=== PATIENT | male | born 1975 | race Caucasian/White ===

== ENCOUNTER 2022-01-03 16:06 | Inpatient (IN) | payer BC, SELFPAY ==
--- NOTE | ~2022-01-03 | CT_ITS ---
EXAMINATION: CT ABDOMEN AND PELVIS WITHOUT CONTRAST CLINICAL INFORMATION: Left lower quadrant pain. Question diverticulitis. COMPARISON: 08/27/2019 TECHNIQUE: Multidetector volumetric imaging was performed from the superior aspect of the liver through the pubic symphysis. Sagittal and coronal reformatted images were obtained on the technologist's workstation. This CT examination was performed using dose optimization techniques as appropriate, variously including the following: *Automated exposure control *Adjustment of mA and/or kV according to patient size (this includes techniques or standardized protocols for targeted exams where dose is matched to indication/reason for exam; i.e. extremities or head) *Use of iterative reconstruction technique DLP: 872 mGy-cm FINDINGS: LUNG BASES: The visualized lung bases are unremarkable. LIVER, GALLBLADDER, AND BILIARY TREE: The liver is normal in size, shape, and attenuation. No focal hepatic lesion or biliary ductal dilatation is present. The gallbladder is unremarkable with no evidence of radiopaque gallstones, gallbladder wall thickening, or obvious pericholecystic inflammatory changes. PANCREAS: Unremarkable. SPLEEN: Unremarkable. ADRENAL GLANDS: Unremarkable. KIDNEYS AND URETERS: The kidneys are normal in size, shape, and attenuation. No hydronephrosis, hydroureter, or calculi seen. No perinephric stranding. BLADDER: Unremarkable. GASTROINTESTINAL TRACT: Decompressed stomach. Normal caliber small bowel. No obstruction. Normal appendix. Mild wall thickening throughout the left hemicolon with adjacent inflammation. There are scattered colonic diverticula, though this is not the appearance of diverticulitis. ABDOMINAL WALL: No significant hernia is appreciated. LYMPH NODES: Normal. VASCULAR: Normal caliber aorta with mild atherosclerotic calcification noted. Duplicated inferior vena cava. PELVIC VISCERA: The prostate and seminal vesicles are unremarkable. OSSEOUS STRUCTURES: No acute or suspicious osseous abnormality. Mild degenerative change of the spine. CT/CT abdomen pelvis wo con IMPRESSION: Wall thickening and mild adjacent inflammation involving the left hemicolon, suggestive of colitis. Fleischner guidelines were followed.
[2022-01-03 16:20] VITALS: BP 160/92; PULSE 135; RESP 16; TEMP 37.5; O2SAT 97; BMI 33.4
--- NOTE | 2022-01-03 16:24 | ECG_ITS ---
Test Reason : TACHY Blood Pressure : / mmHG Vent. Rate : 130 BPM Atrial Rate : 130 BPM P-R Int : 136 ms QRS Dur : 094 ms QT Int : 308 ms P-R-T Axes : 053 014 037 degrees QTc Int : 453 ms Sinus tachycardia Otherwise normal ECG No previous ECGs available Referred By: Generic ED Physician Electronically Signed By:VIVEK BAEZ MD
[2022-01-03 16:44] LABS: Hematocrit 25.3 % (42.0-52.0); Hemoglobin 7.1 g/dl (14.0-18.0); Mean Corpuscular HGB Conc 28.1 g/dl (31.0-36.0); Mean Corpuscular Volume 67.6 fL (80.0-98.0); Mean Platelet Volume 8.7 fL (9.4-12.4); Platelet Count 623 X10*3/uL (160-400); Red Blood Count 3.74 X10*6/uL (4.60-5.80); Red Cell Distribution Width 18.7 % (11.0-16.0); White Blood Count 11.2 X10*3/uL (4.8-10.8)
[2022-01-03 16:46] LABS: NRBC Pct Auto 3.7 /100WBC (0.0-0.2)
[2022-01-03 17:06] LABS: Alanine Aminotransferase 17 U/L (0-40); Albumin Level 3.3 g/dL (3.5-5.0); Alkaline Phosphatase 71 U/L (39-117); Anion Gap 14 (12-20); Aspartate Amino Transferase 12 U/L (5-37); Bilirubin Total < 0.2 mg/dL (0.0-1.0); Blood Urea Nitrogen 9 mg/dL (9-16); Calcium 8.5 mg/dL (8.4-10.2); Carbon Dioxide 25 mmol/L (22-29); Chloride 98 mmol/L (96-108); Creatinine Clr Calc Pharmacy 86.1; Estimated Glomerular Filt Rate > 60; Glucose Random 195 mg/dL (60-115); Potassium 4.6 mmol/L (3.3-5.1); Sodium 132 mmol/L (135-145); Total Protein 6.5 g/dL (6.5-8.0)
[2022-01-03 17:31] LABS: Band Neutrophils Percent 10 % (3-5); Lymphocytes Absolute Manual 2.6 X10*3/uL (1.2-4.9); Lymphocytes Percent Manual 23 % (20-40); Metamyelocytes Absolute 0.1 X10*3/uL; Metamyelocytes Percent 1 %; Monocytes Absolute Manual 0.9 X10*3/uL (0.1-1.2); Monocytes Percent Manual 8 % (2-11); Myelocytes Absolute 0.3 X10*/uL; Myelocytes Percent 3 %; Neutrophils Absolute Manual 7.3 X10*3/uL (2.0-8.3); Neutrophils Percent Manual 55 % (45-73); Nucleated Red Blood Cells 4 /100WBC (0-0)
[2022-01-03 17:34] LABS: Microcytosis 2+ (15-30) /OIF
[2022-01-03 17:35] LABS: Platelet Estimate INCREASED (NORMAL)
[2022-01-03 17:36] LABS: RBC Morphology NOTED
[2022-01-03 17:38] LABS: Large Platelet PRESENT; Platelet Morphology Comment NORMAL
[2022-01-03 17:39] LABS: Polychromasia 1+ (0-2) /OIF
[2022-01-03 17:42] LABS: Ovalocytes 1+ (5-14) /OIF
[2022-01-03 17:45] LABS: Dohle Bodies PRESENT
[2022-01-03 17:46] LABS: Hypochromasia 3+ (>30) /OIF
--- NOTE | 2022-01-03 18:23 | ED.ABDPAIN ---
HPI - Abdominal Pain General Chief Complaint: Abdominal Pain Stated Complaint: Blood in Stool Time Seen by Provider: 01/03/22 17:31 Source: patient Mode of arrival: ambulatory Limitations: no limitations History of Present Illness HPI narrative: Patient's history of diverticulitis with bleeding requiring blood transfusion comes here for diffuse abdominal pain for last 2 weeks worse in epigastric area and left lower quadrant associated with blood mixed with stool with some clots feels weak and dizzy pain getting worse in last 2 days does not feel hungry. No fever no chills Related Data Home Medications Medication Instructions Recorded Confirmed No Known Home Meds 01/03/22 01/03/22 Allergies Allergy/AdvReac Type Severity Reaction Status Date / Time shellfish derived Allergy Swelling Verified 01/03/22 16:19 Review of Systems Review of Systems Yes all other systems are reviewed and are negative [facility] Social History Social History Advance Directives: No Advance Directives Information Provided: No Physical Exam ED Vital Signs: Vital Signs - 24 hr 01/03/22 16:20 01/03/22 19:40 01/03/22 20:50 Temperature 99.5 F 99 F Pulse Rate 135 H 106 H Respiratory Rate 16 22 H 16 Blood Pressure 160/92 H 143/77 H Pulse Oximetry 97 Oxygen Delivery Method Room Air 01/03/22 21:06 Temperature 98.9 F Pulse Rate 102 H Respiratory Rate 18 Blood Pressure 129/76 Pulse Oximetry Oxygen Delivery Method BMI result Body Mass Index 33.4 Appearance: Alert. Oriented X3. No acute distress. Eyes: Pallor++ ENT: Pharynx normal. Oral Mucosa moist Neck: Normal inspection. Neck supple. CVS: Normal heart rate and rhythm. Pulses normal. Respiratory: No respiratory distress. Equal air entry bilateral, no wheezing/rales/rhonchi Abdomen: Soft , tenderness in left lower quadrant and epigastric area with guarding no rebound tenderness. Bowel sounds are present, no mass palpable, no CVA tenderness rectal: No stool no blood on the finger small hemorrhoids nonbleeding Skin: Skin warm and dry. Normal skin color. Normal skin turgor. Extremities: No lower extremity edema. No calf tenderness Neuro: Oriented X 3. No motor deficit. No sensory deficit.No cerebellar signs , cranial nerves II-XII intact MDM - Abdominal Pain MDM Narrative Medical decision making narrative: Two thousand two hundred Patient with GI bleed with diffuse abdominal pain history of diverticulitis CT scan showed colitis but patient does not have significant diarrhea will admit patient for diverticulitis with GI bleed. Will give patient blood transfusion GI to follow Lab Data Attestation: I reviewed the patient's lab results. Result diagrams: 01/03/22 16:38 01/03/22 16:38 Labs: Lab Results 01/03/22 01/03/22 01/03/22 Range/Units 16:38 16:38 19:08 WBC 11.2 H (4.8-10.8) X10*3/uL RBC 3.74 L (4.60-5.80) X10*6/uL Hgb 7.1 L (14.0-18.0) g/dl Hct 25.3 L (42.0-52.0) % MCV 67.6 L (80.0-98.0) fL MCH 19.0 L (27.0-33.0) pg MCHC 28.1 L (31.0-36.0) g/dl RDW 18.7 H (11.0-16.0) % Plt Count 623 H (160-400) X10*3/uL MPV 8.7 L (9.4-12.4) fL Immature Gran % (Auto) Cancelled Neut % (Auto) Cancelled Lymph % (Auto) Cancelled Sandoval % (Auto) Cancelled Eos % (Auto) Cancelled Baso % (Auto) Cancelled Lymph # (Auto) Cancelled Sandoval # (Auto) Cancelled Eos # (Auto) Cancelled Baso # (Auto) Cancelled Abs Immat Gran (auto) Cancelled Absolute Neuts (auto) Cancelled Absolute Nucleated RBC 0.420 H (0.0-0.012) X10*3/uL Nucleated RBC % (auto) 3.7 H (0.0-0.2) /100WBC Neutrophils % (Manual) 55 (45-73) % Band Neutrophils % 10 H (3-5) % Lymphocytes % (Manual) 23 (20-40) % Monocytes % (Manual) 8 (2-11) % Metamyelocytes % 1 % Myelocytes % 3 % Abs Neuts (Manual) 7.3 (2.0-8.3) X10*3/uL Lymphocytes # (Manual) 2.6 (1.2-4.9) X10*3/uL Monocytes # (Manual) 0.9 (0.1-1.2) X10*3/uL Metamyelocytes # 0.1 X10*3/uL Myelocytes # 0.3 X10*/uL Nucleated RBCs 4 H (0-0) /100WBC Dohle Bodies PRESENT Platelet Estimate INCREASED (NORMAL) Large Platelets PRESENT Plt Morphology Comment NORMAL RBC Morphology NOTED Polychromasia 1+ (0-2) /OIF Hypochromasia 3+ (>30) /OIF Microcytosis 2+ (15-30) /OIF Ovalocytes 1+ (5-14) /OIF Sodium 132 L (135-145) mmol/L Potassium 4.6 (3.3-5.1) mmol/L Chloride 98 (96-108) mmol/L Carbon Dioxide 25 (22-29) mmol/L Anion Gap 14 (12-20) BUN 9 (9-16) mg/dL Creatinine 1.24 (0.5-1.4) mg/dL Estim Creat Clear Calc 86.1 Estimated GFR > 60 Random Glucose 195 H (60-115) mg/dL Lactic Acid (0.5-2.0) mmol/L Calcium 8.5 (8.4-10.2) mg/dL Iron 8 L (45-160) mcg/dL TIBC 340 (228-428) mcg/dL % Saturation 2 L (15-50) % Unsat Iron Binding 332 ug/dL Ferritin 31 (20-250) ng/mL Total Bilirubin < 0.2 (0.0-1.0) mg/dL AST 12 (5-37) U/L ALT 17 (0-40) U/L Alkaline Phosphatase 71 (39-117) U/L Total Protein 6.5 (6.5-8.0) g/dL Albumin 3.3 L (3.5-5.0) g/dL COVID-19 (JOSEPH) Negative (Negative) COVID-19 Clin Com See Note Blood Type Antibody Screen Crossmatch 01/03/22 01/03/22 Range/Units 19:13 19:23 WBC (4.8-10.8) X10*3/uL RBC (4.60-5.80) X10*6/uL Hgb (14.0-18.0) g/dl Hct (42.0-52.0) % MCV (80.0-98.0) fL MCH (27.0-33.0) pg MCHC (31.0-36.0) g/dl RDW (11.0-16.0) % Plt Count (160-400) X10*3/uL MPV (9.4-12.4) fL Immature Gran % (Auto) Neut % (Auto) Lymph % (Auto) Sandoval % (Auto) Eos % (Auto) Baso % (Auto) Lymph # (Auto) Sandoval # (Auto) Eos # (Auto) Baso # (Auto) Abs Immat Gran (auto) Absolute Neuts (auto) Absolute Nucleated RBC (0.0-0.012) X10*3/uL Nucleated RBC % (auto) (0.0-0.2) /100WBC Neutrophils % (Manual) (45-73) % Band Neutrophils % (3-5) % Lymphocytes % (Manual) (20-40) % Monocytes % (Manual) (2-11) % Metamyelocytes % % Myelocytes % % Abs Neuts (Manual) (2.0-8.3) X10*3/uL Lymphocytes # (Manual) (1.2-4.9) X10*3/uL Monocytes # (Manual) (0.1-1.2) X10*3/uL Metamyelocytes # X10*3/uL Myelocytes # X10*/uL Nucleated RBCs (0-0) /100WBC Dohle Bodies Platelet Estimate (NORMAL) Large Platelets Plt Morphology Comment RBC Morphology Polychromasia /OIF Hypochromasia /OIF Microcytosis /OIF Ovalocytes /OIF Sodium (135-145) mmol/L Potassium (3.3-5.1) mmol/L Chloride (96-108) mmol/L Carbon Dioxide (22-29) mmol/L Anion Gap (12-20) BUN (9-16) mg/dL Creatinine (0.5-1.4) mg/dL Estim Creat Clear Calc Estimated GFR Random Glucose (60-115) mg/dL Lactic Acid 1.4 (0.5-2.0) mmol/L Calcium (8.4-10.2) mg/dL Iron (45-160) mcg/dL TIBC (228-428) mcg/dL % Saturation (15-50) % Unsat Iron Binding ug/dL Ferritin (20-250) ng/mL Total Bilirubin (0.0-1.0) mg/dL AST (5-37) U/L ALT (0-40) U/L Alkaline Phosphatase (39-117) U/L Total Protein (6.5-8.0) g/dL Albumin (3.5-5.0) g/dL COVID-19 (JOSEPH) (Negative) COVID-19 Clin Com Blood Type O Positive Antibody Screen NEGATIVE Crossmatch See Detail Discharge Plan Discharge Clinical Impression: Diverticulitis, GI (gastrointestinal bleed), Severe anemia Patient Disposition: Admitted As Inpatient
[2022-01-03 19:32] LABS: Lactic Acid 1.4 mmol/L (0.5-2.0)
[2022-01-03] MEDS: 0.9 % Sodium Chloride 1,000 ML 999 ML IV (19:38)
[2022-01-03] MEDS: Pantoprazole Sodium 40 MG/10 ML VIAL IVPUSH (19:39)
[2022-01-03 19:40] VITALS: RESP 22
[2022-01-03 19:40] LABS: COVID-19 Test Negative (Negative); IDNOW Serial# 16C4AD1C
[2022-01-03] MEDS: ondansetron HCL 4 MG/2 ML VIAL IVPUSH (19:40)
[2022-01-03] MEDS: Morphine Sulfate 2 MG/ML CARTRIDGE 4 MG IVPUSH (19:40)
[2022-01-03] MEDS: Piperacillin Sodium/Tazobactam 3.375 GM in 0.9 % Sodium Chloride 50 ML IV (19:42)
[2022-01-03 20:50] VITALS: BP 143/77; PULSE 106; RESP 16; TEMP 37.2
[2022-01-03 21:06] VITALS: BP 129/76; PULSE 102; RESP 18; TEMP 37.2
--- NOTE | 2022-01-03 21:14 | PHA.MEDREC ---
Pharmacy Consult ? Medication Reconciliation Pharmacy has reviewed the medication reconciliation completed by Kate. Lily Boyd, DarioD
--- NOTE | 2022-01-03 21:46 | P.HPHOSP_ITS ---
History of Present Illness Date of Service: 01/03/22 Chief Complaint: blood in stool 46-year-old male with a past medical history of alcohol abuse, GERD presented to the hospital today with a chief complaint of blood in the stool. Patient reports that over the past 2 weeks he has been having intermittent episodes of bright red blood per rectum. For the past 3 days he has been having increased episodes hence decided to come to the ER for further evaluation. Patient also reports that for the past 3 days he has been having left-sided abdominal tenderness; associated nausea and vomiting. Denies any fevers and chills. Reports diarrhea over the past couple days. Denies being on antibiotics in the recent times. Patient reports that he had prior history of lower GI bleed. Had colonoscopy. Denies any urinary symptoms. Review of all other systems is negative except mentioned above ER course: Per ER team patient noted to have drop in hemoglobin to 7.1. Being transfused [address] scan consistent with possible colitis/question diverticulitis. Patient was given Zosyn. Admitted for further management. [facility] Social History Advance Directives: No Advance Directives Information Provided: No Meds Allergies Allergy/AdvReac Type Severity Reaction Status Date / Time shellfish derived Allergy Swelling Verified 01/03/22 16:19 Active Medications: Current Medications Acetaminophen (Acetaminophen 325 Mg Tablet) 650 mg PO Q6H PRN PRN Reason: Pain, Mild (Pain Scale 1-3) Hydromorphone HCl (Hydromorphone Hcl 1 Mg/Ml Syringe) 0.5 mg IVPUSH Q4H PRN; Protocol PRN Reason: Pain, Severe (Pain Scale 7-10) Dextrose/Sodium Chloride (D51/2ns) 1,000 mls @ 100 mls/hr IVCONT .Q10H [facility] Melatonin (Melatonin 3 Mg Tablet) 6 mg PO BEDTIME PRN PRN Reason: Insomnia Senna (Sennosides 8.6 Mg Tablet) 17.2 mg PO BEDTIME PRN PRN Reason: Constipation Sodium Chloride (0.9 % Sodium Chloride Flush 3 Ml Syringe) 3 ml IVFLUSH QSHIFT [facility] Home Medications Medication Instructions Recorded Confirmed Last Taken Type No Known Home Meds 01/03/22 01/03/22 Unknown History Physical Exam Vital Signs and Narrative: Vital Signs: Last Vital Signs Temp 98.9 F 01/03/22 21:06 Pulse 102 H 01/03/22 21:06 Resp 18 01/03/22 21:06 BP 129/76 01/03/22 21:06 Pulse Ox 97 01/03/22 16:20 O2 Del Method 01/03/22 16:20 BMI result Body Mass Index 33.4 Gen: Appears be in no acute distress HEENT: NCAT, Moist mucosa. Pulmonary: Vesicular breath sounds, fair air entry CVS: Normal S1-S2 Abdomen: BS+, Soft, mildly tender in the left lower quadrant; no guarding no rigidity Extremities: Warm well perfused Neuro: Alert and awake. Results Labs CBC and Chem 7: 01/03/22 16:38 01/03/22 16:38 Labs: Laboratory Results - last 24 hr 01/03/22 01/03/22 01/03/22 16:38 16:38 19:08 MCV 67.6 L MCH 19.0 L MCHC 28.1 L RDW 18.7 H Plt Count 623 H MPV 8.7 L Immature Gran % (Auto) Cancelled Neut % (Auto) Cancelled Lymph % (Auto) Cancelled Mccracken % (Auto) Cancelled Eos % (Auto) Cancelled Baso % (Auto) Cancelled Lymph # (Auto) Cancelled [place]racken # (Auto) Cancelled Eos # (Auto) Cancelled Baso # (Auto) Cancelled Abs Immat Gran (auto) Cancelled Absolute Neuts (auto) Cancelled Absolute Nucleated RBC 0.420 H Nucleated RBC % (auto) 3.7 H Neutrophils % (Manual) 55 Band Neutrophils % 10 H Lymphocytes % (Manual) 23 Monocytes % (Manual) 8 Metamyelocytes % 1 Myelocytes % 3 Abs Neuts (Manual) 7.3 Lymphocytes # (Manual) 2.6 Monocytes # (Manual) 0.9 Metamyelocytes # 0.1 Myelocytes # 0.3 Nucleated RBCs 4 H Dohle Bodies PRESENT Platelet Estimate INCREASED Large Platelets PRESENT Plt Morphology Comment NORMAL RBC Morphology NOTED Polychromasia 1+ (0-2) Hypochromasia 3+ (>30) Microcytosis 2+ (15-30) Ovalocytes 1+ (5-14) Anion Gap 14 Estim Creat Clear Calc 86.1 Estimated GFR > 60 Random Glucose 195 H Lactic Acid Calcium 8.5 Total Bilirubin < 0.2 AST 12 ALT 17 Alkaline Phosphatase 71 Total Protein 6.5 Albumin 3.3 L COVID-19 (JOSEPH) Negative COVID-19 Clin Com See Note Blood Type Antibody Screen Crossmatch 01/03/22 01/03/22 19:13 19:23 MCV MCH MCHC RDW Plt Count MPV Immature Gran % (Auto) Neut % (Auto) Lymph % (Auto) Mccracken % (Auto) Eos % (Auto) Baso % (Auto) Lymph # (Auto) Mccracken # (Auto) Eos # (Auto) Baso # (Auto) Abs Immat Gran (auto) Absolute Neuts (auto) Absolute Nucleated RBC Nucleated RBC % (auto) Neutrophils % (Manual) Band Neutrophils % Lymphocytes % (Manual) Monocytes % (Manual) Metamyelocytes % Myelocytes % Abs Neuts (Manual) Lymphocytes # (Manual) Monocytes # (Manual) Metamyelocytes # Myelocytes # Nucleated RBCs Dohle Bodies Platelet Estimate Large Platelets Plt Morphology Comment RBC Morphology Polychromasia Hypochromasia Microcytosis Ovalocytes Anion Gap Estim Creat Clear Calc Estimated GFR Random Glucose Lactic Acid 1.4 Calcium Total Bilirubin AST ALT Alkaline Phosphatase Total Protein Albumin COVID-19 (JOSEPH) COVID-19 Clin Com Blood Type O Positive Antibody Screen NEGATIVE Crossmatch See Detail Imaging Radiologist's Impressions: Impressions Abdomen/Pelvis CT 01/03/22 19:02 IMPRESSION: Wall thickening and mild adjacent inflammation involving the left hemicolon, suggestive of colitis. Fleischner guidelines were followed. Assessment and Plan (1) Colitis: Status: Acute (2) GI (gastrointestinal bleed): Status: Acute Plan 46-year-old male with a past medical history of alcohol abuse, GERD presented to the hospital today with a chief complaint of blood in the stool. Noted to have following Colitis: Continue ceftriaxone and Flagyl. Anemia/GI bleed: NPO IV fluids GI consult Patient being transfused 1 unit of blood IV PPI Alcohol abuse: Monitor on [place] protocol; thiamine, multivitamins, folate DVT prophylaxis: SCD boots Code status: Full code Quality Stroke Does the patient have a stroke diagnosis?: No VTE Prior VTE?: No VTE Risk Level:: Medical - moderate - high VTE Device Contraindication: N/A - Device Ordered VTE Drug Contraindication: Treatment Not Indicated
[2022-01-03] MEDS: metroNIDAZOLE/NS 500 MG/100 ML PIGGYBACK 100 MG IV (22:10)
[2022-01-03 22:28] LABS: Iron 8 mcg/dL (45-160); Percent Iron Saturation 2 % (15-50); Total Iron Binding Capacity 340 mcg/dL (228-428); Unsaturated Iron Binding 332 ug/dL
[2022-01-03 22:48] LABS: Ferritin 31 ng/mL (20-250)
[2022-01-03 22:55] VITALS: BP 131/87; PULSE 99; RESP 16; TEMP 37.2
[2022-01-04] VITALS (9 sets, daily range): BP systolic 106–150; BP diastolic 75–91; PULSE 89–100; RESP 14–18; TEMP 36.7–37.1; O2SAT 95–98
[2022-01-04] MEDS: Dextrose 5 % and 0.45 % NaCl 1,000 ML 100 ML IVCONT ×2 (01:21→16:24)
[2022-01-04] MEDS: 0.9 % Sodium Chloride Flush 3 ML SYRINGE IVFLUSH ×4 (01:22→22:24)
--- NOTE | 2022-01-04 03:00 | PC.NURSE ---
pt ambulated with steady gait to bathroom. linens changed, pillow/blanket given. pt now resting comfortably in bed awaiting for bed assignment.
--- NOTE | 2022-01-04 03:12 | PC.NURSE ---
pt a&o, no sob or chest pain at this time. pt denies any pain at this time. pt oob with a stead gait. Will continue to monitor.
[2022-01-04] MEDS: Pantoprazole Sodium 40 MG/10 ML VIAL IVPUSH (05:29)
[2022-01-04] MEDS: metroNIDAZOLE/NS 500 MG/100 ML PIGGYBACK 100 MG IV ×3 (05:32→22:23)
--- NOTE | 2022-01-04 05:36 | PC.NURSE ---
medicated pt per Mar.
[2022-01-04 06:56] LABS: Hemoglobin 7.4 g/dl (14.0-18.0); Mean Corpuscular HGB Conc 29.6 g/dl (31.0-36.0); Mean Corpuscular Hemoglobin 20.6 pg (27.0-33.0); Mean Corpuscular Volume 69.6 fL (80.0-98.0); Mean Platelet Volume 9.2 fL (9.4-12.4); Platelet Count 582 X10*3/uL (160-400); Red Blood Count 3.59 X10*6/uL (4.60-5.80); Red Cell Distribution Width 19.4 % (11.0-16.0); White Blood Count 9.4 X10*3/uL (4.8-10.8)
[2022-01-04 07:03] LABS: NRBC Pct Auto 4.1 /100WBC (0.0-0.2)
[2022-01-04 07:18] LABS: Anion Gap 11 (12-20); Blood Urea Nitrogen 7 mg/dL (9-16); Calcium 7.8 mg/dL (8.4-10.2); Carbon Dioxide 26 mmol/L (22-29); Chloride 101 mmol/L (96-108); Creatinine Clr Calc Pharmacy 104.7; Estimated Glomerular Filt Rate > 60; Glucose Random 117 mg/dL (60-115); Potassium 3.9 mmol/L (3.3-5.1); Sodium 134 mmol/L (135-145)
--- NOTE | 2022-01-04 07:18 | P.CNGI_ITS ---
History of Present Illness Data of Consult Service Date: 01/04/22 Requesting physician: Cruz Joyce Primary Care Provider: Ihsan Astudillo MD HPI 46-year-old male with a past medical history of alcohol abuse, GERD presented to the hospital today with a chief complaint of blood in the stool.? Patient reports that over the past 2 weeks he has been having intermittent episodes of bright red blood per rectum.? For the past 3 days he has been having increased episodes hence decided to come to the ER for further evaluation.? Patient also reports that for the past 3 days he has been having left-sided abdominal tenderness; associated HAs, nausea and vomiting.? He reports a poor appetite and has not eaten for the past 3 days. Denies any fevers and chills.? Pt reports has several small BMs (almost 20) in a day and these contain pure bright red blood without any fecal matter.? Denies being on antibiotics in the recent times.? Patient denies symptoms of heartburn or dysphagia. Denies any urinary symptoms.? Patient denies major cardiac problems and admits to loud snoring or sleep apnea Pt admites to taking Ibuprofen every 6-8 hrs for the abdominal pain and denies being on chronic anticoagulation. He denies smoking and drinks hard liquor 5-6 shots three times a week for the past 3 years. Pt lives by himself, works at a [employer] and has 2 children Patient denies known family history of IBD, colon polyps, colon cancer or other GI malignancies. ER course: Per ER team patient noted to have drop in hemoglobin to 7.1 and was transfused 1 unit of blood.? He was given Zosyn.? Admitted for further management. IMAGING STUDIES: 01/03/[address] SCAN SHOWED: GASTROINTESTINAL TRACT: Decompressed stomach. Normal caliber small bowel. No obstruction. Normal appendix. Mild wall thickening throughout the left hemicolon with adjacent inflammation. There are scattered colonic diverticula, though this is not the appearance of diverticulitis.? [place] [facility] [place] and was diagnosed with new onset IBD: ENDOSCOPIC STUDIES: 08/2019 EGD AND COLONOSCOPY WERE PERFORMED BY DR. ESTEVEZ: EGD showed nodular gastritis and bulbar duodenitis Colonoscopy showed: From Rectum to Ascending colon contiguous severe inflammation with edema, friability and microabscesses and erythema. Biopsies taken from ascening colon, transverse, descending/sigmoid and rectum in seperate jars. Retroflexion not done, but small hemorrhoids seen on forward view. severe colitis based on endoscopic appearance and lab work, clinical features, VOGEL score 11 Plan: Await pathology results commence solumedrol 20 mg IV q8h for at least 72 hrs, will consider tapering to PO steroid depending on response to IV commence PO mesalamine e.g pentasa 1 g QID and rowasa enema once at night recommend low dose SQ heparin, v high risk for DVT in active IBD complete stool work up for c diff and stool culture meantime commence flagyl and cipro, high risk for bacterial translocation [facility] Hep serologies, HIV, TPMT, TB spot in case he needs biologic therapy pneumovax and shingles vaccines before d/c if worsens will need surgical consult BIOPSIES SHOWED: D. Colon, cecum, biopsies: Colonic mucosa within normal limits; no active inflammation; negative for dysplasia/malignancy. E. Colon, ascending, biopsies: Chronic, mild active colitis; negative for granulomas; negative for dysplasia/malignancy. F. Colon, transverse, biopsies: Chronic, mild active colitis; negative for granulomas; negative for dysplasia/malignancy. G. Colon, left biopsies: Chronic, moderate active colitis; negative granulomas; negative for dysplasia/malignancy. H. Rectum, biopsies: Chronic, mild active colitis; negative granulomas; negative for dysplasia/malignancy. Review of Systems Constitutional: Constitutional: Reports fatigue, Denies fever(s), Reports poor appetite and Reports weight loss Cardiovascular: Cardiovascular: Denies dyspnea Respiratory: Respiratory: Denies cough and Denies dyspnea Gastrointestinal: Gastrointestinal: Reports abdominal pain and Reports hematochezia Musculoskeletal: Musculoskeletal: Denies arthralgias Integumentary/Breasts: Skin/Breast: Denies rash Neurologic: Denies seizure-like activity and Denies tremor(s) Psychiatric: Psychiatric: Denies anxiety and Denies depression Endocrine: Endocrine: Reports fatigue PMFSH Surgical History Surgical History (Updated 01/04/22 @ 08:25 by Luisito Candelario MD) Hx of colonoscopy Social History Social History Household Members: None Housing: House Do you presently have visiting nurse or other home services: No Patient Tobacco Use Status: Never used Tobacco Meds Allergies Allergy/AdvReac Type Severity Reaction Status Date / Time shellfish derived Allergy Swelling Verified 01/03/22 16:19 Active Medications: Current Medications Acetaminophen (Acetaminophen 325 Mg Tablet) 650 mg PO Q6H PRN PRN Reason: Pain, Mild (Pain Scale 1-3) Folic Acid (Folic Acid 1 Mg Tablet) 1 mg PO DAILY [facility] Stop: 01/07/22 08:59 Hydromorphone HCl (Hydromorphone Hcl 1 Mg/Ml Syringe) 0.5 mg IVPUSH Q4H PRN; Protocol PRN Reason: Pain, Severe (Pain Scale 7-10) Dextrose/Sodium Chloride (D51/2ns) 1,000 mls @ 100 mls/hr IVCONT .Q10H [facility] Last Admin: 01/04/22 01:21 Dose: 100 mls/hr Ceftriaxone Sodium 1 gm/ (Sodium Chloride) 50 mls @ 100 mls/hr IV Q24H [facility] Metronidazole (Flagyl) 500 mg in 100 mls @ 100 mls/hr IV Q8H [facility] Last Admin: 01/04/22 05:32 Dose: 100 mls/hr Lorazepam (Lorazepam 1 Mg Tablet) 1 mg PO Q4H PRN PRN Reason: Breakthrough alcohol withdrawa Stop: 01/07/22 23:49 Melatonin (Melatonin 3 Mg Tablet) 6 mg PO BEDTIME PRN PRN Reason: Insomnia Multivitamins/Vitamin C (Multivitamin Tablet) 1 tab PO DAILY [facility] Stop: 01/07/22 08:59 Pantoprazole Sodium (Pantoprazole Sodium 40 Mg/10 Ml Vial) 40 mg IVPUSH DAILY@0630 [facility] Last Admin: 01/04/22 05:29 Dose: 40 mg Senna (Sennosides 8.6 Mg Tablet) 17.2 mg PO BEDTIME PRN PRN Reason: Constipation Sodium Chloride (0.9 % Sodium Chloride Flush 3 Ml Syringe) 3 ml IVFLUSH QSHIFT [facility] Last Admin: 01/04/22 01:22 Dose: 3 ml Thiamine HCl (Thiamine Hcl 100 Mg Tablet) 100 mg PO DAILY [facility] Stop: 01/07/22 08:59 Home Medications Medication Instructions Recorded Confirmed Last Taken Type No Known Home Meds 01/03/22 01/03/22 Unknown History Physical Exam Vital Signs: Vital Signs: Last Vital Signs Temp 98.9 F 01/03/22 22:55 Pulse 99 01/04/22 03:00 Resp 18 01/04/22 03:00 BP 128/79 01/04/22 03:00 Pulse Ox 97 01/04/22 03:00 O2 Del Method 01/04/22 03:00 BMI result Body Mass Index 33.4 Const: General: no acute distress Nutritional Appearance: obese Orientation/consciousness: patient oriented x3 Limitations: no limitations HEENT: Head: Yes normal to inspection Ears: hearing grossly normal bilate rally Eyes: Sclerae: sclerae normal Pupils: Equal, round and reactive pupils present Neck: Neck: Yes normal visual inspection Chest: Chest palpation & inspection: normal inspection of the chest Resp: Effort & Inspection: normal respiratory effort Auscultation: clear to auscultation bilaterally Cardio: Palpation: normal PMI Rate: regular rate Rhythm: regular rhythm Heart sounds: S1 normal heart sound present, S2 normal heart sound present and no murmurs GI: Palpation (GI): Soft to palpation, Tenderness to palpation present (GI) (Moderate epigastric/LUQ and LLQ tenderness) and No hepatosplenomegaly present Auscultation: normal bowel sounds Rectal Exam - Male: Yes deferred Skin: General skin exam: no rashes or lesions noted Neuro: General: patient oriented x3, gait normal and moves all extremities Cranial nerves: Yes Equal, round and reactive pupils present Psych: Appearance: grossly normal Mental Status: mental status grossly normal Results Labs CBC & Chem 7: 01/04/22 06:38 01/04/22 06:38 Labs: Short CBC 01/03/22 01/04/22 Range/Units 16:38 06:38 WBC 11.2 H 9.4 (4.8-10.8) X10*3/uL Hgb 7.1 L 7.4 L (14.0-18.0) g/dl Hct 25.3 L 25.0 L (42.0-52.0) % Plt Count 623 H 582 H (160-400) X10*3/uL BMP 01/03/22 01/04/22 16:38 06:38 Sodium 132 L 134 L Potassium 4.6 3.9 Chloride 98 101 Carbon Dioxide 25 26 BUN 9 7 L Creatinine 1.24 1.02 Calcium 8.5 7.8 L D Liver Function 01/03/22 Range/Units 16:38 Total Bilirubin < 0.2 (0.0-1.0) mg/dL AST 12 (5-37) U/L ALT 17 (0-40) U/L Alkaline Phosphatase 71 (39-117) U/L Albumin 3.3 L (3.5-5.0) g/dL Assessment and Plan (1) GI (gastrointestinal bleed): Status: Acute (2) Colitis: Status: Acute (3) Severe anemia: Status: Acute Plan 46 YM admitted with 2 week hx of worsening abdominal pain and hematochezia. Labs show severe microcytic hypochromic anemia due to iron deficiency suggestive of acute on chronic anemia Pt was diagnosed with left sided UC in 08/[address] Estevez and treated with IV steroids and Pentasa. Did not return for FU and stopped taking Pentasa after he ran out. States he was doing well until 2 weeks ago. Abdominal pain and hematochezia are likely due to UC flare. RECOMMENDATIONS: 1. Follow H&H Q 8 hrly x 24 hrs then once a day if stable. 2. Start on IV steroids. 3. Pt is scheduled for a Flexible Sigmoidoscopy today 4. Pt can FU with Dr Estevez in the GI clinic after discharge. Procedures Date of Service Date of Service: 01/04/22
[2022-01-04 07:34] LABS: Band Neutrophils Percent 6 % (3-5); Eosinophils Absolute Manual 0.7 X10*3/uL (0.0-0.4); Eosinophils Percent Manual 7 % (0-4); Lymphocytes Percent Manual 21 % (20-40); Metamyelocytes Absolute 0.2 X10*3/uL; Metamyelocytes Percent 2 %; Monocytes Absolute Manual 1.4 X10*3/uL (0.1-1.2); Monocytes Percent Manual 15 % (2-11); Neutrophils Absolute Manual 5.2 X10*3/uL (2.0-8.3); Neutrophils Percent Manual 49 % (45-73); Nucleated Red Blood Cells 4 /100WBC (0-0)
[2022-01-04 07:35] LABS: Hypochromasia 2+ (15-30) /OIF; Platelet Estimate INCREASED (NORMAL)
[2022-01-04 07:36] LABS: Microcytosis 1+ (5-14) /OIF; Platelet Morphology Comment NORM; Polychromasia 1+ (0-2) /OIF
[2022-01-04 07:37] LABS: RBC Morphology NOTED
--- NOTE | 2022-01-04 08:50 | HO.PM.IMPN ---
Subjective Subjective Date of Service: 01/04/22 Interval History: f/u rectal bleed, colitis, acute blood loss anemia interval history: Still has some abdominal pain, no active rectal bleeding. Review of Systems Abdominal for shortness of breath, no dizziness., No fever Physical Exam Vital Signs: Vital Signs: Last Vital Signs Temp 98.9 F 01/03/22 22:55 Pulse 99 01/04/22 03:00 Resp 18 01/04/22 03:00 BP 128/79 01/04/22 03:00 Pulse Ox 97 01/04/22 03:00 O2 Del Method 01/04/22 03:00 BMI result Body Mass Index 33.4 Const: Other: General: AO X 3, no acute distress Resp: CTA bilateral CVS: S1,S2,RRR GI: +BS, mild mid abdomen tenderness distention Skin: No rash Neuro: motor grossly intact Psych: appropriate affect Objective Data Active Medications Acetaminophen (Acetaminophen 325 Mg Tablet) 650 mg PO Q6H PRN PRN Reason: Pain, Mild (Pain Scale 1-3) Folic Acid (Folic Acid 1 Mg Tablet) 1 mg PO DAILY [facility] Stop: 01/07/22 08:59 Hydromorphone HCl (Hydromorphone Hcl 1 Mg/Ml Syringe) 0.5 mg IVPUSH Q4H PRN; Protocol PRN Reason: Pain, Severe (Pain Scale 7-10) Dextrose/Sodium Chloride (D51/2ns) 1,000 mls @ 100 mls/hr IVCONT .Q10H [facility] Last Admin: 01/04/22 01:21 Dose: 100 mls/hr Documented By: MIKE Ceftriaxone Sodium 1 gm/ (Sodium Chloride) 50 mls @ 100 mls/hr IV Q24H [facility] Metronidazole (Flagyl) 500 mg in 100 mls @ 100 mls/hr IV Q8H [facility] Last Admin: 01/04/22 05:32 Dose: 100 mls/hr Documented By: BASSAM Lorazepam (Lorazepam 1 Mg Tablet) 1 mg PO Q4H PRN PRN Reason: Breakthrough alcohol withdrawa Stop: 01/07/22 23:49 Melatonin (Melatonin 3 Mg Tablet) 6 mg PO BEDTIME PRN PRN Reason: Insomnia Multivitamins/Vitamin C (Multivitamin Tablet) 1 tab PO DAILY [facility] Stop: 01/07/22 08:59 Pantoprazole Sodium (Pantoprazole Sodium 40 Mg/10 Ml Vial) 40 mg IVPUSH DAILY@0630 [facility] Last Admin: 01/04/22 05:29 Dose: 40 mg Documented By: BASSAM Senna (Sennosides 8.6 Mg Tablet) 17.2 mg PO BEDTIME PRN PRN Reason: Constipation Sodium Chloride (0.9 % Sodium Chloride Flush 3 Ml Syringe) 3 ml IVFLUSH QSHIFT [facility] Last Admin: 01/04/22 01:22 Dose: 3 ml Documented By: MIKE Thiamine HCl (Thiamine Hcl 100 Mg Tablet) 100 mg PO DAILY [facility] Stop: 01/07/22 08:59 Labs CBC & Chem 7: 01/04/22 06:38 01/04/22 06:38 Labs: Laboratory Results - last 24 hr 01/03/22 01/03/22 01/03/22 16:38 16:38 19:08 MCV 67.6 L MCH 19.0 L MCHC 28.1 L RDW 18.7 H Plt Count 623 H MPV 8.7 L Immature Gran % (Auto) Cancelled Neut % (Auto) Cancelled Lymph % (Auto) Cancelled [place] % (Auto) Cancelled Eos % (Auto) Cancelled Baso % (Auto) Cancelled Lymph # (Auto) Cancelled [place] # (Auto) Cancelled Eos # (Auto) Cancelled Baso # (Auto) Cancelled Abs Immat Gran (auto) Cancelled Absolute Neuts (auto) Cancelled Absolute Nucleated RBC 0.420 H Nucleated RBC % (auto) 3.7 H Neutrophils % (Manual) 55 Band Neutrophils % 10 H Lymphocytes % (Manual) 23 Monocytes % (Manual) 8 Eosinophils % (Manual) Metamyelocytes % 1 Myelocytes % 3 Abs Neuts (Manual) 7.3 Lymphocytes # (Manual) 2.6 Monocytes # (Manual) 0.9 Eosinophils # (Manual) Metamyelocytes # 0.1 Myelocytes # 0.3 Nucleated RBCs 4 H Dohle Bodies PRESENT Platelet Estimate INCREASED Large Platelets PRESENT Plt Morphology Comment NORMAL RBC Morphology NOTED Polychromasia 1+ (0-2) Hypochromasia 3+ (>30) Microcytosis 2+ (15-30) Ovalocytes 1+ (5-14) Anion Gap 14 Estim Creat Clear Calc 86.1 Estimated GFR > 60 Random Glucose 195 H Lactic Acid Calcium 8.5 Iron 8 L TIBC 340 % Saturation 2 L Unsat Iron Binding 332 Ferritin 31 Total Bilirubin < 0.2 AST 12 ALT 17 Alkaline Phosphatase 71 Total Protein 6.5 Albumin 3.3 L COVID-19 (JOSEPH) Negative COVID-19 Clin Com See Note Blood Type Antibody Screen Crossmatch 01/03/22 01/03/22 01/04/22 19:13 19:23 06:38 MCV 69.6 L MCH 20.6 L MCHC 29.6 L RDW 19.4 H Plt Count 582 H MPV 9.2 L Immature Gran % (Auto) Cancelled Neut % (Auto) Cancelled Lymph % (Auto) Cancelled [place] % (Auto) Cancelled Eos % (Auto) Cancelled Baso % (Auto) Cancelled Lymph # (Auto) Cancelled [place] # (Auto) Cancelled Eos # (Auto) Cancelled Baso # (Auto) Cancelled Abs Immat Gran (auto) Cancelled Absolute Neuts (auto) Cancelled Absolute Nucleated RBC 0.380 H Nucleated RBC % (auto) 4.1 H Neutrophils % (Manual) 49 Band Neutrophils % 6 H Lymphocytes % (Manual) 21 Monocytes % (Manual) 15 H Eosinophils % (Manual) 7 H Metamyelocytes % 2 Myelocytes % Abs Neuts (Manual) 5.2 Lymphocytes # (Manual) 2.0 Monocytes # (Manual) 1.4 H Eosinophils # (Manual) 0.7 H Metamyelocytes # 0.2 Myelocytes # Nucleated RBCs 4 H Dohle Bodies Platelet Estimate INCREASED Large Platelets Plt Morphology Comment NORM RBC Morphology NOTED Polychromasia 1+ (0-2) Hypochromasia 2+ (15-30) Microcytosis 1+ (5-14) Ovalocytes Anion Gap Estim Creat Clear Calc Estimated GFR Random Glucose Lactic Acid 1.4 Calcium Iron TIBC % Saturation Unsat Iron Binding Ferritin Total Bilirubin AST ALT Alkaline Phosphatase Total Protein Albumin COVID-19 (JOSEPH) COVID-19 Clin Com Blood Type O Positive Antibody Screen NEGATIVE Crossmatch See Detail 01/04/22 06:38 MCV MCH MCHC RDW Plt Count MPV Immature Gran % (Auto) Neut % (Auto) Lymph % (Auto) [place] % (Auto) Eos % (Auto) Baso % (Auto) Lymph # (Auto) [place] # (Auto) Eos # (Auto) Baso # (Auto) Abs Immat Gran (auto) Absolute Neuts (auto) Absolute Nucleated RBC Nucleated RBC % (auto) Neutrophils % (Manual) Band Neutrophils % Lymphocytes % (Manual) Monocytes % (Manual) Eosinophils % (Manual) Metamyelocytes % Myelocytes % Abs Neuts (Manual) Lymphocytes # (Manual) Monocytes # (Manual) Eosinophils # (Manual) Metamyelocytes # Myelocytes # Nucleated RBCs Dohle Bodies Platelet Estimate Large Platelets Plt Morphology Comment RBC Morphology Polychromasia Hypochromasia Microcytosis Ovalocytes Anion Gap 11 L Estim Creat Clear Calc 104.7 Estimated GFR > 60 Random Glucose 117 H D Lactic Acid Calcium 7.8 L D Iron TIBC % Saturation Unsat Iron Binding Ferritin Total Bilirubin AST ALT Alkaline Phosphatase Total Protein Albumin COVID-19 (JOSEPH) COVID-19 Clin Com Blood Type Antibody Screen Crossmatch Assessment and Plan (1) Colitis: Status: Acute (2) Diverticulitis: Status: Acute Plan 46-year-old male with a past medical history of alcohol abuse, GERD, history of ulcerative colitis (UC) on left side in 2019, presented with abdominal pain and hematochezia and found to have colitis, acute blood loss anemia Colitis likely flare of UC -start IV steroid -Continue ceftriaxone and Flagyl.? - to have a sigmoidoscopy today by Dr. Candelario Acute blood loss anemia due to lower GI bleeding likely related to above NPO IV fluids Flex Sig as above Transfused 1 unit and will transfuse 1 more unit Alcohol Dependence at risk for withdrawal CIWA protocol; thiamine, multivitamins, folate DVT prophylaxis: SCD boots Need for inpatient: Acute blood loss anemia needing transfusion and monitoring, and needs work with Flex, IV stero Quality Stroke Does the patient have a stroke diagnosis?: No VTE Prior VTE?: No VTE Risk Level:: Medical - moderate - high VTE Device Contraindication: N/A - Device Ordered VTE Drug Contraindication: Treatment Not Indicated
[2022-01-04] MEDS: methylPREDNISolone Sod Succ 125 MG/2 ML VIAL 60 MG IVPUSH ×3 (09:36→22:23)
--- NOTE | 2022-01-04 12:41 | P.CONAN_ITS ---
[facility] Active Problems Active Problems: All Active Problems (Updated 01/03/22 @ 21:46 by Cruz Joyce MD) Colitis (Acute) Diverticulitis (Acute) GI (gastrointestinal bleed) (Acute) Severe anemia (Acute) Family History Family history of problems with anesthesia: No Surgical History Surgical History (Updated 01/04/22 @ 08:25 by Luisito Candelario MD) Hx of colonoscopy History of Problems with Anesthesia: No Social History Social History Advance Directives: No Advance Directives Information Provided: No Meds Allergies Allergy/AdvReac Type Severity Reaction Status Date / Time shellfish derived Allergy Swelling Verified 01/03/22 16:19 Active Medications: Current Medications Acetaminophen (Acetaminophen 325 Mg Tablet) 650 mg PO Q6H PRN PRN Reason: Pain, Mild (Pain Scale 1-3) Folic Acid (Folic Acid 1 Mg Tablet) 1 mg PO DAILY [facility] Stop: 01/07/22 08:59 Hydromorphone HCl (Hydromorphone Hcl 1 Mg/Ml Syringe) 0.5 mg IVPUSH Q4H PRN; Protocol PRN Reason: Pain, Severe (Pain Scale 7-10) Dextrose/Sodium Chloride (D51/2ns) 1,000 mls @ 100 mls/hr IVCONT .Q10H [facility] Last Infusion: 01/04/22 12:35 Dose: Infused Ceftriaxone Sodium 1 gm/ (Sodium Chloride) 50 mls @ 100 mls/hr IV Q24H [facility]U Metronidazole (Flagyl) 500 mg in 100 mls @ 100 mls/hr IV Q8H [facility]U Last Infusion: 01/04/22 09:22 Dose: Infused Lorazepam (Lorazepam 1 Mg Tablet) 1 mg PO Q4H PRN PRN Reason: Breakthrough alcohol withdrawa Stop: 01/07/22 23:49 Melatonin (Melatonin 3 Mg Tablet) 6 mg PO BEDTIME PRN PRN Reason: Insomnia Methylprednisolone Sodium Succinate (Methylprednisolone Sod Succ 125 Mg/2 Ml Vial) 60 mg IVPUSH Q6H [facility] Last Admin: 01/04/22 09:36 Dose: 60 mg Multivitamins/Vitamin C (Multivitamin Tablet) 1 tab PO DAILY [facility] Stop: 01/07/22 08:59 Pantoprazole Sodium (Pantoprazole Sodium 40 Mg/10 Ml Vial) 40 mg IVPUSH DAILY@0630 [facility] Last Admin: 01/04/22 05:29 Dose: 40 mg Senna (Sennosides 8.6 Mg Tablet) 17.2 mg PO BEDTIME PRN PRN Reason: Constipation Sodium Chloride (0.9 % Sodium Chloride Flush 3 Ml Syringe) 3 ml IVFLUSH QSHIFT [facility] Last Admin: 01/04/22 09:36 Dose: 3 ml Thiamine HCl (Thiamine Hcl 100 Mg Tablet) 100 mg PO DAILY [facility] Stop: 01/07/22 08:59 Home Medications Medication Instructions Recorded Confirmed Last Taken Type No Known Home Meds 01/03/22 01/03/22 Unknown History Exam Exam Date and Time: January 04, 2022 1241 Height,Weight and Vital Signs: Height 5 ft 8 in Weight 99.79 kg Last Vital Signs Temp 98.5 F 01/04/22 11:58 Pulse 97 01/04/22 11:58 Resp 14 01/04/22 11:58 BP 121/91 H 01/04/22 11:58 Pulse Ox 98 01/04/22 11:58 O2 Del Method 01/04/22 11:58 Pertinent Lab Results Pertinent Lab Results: Laboratory Tests 01/03/22 01/03/22 01/03/22 16:38 16:38 19:08 WBC 11.2 H RBC 3.74 L Hgb 7.1 L Hct 25.3 L MCV 67.6 L MCH 19.0 L MCHC 28.1 L RDW 18.7 H Plt Count 623 H MPV 8.7 L Immature Gran % (Auto) Cancelled Neut % (Auto) Cancelled Lymph % (Auto) Cancelled [place] % (Auto) Cancelled Eos % (Auto) Cancelled Baso % (Auto) Cancelled Lymph # (Auto) Cancelled [place] # (Auto) Cancelled Eos # (Auto) Cancelled Baso # (Auto) Cancelled Abs Immat Gran (auto) Cancelled Absolute Neuts (auto) Cancelled Absolute Nucleated RBC 0.420 H Nucleated RBC % (auto) 3.7 H Neutrophils % (Manual) 55 Band Neutrophils % 10 H Lymphocytes % (Manual) 23 Monocytes % (Manual) 8 Eosinophils % (Manual) Metamyelocytes % 1 Myelocytes % 3 Abs Neuts (Manual) 7.3 Lymphocytes # (Manual) 2.6 Monocytes # (Manual) 0.9 Eosinophils # (Manual) Metamyelocytes # 0.1 Myelocytes # 0.3 Nucleated RBCs 4 H Dohle Bodies PRESENT Platelet Estimate INCREASED Large Platelets PRESENT Plt Morphology Comment NORMAL RBC Morphology NOTED Polychromasia 1+ (0-2) Hypochromasia 3+ (>30) Microcytosis 2+ (15-30) Ovalocytes 1+ (5-14) Sodium 132 L Potassium 4.6 Chloride 98 Carbon Dioxide 25 Anion Gap 14 BUN 9 Creatinine 1.24 Estim Creat Clear Calc 86.1 Estimated GFR > 60 Random Glucose 195 H Lactic Acid Calcium 8.5 Iron 8 L TIBC 340 % Saturation 2 L Unsat Iron Binding 332 Ferritin 31 Total Bilirubin < 0.2 AST 12 ALT 17 Alkaline Phosphatase 71 Total Protein 6.5 Albumin 3.3 L COVID-19 (JOSEPH) Negative COVID-19 Clin Com See Note Blood Type Antibody Screen Crossmatch 01/03/22 01/03/22 01/04/22 19:13 19:23 06:38 WBC 9.4 RBC 3.59 L Hgb 7.4 L Hct 25.0 L MCV 69.6 L MCH 20.6 L MCHC 29.6 L RDW 19.4 H Plt Count 582 H MPV 9.2 L Immature Gran % (Auto) Cancelled Neut % (Auto) Cancelled Lymph % (Auto) Cancelled [place] % (Auto) Cancelled Eos % (Auto) Cancelled Baso % (Auto) Cancelled Lymph # (Auto) Cancelled [place] # (Auto) Cancelled Eos # (Auto) Cancelled Baso # (Auto) Cancelled Abs Immat Gran (auto) Cancelled Absolute Neuts (auto) Cancelled Absolute Nucleated RBC 0.380 H Nucleated RBC % (auto) 4.1 H Neutrophils % (Manual) 49 Band Neutrophils % 6 H Lymphocytes % (Manual) 21 Monocytes % (Manual) 15 H Eosinophils % (Manual) 7 H Metamyelocytes % 2 Myelocytes % Abs Neuts (Manual) 5.2 Lymphocytes # (Manual) 2.0 Monocytes # (Manual) 1.4 H Eosinophils # (Manual) 0.7 H Metamyelocytes # 0.2 Myelocytes # Nucleated RBCs 4 H Dohle Bodies Platelet Estimate INCREASED Large Platelets Plt Morphology Comment NORM RBC Morphology NOTED Polychromasia 1+ (0-2) Hypochromasia 2+ (15-30) Microcytosis 1+ (5-14) Ovalocytes Sodium Potassium Chloride Carbon Dioxide Anion Gap BUN Creatinine Estim Creat Clear Calc Estimated GFR Random Glucose Lactic Acid 1.4 Calcium Iron TIBC % Saturation Unsat Iron Binding Ferritin Total Bilirubin AST ALT Alkaline Phosphatase Total Protein Albumin COVID-19 (JOSEPH) COVID-19 [employer] Com Blood Type O Positive Antibody Screen NEGATIVE Crossmatch See Detail 01/04/22 06:38 WBC RBC Hgb Hct MCV MCH MCHC RDW Plt Count MPV Immature Gran % (Auto) Neut % (Auto) Lymph % (Auto) [place] % (Auto) Eos % (Auto) Baso % (Auto) Lymph # (Auto) [place] # (Auto) Eos # (Auto) Baso # (Auto) Abs Immat Gran (auto) Absolute Neuts (auto) Absolute Nucleated RBC Nucleated RBC % (auto) Neutrophils % (Manual) Band Neutrophils % Lymphocytes % (Manual) Monocytes % (Manual) Eosinophils % (Manual) Metamyelocytes % Myelocytes % Abs Neuts (Manual) Lymphocytes # (Manual) Monocytes # (Manual) Eosinophils # (Manual) Metamyelocytes # Myelocytes # Nucleated RBCs Dohle Bodies Platelet Estimate Large Platelets Plt Morphology Comment RBC Morphology Polychromasia Hypochromasia Microcytosis Ovalocytes Sodium 134 L Potassium 3.9 Chloride 101 Carbon Dioxide 26 Anion Gap 11 L BUN 7 L Creatinine 1.02 Estim Creat Clear Calc 104.7 Estimated GFR > 60 Random Glucose 117 H D Lactic Acid Calcium 7.8 L D Iron TIBC % Saturation Unsat Iron Binding Ferritin Total Bilirubin AST ALT Alkaline Phosphatase Total Protein Albumin COVID-19 (JOSEPH) COVID-19 [employer] Blood Type Antibody Screen Crossmatch Airway Mallampati Class: II (Chipped top front tooth) TM Dist: >3cm Neck ROM: Full Heart: rrr Lungs: cta Assessment and Plan Assessment Anesthesia Assessment: Anesthesia Plan Discussed and Chart Reviewed Final Anesthetic Review Family History of Problems with Anesthesia: No History of Problems with Anesthesia: No NPO: Yes ASA Class: II Final Preanesthetic Review: No Changes in Pt Med Stat, Meds/Allgs Chart Reviewed and Consent Obtained/Reviewed Patient Risk: Intermediate Procedure Risk: Intermediate Anesthetic Plan Anesthetic Plan: MAC: Disposition: Standard PACU
--- NOTE | 2022-01-04 14:13 | PM.OP ---
Brief Operative Note Date of Service: 01/04/22 Pre-op diagnosis: abdominal pain, rectal bleeding, hx of UC Post-op diagnosis: other (left sided colitis) Procedure: FLEXIBLE SIGMOIDOSCOPY TILL 25 CMS WITH BIOPSIES Consent: Indications for the procedure and potential complications of bleeding, perforation, reaction to medications and missed diagnosis were discussed with the patient and informed consent was obtained. Instrument: Olympus PCF H 190 L variable stiffness pediatric colonoscope Monitoring: Vital signs and clinical assessment, intermittent blood pressure monitoring, continuous EKG monitoring, Pulse oximetry and Carbon Dioxide monitoring were done throughout the procedure. Procedure: The patient was placed in the left lateral decubitis position and pre-procedure medications were administered. After a digital rectal examination of the ano-rectum, the video colonoscope was inserted into the rectum and advanced through the colon to 25 cms into the distal sigmoid colon. The colonoscope was slowly withdrawn in a retrograde panoramic fashion and the colon mucosa was carefully examined. Findings and interventions are described below. Findings: Sigmoid Colon: Edema erythema with multiple 5 to 10 mm chronic appearing ulcers - multiple biopsies were obtained Rectum: Edema erythema with multiple 5 to 10 mm chronic appearing ulcers - multiple biopsies were obtained Ano-rectum: No significant hemorrhoids noted on antegrade withdrawl of the colonoscope. Retroflexed exam was not performed due to rectal inflammation. Colon preparation: Good Impression and Post Procedure Diagnosis: Colonoscopy Findings: Edema erythema with multiple 5 to 10 mm chronic appearing ulcers from 0 to 25 cms and extending proximally - multiple biopsies were obtained No active bleeding noted during sigmoidoscopy. Suspect patient has acute on chronic anemia. Plan: Await pathology results Management of UC flare with IV steroids. Start Pentasa in the am - order placed. Above findings were reviewed with the patient. Surgeon: Luisito Candelario MD Anesthesia: MAC (Dr Rodas) Was an Tung Nut Grower used for this Procedure?: Yes Tung Nut Grower: Mirna Pagan Estimated blood loss (mL): 0 Pathology: other (A. rectal-sigmoid bxs, R/O ulcerative colitis) Condition: stable Disposition: PACU
[2022-01-04] MEDS: HYDROmorphone HCl 1 MG/ML SYRINGE 0.5 MG IVPUSH ×2 (16:32→23:24)
--- NOTE | 2022-01-04 16:41 | P.OP_ITS ---
Operative Note Operative Note Date of Service: 01/04/22 Narrative: Pre-op diagnosis: abdominal pain, rectal bleeding, hx of UC Post-op diagnosis:?other (left sided colitis) Procedure: FLEXIBLE SIGMOIDOSCOPY TILL 25 CMS WITH BIOPSIES Consent: Indications for the procedure and potential complications of bleeding, perforation, reaction to medications and missed diagnosis were discussed with the patient and informed consent was obtained. Instrument: Olympus PCF H 190 L variable stiffness pediatric colonoscope Monitoring: Vital signs and clinical assessment, intermittent blood pressure monitoring, continuous EKG monitoring, Pulse oximetry and Carbon Dioxide monitoring were done throughout the procedure. Procedure: The patient was placed in the left lateral decubitis position and pre-procedure medications were administered. After a digital rectal examination of the ano-rectum, the video colonoscope was inserted into the rectum and advanced through the colon to 25 cms into the distal sigmoid colon. The colonoscope was slowly withdrawn in a retrograde panoramic fashion and the colon mucosa was carefully examined. Findings and interventions are described below. Findings: Sigmoid Colon:? Edema erythema with multiple 5 to 10 mm chronic appearing ulcers - multiple biopsies were obtained Rectum: ? Edema erythema with multiple 5 to 10 mm chronic appearing ulcers - multiple biopsies were obtained Ano-rectum:? No significant hemorrhoids noted on antegrade withdrawl of the colonoscope. Retroflexed exam was not performed due to rectal inflammation. Colon preparation:? Good Impression and Post Procedure Diagnosis: Colonoscopy Findings: Edema erythema with multiple 5 to 10 mm chronic appearing ulcers from 0 to 25 cms and extending proximally - multiple biopsies were obtained No active bleeding noted during sigmoidoscopy. Suspect patient has acute on chronic anemia. Plan: Await pathology results Management of UC flare with IV steroids. Start Pentasa in the am - order placed. Pt can FU with Dr Alves in the GI clinic after discharge. Biopsies showed: Colon, rectosigmoid, biopsy:? Chronic colitis with moderate activity; negative for dysplasia. Comment:? Appearances are compatible with ulcerative colitis and endoscopic correlation is necessary. Surgeon: Luisito Candelario MD Anesthesia:?MAC (Dr Rodas) Was an Front End Java Developer used for this Procedure?:?Yes Front End Java Developer:?Mirna Pagan Estimated blood loss (mL):?0 Pathology:?other (A. rectal-sigmoid bxs, R/O ulcerative colitis) Condition:?stable Disposition:?PACU
[2022-01-04] MEDS: cefTRIAXone sodium 1 GM in 0.9 % Sodium Chloride 50 ML IV (22:23)
[2022-01-04] MEDS: Melatonin 3 MG TABLET 6 MG PO (23:24)
[2022-01-05] MEDS: methylPREDNISolone Sod Succ 125 MG/2 ML VIAL 60 MG IVPUSH ×4 (02:26→20:43)
[2022-01-05 03:21] VITALS: BP 140/72; PULSE 98; RESP 18; TEMP 36.7; O2SAT 96
[2022-01-05] MEDS: metroNIDAZOLE/NS 500 MG/100 ML PIGGYBACK 100 MG IV ×3 (06:27→21:26)
[2022-01-05] MEDS: Dextrose 5 % and 0.45 % NaCl 1,000 ML 100 ML IVCONT ×3 (06:27→18:45)
[2022-01-05] MEDS: Pantoprazole Sodium 40 MG/10 ML VIAL IVPUSH (06:28)
[2022-01-05 07:02] LABS: C Reactive Protein 13.59 mg/dL (< or = 0.50)
[2022-01-05 07:02] LABS: Hematocrit 24.9 % (42.0-52.0); Hemoglobin 7.5 g/dl (14.0-18.0); Mean Corpuscular HGB Conc 30.1 g/dl (31.0-36.0); Mean Corpuscular Hemoglobin 21.1 pg (27.0-33.0); Mean Corpuscular Volume 70.1 fL (80.0-98.0); Mean Platelet Volume 9.8 fL (9.4-12.4); Platelet Count 678 X10*3/uL (160-400); Red Blood Count 3.55 X10*6/uL (4.60-5.80); Red Cell Distribution Width 19.5 % (11.0-16.0); White Blood Count 8.5 X10*3/uL (4.8-10.8)
[2022-01-05 07:05] LABS: NRBC Pct Auto 5.6 /100WBC (0.0-0.2)
[2022-01-05 07:24] VITALS: BP 153/79; PULSE 80; RESP 16; TEMP 36.3; O2SAT 97
[2022-01-05 07:54] LABS: Band Neutrophils Percent 32 % (3-5); Lymphocytes Absolute Manual 0.8 X10*3/uL (1.2-4.9); Lymphocytes Percent Manual 9 % (20-40); Metamyelocytes Absolute 0.3 X10*3/uL; Metamyelocytes Percent 3 %; Monocytes Absolute Manual 0.6 X10*3/uL (0.1-1.2); Monocytes Percent Manual 7 % (2-11); Neutrophils Absolute Manual 6.9 X10*3/uL (2.0-8.3); Neutrophils Percent Manual 49 % (45-73); Nucleated Red Blood Cells 8 /100WBC (0-0)
[2022-01-05 07:56] LABS: RBC Morphology NOTED
[2022-01-05 07:57] LABS: Macrocytosis 1+ (5-14) /OIF; Microcytosis 2+ (15-30) /OIF; Platelet Estimate INCREASED (NORMAL); Platelet Morphology Comment NORMAL; Polychromasia 2+ (3-5) /OIF
[2022-01-05] MEDS: Folic Acid 1 MG TABLET PO (07:57)
[2022-01-05] MEDS: Multivitamin TABLET 1 TAB PO (07:57)
[2022-01-05] MEDS: Thiamine HCL 100 MG TABLET PO (07:57)
[2022-01-05] MEDS: HYDROmorphone HCl 1 MG/ML SYRINGE 0.5 MG IVPUSH (07:58)
[2022-01-05 11:19] VITALS: BP 155/81; PULSE 103; RESP 14; TEMP 36.6; O2SAT 98
--- NOTE | 2022-01-05 11:21 | HO.POSTANES ---
Post Anesthesia Evaluation Post Anesthesia Evaluation Vital Signs: Vital Signs Temp Pulse Resp BP Pulse Ox O2 Del Method 01/05/22 11:19 98 F 103 H 14 155/81 H 98 Room Air 01/05/22 07:24 97.4 F 80 16 153/79 H 97 Room Air 01/05/22 03:21 98.1 F 98 18 140/72 H 96 Room Air 01/04/22 23:28 98.4 F 100 18 141/82 H 95 Room Air Anesthesia: Monitored Mental Status: Awake Pain Control: Satisfactory Nausea/Vomiting: None Hydration: Adequate Anesthesia-Related Issues: No Anes. Related Issues
--- NOTE | 2022-01-05 12:21 | P.PNIM_ITS ---
Subjective Subjective Date of Service: 01/05/22 Interval History: f/u rectal bleed, colitis, acute blood loss anemia interval history: Feels better today, no rectal bleed, Flex sig 01/04 left sided colitis. Review of Systems Abdominal for shortness of breath, no dizziness., No fever Physical Exam Vital Signs: Vital Signs: Last Vital Signs Temp 98 F 01/05/22 11:19 Pulse 103 H 01/05/22 11:19 Resp 14 01/05/22 11:19 BP 155/81 H 01/05/22 11:19 Pulse Ox 98 01/05/22 11:19 O2 Del Method 01/05/22 11:19 BMI result Body Mass Index 33.4 Const: Other: General: AO X 3, no acute distress Resp: CTA bilateral CVS: S1,S2,RRR GI: +BS, no tenderness Skin: No rash Neuro: motor grossly intact Psych: appropriate affect Objective Data Active Medications Acetaminophen (Acetaminophen 325 Mg Tablet) 650 mg PO Q6H PRN PRN Reason: Pain, Mild (Pain Scale 1-3) Folic Acid (Folic Acid 1 Mg Tablet) 1 mg PO DAILY [facility] Stop: 01/07/22 08:59 Last Admin: 01/05/22 07:57 Dose: 1 mg Documented By: MARILYN Hydromorphone HCl (Hydromorphone Hcl 1 Mg/Ml Syringe) 0.5 mg IVPUSH Q4H PRN; Protocol PRN Reason: Pain, Severe (Pain Scale 7-10) Last Admin: 01/05/22 07:58 Dose: 0.5 mg Documented By: MARILYN Dextrose/Sodium Chloride (D51/2ns) 1,000 mls @ 100 mls/hr IVCONT .Q10H [facility] Last Admin: 01/05/22 07:59 Dose: 100 mls/hr Documented By: MARILYN Ceftriaxone Sodium 1 gm/ (Sodium Chloride) 50 mls @ 100 mls/hr IV Q24H [facility] Last Infusion: 01/04/22 23:12 Dose: 0 mls/hr Documented By: DON Metronidazole (Flagyl) 500 mg in 100 mls @ 100 mls/hr IV Q8H [facility] Last Infusion: 01/05/22 07:37 Dose: 100 mls/hr Documented By: MARILYN Lorazepam (Lorazepam 1 Mg Tablet) 1 mg PO Q4H PRN PRN Reason: Breakthrough alcohol withdrawa Stop: 01/07/22 23:49 Melatonin (Melatonin 3 Mg Tablet) 6 mg PO BEDTIME PRN PRN Reason: Insomnia Last Admin: 01/04/22 23:24 Dose: 6 mg Documented By: DON Mesalamine (Mesalamine 250 Mg Capsule.Er) 1,000 mg PO QID [facility] Last Admin: 01/05/22 08:06 Dose: Not Given Documented By: MARILYN Non-Admin Reason: NPO Methylprednisolone Sodium Succinate (Methylprednisolone Sod Succ 125 Mg/2 Ml Vial) 60 mg IVPUSH Q6H [facility] Last Admin: 01/05/22 07:57 Dose: 60 mg Documented By: MARILYN Multivitamins/Vitamin C (Multivitamin Tablet) 1 tab PO DAILY [facility] Stop: 01/07/22 08:59 Last Admin: 01/05/22 07:57 Dose: 1 tab Documented By: MARILYN Pantoprazole Sodium (Pantoprazole Sodium 40 Mg/10 Ml Vial) 40 mg IVPUSH DAILY@0630 [facility] Last Admin: 01/05/22 06:28 Dose: 40 mg Documented By: DON Senna (Sennosides 8.6 Mg Tablet) 17.2 mg PO BEDTIME PRN PRN Reason: Constipation Sodium Chloride (0.9 % Sodium Chloride Flush 3 Ml Syringe) 3 ml IVFLUSH QSHIFT [facility] Last Admin: 01/05/22 09:22 Dose: Not Given Documented By: MARILYN Non-Admin Reason: IV Running Thiamine HCl (Thiamine Hcl 100 Mg Tablet) 100 mg PO DAILY [facility] Stop: 01/07/22 08:59 Last Admin: 01/05/22 07:57 Dose: 100 mg Documented By: MARILYN Labs CBC & Chem 7: 01/05/22 05:07 01/04/22 06:38 Labs: Laboratory Results - last 24 hr 01/05/22 01/05/22 05:06 05:07 MCV 70.1 L MCH 21.1 L MCHC 30.1 L RDW 19.5 H Plt Count 678 H MPV 9.8 Immature Gran % (Auto) Cancelled Neut % (Auto) Cancelled Lymph % (Auto) Cancelled [place] % (Auto) Cancelled Eos % (Auto) Cancelled Baso % (Auto) Cancelled Lymph # (Auto) Cancelled [place] # (Auto) Cancelled Eos # (Auto) Cancelled Baso # (Auto) Cancelled Abs Immat Gran (auto) Cancelled Absolute Neuts (auto) Cancelled Absolute Nucleated RBC 0.480 H Nucleated RBC % (auto) 5.6 H Neutrophils % (Manual) 49 Band Neutrophils % 32 H Lymphocytes % (Manual) 9 L Monocytes % (Manual) 7 Metamyelocytes % 3 Abs Neuts (Manual) 6.9 Lymphocytes # (Manual) 0.8 L Monocytes # (Manual) 0.6 Metamyelocytes # 0.3 Nucleated RBCs 8 H Platelet Estimate INCREASED Plt Morphology Comment NORMAL RBC Morphology NOTED Polychromasia 2+ (3-5) Microcytosis 2+ (15-30) Macrocytosis 1+ (5-14) C-Reactive Protein 13.59 H Microbiology Microbiology Results: Microbiology 01/03/22 19:18 Blood Culture - Preliminary Blood - Venous No growth after 24 hours. 01/03/22 19:14 Blood Culture - Preliminary Blood - Venous No growth after 24 hours. Assessment and Plan (1) Colitis: Status: Acute (2) Diverticulitis: Status: Acute Plan 46-year-old male with a past medical history of alcohol abuse, GERD, history of ulcerative colitis (UC) on left side in 2019, presented with abdominal pain and hematochezia and found to have colitis, acute blood loss anemia Colitis likely flare of UC Flex Sig 01/04 left sided colitis -on IV steroid -Continue ceftriaxone and Flagyl for possible infectious component -advance diet Acute blood loss anemia due to lower GI bleeding likely related to above H/H stable with no active bleed Alcohol Dependence at risk for withdrawal CIWA protocol; thiamine, multivitamins, folate DVT prophylaxis: SCD boots Need for inpatient: Acute blood loss anemia needing transfusion and monitoring, and needs work with Flex, IV stero Quality Stroke Does the patient have a stroke diagnosis?: No VTE Prior VTE?: No VTE Risk Level:: Medical - moderate - high VTE Device Contraindication: N/A - Device Ordered VTE Drug Contraindication: Treatment Not Indicated
[2022-01-05] MEDS: Mesalamine 250 MG CAPSULE.ER 1000 MG PO ×3 (13:27→20:43)
--- NOTE | 2022-01-05 13:39 | MHC.CM.PN ---
met with pt who is indepedent cm interventionis not indiced pt is jayjay pate his car is in parking lot
[2022-01-05] MEDS: 0.9 % Sodium Chloride Flush 3 ML SYRINGE IVFLUSH (15:53)
[2022-01-05 16:00] VITALS: BP 134/76; PULSE 85; RESP 18; TEMP 37.1; O2SAT 94
--- NOTE | 2022-01-05 18:03 | PM.GIPN ---
Subjective Subjective Date of Service: 01/05/22 Interval History: states abdominal pain has improved to 3-5/10 Tolerating a clear liquid diet Critical Care Time (minutes): 10 Physical Exam Vital Signs: Vital Signs: Last Vital Signs Temp 98.7 F 01/05/22 16:00 Pulse 85 01/05/22 16:00 Resp 18 01/05/22 16:00 BP 134/76 01/05/22 16:00 Pulse Ox 94 01/05/22 16:00 O2 Del Method 01/05/22 16:00 BMI result Body Mass Index 33.4 Const: General: comfortable and no acute distress Orientation/consciousness: patient oriented x3 Limitations: no limitations GI: Palpation (GI): Soft to palpation and Tenderness to palpation present (GI) (Mild LLQ tenderness without rebound) Neuro: General: patient oriented x3 Objective Data Labs CBC & Chem 7: 01/05/22 05:07 01/04/22 06:38 Labs: Laboratory Results - last 24 hr 01/05/22 01/05/22 05:06 05:07 WBC 8.5 RBC 3.55 L Hgb 7.5 L Hct 24.9 L MCV 70.1 L MCH 21.1 L MCHC 30.1 L RDW 19.5 H Plt Count 678 H MPV 9.8 Immature Gran % (Auto) Cancelled Neut % (Auto) Cancelled Lymph % (Auto) Cancelled [place] % (Auto) Cancelled Eos % (Auto) Cancelled Baso % (Auto) Cancelled Lymph # (Auto) Cancelled [place] # (Auto) Cancelled Eos # (Auto) Cancelled Baso # (Auto) Cancelled Abs Immat Gran (auto) Cancelled Absolute Neuts (auto) Cancelled Absolute Nucleated RBC 0.480 H Nucleated RBC % (auto) 5.6 H Neutrophils % (Manual) 49 Band Neutrophils % 32 H Lymphocytes % (Manual) 9 L Monocytes % (Manual) 7 Metamyelocytes % 3 Abs Neuts (Manual) 6.9 Lymphocytes # (Manual) 0.8 L Monocytes # (Manual) 0.6 Metamyelocytes # 0.3 Nucleated RBCs 8 H Platelet Estimate INCREASED Plt Morphology Comment NORMAL RBC Morphology NOTED Polychromasia 2+ (3-5) Microcytosis 2+ (15-30) Macrocytosis 1+ (5-14) C-Reactive Protein 13.59 H Microbiology Microbiology Results: Microbiology 01/03/22 19:18 Blood - Venous Blood Culture - Preliminary No growth after 24 hours. 01/03/22 19:14 Blood - Venous Blood Culture - Preliminary No growth after 24 hours. Procedures Date of Service Date of Service: 01/05/22 Progress Note: A&P Assessment and plan (1) Colitis: Status: Acute (2) Severe anemia: Status: Acute Plan 46 YM admitted with 2 week hx of worsening abdominal pain and hematochezia. Labs show severe microcytic hypochromic anemia due to iron deficiency suggestive of acute on chronic anemia Pt was diagnosed with left sided UC in 08/[address] Alves and treated with IV steroids and Pentasa. Did not return for FU and stopped taking Pentasa after he ran out. States he was doing well until 2 weeks ago. Abdominal pain and hematochezia are likely due to UC flare. Symptoms are improving on IV steroids RECOMMENDATIONS: 1.?Advance to a full liquid diet in the am 2.?Switch to PO Prednisone in the am 40 MG daily and taper by 10 mg every week over 4 weeks 3.? Continue Pentasa 1 gram four times daily. 4. Start on oral iron ferrous sulfate once daily for JARON 5.? Pt can FU with Dr Alves in the GI clinic after discharge. Time Spent With Patient Time: Total time spent is greater than 50% in coordination of care (as documented) at patient's floor/unit and/or counseling patient: Quality Stroke Does the patient have a stroke diagnosis?: No VTE Prior VTE?: No VTE Risk Level:: Medical - moderate - high VTE Device Contraindication: N/A - Device Ordered VTE Drug Contraindication: Treatment Not Indicated
[2022-01-05 20:00] VITALS: BP 135/82; PULSE 86; RESP 18; TEMP 36.8; O2SAT 94
--- NOTE | 2022-01-05 21:20 | PM.EVENT ---
Event Note Date of Service: 01/05/22 Event Note: pt noted to have a bloody bowel movement this evening. HDS. will obtain H&H
[2022-01-05 21:39] LABS: Hematocrit 24.3 % (42.0-52.0); Hemoglobin 7.2 g/dl (14.0-18.0)
[2022-01-05] MEDS: cefTRIAXone sodium 1 GM in 0.9 % Sodium Chloride 50 ML IV (22:31)
[2022-01-05 22:36] VITALS: BP 158/90; PULSE 80; RESP 20; TEMP 37.2; O2SAT 94
[2022-01-06] MEDS: 0.9 % Sodium Chloride Flush 3 ML SYRINGE IVFLUSH ×3 (00:01→15:33)
[2022-01-06] MEDS: methylPREDNISolone Sod Succ 125 MG/2 ML VIAL 60 MG IVPUSH ×2 (03:07→07:42)
[2022-01-06 03:46] VITALS: BP 144/78; PULSE 81; RESP 18; TEMP 36.7; O2SAT 96
[2022-01-06] MEDS: Pantoprazole Sodium 40 MG/10 ML VIAL IVPUSH (05:47)
[2022-01-06] MEDS: metroNIDAZOLE/NS 500 MG/100 ML PIGGYBACK 100 MG IV ×2 (05:51→12:53)
[2022-01-06] MEDS: Mesalamine 250 MG CAPSULE.ER 1000 MG PO ×3 (07:41→17:54)
[2022-01-06] MEDS: Ferrous Sulfate 324 MG TABLET.DR PO (07:41)
[2022-01-06] MEDS: Thiamine HCL 100 MG TABLET PO (07:41)
[2022-01-06] MEDS: Multivitamin TABLET 1 TAB PO (07:41)
[2022-01-06] MEDS: Folic Acid 1 MG TABLET PO (07:41)
[2022-01-06 08:00] VITALS: BP 136/89; PULSE 84; RESP 17; TEMP 36.3; O2SAT 97
[2022-01-06 09:53] LABS: Hematocrit 26.6 % (42.0-52.0); Hemoglobin 7.9 g/dl (14.0-18.0)
[2022-01-06 12:00] VITALS: BP 139/83; PULSE 75; RESP 17; TEMP 36.7; O2SAT 93
--- NOTE | 2022-01-06 13:16 | P.PNIM_ITS ---
Subjective Subjective Date of Service: 01/06/22 Interval History: bloody BM yesterday evening, this AM BM without sofia blood; H+H stable no abd pain; tolerating liquid diet Review of Systems Review of Systems: Yes all other systems are reviewed and are negative Physical Exam Vital Signs: Vital Signs: Last Vital Signs Temp 98.0 F 01/06/22 11:23 Pulse 75 01/06/22 11:23 Resp 17 01/06/22 11:23 BP 139/83 01/06/22 11:23 Pulse Ox 93 01/06/22 11:23 O2 Del Method 01/06/22 11:23 BMI result Body Mass Index 33.4 Gen: in no acute distress HEENT: sclera anicteric, moist mucus membranes Neck: supple Lungs: clear to auscultation bilaterally Heart: regular rate and rhythm, no murmurs Abd: soft, non-tender, non-distended Ext: no edema Skin: warm/well-perfused Neuro: alert and oriented x3, no focal findings Psych: appropriate affect Objective Data Active Medications Acetaminophen (Acetaminophen 325 Mg Tablet) 650 mg PO Q6H PRN PRN Reason: Pain, Mild (Pain Scale 1-3) Ferrous Sulfate (Ferrous Sulfate 324 Mg Tablet.) 324 mg PO DAILY [facility] Last Admin: 01/06/22 07:41 Dose: 324 mg Documented By: TAMY Folic Acid (Folic Acid 1 Mg Tablet) 1 mg PO DAILY [facility] Stop: 01/07/22 08:59 Last Admin: 01/06/22 07:41 Dose: 1 mg Documented By: TAMY Hydromorphone HCl (Hydromorphone Hcl 1 Mg/Ml Syringe) 0.5 mg IVPUSH Q4H PRN; Protocol PRN Reason: Pain, Severe (Pain Scale 7-10) Last Admin: 01/05/22 07:58 Dose: 0.5 mg Documented By: MARILYN Ceftriaxone Sodium 1 gm/ (Sodium Chloride) 50 mls @ 100 mls/hr IV Q24H [facility] Last Infusion: 01/05/22 23:39 Dose: 0 mls/hr Documented By: RYAN Metronidazole (Flagyl) 500 mg in 100 mls @ 100 mls/hr IV Q8H [facility] Last Admin: 01/06/22 12:53 Dose: 100 mls/hr Documented By: TAMY Lorazepam (Lorazepam 1 Mg Tablet) 1 mg PO Q4H PRN PRN Reason: Breakthrough alcohol withdrawa Stop: 01/07/22 23:49 Melatonin (Melatonin 3 Mg Tablet) 6 mg PO BEDTIME PRN PRN Reason: Insomnia Last Admin: 01/04/22 23:24 Dose: 6 mg Documented By: DON Mesalamine (Mesalamine 250 Mg Capsule.Er) 1,000 mg PO QID [facility] Last Admin: 01/06/22 12:52 Dose: 1,000 mg Documented By: TAMY Multivitamins/Vitamin C (Multivitamin Tablet) 1 tab PO DAILY [facility] Stop: 01/07/22 08:59 Last Admin: 01/06/22 07:41 Dose: 1 tab Documented By: TAMY Pantoprazole Sodium (Pantoprazole Sodium 40 Mg/10 Ml Vial) 40 mg IVPUSH DAILY@0630 [facility] Last Admin: 01/06/22 05:47 Dose: 40 mg Documented By: RYAN Prednisone (Prednisone 20 Mg Tablet) 40 mg PO DAILY [facility] Senna (Sennosides 8.6 Mg Tablet) 17.2 mg PO BEDTIME PRN PRN Reason: Constipation Sodium Chloride (0.9 % Sodium Chloride Flush 3 Ml Syringe) 3 ml IVFLUSH QSHIFT [facility] Last Admin: 01/06/22 07:42 Dose: 3 ml Documented By: TAMY Thiamine HCl (Thiamine Hcl 100 Mg Tablet) 100 mg PO DAILY [facility] Stop: 01/07/22 08:59 Last Admin: 01/06/22 07:41 Dose: 100 mg Documented By: TAMY Labs CBC & Chem 7: 01/06/22 09:24 01/04/22 06:38 Labs: Laboratory Results - last 24 hr 01/05/22 05:07 Smear Path Review SEE NOTE Microbiology Microbiology Results: Microbiology 01/03/22 19:18 Blood Culture - Preliminary Blood - Venous No growth after 48 hours. 01/03/22 19:14 Blood Culture - Preliminary Blood - Venous No growth after 48 hours. Assessment and Plan (1) Colitis: Status: Acute (2) Diverticulitis: Status: Acute Plan hospital d#4 46yo M with UC presenting with abd pain + hematochezia, admitted for UC flare # UC flare - IV->PO steroids, advance diet as tolerated, continue ceftriaxone + metronidazole d#4, GI following, flex sig 01/04 showed: Edema erythema with multiple 5 to 10 mm chronic appearing ulcers from 0 to 25 cms and extending proximally - multiple biopsies were obtained No active bleeding noted during sigmoidoscopy. with pathology report: Colon, rectosigmoid, biopsy:? Chronic colitis with moderate activity; negative for dysplasia. Comment:? Appearances are compatible with ulcerative colitis and endoscopic correlation is necessary. # acute blood loss anemia due to GI bleeding - Hb stable # EtOH dependence at risk for withdrawal - CIWA protocol, vitamins, CARE Team consult # VTE ppx - SCDs In my clinical judgment, the patient requires continued hospitalization for the following reasons: acute blood loss anemia Quality Stroke Does the patient have a stroke diagnosis?: No VTE Prior VTE?: No VTE Risk Level:: Medical - moderate - high VTE Device Contraindication: N/A - Device Ordered VTE Drug Contraindication: Treatment Not Indicated
[2022-01-06 15:29] VITALS: BP 174/90; PULSE 98; RESP 18; TEMP 37.1; O2SAT 98
--- NOTE | 2022-01-06 19:25 | PC.NURSE ---
Patient said he wanted to leave for home at around 17:30. Doctor is aware. Patient is still in the room.
--- NOTE | 2022-01-06 20:06 | PM.EVENT ---
Event Note Date of Service: 01/06/22 Event Note: pt left AMA. I was not informed until pt actually left the building. he apparently did sign papers with nurse.
--- NOTE | 2022-01-06 23:16 | PC.NURSE ---
Patient left AMA, IV's were removed. MD aware and nursing subassembly supervisor aware
[2022-01-06 23:57] VITALS: BP 118/69; PULSE 68; RESP 17; TEMP 36.6; O2SAT 94
--- NOTE | 2022-01-07 07:26 | PM.DS ---
DS: Providers Provider Date of Service: 01/06/22 Date of admission: 01/03/22 21:43 Primary care physician: Ihsan Astudillo MD Consults: 01/03/22 21:43 Consult to Gastroenterology Routine Consulting Provider: Bruno Mustafa Reason for consultation: GI bleed 01/06/22 13:22 Consult to Care Team Routine Comment: Reason for consultation: etoh DS: Diagnosis Discharge Diagnosis (1) Ulcerative colitis, acute: Status: Acute (2) Acute blood loss anemia: Status: Acute (3) GI bleeding: Status: Acute (4) Left against medical advice: Status: Acute DS: Summary Hospital Course Hospital Course: from H+P by admitter Erica Joyce, 01/03/22: 46-year-old male with a past medical history of alcohol abuse, GERD presented to the hospital today with a chief complaint of blood in the stool.? Patient reports that over the past 2 weeks he has been having intermittent episodes of bright red blood per rectum.? For the past 3 days he has been having increased episodes hence decided to come to the ER for further evaluation.? Patient also reports that for the past 3 days he has been having left-sided abdominal tenderness; associated nausea and vomiting.? Denies any fevers and chills.? Reports diarrhea over the past couple days.? Denies being on antibiotics in the recent times.? Patient reports that he had prior history of lower GI bleed.? Had colonoscopy.? Denies any urinary symptoms.? Review of all other systems is negative except mentioned above ER course: Per ER team patient noted to have drop in hemoglobin to 7.1.? Being transfused 1 unit of blood.? CT scan consistent with possible colitis/question diverticulitis.? Patient was given Zosyn.? Admitted for further management. 46yo M with UC presenting with abd pain + hematochezia, admitted for UC flare, treated with IV steroids and antibiotics. GI was consulted. Flexible sigmoidoscopy on 01/04/22 showed Edema erythema with multiple 5 to 10 mm chronic appearing ulcers from 0 to 25 cms and extending proximally - multiple biopsies were obtained No active bleeding noted during sigmoidoscopy. Biopsy pathology showed: Colon, rectosigmoid, biopsy:? Chronic colitis with moderate activity; negative for dysplasia. Comment:? Appearances are compatible with ulcerative colitis and endoscopic correlation is necessary. Symptoms improved and diet gradually advanced. Hemoglobin was stable. He unfortunately left against medical advice on 01/06/22. He was prescribed on oral steroid taper and should seek follow-up care with his GI doctor as soon as possible. Time Spent with Patient Time attestation: Total time spent providing and/or coordinating discharge services: AMA Discharge coordination time: Less than 30 minutes Quality: Safe Use of Opioids Does Pt have an Active Cancer Diagnosis on the Problem List?: No Quality: Stroke Does the patient have a stroke diagnosis?: No Physical Exam Vital Signs: Vital Signs: Last Vital Signs Temp 97.9 F 01/06/22 23:57 Pulse 68 01/06/22 23:57 Resp 17 01/06/22 23:57 BP 118/69 01/06/22 23:57 Pulse Ox 94 01/06/22 23:57 O2 Del Method 01/06/22 23:57 BMI result Body Mass Index 33.4 see day of discharge progress not DS: Data Data Completed and Pending Completed studies during hospitalization [Text1]: Laboratory Results WBC 8.5 X10*3/uL (4.8-10.8) 01/05/22 05:07 RBC 3.55 X10*6/uL (4.60-5.80) L 01/05/22 05:07 Hgb 7.9 g/dl (14.0-18.0) L 01/06/22 09:24 Hct 26.6 % (42.0-52.0) L 01/06/22 09:24 MCV 70.1 fL (80.0-98.0) L 01/05/22 05:07 MCH 21.1 pg (27.0-33.0) L 01/05/22 05:07 MCHC 30.1 g/dl (31.0-36.0) L 01/05/22 05:07 RDW 19.5 % (11.0-16.0) H 01/05/22 05:07 Plt Count 678 X10*3/uL (160-400) H 01/05/22 05:07 MPV 9.8 fL (9.4-12.4) 01/05/22 05:07 Immature Gran % (Auto) Cancelled 01/05/22 05:07 Neut % (Auto) Cancelled 01/05/22 05:07 Lymph % (Auto) Cancelled 01/05/22 05:07 Amelia % (Auto) Cancelled 01/05/22 05:07 Eos % (Auto) Cancelled 01/05/22 05:07 Baso % (Auto) Cancelled 01/05/22 05:07 Lymph # (Auto) Cancelled 01/05/22 05:07 Amelia # (Auto) Cancelled 01/05/22 05:07 Eos # (Auto) Cancelled 01/05/22 05:07 Baso # (Auto) Cancelled 01/05/22 05:07 Abs Immat Gran (auto) Cancelled 01/05/22 05:07 Absolute Neuts (auto) Cancelled 01/05/22 05:07 Absolute Nucleated RBC 0.480 X10*3/uL (0.0-0.012) H 01/05/22 05:07 Nucleated RBC % (auto) 5.6 /100WBC (0.0-0.2) H 01/05/22 05:07 Neutrophils % (Manual) 49 % (45-73) 01/05/22 05:07 Band Neutrophils % 32 % (3-5) H 01/05/22 05:07 Lymphocytes % (Manual) 9 % (20-40) L 01/05/22 05:07 Monocytes % (Manual) 7 % (2-11) 01/05/22 05:07 Eosinophils % (Manual) 7 % (0-4) H 01/04/22 06:38 Metamyelocytes % 3 % 01/05/22 05:07 Myelocytes % 3 % 01/03/22 16:38 Abs Neuts (Manual) 6.9 X10*3/uL (2.0-8.3) 01/05/22 05:07 Lymphocytes # (Manual) 0.8 X10*3/uL (1.2-4.9) L 01/05/22 05:07 Monocytes # (Manual) 0.6 X10*3/uL (0.1-1.2) 01/05/22 05:07 Eosinophils # (Manual) 0.7 X10*3/uL (0.0-0.4) H 01/04/22 06:38 Metamyelocytes # 0.3 X10*3/uL 01/05/22 05:07 Myelocytes # 0.3 X10*/uL 01/03/22 16:38 Nucleated RBCs 8 /100WBC (0-0) H 01/05/22 05:07 Dohle Bodies PRESENT 01/03/22 16:38 Platelet Estimate INCREASED (NORMAL) 01/05/22 05:07 Large Platelets PRESENT 01/03/22 16:38 Plt Morphology Comment NORMAL 01/05/22 05:07 RBC Morphology NOTED 01/05/22 05:07 Polychromasia 2+ (3-5) /OIF 01/05/22 05:07 Hypochromasia 2+ (15-30) /OIF 01/04/22 06:38 Microcytosis 2+ (15-30) /OIF 01/05/22 05:07 Macrocytosis 1+ (5-14) /OIF 01/05/22 05:07 Ovalocytes 1+ (5-14) /OIF 01/03/22 16:38 Smear Path Review SEE NOTE 01/05/22 05:07 Sodium 134 mmol/L (135-145) L 01/04/22 06:38 Potassium 3.9 mmol/L (3.3-5.1) 01/04/22 06:38 Chloride 101 mmol/L (96-108) 01/04/22 06:38 Carbon Dioxide 26 mmol/L (22-29) 01/04/22 06:38 Anion Gap 11 (12-20) L 01/04/22 06:38 BUN 7 mg/dL (9-16) L 01/04/22 06:38 Creatinine 1.02 mg/dL (0.5-1.4) 01/04/22 06:38 Estim Creat Clear Calc 104.7 01/04/22 06:38 Estimated GFR > 60 01/04/22 06:38 Random Glucose 117 mg/dL (60-115) H D 01/04/22 06:38 Lactic Acid 1.4 mmol/L (0.5-2.0) 01/03/22 19:13 Calcium 7.8 mg/dL (8.4-10.2) L D 01/04/22 06:38 Iron 8 mcg/dL (45-160) L 01/03/22 16:38 TIBC 340 mcg/dL (228-428) 01/03/22 16:38 % Saturation 2 % (15-50) L 01/03/22 16:38 Unsat Iron Binding 332 ug/dL 07/10/22 16:38 Ferritin 31 ng/mL (20-250) 01/03/22 16:38 Total Bilirubin < 0.2 mg/dL (0.0-1.0) 01/03/22 16:38 AST 12 U/L (5-37) 01/03/22 16:38 ALT 17 U/L (0-40) 01/03/22 16:38 Alkaline Phosphatase 71 U/L (39-117) 01/03/22 16:38 C-Reactive Protein 13.59 mg/dL (< or = 0.50) H 01/05/22 05:06 Total Protein 6.5 g/dL (6.5-8.0) 01/03/22 16:38 Albumin 3.3 g/dL (3.5-5.0) L 01/03/22 16:38 COVID-19 (JOSEPH) Negative (Negative) 01/03/22 19:08 COVID-19 Clin Com See Note 01/03/22 19:08 Blood Type O Positive 01/03/22 19:23 Antibody Screen NEGATIVE 01/03/22 19:23 Crossmatch See Detail 01/03/22 19:23 Impressions Abdomen/Pelvis CT 01/03/22 19:02 IMPRESSION: Wall thickening and mild adjacent inflammation involving the left hemicolon, suggestive of colitis. Fleischner guidelines were followed. Labs on day of discharge: Laboratory Results - last 24 hr 01/05/22 01/06/22 05:07 09:24 Hgb 7.9 L Hct 26.6 L Smear Path Review SEE NOTE Preliminary micro results at discharge 01/03/22 19:18 Blood Culture - Preliminary Blood - Venous No growth after 48 hours. 01/03/22 19:14 Blood Culture - Preliminary Blood - Venous No growth after 48 hours. Discharge Plan Discharge Patient Disposition: Left Against Medical Advice Discharge Diagnosis: AMA, UC flare Referrals: Ihsan Astudillo MD [Primary Care Provider] - 1 Week Discharge Medications: New prednisone 10 mg tablet See Rx Instructions .ROUTE .COMPLEX Qty: 70 0RF Rx Instructions: 40 mg daily x 1 week, then 30 mg daily x 1 week, then 20 mg daily x 1 week, then 10 mg daily x 1 week No Action No Known Home Meds Discharge Orders: Discharge Order (Routine); Ordered 01/07/22 Ordered By: Ilir Campos Diet: Advance to usual diet Care Plan Goals: return to hospital [facility] Concerns: UC flare Plan of Treatment: return to hospital [facility] Assessment: return to hospital [facility] Discharge Date/Time: 01/06/22 20:00
== END 2022-01-06 20:00 | disposition left against medical advice (07) | DRG 245 ==
LOC: HO.ED 21:21 → HO.EDOVER 21:53 → HO.S3 01-04 07:56
PROVIDERS: Internal Medicine; Internal Medicine Gastroenterology; Admitting Provider Hospitalist; Emergency Provider Internal Medicine; PCP Family Medicine; Visit Provider Family Medicine
PROC: 0DJD8ZZ Inspection of Lower Intestinal Tract, Via Natural or Artificial Opening Endoscopic (ICD-10-PCS; CPT 45330; principal; 2022-01-04 15:00)
DX: K51.911 Ulcerative colitis, unspecified with rectal bleeding (principal); F10.20 Alcohol dependence, uncomplicated; K21.9 Gastro-esophageal reflux disease without esophagitis; Z91.013 Allergy to seafood; Z91.14 Patient's other noncompliance with medication regimen; Z91.19 Patient's noncompliance with other medical treatment and regimen
CPT/HCPCS: 36415; 36430; 74176; 80048; 80053; 81479; 82397; 82728; 83520; 83540; 83605; 85007; 85014; 85018; 85025; 85027; 86140; 86850; 86900; 86901; 86923; 87040; 87635; 88305; 88346; 88350; 93005; 96361; 96374; 96375; 99285; J0696; J1170; J2270; J2405; J2543; J2930; P9016

== ENCOUNTER 2022-01-27 10:31 | Outpatient (REF) | payer BC, SELFPAY ==
[2022-01-27 14:25] LABS: Immature Retic Fraction 47.5 % (2.3-13.4); Mean Corpuscular HGB Conc 28.2 g/dl (31.0-36.0); Mean Corpuscular Hemoglobin 20.5 pg (27.0-33.0); Mean Corpuscular Volume 72.9 fL (80.0-98.0); Mean Platelet Volume 9.7 fL (9.4-12.4); Platelet Count 625 X10*3/uL (160-400); Red Blood Count 2.58 X10*6/uL (4.60-5.80); Red Cell Distribution Width 21.4 % (11.0-16.0); Retic HGB Equivalent 15.2 pg (30.0-35.0); Reticulocyte Percent 2.7 % (0.5-1.8); Reticulocytes Absolute 0.071 X10*6/uL (0.026-0.095); White Blood Count 6.9 X10*3/uL (4.8-10.8)
[2022-01-27 14:34] LABS: Hemoglobin 5.3 g/dl (14.0-18.0); NRBC Pct Auto 6.4 /100WBC (0.0-0.2)
[2022-01-27 14:35] LABS: Hematocrit 18.8 % (42.0-52.0)
[2022-01-27 15:01] LABS: Iron 8 mcg/dL (45-160); Percent Iron Saturation 2 % (15-50); Total Iron Binding Capacity 358 mcg/dL (228-428); Unsaturated Iron Binding 350 ug/dL
[2022-01-27 15:26] LABS: Atypical Lymph Absolute Manual 0.1 x10*3/uL; Atypical Lymphs Percent Manual 1 % (0-6); Band Neutrophils Percent 15 % (3-5); Eosinophils Absolute Manual 0.3 X10*3/uL (0.0-0.4); Eosinophils Percent Manual 4 % (0-4); Lymphocytes Absolute Manual 1.7 X10*3/uL (1.2-4.9); Lymphocytes Percent Manual 24 % (20-40); Monocytes Absolute Manual 0.1 X10*3/uL (0.1-1.2); Monocytes Percent Manual 2 % (2-11); Neutrophils Absolute Manual 4.8 X10*3/uL (2.0-8.3); Neutrophils Percent Manual 54 % (45-73); Nucleated Red Blood Cells 11 /100WBC (0-0)
[2022-01-27 15:27] LABS: Microcytosis 2+ (15-30) /OIF; Ovalocytes 1+ (5-14) /OIF; RBC Morphology NOTED; Schistocytes 2+ (3-5) /OIF
[2022-01-27 15:28] LABS: Hypochromasia 2+ (15-30) /OIF; Polychromasia 2+ (3-5) /OIF; Spherocytes 2+ (3-5) /OIF; Tear Drop Cells 1+ (0-2) /OIF
[2022-01-27 15:29] LABS: Platelet Estimate INCREASED (NORMAL); Platelet Morphology Comment NORMAL; Smudge Cells PRESENT
[2022-01-27 15:56] LABS: Folate 9.5 ng/mL (> or = 4.0); Vitamin B12 257 pg/mL (200-900)
== END 2022-01-27 10:32 | disposition home or self-care (01) ==
LOC: HO.WFDLDS 10:31
PROVIDERS: Visit Provider Family Medicine
DX: D62 Acute posthemorrhagic anemia (principal); D64.9 Anemia, unspecified; E53.8 Deficiency of other specified B group vitamins
CPT/HCPCS: 36415; 82607; 82746; 83540; 85007; 85027; 85045

== ENCOUNTER 2022-01-28 14:30 | Emergency (ER) | payer BC, SELFPAY ==
[2022-01-28] VITALS (12 sets, daily range): BP systolic 119–144; BP diastolic 75–92; PULSE 88–119; RESP 16–22; TEMP 36.7–37.3; O2SAT 94–99; BMI 34.2
--- NOTE | ~2022-01-28 | CT_ITS ---
EXAMINATION: CT ABDOMEN AND PELVIS WITHOUT CONTRAST CLINICAL INFORMATION: Ulcerative colitis. COMPARISON: 01/03/2022 TECHNIQUE: Multidetector volumetric imaging was performed from the superior aspect of the liver through the pubic symphysis. Sagittal and coronal reformatted images were obtained on the technologist's workstation. This CT examination was performed using dose optimization techniques as appropriate, variously including the following: *Automated exposure control *Adjustment of mA and/or kV according to patient size (this includes techniques or standardized protocols for targeted exams where dose is matched to indication/reason for exam; i.e. extremities or head) *Use of iterative reconstruction technique DLP: 816 mGy-cm FINDINGS: LUNG BASES: The visualized lung bases are unremarkable. LIVER, GALLBLADDER, AND BILIARY TREE: The liver is normal in size, shape, and attenuation. No focal hepatic lesion or biliary ductal dilatation is present. The gallbladder is unremarkable with no evidence of radiopaque gallstones, gallbladder wall thickening, or obvious pericholecystic inflammatory changes. PANCREAS: Unremarkable. SPLEEN: Unremarkable. ADRENAL GLANDS: Unremarkable. KIDNEYS AND URETERS: The kidneys are normal in size, shape, and attenuation. No hydronephrosis, hydroureter, or calculi seen. No perinephric stranding. BLADDER: Unremarkable. GASTROINTESTINAL TRACT: Lack of haustrations involving mainly the left colon consistent with patient's known history of ulcerative colitis. Much of the colon is decompressed which limits assessment of wall thickness. Mild stranding of the pericolonic fat involving the left colon and sigmoid, unchanged. No obvious worsening colitis as clinically questioned. No evidence of bowel obstruction. The appendix is unremarkable. ABDOMINAL WALL: No significant hernia is appreciated. LYMPH NODES: Multiple small, nonpathologically enlarged lymph nodes within the mesentery, similar to the prior studies and likely related to chronic ulcerative colitis. No adenopathy within the abdomen or pelvis by CT criteria. VASCULAR: Duplicated IVC again noted. Minimal atherosclerotic calcifications of the abdominal aorta. PELVIC VISCERA: Unremarkable. OSSEOUS STRUCTURES: No acute or suspicious osseous abnormality. CT/CT abdomen pelvis wo con IMPRESSION: No interval change to the appearance of the colon with mild pericolonic inflammation involving the left colon.
--- NOTE | 2022-01-28 14:37 | ED_ITS ---
HPI - General Adult General Chief complaint: Dizziness Stated complaint: Low blood count Time Seen by Provider: 01/28/22 14:37 Source: patient Mode of arrival: ambulatory Limitations: no limitations History of Present Illness HPI narrative: Patient comes to the emergency room complaining of rectal bleeding. Patient states that he has been diagnosed with Related Data Previous Rx's Medication Instructions Recorded ferrous sulfate 325 mg (65 mg 325 mg PO DAILY 30 days #30 tabs 01/27/22 iron) tablet omeprazole 40 mg capsule,delayed 40 mg PO DAILY 30 days #30 caps 01/27/22 release Allergies Allergy/AdvReac Type Severity Reaction Status Date / Time shellfish derived Allergy Swelling Verified 01/27/22 10:03 [facility] Past Medical History Medical History (Updated 01/28/22 @ 14:59 by Marianne Mayer MD) Diverticulitis GERD (gastroesophageal reflux disease) GI bleeding Ulcerative colitis Surgical History (Updated 01/04/22 @ 08:25 by Luisito Candelario MD) Hx of colonoscopy Social History Social History Household Members: None Housing: House Do you presently have visiting nurse or other home services: No Patient Tobacco Use Status: Never used Tobacco Advance Directives: No Advance Directives Information Provided: Yes service: No Physical Exam ED Vital Signs: Vital Signs - 24 hr 01/28/22 14:35 01/28/22 16:36 01/28/22 16:57 Temperature 98.3 F 99.1 F 99.1 F Pulse Rate 119 H 91 97 Respiratory Rate 18 16 18 Blood Pressure 138/78 124/81 132/80 Pulse Oximetry 99 98 Oxygen Delivery Method Room Air Room Air 01/28/22 17:12 01/28/22 18:00 Temperature 98.4 F 98.4 F Pulse Rate 95 94 Respiratory Rate 20 16 Blood Pressure 119/83 119/75 Pulse Oximetry 98 Oxygen Delivery Method Room Air BMI result Body Mass Index 34.2 Medical Decision Making Lab Data Result diagrams: 01/28/22 15:15 01/28/22 15:15 Labs: Lab Results 01/28/22 01/28/22 01/28/22 Range/Units 15:15 15:15 15:15 WBC 7.4 (4.8-10.8) X10*3/uL RBC 2.64 L (4.60-5.80) X10*6/uL Hgb 5.2 L* (14.0-18.0) g/dl Hct 18.7 L* (42.0-52.0) % MCV 70.8 L (80.0-98.0) fL MCH 19.7 L (27.0-33.0) pg MCHC 27.8 L (31.0-36.0) g/dl RDW 20.6 H (11.0-16.0) % Plt Count 549 H (160-400) X10*3/uL MPV 9.3 L (9.4-12.4) fL Immature Gran % (Auto) 3.8 H (0.0-0.4) % Neut % (Auto) 64.1 (45-73) % Lymph % (Auto) 18.4 L (20-40) % Mclennan % (Auto) 10.6 (2-11) % Eos % (Auto) 2.4 (0-4) % Baso % (Auto) 0.7 (0-2) % Lymph # (Auto) 1.4 (1.2-4.9) X10*3/uL Mclennan # (Auto) 0.8 (0.1-1.2) X10*3/uL Eos # (Auto) 0.2 (0.0-0.4) X10*3/uL Baso # (Auto) 0.1 (0.0-0.2) X10*3/uL Abs Immat Gran (auto) 0.28 H (0.00-0.03) X10*3/uL Absolute Neuts (auto) 4.8 (2.0-8.3) x10*3/uL Absolute Nucleated RBC 0.500 H (0.0-0.012) X10*3/uL Nucleated RBC % (auto) 6.7 H (0.0-0.2) /100WBC Sodium 140 (135-145) mmol/L Potassium 4.0 (3.3-5.1) mmol/L Chloride 104 (96-108) mmol/L Carbon Dioxide 24 (22-29) mmol/L Anion Gap 16 (12-20) BUN 9 (9-16) mg/dL Creatinine 1.21 (0.5-1.4) mg/dL Estim Creat Clear Calc 89.2 Estimated GFR > 60 Random Glucose 108 (60-115) mg/dL Calcium 8.4 D (8.4-10.2) mg/dL Total Bilirubin 0.4 (0.0-1.0) mg/dL Direct Bilirubin 0.2 (0.0-0.5) mg/dL AST 15 (5-37) U/L ALT 21 (0-40) U/L Alkaline Phosphatase 69 (39-117) U/L Troponin I High Sens < 3.5 (<3.5-35.0) ng/L Total Protein 6.0 L (6.5-8.0) g/dL Albumin 3.3 L (3.5-5.0) g/dL Urine Color Urine Appearance Urine pH (5.0-8.0) Ur Specific Purchase (1.005-1.025) Urine Protein (NEG-TRACE) MG/DL Urine Glucose (UA) (NEG) MG/DL Urine Ketones (NEG) MG/DL Urine Blood (NEG) Urine Nitrite (NEG) Ur Leukocyte Esterase (NEG) COVID-19 (JOSEPH) (Negative) COVID-19 Clin Com Blood Type Antibody Screen Crossmatch 01/28/22 01/28/22 01/28/22 Range/Units 15:15 15:15 16:41 WBC (4.8-10.8) X10*3/uL RBC (4.60-5.80) X10*6/uL Hgb (14.0-18.0) g/dl Hct (42.0-52.0) % MCV (80.0-98.0) fL MCH (27.0-33.0) pg MCHC (31.0-36.0) g/dl RDW (11.0-16.0) % Plt Count (160-400) X10*3/uL MPV (9.4-12.4) fL Immature Gran % (Auto) (0.0-0.4) % Neut % (Auto) (45-73) % Lymph % (Auto) (20-40) % Mclennan % (Auto) (2-11) % Eos % (Auto) (0-4) % Baso % (Auto) (0-2) % Lymph # (Auto) (1.2-4.9) X10*3/uL Mclennan # (Auto) (0.1-1.2) X10*3/uL Eos # (Auto) (0.0-0.4) X10*3/uL Baso # (Auto) (0.0-0.2) X10*3/uL Abs Immat Gran (auto) (0.00-0.03) X10*3/uL Absolute Neuts (auto) (2.0-8.3) x10*3/uL Absolute Nucleated RBC (0.0-0.012) X10*3/uL Nucleated RBC % (auto) (0.0-0.2) /100WBC Sodium (135-145) mmol/L Potassium (3.3-5.1) mmol/L Chloride (96-108) mmol/L Carbon Dioxide (22-29) mmol/L Anion Gap (12-20) BUN (9-16) mg/dL Creatinine (0.5-1.4) mg/dL Estim Creat Clear Calc Estimated GFR Random Glucose (60-115) mg/dL Calcium (8.4-10.2) mg/dL Total Bilirubin (0.0-1.0) mg/dL Direct Bilirubin (0.0-0.5) mg/dL AST (5-37) U/L ALT (0-40) U/L Alkaline Phosphatase (39-117) U/L Troponin I High Sens (<3.5-35.0) ng/L Total Protein (6.5-8.0) g/dL Albumin (3.5-5.0) g/dL Urine Color STRAW Urine Appearance CLEAR Urine pH 7.0 (5.0-8.0) Ur Specific Purchase <= 1.005 (1.005-1.025) Urine Protein NEG (NEG-TRACE) MG/DL Urine Glucose (UA) NEG (NEG) MG/DL Urine Ketones NEG (NEG) MG/DL Urine Blood NEG (NEG) Urine Nitrite NEG (NEG) Ur Leukocyte Esterase NEG (NEG) COVID-19 (JOSEPH) Negative (Negative) COVID-19 Clin Com See Note Blood Type O Positive Antibody Screen NEGATIVE Crossmatch See Detail Discharge Plan Discharge Clinical Impression: GI (gastrointestinal bleed), Ulcerative colitis, Severe anemia Prescriptions: No Action ferrous sulfate 325 mg (65 mg iron) tablet 325 mg PO DAILY 30 Days Qty: 30 2RF omeprazole 40 mg capsule,delayed release(DR/EC) 40 mg PO DAILY 30 Days Qty: 30 2RF
--- NOTE | 2022-01-28 14:49 | ECG_ITS ---
Test Reason : dizziness Blood Pressure : / mmHG Vent. Rate : 090 BPM Atrial Rate : 090 BPM P-R Int : 126 ms QRS Dur : 096 ms QT Int : 356 ms P-R-T Axes : 053 009 024 degrees QTc Int : 435 ms Normal sinus rhythm Normal ECG When compared with ECG of 03-JAN-2022 16:26, No significant change was found Referred By: Marianne Mayer Electronically Signed By:VIVEK BAEZ MD
--- NOTE | 2022-01-28 14:53 | ED.GIBLEED ---
HPI - GI Bleed General Chief complaint: Dizziness Stated complaint: Low blood count Time Seen by Provider: 01/28/22 14:37 Source: patient Mode of arrival: ambulatory Limitations: no limitations History of Present Illness HPI Narrative: Patient comes to the emergency room complaining of low hemoglobin. Patient states that yesterday he had a follow-up appointment with his new primary care physician, blood work was done. Patient received a phone call today, asking the patient to return to come to the emergency room due to low hemoglobin. Patient states that for the last 2 weeks he has been feeling lightheaded, fatigued, short of breath with any exertion. Of note, patient was discharged on January 07. Patient was admitted for ulcerative colitis flare, patient required blood transfusions. Since his discharge, patient has been taking p.o. prednisone and mesalamine. Patient states that he has had rectal bleeding for the last couple weeks, but not as bad as when he initially came last month. Patient denies any abdominal pain. Related Data Previous Rx's Medication Instructions Recorded ferrous sulfate 325 mg (65 mg 325 mg PO DAILY 30 days #30 tabs 01/27/22 iron) tablet omeprazole 40 mg capsule,delayed 40 mg PO DAILY 30 days #30 caps 01/27/22 release ferrous sulfate 325 mg (65 mg 325 mg PO TID 1 month #90 tabs 01/29/22 iron) tablet,delayed release mesalamine 400 mg capsule (with 800 mg PO TID 4 weeks #168 ea 01/29/22 delayed release tablets inside) prednisone 10 mg tablet See Rx Instructions .Route 01/29/22 .COMPLEX #70 tabs sennosides 8.6 mg tablet (Senna 8.6 mg PO BID PRN constipation #30 01/29/22 Laxative) tabs Allergies Allergy/AdvReac Type Severity Reaction Status Date / Time shellfish derived Allergy Swelling Verified 01/27/22 10:03 Review of Systems Review of Systems: Constitutional : No Weight loss, No Fever, No Chills, No Night Sweats, complaining of fatigue ENT/Mouth : No Hearing loss, No Ear Pain, No Nasal Congestion, No Sinus Pain, No Hoarseness, No sore throat, No Rhinorrhea, No Swallowing Difficulty Eyes: No Eye Pain, No Swelling, No Redness, No Foreign Body, No Discharge, No Vision Changes Cardiovascular : No Chest Pain, No SOB, complaining of dyspnea on exertion, orthopnea, no edema Respiratory : No Cough, No Sputum, No Wheezing, No Smoke Exposure, complaining of Dyspnea Gastrointestinal : No Nausea, No Vomiting, No Diarrhea, No Constipation, No abdominal Pain, complaining of rectal bleeding Genitourinary : no irregular bleeding, No Dysuria, No Urinary Frequency, No Hematuria, No Urinary Incontinence, No Urgency, No Flank Pain, No Urinary Flow Changes, No Hesitancy Musculoskeletal : No joint pain, No Myalgias, No Joint Swelling Skin : No Skin Lesions, No rash Neuro : No Weakness, No Numbness, No Paresthesias, No Loss of Consciousness, No Dizziness, No Headache Psych : No Anxiety/Panic, No Depression, No SI/HI/AH/VH, No Social Issues, Heme/Lymph: No Bruising, No Bleeding,No Lymphadenopathy Endocrine : No Polyuria, No Polydipsia, No Temperature Intolerance [facility] Past Medical History Medical History (Updated 01/28/22 @ 14:59 by Marianne Mayer MD) Diverticulitis GERD (gastroesophageal reflux disease) GI bleeding Ulcerative colitis Surgical History (Updated 01/04/22 @ 08:25 by Luisito Candelario MD) Hx of colonoscopy Social History Social History Household Members: None Housing: House Do you presently have visiting nurse or other home services: No Patient Tobacco Use Status: Never used Tobacco Advance Directives: No Advance Directives Information Provided: Yes service: No Physical Exam Vital Signs: Vital Signs: Last Vital Signs Temp 98.1 F 01/28/22 23:42 Pulse 88 01/28/22 23:42 Resp 18 01/28/22 23:42 BP 130/81 01/28/22 23:42 Pulse Ox 94 01/28/22 23:42 O2 Del Method 01/28/22 23:42 BMI result Body Mass Index 34.2 Const: Other: Appearance: Alert. Oriented X3. No acute distress. Eyes: Pupils equal, round and reactive to light. ENT: Pharynx normal. Neck: Normal inspection. Neck supple. No lymph nodes noted. No crepitus CVS: Tachycardic, heart rate in the 120s Pulses normal. Normal S1 and S2 Respiratory: No respiratory distress. Breath sounds normal. No Wheezing. No rales Abdomen: Soft and nontender. No rigidity. No distention. Skin: Skin warm and dry. Patient is pale Normal skin turgor. Extremities: No lower extremity edema. No Lacerations. No Rash Neuro: Oriented X 3. No motor deficit. No sensory deficit. Moving all extremities. No slurred speech. CN 2 through 12 grossly intact Psych: calm, cooperative, normal affect Course Course Course Narrative: I discussed with the patient that he will need a blood transfusion. We will repeat labs today. Patient has had blood transfusion in the past, says that he is agreeable to the transfusion, patient states that he is aware of the benefits versus risks of the transfusion, still wants to go ahead and receive blood. patient's hemoglobin improved to 7.9. Patient usually runs a hemoglobin of approximately 8 for last couple of years. Patient has been walking up to the bathroom, patient states that he no longer feels short of breath, dizzy or weak. Patient states he feels very well. Patient will be discharged. Dr. Candelario came to see the patient to the ED. Patient has an appointment pending with Dr. Alves. recommendations in the meantime about restart prednisone for 4 weeks with a paper, iron t.i.d. and mesalamine, which has been sent to the patient's pharmacy MDM - GI Bleed Lab Data Result diagrams: 01/28/22 23:40 01/28/22 15:15 Labs: Lab Results 01/28/22 01/28/22 01/28/22 Range/Units 15:15 15:15 15:15 WBC 7.4 (4.8-10.8) X10*3/uL RBC 2.64 L (4.60-5.80) X10*6/uL Hgb 5.2 L* (14.0-18.0) g/dl Hct 18.7 L* (42.0-52.0) % MCV 70.8 L (80.0-98.0) fL MCH 19.7 L (27.0-33.0) pg MCHC 27.8 L (31.0-36.0) g/dl RDW 20.6 H (11.0-16.0) % Plt Count 549 H (160-400) X10*3/uL MPV 9.3 L (9.4-12.4) fL Immature Gran % (Auto) 3.8 H (0.0-0.4) % Neut % (Auto) 64.1 (45-73) % Lymph % (Auto) 18.4 L (20-40) % [place] % (Auto) 10.6 (2-11) % Eos % (Auto) 2.4 (0-4) % Baso % (Auto) 0.7 (0-2) % Lymph # (Auto) 1.4 (1.2-4.9) X10*3/uL [place] # (Auto) 0.8 (0.1-1.2) X10*3/uL Eos # (Auto) 0.2 (0.0-0.4) X10*3/uL Baso # (Auto) 0.1 (0.0-0.2) X10*3/uL Abs Immat Gran (auto) 0.28 H (0.00-0.03) X10*3/uL Absolute Neuts (auto) 4.8 (2.0-8.3) x10*3/uL Absolute Nucleated RBC 0.500 H (0.0-0.012) X10*3/uL Nucleated RBC % (auto) 6.7 H (0.0-0.2) /100WBC Sodium 140 (135-145) mmol/L Potassium 4.0 (3.3-5.1) mmol/L Chloride 104 (96-108) mmol/L Carbon Dioxide 24 (22-29) mmol/L Anion Gap 16 (12-20) BUN 9 (9-16) mg/dL Creatinine 1.21 (0.5-1.4) mg/dL Estim Creat Clear Calc 89.2 Estimated GFR > 60 Random Glucose 108 (60-115) mg/dL Calcium 8.4 D (8.4-10.2) mg/dL Total Bilirubin 0.4 (0.0-1.0) mg/dL Direct Bilirubin 0.2 (0.0-0.5) mg/dL AST 15 (5-37) U/L ALT 21 (0-40) U/L Alkaline Phosphatase 69 (39-117) U/L Troponin I High Sens < 3.5 (<3.5-35.0) ng/L Total Protein 6.0 L (6.5-8.0) g/dL Albumin 3.3 L (3.5-5.0) g/dL Urine Color Urine Appearance Urine pH (5.0-8.0) Ur Specific [place] (1.005-1.025) Urine Protein (NEG-TRACE) MG/DL Urine Glucose (UA) (NEG) MG/DL Urine Ketones (NEG) MG/DL Urine Blood (NEG) Urine Nitrite (NEG) Ur Leukocyte Esterase (NEG) COVID-19 (JOSEPH) (Negative) COVID-19 Clin Com Blood Type Antibody Screen Crossmatch 01/28/22 01/28/22 01/28/22 Range/Units 15:15 15:15 16:41 WBC (4.8-10.8) X10*3/uL RBC (4.60-5.80) X10*6/uL Hgb (14.0-18.0) g/dl Hct (42.0-52.0) % MCV (80.0-98.0) fL MCH (27.0-33.0) pg MCHC (31.0-36.0) g/dl RDW (11.0-16.0) % Plt Count (160-400) X10*3/uL MPV (9.4-12.4) fL Immature Gran % (Auto) (0.0-0.4) % Neut % (Auto) (45-73) % Lymph % (Auto) (20-40) % [place] % (Auto) (2-11) % Eos % (Auto) (0-4) % Baso % (Auto) (0-2) % Lymph # (Auto) (1.2-4.9) X10*3/uL [place] # (Auto) (0.1-1.2) X10*3/uL Eos # (Auto) (0.0-0.4) X10*3/uL Baso # (Auto) (0.0-0.2) X10*3/uL Abs Immat Gran (auto) (0.00-0.03) X10*3/uL Absolute Neuts (auto) (2.0-8.3) x10*3/uL Absolute Nucleated RBC (0.0-0.012) X10*3/uL Nucleated RBC % (auto) (0.0-0.2) /100WBC Sodium (135-145) mmol/L Potassium (3.3-5.1) mmol/L Chloride (96-108) mmol/L Carbon Dioxide (22-29) mmol/L Anion Gap (12-20) BUN (9-16) mg/dL Creatinine (0.5-1.4) mg/dL Estim Creat Clear Calc Estimated GFR Random Glucose (60-115) mg/dL Calcium (8.4-10.2) mg/dL Total Bilirubin (0.0-1.0) mg/dL Direct Bilirubin (0.0-0.5) mg/dL AST (5-37) U/L ALT (0-40) U/L Alkaline Phosphatase (39-117) U/L Troponin I High Sens (<3.5-35.0) ng/L Total Protein (6.5-8.0) g/dL Albumin (3.5-5.0) g/dL Urine Color STRAW Urine Appearance CLEAR Urine pH 7.0 (5.0-8.0) Ur Specific [place] <= 1.005 (1.005-1.025) Urine Protein NEG (NEG-TRACE) MG/DL Urine Glucose (UA) NEG (NEG) MG/DL Urine Ketones NEG (NEG) MG/DL Urine Blood NEG (NEG) Urine Nitrite NEG (NEG) Ur Leukocyte Esterase NEG (NEG) COVID-19 (JOSEPH) Negative (Negative) COVID-19 Clin Com See Note Blood Type O Positive Antibody Screen NEGATIVE Crossmatch See Detail 01/28/22 Range/Units 23:40 WBC (4.8-10.8) X10*3/uL RBC (4.60-5.80) X10*6/uL Hgb 7.9 L D (14.0-18.0) g/dl Hct 25.8 L D (42.0-52.0) % MCV (80.0-98.0) fL MCH (27.0-33.0) pg MCHC (31.0-36.0) g/dl RDW (11.0-16.0) % Plt Count (160-400) X10*3/uL MPV (9.4-12.4) fL Immature Gran % (Auto) (0.0-0.4) % Neut % (Auto) (45-73) % Lymph % (Auto) (20-40) % [place] % (Auto) (2-11) % Eos % (Auto) (0-4) % Baso % (Auto) (0-2) % Lymph # (Auto) (1.2-4.9) X10*3/uL [place] # (Auto) (0.1-1.2) X10*3/uL Eos # (Auto) (0.0-0.4) X10*3/uL Baso # (Auto) (0.0-0.2) X10*3/uL Abs Immat Gran (auto) (0.00-0.03) X10*3/uL Absolute Neuts (auto) (2.0-8.3) x10*3/uL Absolute Nucleated RBC (0.0-0.012) X10*3/uL Nucleated RBC % (auto) (0.0-0.2) /100WBC Sodium (135-145) mmol/L Potassium (3.3-5.1) mmol/L Chloride (96-108) mmol/L Carbon Dioxide (22-29) mmol/L Anion Gap (12-20) BUN (9-16) mg/dL Creatinine (0.5-1.4) mg/dL Estim Creat Clear Calc Estimated GFR Random Glucose (60-115) mg/dL Calcium (8.4-10.2) mg/dL Total Bilirubin (0.0-1.0) mg/dL Direct Bilirubin (0.0-0.5) mg/dL AST (5-37) U/L ALT (0-40) U/L Alkaline Phosphatase (39-117) U/L Troponin I High Sens (<3.5-35.0) ng/L Total Protein (6.5-8.0) g/dL Albumin (3.5-5.0) g/dL Urine Color Urine Appearance Urine pH (5.0-8.0) Ur Specific [place] (1.005-1.025) Urine Protein (NEG-TRACE) MG/DL Urine Glucose (UA) (NEG) MG/DL Urine Ketones (NEG) MG/DL Urine Blood (NEG) Urine Nitrite (NEG) Ur Leukocyte Esterase (NEG) COVID-19 (JOSEPH) (Negative) COVID-19 Clin Com Blood Type Antibody Screen Crossmatch Imaging Data CT scan - abdomen: Radiologist's impression: FINDINGS: LUNG BASES: The visualized lung bases are unremarkable.? LIVER, GALLBLADDER, AND BILIARY TREE: The liver is normal in size, shape, and attenuation. No focal hepatic lesion or biliary ductal dilatation is present. The gallbladder is unremarkable with no evidence of radiopaque gallstones, gallbladder wall thickening, or obvious pericholecystic inflammatory changes.? PANCREAS: Unremarkable.? SPLEEN: Unremarkable.? ADRENAL GLANDS: Unremarkable.? KIDNEYS AND URETERS: The kidneys are normal in size, shape, and attenuation. No hydronephrosis, hydroureter, or calculi seen. No perinephric stranding. ? BLADDER: Unremarkable.? GASTROINTESTINAL TRACT: Lack of haustrations involving mainly the left colon consistent with patient's known history of ulcerative colitis. Much of the colon is decompressed which limits assessment of wall thickness. Mild stranding of the pericolonic fat involving the left colon and sigmoid, unchanged. No obvious worsening colitis as clinically questioned. No evidence of bowel obstruction. The appendix is unremarkable.? ABDOMINAL WALL: No significant hernia is appreciated.? LYMPH NODES: Multiple small, nonpathologically enlarged lymph nodes within the mesentery, similar to the prior studies and likely related to chronic ulcerative colitis. No adenopathy within the abdomen or pelvis by CT criteria. VASCULAR: Duplicated IVC again noted. Minimal atherosclerotic calcifications of the abdominal aorta. PELVIC VISCERA: Unremarkable.? OSSEOUS STRUCTURES: No acute or suspicious osseous abnormality.? CT/CT abdomen pelvis wo con IMPRESSION: No interval change to the appearance of the colon with mild pericolonic inflammation involving the left colon. Critical Care Time Critical Care Time Critical Care Time: Yes Total Critical Care Time: 60 Attestation: I have personally provided critical care time. Time includes review of lab data, radiology results, discussion with consultants, and monitoring for potential decompensation. Intervention performed as documented. Discharge Plan Discharge Clinical Impression: GI (gastrointestinal bleed), Ulcerative colitis, Severe anemia Patient Disposition: Still a Patient Instructions: Ulcerative Colitis (ED) Additional Instructions: Please follow-up with your primary care physician tomorrow. If you have any worsening or new symptoms, please return to the emergency room or call 911 Prescriptions: New prednisone 10 mg tablet See Rx Instructions .ROUTE .COMPLEX Qty: 70 0RF Rx Instructions: for 1 week take 40 mg oral daily, 2nd week take 30 mg orally, 2nd week 20 mg oral daily, 4th week take 10 mg orally daily mesalamine 400 mg capsule (with del rel tablets) 800 mg PO TID 28 Days Qty: 168 0RF ferrous sulfate 325 mg (65 mg iron) tablet,delayed release (DR/EC) 325 mg PO TID 30 Days Qty: 90 0RF sennosides [Senna Laxative] 8.6 mg tablet 8.6 mg PO BID PRN (Reason: constipation) Qty: 30 0RF No Action ferrous sulfate 325 mg (65 mg iron) tablet 325 mg PO DAILY 30 Days Qty: 30 2RF omeprazole 40 mg capsule,delayed release(DR/EC) 40 mg PO DAILY 30 Days Qty: 30 2RF
--- NOTE | 2022-01-28 15:18 | PC.NURSE ---
pt a&ox3, vss - tachycardia, 20G IV placed left and right AC, labs draw, type and screen drawn, pt resting comfortably, RR even and unlabored.
[2022-01-28 15:21] LABS: MANUAL DIFF FLAG NO
[2022-01-28 15:24] LABS: Basophils Absolute Auto 0.1 X10*3/uL (0.0-0.2); Basophils Percent Auto 0.7 % (0-2); Eosinophils Absolute Auto 0.2 X10*3/uL (0.0-0.4); Eosinophils Percent Auto 2.4 % (0-4); Imm Gran Abs Auto 0.28 X10*3/uL (0.00-0.03); Imm Gran Pct Auto 3.8 % (0.0-0.4); Lymphocytes Absolute Auto 1.4 X10*3/uL (1.2-4.9); Lymphocytes Percent Auto 18.4 % (20-40); Mean Corpuscular HGB Conc 27.8 g/dl (31.0-36.0); Mean Corpuscular Hemoglobin 19.7 pg (27.0-33.0); Mean Corpuscular Volume 70.8 fL (80.0-98.0); Mean Platelet Volume 9.3 fL (9.4-12.4); Monocytes Absolute Auto 0.8 X10*3/uL (0.1-1.2); Monocytes Percent Auto 10.6 % (2-11); Neutrophils Absolute Auto 4.8 x10*3/uL (2.0-8.3); Neutrophils Percent Auto 64.1 % (45-73); Platelet Count 549 X10*3/uL (160-400); Red Blood Count 2.64 X10*6/uL (4.60-5.80); Red Cell Distribution Width 20.6 % (11.0-16.0); White Blood Count 7.4 X10*3/uL (4.8-10.8)
[2022-01-28] MEDS: methylPREDNISolone Sod Succ 125 MG/2 ML VIAL IVPUSH (15:25)
[2022-01-28 15:26] LABS: NRBC Pct Auto 6.7 /100WBC (0.0-0.2)
[2022-01-28 15:31] LABS: Hematocrit 18.7 % (42.0-52.0); Hemoglobin 5.2 g/dl (14.0-18.0)
[2022-01-28 15:40] LABS: Alanine Aminotransferase 21 U/L (0-40); Albumin Level 3.3 g/dL (3.5-5.0); Alkaline Phosphatase 69 U/L (39-117); Anion Gap 16 (12-20); Aspartate Amino Transferase 15 U/L (5-37); Bilirubin Direct 0.2 mg/dL (0.0-0.5); Bilirubin Total 0.4 mg/dL (0.0-1.0); Blood Urea Nitrogen 9 mg/dL (9-16); Calcium 8.4 mg/dL (8.4-10.2); Carbon Dioxide 24 mmol/L (22-29); Chloride 104 mmol/L (96-108); Creatinine Clr Calc Pharmacy 89.2; Estimated Glomerular Filt Rate > 60; Glucose Random 108 mg/dL (60-115); Sodium 140 mmol/L (135-145)
[2022-01-28 15:42] LABS: COVID-19 Test Negative (Negative); Troponin-I High Sensitivity < 3.5 ng/L (<3.5-35.0)
[2022-01-28 16:53] LABS: Appearance Urine CLEAR; Color Urine STRAW; Glucose Urine UA NEG (NEG); Leukocyte Esterase Urine NEG (NEG); Nitrite Urine NEG (NEG); Specific Gravity - Urine <= 1.005 (1.005-1.025); Urine Blood NEG (NEG); Urine Ketones NEG (NEG); Urine Protein NEG (NEG-TRACE)
--- NOTE | 2022-01-28 17:14 | PC.NURSE ---
first u prbc started, pt tolerating well, vss.
[2022-01-28 23:51] LABS: Hematocrit 25.8 % (42.0-52.0); Hemoglobin 7.9 g/dl (14.0-18.0)
== END 2022-01-29 00:45 | disposition home or self-care (01) ==
PROVIDERS: Emergency Provider Emergency Medicine; PCP Family Medicine
DX: K92.2 Gastrointestinal hemorrhage, unspecified (principal); K51.90 Ulcerative colitis, unspecified, without complications; D64.9 Anemia, unspecified; Z20.822 Contact with and (suspected) exposure to COVID-19
CPT/HCPCS: 36415; 36430; 74176; 80048; 80076; 81003; 84484; 85014; 85018; 85025; 86850; 86900; 86901; 86923; 87635; 93005; 96374; 99284; 99285; J2930; P9016

== ENCOUNTER 2022-02-15 09:39 | Outpatient (REF) | payer BC, SELFPAY ==
[2022-02-15 10:07] LABS: MANUAL DIFF FLAG NO
[2022-02-15 10:45] LABS: Basophils Percent Auto 0.4 % (0-2); Eosinophils Percent Auto 0.4 % (0-4); Hematocrit 33.2 % (42.0-52.0); Hemoglobin 9.9 g/dl (14.0-18.0); Imm Gran Abs Auto 0.14 X10*3/uL (0.00-0.03); Lymphocytes Absolute Auto 1.1 X10*3/uL (1.2-4.9); Lymphocytes Percent Auto 15.1 % (20-40); Mean Corpuscular HGB Conc 29.8 g/dl (31.0-36.0); Mean Corpuscular Hemoglobin 26.3 pg (27.0-33.0); Mean Corpuscular Volume 88.3 fL (80.0-98.0); Monocytes Absolute Auto 0.6 X10*3/uL (0.1-1.2); Monocytes Percent Auto 8.3 % (2-11); Neutrophils Absolute Auto 5.2 x10*3/uL (2.0-8.3); Neutrophils Percent Auto 73.8 % (45-73); Platelet Count 529 X10*3/uL (160-400); Red Blood Count 3.76 X10*6/uL (4.60-5.80); Red Cell Distribution Width 30.3 % (11.0-16.0); White Blood Count 7.1 X10*3/uL (4.8-10.8)
[2022-02-15 11:20] LABS: Alanine Aminotransferase 20 U/L (0-40); Albumin Level 3.8 g/dL (3.5-5.0); Alkaline Phosphatase 67 U/L (39-117); Anion Gap 18 (12-20); Aspartate Amino Transferase 11 U/L (5-37); Bilirubin Total 0.4 mg/dL (0.0-1.0); Blood Urea Nitrogen 13 mg/dL (9-16); C Reactive Protein 0.75 mg/dL (< or = 0.50); Calcium 9.4 mg/dL (8.4-10.2); Carbon Dioxide 23 mmol/L (22-29); Chloride 102 mmol/L (96-108); Estimated Glomerular Filt Rate > 60; Glucose Random 112 mg/dL (60-115); Iron 179 mcg/dL (45-160); Percent Iron Saturation 50 % (15-50); Potassium 4.2 mmol/L (3.3-5.1); Sodium 139 mmol/L (135-145); Total Iron Binding Capacity 361 mcg/dL (228-428); Total Protein 6.4 g/dL (6.5-8.0); Unsaturated Iron Binding 182 ug/dL
[2022-02-15 11:43] LABS: Ferritin 36 ng/mL (20-250)
[2022-02-15 11:55] LABS: HBS Num1 1.08 mIU/mL (0-7.99); HBc Num1 0.06 S/CO (0.00-0.79); HBsAGNum1 0.21 S/CO (0.00-0.99); Hepatitis B Core Antibody Nonreactive (Nonreactive); Hepatitis B Surface Antigen Negative (Negative); ~HepC Num1 0.08 S/CO (0.00-0.79); ~Hepatitis B Surface Antibody NONREACTIVE (Nonreactive); ~Hepatitis C Antibody Nonreactive (Nonreactive)
[2022-02-17 07:22] LABS: Hepatitis A Antibody IgM 0.27 Index (0-0.79); ~Hepatitis A Antibody IgM Nonreactive (Nonreactive)
[2022-02-17 22:56] LABS: TS Negative Control Passed; TS Panel A 2; TS Panel B 0; TS Positive Control Passed; TSpotTB Negative (Negative)
[2022-02-20 17:52] LABS: Lactoferrin, Fecal, Quant. 673.8 mcg/mL
== END 2022-02-15 09:40 | disposition home or self-care (01) ==
LOC: HO.LAB 09:39
PROVIDERS: Absent Provider Family Medicine; PCP Family Medicine; Visit Provider Internal Medicine Gastroenterology
DX: K51.90 Ulcerative colitis, unspecified, without complications (principal); K75.81 Nonalcoholic steatohepatitis (NASH); D64.9 Anemia, unspecified
CPT/HCPCS: 36415; 80053; 82728; 83540; 83631; 85025; 86140; 86481; 86704; 86706; 86709; 86803; 87340

== ENCOUNTER 2022-03-03 10:31 | Outpatient (REF) | payer BC, SELFPAY ==
[2022-03-03 11:56] LABS: Iron 28 mcg/dL (45-160); Percent Iron Saturation 7 % (15-50); Total Iron Binding Capacity 396 mcg/dL (228-428); Unsaturated Iron Binding 368 ug/dL
== END 2022-03-03 10:32 | disposition home or self-care (01) ==
LOC: HO.WFDLDS 10:31
PROVIDERS: Visit Provider Family Medicine
DX: D64.9 Anemia, unspecified (principal)
CPT/HCPCS: 36415; 83540

== ENCOUNTER 2022-04-15 09:31 | Outpatient (REF) | payer BC, SELFPAY ==
[2022-04-15 11:22] LABS: MANUAL DIFF FLAG NO
[2022-04-15 11:50] LABS: Basophils Absolute Auto 0.1 X10*3/uL (0.0-0.2); Basophils Percent Auto 1.3 % (0-2); Eosinophils Absolute Auto 0.6 X10*3/uL (0.0-0.4); Eosinophils Percent Auto 8.2 % (0-4); Hematocrit 35.9 % (42.0-52.0); Hemoglobin 10.8 g/dl (14.0-18.0); Imm Gran Abs Auto 0.08 X10*3/uL (0.00-0.03); Imm Gran Pct Auto 1.1 % (0.0-0.4); Lymphocytes Absolute Auto 1.7 X10*3/uL (1.2-4.9); Lymphocytes Percent Auto 24.5 % (20-40); Mean Corpuscular HGB Conc 30.1 g/dl (31.0-36.0); Mean Corpuscular Hemoglobin 25.7 pg (27.0-33.0); Mean Corpuscular Volume 85.5 fL (80.0-98.0); Mean Platelet Volume 9.7 fL (9.4-12.4); Monocytes Absolute Auto 0.9 X10*3/uL (0.1-1.2); NRBC Pct Auto 0.4 /100WBC (0.0-0.2); Neutrophils Absolute Auto 3.7 x10*3/uL (2.0-8.3); Neutrophils Percent Auto 52.9 % (45-73); Platelet Count 567 X10*3/uL (160-400); Red Cell Distribution Width 17.9 % (11.0-16.0); White Blood Count 7.1 X10*3/uL (4.8-10.8)
== END 2022-04-15 09:32 | disposition home or self-care (01) ==
LOC: HO.WFDLDS 09:31
PROVIDERS: Visit Provider Family Medicine
DX: Z00.00 Encounter for general adult medical examination without abnormal findings (principal); D64.9 Anemia, unspecified
CPT/HCPCS: 36415; 85025

== ENCOUNTER 2022-08-18 09:48 | Outpatient (REF) | payer BC, SELFPAY ==
[2022-08-18 11:06] LABS: MANUAL DIFF FLAG NO
[2022-08-18 11:18] LABS: Basophils Absolute Auto 0.1 X10*3/uL (0.0-0.2); Basophils Percent Auto 1.5 % (0-2); Eosinophils Absolute Auto 0.1 X10*3/uL (0.0-0.4); Hematocrit 41.6 % (42.0-52.0); Hemoglobin 12.4 g/dl (14.0-18.0); Imm Gran Abs Auto 0.03 X10*3/uL (0.00-0.03); Imm Gran Pct Auto 0.5 % (0.0-0.4); Lymphocytes Absolute Auto 1.5 X10*3/uL (1.2-4.9); Lymphocytes Percent Auto 23.3 % (20-40); Mean Corpuscular HGB Conc 29.8 g/dl (31.0-36.0); Mean Corpuscular Hemoglobin 23.4 pg (27.0-33.0); Mean Corpuscular Volume 78.5 fL (80.0-98.0); Mean Platelet Volume 10.3 fL (9.4-12.4); Monocytes Absolute Auto 0.5 X10*3/uL (0.1-1.2); Monocytes Percent Auto 8.2 % (2-11); Neutrophils Absolute Auto 4.2 x10*3/uL (2.0-8.3); Neutrophils Percent Auto 64.5 % (45-73); Platelet Count 441 X10*3/uL (160-400); Red Cell Distribution Width 16.9 % (11.0-16.0); White Blood Count 6.5 X10*3/uL (4.8-10.8)
[2022-08-18 11:40] LABS: Alanine Aminotransferase 22 U/L (0-40); Albumin Level 4.2 g/dL (3.5-5.0); Alkaline Phosphatase 87 U/L (39-117); Anion Gap 11 (12-20); Aspartate Amino Transferase 15 U/L (5-37); Bilirubin Total 0.3 mg/dL (0.0-1.0); Blood Urea Nitrogen 12 mg/dL (9-16); Calcium 9.4 mg/dL (8.4-10.2); Carbon Dioxide 26 mmol/L (22-29); Chloride 105 mmol/L (96-108); Estimated Glomerular Filt Rate > 60; Glucose Random 96 mg/dL (60-115); Potassium 4.5 mmol/L (3.3-5.1); Sodium 137 mmol/L (135-145); Total Protein 7.7 g/dL (6.5-8.0)
== END 2022-08-18 09:49 | disposition home or self-care (01) ==
LOC: HO.WFDLDS 09:48
PROVIDERS: Visit Provider Family Medicine
DX: Z00.00 Encounter for general adult medical examination without abnormal findings (principal); D64.9 Anemia, unspecified
CPT/HCPCS: 36415; 80053; 85025

== ENCOUNTER → 2022-09-16 09:45 | Outpatient (BNVA) | payer BC, SELFPAY | PROVIDERS: PCP Family Medicine; Visit Provider Nurse Practitioner Family | DX: Z13.89 Encounter for screening for other disorder (principal) ==

== ENCOUNTER → 2022-10-05 15:52 | Outpatient (REF) | payer BC, SELFPAY | LOC: HO.SL 15:52 | PROVIDERS: PCP Family Medicine; Visit Provider Nurse Practitioner Family | DX: G47.19 Other hypersomnia (principal); G47.33 Obstructive sleep apnea (adult) (pediatric) | CPT/HCPCS: 95806 ==

== ENCOUNTER 2022-11-08 16:45 | Inpatient (IN) | payer BC, SELFPAY ==
--- NOTE | 2022-11-08 16:54 | ED_ITS ---
HPI - Abdominal Pain General Chief Complaint: Abdominal Pain <Aileen Hirsch NP - Last Filed: 11/08/22 16:57> Stated Complaint: abd pressure <Aileen Hirsch NP - Last Filed: 11/08/22 16:57> Time Seen by Provider: 11/08/22 17:16 <Aileen Hirsch NP - Last Filed: 11/08/22 16:57> Source: patient <Marianne Mayer MD - Last Filed: 11/08/22 19:11> Mode of arrival: ambulatory <Marianne Mayer MD - Last Filed: 11/08/22 19:11> Limitations: no limitations <Marianne Mayer MD - Last Filed: 11/08/22 19:11> History of Present Illness HPI narrative: Patient comes to the emergency room complaining of 9 days of abdominal pain and bloody diarrhea. Patient is known to have ulcerative colitis. Patient has had 3 flares. Patient states he has had approximately 15-20 bowel movements per day for the last week. Patient states that he is compliant taking mesalamine 800 mg t.i.d.. Patient came because he could not tolerate the abdominal pain. At this time, patient states that the pain is not intense, it is present but minimal. The pain starts building up and after he has bowel movements it improves. However, patient states that he cannot tolerate having his pain so many days. Denies dysuria. <Marianne Mayer MD - Last Filed: 10/25 11/16 19:11> Related Data Home Medications: Previous Rx's Medication Instructions Recorded lisinopril 10 mg tablet 10 mg PO DAILY 30 days #30 tabs 05/18/22 ferrous sulfate 325 mg (65 mg 325 mg PO DAILY 30 days #30 tabs 07/06/22 iron) tablet <Aileen Hirsch NP - Last Filed: 11/08/22 16:57> Allergies/Adverse Reactions: Allergies Allergy/AdvReac Type Severity Reaction Status Date / Time shellfish derived Allergy Swelling Verified 11/08/22 16:54 <Aileen Hirsch NP - Last Filed: 11/08/22 16:57> Review of Systems Review of Systems Constitutional : No Weight loss, No Fever, No Chills, No Night Sweats, No Fatigue, No Malaise ENT/Mouth : No Hearing loss, No Ear Pain, No Nasal Congestion, No Sinus Pain, No Hoarseness, No sore throat, No Rhinorrhea, No Swallowing Difficulty Eyes: No Eye Pain, No Swelling, No Redness, No Foreign Body, No Discharge, No Vision Changes Cardiovascular : No Chest Pain, No SOB, No Dyspnea on Exertion, No Orthopnea, No Edema, No Palpitations Respiratory : No Cough, No Sputum, No Wheezing, No Smoke Exposure, No Dyspnea Gastrointestinal : Complaining of nausea, no vomiting, complaining of bloody diarrhea, up to 15-20 bowel movements per day Genitourinary : no irregular bleeding, No Dysuria, No Urinary Frequency, No Hematuria, No Urinary Incontinence, No Urgency, No Flank Pain, No Urinary Flow Changes, No Hesitancy Musculoskeletal : No joint pain, No Myalgias, No Joint Swelling Skin : No Skin Lesions, No rash Neuro : No Weakness, No Numbness, No Paresthesias, No Loss of Consciousness, No Dizziness, No Headache Psych : No Anxiety/Panic, No Depression, No SI/HI/AH/VH, No Social Issues, Heme/Lymph: No Bruising, No Bleeding,No Lymphadenopathy Endocrine : No Polyuria, No Polydipsia, No Temperature Intolerance <Marianne Mayer MD - Last Filed: 11/08/22 19:11> FORMERLY [facility] Past Medical History Medical History: Medical History Diverticulitis GERD (gastroesophageal reflux disease) GI bleeding Ulcerative colitis <Aileen Hirsch NP - Last Filed: 11/08/22 16:57> Surgical History: Surgical History Hx of colonoscopy <Aileen Hirsch NP - Last Filed: 11/08/22 16:57> Family History Family History: Family History (Updated 09/16/22 @ 09:59 by Magi Conner CMA) Mother Heart disease COPD (chronic obstructive pulmonary disease) <Aileen Hirsch NP - Last Filed: 11/08/22 16:57> Social History Social History: Social History (Updated 09/16/22 @ 10:00 by Magi Conner CMA) Household Members: None Housing: House Do you presently have visiting nurse or other home services: No Alcohol intake: current Alcohol intake frequency: a few times a week Patient Tobacco Use Status: Never used Tobacco Smoked in Last 30 Days: No Use of substances other than those prescribed or required for medical reasons: No Advance Directives: No Advance Directives Information Provided: Yes service: No <Aileen Hirsch NP - Last Filed: 11/08/22 16:57> Physical Exam ED Vital Signs: Vital Signs - 24 hr 11/08/22 16:55 11/08/22 18:38 Temperature 98.3 F 99.5 F Pulse Rate 115 H 105 H Respiratory Rate 18 17 Blood Pressure 133/90 H 122/71 Pulse Oximetry 99 93 Oxygen Delivery Method Room Air Room Air BMI result Body Mass Index 34.6 <Aileen Hirsch NP - Last Filed: 11/08/22 16:57> Vital Signs - 24 hr 11/08/22 16:55 11/08/22 18:38 Temperature 98.3 F 99.5 F Pulse Rate 115 H 105 H Respiratory Rate 18 17 Blood Pressure 133/90 H 122/71 Pulse Oximetry 99 93 Oxygen Delivery Method Room Air Room Air BMI result Body Mass Index 34.6 <Marianne Mayer MD - Last Filed: 11/08/22 19:11> Const Other: Appearance: Alert. Oriented X3. No acute distress. Eyes: Pupils equal, round and reactive to light. ENT: Pharynx normal. Neck: Normal inspection. Neck supple. No lymph nodes noted. No crepitus CVS: Normal heart rate and rhythm. Pulses normal. Normal S1 and S2 Respiratory: No respiratory distress. Breath sounds normal. No Wheezing. No rales Abdomen: Soft , nondistended, mild tenderness to palpation in all quadrants, no rebound or guarding Skin: Skin warm and dry. Normal skin color. Normal skin turgor. Extremities: No lower extremity edema. No Lacerations. No Rash Neuro: Oriented X 3. No motor deficit. No sensory deficit. Moving all extremities. No slurred speech. CN 2 through 12 grossly intact Psych: calm, cooperative, normal affect <Marianne Mayer MD - Last Filed: 11/08/22 19:11> Course Course Course Narrative: This is a rapid medical exam. Deferred additional HPI, ROS, Pe to primary provider. 46 yo male with history of HTN, anemia, UC on mesalamine here with abdominal pain, bloody stools, nausea x 2 weeks. Has not notified GI (Dr Alves). No vomiting, fevers. Mild tachycardia 115 in triage. Other VS stable Will check labs, UA. <Aileen Hirsch NP - Last Filed: 11/08/22 16:57> Medical Decision Making Medical Decision Making MDM Narrative: -I discussed the patient with Dr. Park, recommendations to increase mesalamine to 1600 mg t.i.d. and get C diff labs -patient states that the abdominal pain is getting worse at this time, requesting pain medications. Discussed with the patient that we could either discharge him home with prednisone and pain medications and increase mesalamine and follow-up with GI. Patient states that he is in too much pain, would prefer to stay in the hospital. -I discussed the patient with Dr. Nelson, patient being admitted <Marianne Mayer MD - Last Filed: 11/08/22 19:11> Differential Diagnosis Differential Diagnoses: The differential diagnosis associated with the presentation includes (Ulcerative colitis, colitis, Crohn's, gastroenteritis) <Marianne Mayer MD - Last Filed: 11/08/22 19:11> Admission/Observation Consideration of admission/observation: Escalation of care including admission/observation considered <Marianne Mayer MD - Last Filed: 11/08/22 19:11> Consult Healthcare Provider Management of the patient was discussed with: Hospitalist and Segment Assembler <Marianne Mayer MD - Last Filed: 11/08/22 19:11> Lab Data [facility] Lab Attestation statement: I reviewed the patient's lab results. <Marianne Mayer MD - Last Filed: 11/08/22 19:11> Result Diagrams: 11/08/22 17:11 11/08/22 17:11 <Aileen Hirsch NP - Last Filed: 11/08/22 16:57> Labs: Lab Results 11/08/22 11/08/22 11/08/22 Range/Units 17:11 17:11 17:11 WBC 10.3 (4.8-10.8) X10*3/uL RBC 3.73 L D (4.60-5.80) X10*6/uL Hgb 8.7 L D (14.0-18.0) g/dl Hct 28.3 L D (42.0-52.0) % MCV 75.9 L (80.0-98.0) fL MCH 23.3 L (27.0-33.0) pg MCHC 30.7 L (31.0-36.0) g/dl RDW 17.9 H (11.0-16.0) % Plt Count 469 H (160-400) X10*3/uL MPV 9.0 L (9.4-12.4) fL Immature Gran % (Auto) Cancelled Neut % (Auto) Cancelled Lymph % (Auto) Cancelled [place] % (Auto) Cancelled Eos % (Auto) Cancelled Baso % (Auto) Cancelled Lymph # (Auto) Cancelled [place] # (Auto) Cancelled Eos # (Auto) Cancelled Baso # (Auto) Cancelled Abs Immat Gran (auto) Cancelled Absolute Neuts (auto) Cancelled Absolute Nucleated RBC 0.440 H (0.0-0.012) X10*3/uL Nucleated RBC % (auto) 4.3 H (0.0-0.2) /100WBC Neutrophils % (Manual) 58 (45-73) % Band Neutrophils % 7 H (3-5) % Lymphocytes % (Manual) 21 (20-40) % Atypical Lymphs % (Man) 2 (0-6) % Monocytes % (Manual) 8 (2-11) % Eosinophils % (Manual) 4 (0-4) % Abs Neuts (Manual) 6.7 (2.0-8.3) X10*3/uL Lymphocytes # (Manual) 2.2 (1.2-4.9) X10*3/uL Atyp Lymphs # (Manual) 0.2 x10*3/uL Monocytes # (Manual) 0.8 (0.1-1.2) X10*3/uL Eosinophils # (Manual) 0.4 (0.0-0.4) X10*3/uL Nucleated RBCs 9 H (0-0) /100WBC Toxic Granulation PRESENT Dohle Bodies PRESENT Platelet Estimate SLIGHTLY INCREASED (NORMAL) Giant Platelets PRESENT RBC Morphology NOTED Polychromasia 1+ (0-2) /OIF Microcytosis 1+ (5-14) /OIF Target Cells 1+ (5-14) /OIF Tear Drop Cells 1+ (0-2) /OIF [place] Cells 2+ (3-5) /OIF Acanthocytes (Spur) 1+ (0-2) /OIF ESR 42 H (0-15) MM/HR PT 12.8 (10.0-13.1) SEC INR 1.1 (0.9-1.1) Sodium (135-145) mmol/L Potassium (3.3-5.1) mmol/L Chloride (96-108) mmol/L Carbon Dioxide (22-29) mmol/L Anion Gap (12-20) BUN (9-16) mg/dL Creatinine (0.5-1.4) mg/dL Estim Creat Clear Calc Estimated GFR Random Glucose (60-115) mg/dL Calcium (8.4-10.2) mg/dL Total Bilirubin (0.0-1.0) mg/dL Direct Bilirubin (0.0-0.5) mg/dL AST (5-37) U/L ALT (0-40) U/L Alkaline Phosphatase (39-117) U/L C-Reactive Protein (< or = 0.50) mg/dL Total Protein (6.5-8.0) g/dL Albumin (3.5-5.0) g/dL 11/08/22 Range/Units 17:11 WBC (4.8-10.8) X10*3/uL RBC (4.60-5.80) X10*6/uL Hgb (14.0-18.0) g/dl Hct (42.0-52.0) % MCV (80.0-98.0) fL MCH (27.0-33.0) pg MCHC (31.0-36.0) g/dl RDW (11.0-16.0) % Plt Count (160-400) X10*3/uL MPV (9.4-12.4) fL Immature Gran % (Auto) Neut % (Auto) Lymph % (Auto) [place] % (Auto) Eos % (Auto) Baso % (Auto) Lymph # (Auto) [place] # (Auto) Eos # (Auto) Baso # (Auto) Abs Immat Gran (auto) Absolute Neuts (auto) Absolute Nucleated RBC (0.0-0.012) X10*3/uL Nucleated RBC % (auto) (0.0-0.2) /100WBC Neutrophils % (Manual) (45-73) % Band Neutrophils % (3-5) % Lymphocytes % (Manual) (20-40) % Atypical Lymphs % (Man) (0-6) % Monocytes % (Manual) (2-11) % Eosinophils % (Manual) (0-4) % Abs Neuts (Manual) (2.0-8.3) X10*3/uL Lymphocytes # (Manual) (1.2-4.9) X10*3/uL Atyp Lymphs # (Manual) x10*3/uL Monocytes # (Manual) (0.1-1.2) X10*3/uL Eosinophils # (Manual) (0.0-0.4) X10*3/uL Nucleated RBCs (0-0) /100WBC Toxic Granulation Dohle Bodies Platelet Estimate (NORMAL) Giant Platelets RBC Morphology Polychromasia /OIF Microcytosis /OIF Target Cells /OIF Tear Drop Cells /OIF [place] Cells /OIF Acanthocytes (Spur) /OIF ESR (0-15) MM/HR PT (10.0-13.1) SEC INR (0.9-1.1) Sodium 137 (135-145) mmol/L Potassium 3.9 (3.3-5.1) mmol/L Chloride 100 (96-108) mmol/L Carbon Dioxide 29 (22-29) mmol/L Anion Gap 12 (12-20) BUN 9 (9-16) mg/dL Creatinine 1.05 (0.5-1.4) mg/dL Estim Creat Clear Calc 103.4 Estimated GFR > 60 Random Glucose 120 H (60-115) mg/dL Calcium 8.6 D (8.4-10.2) mg/dL Total Bilirubin 0.3 (0.0-1.0) mg/dL Direct Bilirubin 0.1 (0.0-0.5) mg/dL AST 10 (5-37) U/L ALT 11 (0-40) U/L Alkaline Phosphatase 64 (39-117) U/L C-Reactive Protein 10.10 H (< or = 0.50) mg/dL Total Protein 6.4 L (6.5-8.0) g/dL Albumin 3.4 L (3.5-5.0) g/dL <Aileen Hirsch, MANAGER [employer] - Last Filed: 11/08/22 16:57> Lab Results 11/08/22 11/08/22 11/08/22 Range/Units 17:11 17:11 17:11 WBC 10.3 (4.8-10.8) X10*3/uL RBC 3.73 L D (4.60-5.80) X10*6/uL Hgb 8.7 L D (14.0-18.0) g/dl Hct 28.3 L D (42.0-52.0) % MCV 75.9 L (80.0-98.0) fL MCH 23.3 L (27.0-33.0) pg MCHC 30.7 L (31.0-36.0) g/dl RDW 17.9 H (11.0-16.0) % Plt Count 469 H (160-400) X10*3/uL MPV 9.0 L (9.4-12.4) fL Immature Gran % (Auto) Cancelled Neut % (Auto) Cancelled Lymph % (Auto) Cancelled [place] % (Auto) Cancelled Eos % (Auto) Cancelled Baso % (Auto) Cancelled Lymph # (Auto) Cancelled [place] # (Auto) Cancelled Eos # (Auto) Cancelled Baso # (Auto) Cancelled Abs Immat Gran (auto) Cancelled Absolute Neuts (auto) Cancelled Absolute Nucleated RBC 0.440 H (0.0-0.012) X10*3/uL Nucleated RBC % (auto) 4.3 H (0.0-0.2) /100WBC Neutrophils % (Manual) 58 (45-73) % Band Neutrophils % 7 H (3-5) % Lymphocytes % (Manual) 21 (20-40) % Atypical Lymphs % (Man) 2 (0-6) % Monocytes % (Manual) 8 (2-11) % Eosinophils % (Manual) 4 (0-4) % Abs Neuts (Manual) 6.7 (2.0-8.3) X10*3/uL Lymphocytes # (Manual) 2.2 (1.2-4.9) X10*3/uL Atyp Lymphs # (Manual) 0.2 x10*3/uL Monocytes # (Manual) 0.8 (0.1-1.2) X10*3/uL Eosinophils # (Manual) 0.4 (0.0-0.4) X10*3/uL Nucleated RBCs 9 H (0-0) /100WBC Toxic Granulation PRESENT Dohle Bodies PRESENT Platelet Estimate SLIGHTLY INCREASED (NORMAL) Giant Platelets PRESENT RBC Morphology NOTED Polychromasia 1+ (0-2) /OIF Microcytosis 1+ (5-14) /OIF Target Cells 1+ (5-14) /OIF Tear Drop Cells 1+ (0-2) /OIF [place] Cells 2+ (3-5) /OIF Acanthocytes (Spur) 1+ (0-2) /OIF ESR 42 H (0-15) MM/HR PT 12.8 (10.0-13.1) SEC INR 1.1 (0.9-1.1) Sodium (135-145) mmol/L Potassium (3.3-5.1) mmol/L Chloride (96-108) mmol/L Carbon Dioxide (22-29) mmol/L Anion Gap (12-20) BUN (9-16) mg/dL Creatinine (0.5-1.4) mg/dL Estim Creat Clear Calc Estimated GFR Random Glucose (60-115) mg/dL Calcium (8.4-10.2) mg/dL Total Bilirubin (0.0-1.0) mg/dL Direct Bilirubin (0.0-0.5) mg/dL AST (5-37) U/L ALT (0-40) U/L Alkaline Phosphatase (39-117) U/L C-Reactive Protein (< or = 0.50) mg/dL Total Protein (6.5-8.0) g/dL Albumin (3.5-5.0) g/dL 11/08/22 Range/Units 17:11 WBC (4.8-10.8) X10*3/uL RBC (4.60-5.80) X10*6/uL Hgb (14.0-18.0) g/dl Hct (42.0-52.0) % MCV (80.0-98.0) fL MCH (27.0-33.0) pg MCHC (31.0-36.0) g/dl RDW (11.0-16.0) % Plt Count (160-400) X10*3/uL MPV (9.4-12.4) fL Immature Gran % (Auto) Neut % (Auto) Lymph % (Auto) [place] % (Auto) Eos % (Auto) Baso % (Auto) Lymph # (Auto) [place] # (Auto) Eos # (Auto) Baso # (Auto) Abs Immat Gran (auto) Absolute Neuts (auto) Absolute Nucleated RBC (0.0-0.012) X10*3/uL Nucleated RBC % (auto) (0.0-0.2) /100WBC Neutrophils % (Manual) (45-73) % Band Neutrophils % (3-5) % Lymphocytes % (Manual) (20-40) % Atypical Lymphs % (Man) (0-6) % Monocytes % (Manual) (2-11) % Eosinophils % (Manual) (0-4) % Abs Neuts (Manual) (2.0-8.3) X10*3/uL Lymphocytes # (Manual) (1.2-4.9) X10*3/uL Atyp Lymphs # (Manual) x10*3/uL Monocytes # (Manual) (0.1-1.2) X10*3/uL Eosinophils # (Manual) (0.0-0.4) X10*3/uL Nucleated RBCs (0-0) /100WBC Toxic Granulation Dohle Bodies Platelet Estimate (NORMAL) Giant Platelets RBC Morphology Polychromasia /OIF Microcytosis /OIF Target Cells /OIF Tear Drop Cells /OIF [place] Cells /OIF Acanthocytes (Spur) /OIF ESR (0-15) MM/HR PT (10.0-13.1) SEC INR (0.9-1.1) Sodium 137 (135-145) mmol/L Potassium 3.9 (3.3-5.1) mmol/L Chloride 100 (96-108) mmol/L Carbon Dioxide 29 (22-29) mmol/L Anion Gap 12 (12-20) BUN 9 (9-16) mg/dL Creatinine 1.05 (0.5-1.4) mg/dL Estim Creat Clear Calc 103.4 Estimated GFR > 60 Random Glucose 120 H (60-115) mg/dL Calcium 8.6 D (8.4-10.2) mg/dL Total Bilirubin 0.3 (0.0-1.0) mg/dL Direct Bilirubin 0.1 (0.0-0.5) mg/dL AST 10 (5-37) U/L ALT 11 (0-40) U/L Alkaline Phosphatase 64 (39-117) U/L C-Reactive Protein 10.10 H (< or = 0.50) mg/dL Total Protein 6.4 L (6.5-8.0) g/dL Albumin 3.4 L (3.5-5.0) g/dL <Marianne Mayer MD - Last Filed: 11/08/22 19:11> Medications Administered Discontinued Medications Generic Name Dose Route Start Last Admin Trade Name Freq PRN Reason Stop Dose Admin Sodium Chloride 1,000 mls @ 999 mls/hr 11/08/22 17:39 11/08/22 18:56 Ns IVCONT 11/08/22 18:39 Infused .Q1H1M ONE Infusion Methylprednisolone Sodium Succinate 125 mg 11/08/22 17:39 11/08/22 17:57 Methylprednisolone Sod Succ 125 Mg/2 Ml Vial IVPUSH 11/08/22 17:40 125 mg ONCE ONE Administration Morphine Sulfate 4 mg 11/08/22 18:20 11/08/22 18:43 Morphine Sulfate 4 Mg/Ml Cartridge IVPUSH 11/08/22 18:21 4 mg ONCE ONE Administration Protocol Ondansetron HCl 4 mg 11/08/22 17:39 11/08/22 17:56 Ondansetron Hcl 4 Mg/2 Ml Vial IVPUSH 11/08/22 17:40 4 mg ONCE ONE Administration <Aileen Hirsch NP - Last Filed: 11/08/22 16:57> Medications Administered Discontinued Medications Generic Name Dose Route Start Last Admin Trade Name Freq PRN Reason Stop Dose Admin Sodium Chloride 1,000 mls @ 999 mls/hr 11/08/22 17:39 11/08/22 18:56 Ns IVCONT 11/08/22 18:39 Infused .Q1H1M ONE Infusion Methylprednisolone Sodium Succinate 125 mg 11/08/22 17:39 11/08/22 17:57 Methylprednisolone Sod Succ 125 Mg/2 Ml Vial IVPUSH 11/08/22 17:40 125 mg ONCE ONE Administration Morphine Sulfate 4 mg 11/08/22 18:20 11/08/22 18:43 Morphine Sulfate 4 Mg/Ml Cartridge IVPUSH 11/08/22 18:21 4 mg ONCE ONE Administration Protocol Ondansetron HCl 4 mg 11/08/22 17:39 11/08/22 17:56 Ondansetron Hcl 4 Mg/2 Ml Vial IVPUSH 11/08/22 17:40 4 mg ONCE ONE Administration <Marianne Mayer MD - Last Filed: 11/08/22 19:11> Critical Care Time Critical Care Time Critical Care Time: Yes <Marianne Mayer MD - Last Filed: 11/08/22 19:11> Total Critical Care Time: 45 <Marianne Mayer MD - Last Filed: 11/08/22 19:11> Attestation: I have personally provided critical care time. Time includes review of lab data, radiology results, discussion with consultants, and monitoring for potential decompensation. Intervention performed as documented. <Marianne Mayer MD - Last Filed: 11/08/22 19:11> Discharge Plan Discharge Clinical Impression: Ulcerative colitis <Aileen Hirsch NP - Last Filed: 11/08/22 16:57> Prescriptions: No Action ferrous sulfate 325 mg (65 mg iron) tablet 325 mg PO DAILY 30 Days Qty: 30 2RF lisinopril 10 mg tablet 10 mg PO DAILY 30 Days Qty: 30 2RF <Aileen Hirsch NP - Last Filed: 11/08/22 16:57>
[2022-11-08 16:55] VITALS: BP 133/90; PULSE 115; RESP 18; TEMP 36.8; O2SAT 99; BMI 34.6
[2022-11-08 17:20] LABS: Hematocrit 28.3 % (42.0-52.0); Hemoglobin 8.7 g/dl (14.0-18.0); Mean Corpuscular HGB Conc 30.7 g/dl (31.0-36.0); Mean Corpuscular Hemoglobin 23.3 pg (27.0-33.0); Mean Corpuscular Volume 75.9 fL (80.0-98.0); Platelet Count 469 X10*3/uL (160-400); Red Blood Count 3.73 X10*6/uL (4.60-5.80); Red Cell Distribution Width 17.9 % (11.0-16.0); White Blood Count 10.3 X10*3/uL (4.8-10.8)
[2022-11-08 17:26] LABS: NRBC Pct Auto 4.3 /100WBC (0.0-0.2)
[2022-11-08 17:28] LABS: INTERNATIONAL NORM RATIO 1.1 (0.9-1.1); Prothrombin Time 12.8 SEC (10.0-13.1)
[2022-11-08 17:37] LABS: Alanine Aminotransferase 11 U/L (0-40); Albumin Level 3.4 g/dL (3.5-5.0); Alkaline Phosphatase 64 U/L (39-117); Anion Gap 12 (12-20); Aspartate Amino Transferase 10 U/L (5-37); Bilirubin Direct 0.1 mg/dL (0.0-0.5); Bilirubin Total 0.3 mg/dL (0.0-1.0); Blood Urea Nitrogen 9 mg/dL (9-16); Calcium 8.6 mg/dL (8.4-10.2); Carbon Dioxide 29 mmol/L (22-29); Chloride 100 mmol/L (96-108); Creatinine Clr Calc Pharmacy 103.4; Estimated Glomerular Filt Rate > 60; Glucose Random 120 mg/dL (60-115); Potassium 3.9 mmol/L (3.3-5.1); Sodium 137 mmol/L (135-145); Total Protein 6.4 g/dL (6.5-8.0)
[2022-11-08] MEDS: 0.9 % Sodium Chloride 1,000 ML 999 ML IVCONT (17:52)
[2022-11-08] MEDS: ondansetron HCL 4 MG/2 ML VIAL IVPUSH (17:56)
[2022-11-08] MEDS: methylPREDNISolone Sod Succ 125 MG/2 ML VIAL IVPUSH (17:57)
[2022-11-08 18:12] LABS: Erythrocyte Sedimentation Rate 42 MM/HR (0-15)
[2022-11-08 18:19] LABS: Atypical Lymph Absolute Manual 0.2 x10*3/uL; Atypical Lymphs Percent Manual 2 % (0-6); Band Neutrophils Percent 7 % (3-5); Eosinophils Absolute Manual 0.4 X10*3/uL (0.0-0.4); Eosinophils Percent Manual 4 % (0-4); Lymphocytes Absolute Manual 2.2 X10*3/uL (1.2-4.9); Lymphocytes Percent Manual 21 % (20-40); Monocytes Absolute Manual 0.8 X10*3/uL (0.1-1.2); Monocytes Percent Manual 8 % (2-11); Neutrophils Absolute Manual 6.7 X10*3/uL (2.0-8.3); Neutrophils Percent Manual 58 % (45-73); Nucleated Red Blood Cells 9 /100WBC (0-0)
[2022-11-08 18:20] LABS: Giant Platelet PRESENT; Microcytosis 1+ (5-14) /OIF; Platelet Estimate SLIGHTLY INCREASED (NORMAL); RBC Morphology NOTED
[2022-11-08 18:21] LABS: Acanthocytes 1+ (0-2) /OIF; Burr Cells 2+ (3-5) /OIF; Dohle Bodies PRESENT; Polychromasia 1+ (0-2) /OIF; Target Cells 1+ (5-14) /OIF; Tear Drop Cells 1+ (0-2) /OIF; Toxic Granulation PRESENT
[2022-11-08 18:38] VITALS: BP 122/71; PULSE 105; RESP 17; TEMP 37.5; O2SAT 93
[2022-11-08] MEDS: Morphine Sulfate 4 MG/ML CARTRIDGE IVPUSH (18:43)
--- NOTE | 2022-11-08 19:28 | PHA.MEDREC ---
Pharmacy Consult ? Medication Reconciliation Pharmacy has completed the medication reconciliation.
[2022-11-08 20:00] VITALS: BP 127/88; PULSE 104; RESP 22; TEMP 36.9; O2SAT 93
--- NOTE | 2022-11-08 20:28 | PM.IMHP ---
History of Present Illness Date of Service: 11/08/22 Attending physician on admission: Hao Carmen Chief Complaint: abd pain 46-year-old male with history of hypertension, ulcerative colitis, obstructive sleep apnea, GERD presented to the ED earlier today for evaluation of abdominal pain and bloody diarrhea ongoing for 9 days. He states that symptoms started after he had been self medicating with shots of alcohol to treat sciatica pain to help him sleep and the following day developed symptoms. He has been experiencing severe upper and lower abdominal pain with between 15-20 episodes of small amounts of watery diarrhea with bright red blood. States pain resolved following bowel movement. Denies eating bad foods, recent travel, or recent antibiotic use. No one at home has similar symptoms. He does follow outpatient with Dr. Alves for his ulcerative colitis and takes mesalamine 800 mg 3 times daily. His last flare was about 1 year ago. On arrival, patient tachycardic to 115 with tachypnea up to 22 likely related to pain. Vitals otherwise stable. No leukocytosis. H/H 8.7/28.3%. CRP 10.10, ESR 42. ED discussed case with Gastroenterology recommending treatment with steroids. However given severity of abdominal pain, patient will be admitted for pain management and treatment of ulcer colitis with steroids. In the ED has been given 125 mg IV methylprednisolone, ondansetron, IV morphine, and 1 L IVF. Review of Systems Review of Systems: General: No fevers, malaise, unintentional weight loss HEENT: No blurred vision, diplopia. No sore throat, nasal congestion, rhinorrhea, sinus pain, ear pain Cardiovascular: No chest pain, palpitations, or leg edema Respiratory: No shortness of breath, wheezing, cough GI: +abd pain, +diarrhea, BRBPR. No nausea, vomiting, constipation, melena : No dysuria, hematuria, increased urinary frequency, decreased urinary output MSK: No myalgia, back pain Neuro: No headaches, weakness, paresthesias Skin: No rashes or lesions [facility] Medical History Diverticulitis GERD (gastroesophageal reflux disease) GI bleeding Hypertension Sleep apnea Ulcerative colitis Family History Mother Heart disease COPD (chronic obstructive pulmonary disease) Surgical History Hx of colonoscopy Social History Household Members: None Housing: House Do you presently have visiting nurse or other home services: No Alcohol intake: current Alcohol intake frequency: a few times a week Patient Tobacco Use Status: Never used Tobacco Smoked in Last 30 Days: No Use of substances other than those prescribed or required for medical reasons: No Advance Directives: No Advance Directives Information Provided: Yes service: No Meds Allergies Allergy/AdvReac Type Severity Reaction Status Date / Time shellfish derived Allergy Swelling Verified 11/08/22 16:54 Active Medications: Current Medications Acetaminophen (Acetaminophen 325 Mg Tablet) 650 mg PO Q6H PRN PRN Reason: Pain, Mild (Pain Scale 1-3) Docusate Sodium (Docusate Sodium 100 Mg Capsule) 100 mg PO DAILY PRN PRN Reason: Constipation Mesalamine (Mesalamine 400 Mg Cap.Drtab.) 1,600 mg PO TID [facility] Morphine Sulfate (Morphine Sulfate 4 Mg/Ml Cartridge) 2 mg IVPUSH Q4H PRN; Protocol PRN Reason: Pain, Severe (Pain Scale 7-10) Non-Formulary Medication (Ferrous Sulfate) 325 mg PO DAILY [facility] Oxycodone HCl (Oxycodone Hcl Immed Release 5 Mg Tablet) 5 mg PO Q6H PRN PRN Reason: Pain, Moderate(Pain Scale 4-6) Pharmacy Consult (Consult Rx Perform Med Rec) 1 each MISCELLANE ONCE PRN PRN Reason: Consult order Sodium Chloride (0.9 % Sodium Chloride Flush 3 Ml Syringe) 3 ml IVFLUSH QSHIFT [facility] Home Medications Medication Instructions Recorded Confirmed Last Taken Type mesalamine 400 mg capsule (with 800 mg PO TID 11/08/22 11/08/22 11/08/22 History delayed release tablets inside) Physical Exam Vital Signs and Narrative: Vital Signs: Last Vital Signs Temp 98.5 F 11/08/22 20:00 Pulse 104 H 11/08/22 20:00 Resp 22 H 11/08/22 20:00 BP 127/88 11/08/22 20:00 Pulse Ox 93 11/08/22 20:00 O2 Del Method Room Air 11/08/22 20:00 BMI result Body Mass Index 34.6 Constitutional - Awake and Alert, No apparent distress Eyes - PERRLA, EOMI Cardiovascular - S1S2, RRR, No edema Respiratory - Normal lung expansion, Normal respiratory effort, No respiratory distress, CTA bilaterally Gastrointestinal - mild diffuse abd ttp, greatest LLQ, ND; +BS; No rebound or guarding Extremities - no calf tenderness bilaterally, no swelling Skin - Warm/Dry Neurological - Alert & oriented x3, CN II-XII in tact, 5/5 strength BUE and BLE Psychological - Appropriate affect Results Labs 11/08/22 17:11 11/08/22 17:11 Labs: Laboratory Results - last 24 hr 11/08/22 11/08/22 11/08/22 17:11 17:11 17:11 MCV 75.9 L MCH 23.3 L MCHC 30.7 L RDW 17.9 H Plt Count 469 H MPV 9.0 L Immature Gran % (Auto) Cancelled Neut % (Auto) Cancelled Lymph % (Auto) Cancelled [place] % (Auto) Cancelled Eos % (Auto) Cancelled Baso % (Auto) Cancelled Lymph # (Auto) Cancelled [place] # (Auto) Cancelled Eos # (Auto) Cancelled Baso # (Auto) Cancelled Abs Immat Gran (auto) Cancelled Absolute Neuts (auto) Cancelled Absolute Nucleated RBC 0.440 H Nucleated RBC % (auto) 4.3 H Neutrophils % (Manual) 58 Band Neutrophils % 7 H Lymphocytes % (Manual) 21 Atypical Lymphs % (Man) 2 Monocytes % (Manual) 8 Eosinophils % (Manual) 4 Abs Neuts (Manual) 6.7 Lymphocytes # (Manual) 2.2 Atyp Lymphs # (Manual) 0.2 Monocytes # (Manual) 0.8 Eosinophils # (Manual) 0.4 Nucleated RBCs 9 H Toxic Granulation PRESENT Dohle Bodies PRESENT Platelet Estimate SLIGHTLY INCREASED Giant Platelets PRESENT RBC Morphology NOTED Polychromasia 1+ (0-2) Microcytosis 1+ (5-14) Target Cells 1+ (5-14) Tear Drop Cells 1+ (0-2) Raymond Cells 2+ (3-5) Acanthocytes (Spur) 1+ (0-2) ESR 42 H PT 12.8 INR 1.1 Anion Gap Estim Creat Clear Calc Estimated GFR Random Glucose Calcium Total Bilirubin Direct Bilirubin AST ALT Alkaline Phosphatase C-Reactive Protein Total Protein Albumin 11/08/22 17:11 MCV MCH MCHC RDW Plt Count MPV Immature Gran % (Auto) Neut % (Auto) Lymph % (Auto) [place] % (Auto) Eos % (Auto) Baso % (Auto) Lymph # (Auto) [place] # (Auto) Eos # (Auto) Baso # (Auto) Abs Immat Gran (auto) Absolute Neuts (auto) Absolute Nucleated RBC Nucleated RBC % (auto) Neutrophils % (Manual) Band Neutrophils % Lymphocytes % (Manual) Atypical Lymphs % (Man) Monocytes % (Manual) Eosinophils % (Manual) Abs Neuts (Manual) Lymphocytes # (Manual) Atyp Lymphs # (Manual) Monocytes # (Manual) Eosinophils # (Manual) Nucleated RBCs Toxic Granulation Dohle Bodies Platelet Estimate Giant Platelets RBC Morphology Polychromasia Microcytosis Target Cells Tear Drop Cells [place] Cells Acanthocytes (Spur) ESR PT INR Anion Gap 12 Estim Creat Clear Calc 103.4 Estimated GFR > 60 Random Glucose 120 H Calcium 8.6 D Total Bilirubin 0.3 Direct Bilirubin 0.1 AST 10 ALT 11 Alkaline Phosphatase 64 C-Reactive Protein 10.10 H Total Protein 6.4 L Albumin 3.4 L Assessment and Plan (1) Ulcerative colitis: Status: Acute Plan 46-year-old male with history of hypertension, ulcerative colitis, obstructive sleep apnea, GERD to be observed for abdominal pain related to UC flare. #Acute ulcerative colitis flare -Iv methylprednisolone 20mg TID -Increase mesalamine to 1600 mg t.i.d. per GI -Pain management using pain scale -NPO, advance to clears as tolerated -CDiff pending -Continue IVF -Apprecaite GI input -Tachycardia and tachypnea related to pain, not sepsis #Acute blood loss anemia- due to above -H/H 8.7/28.3% (08/18/2022 H/H 12.4/41.6%) -has baseline chronic normocytic anemia, continue ferrous sulfate -above transfusion threshold -follow CBC #HTN -reasonably controlled, not on any home antihypertensives -monitor BP # ARTIS -CPAP at bedtime DVT prophylaxis-SC Ps Full code Time Spent With Patient Time: Total time managing care of this patient today ____ minutes. Quality Stroke Does the patient have a stroke diagnosis?: No VTE Prior VTE?: No VTE Risk Level:: Medical - moderate - high VTE Device Contraindication: N/A - Device Ordered VTE Drug Contraindication: Treatment Not Indicated
[2022-11-08 20:38] LABS: Platelet Morphology Comment NOTED
[2022-11-08 20:49] VITALS: BP 132/87; PULSE 101; RESP 18; TEMP 36.7; O2SAT 95
[2022-11-08] MEDS: 0.9 % Sodium Chloride 1,000 ML 100 ML IVCONT (21:28)
--- NOTE | 2022-11-08 21:54 | PC.NURSE ---
called to give report, pt to go to rm [id number] nurse not available, to c/b
--- NOTE | 2022-11-08 22:27 | PC.NURSE ---
report given to ALEJANDRA Gould pt aox4 no apparent distress
[2022-11-08 22:47] VITALS: BP 132/82; PULSE 93; RESP 16; TEMP 35.9; O2SAT 92
[2022-11-08] MEDS: Mesalamine 400 MG CAP.DRTAB. 1600 MG PO (22:51)
[2022-11-09 02:05] VITALS: BP 128/83; PULSE 88; RESP 16; TEMP 36; O2SAT 98
[2022-11-09] MEDS: Morphine Sulfate 4 MG/ML CARTRIDGE 2 MG IVPUSH (05:43)
[2022-11-09] MEDS: methylPREDNISolone Sod Succ 40 MG/ML VIAL 20 MG IVPUSH (05:53)
[2022-11-09 06:48] LABS: MANUAL DIFF FLAG NO
[2022-11-09 06:52] LABS: Basophils Percent Auto 0.5 % (0-2); Eosinophils Percent Auto 0.1 % (0-4); Hematocrit 25.7 % (42.0-52.0); Hemoglobin 7.9 g/dl (14.0-18.0); Imm Gran Abs Auto 0.29 X10*3/uL (0.00-0.03); Imm Gran Pct Auto 3.3 % (0.0-0.4); Lymphocytes Absolute Auto 0.6 X10*3/uL (1.2-4.9); Lymphocytes Percent Auto 7.3 % (20-40); Mean Corpuscular HGB Conc 30.7 g/dl (31.0-36.0); Mean Corpuscular Hemoglobin 23.7 pg (27.0-33.0); Mean Corpuscular Volume 76.9 fL (80.0-98.0); Mean Platelet Volume 9.4 fL (9.4-12.4); Monocytes Absolute Auto 0.3 X10*3/uL (0.1-1.2); Monocytes Percent Auto 3.9 % (2-11); Neutrophils Absolute Auto 7.5 x10*3/uL (2.0-8.3); Neutrophils Percent Auto 84.9 % (45-73); Platelet Count 482 X10*3/uL (160-400); Red Blood Count 3.34 X10*6/uL (4.60-5.80); Red Cell Distribution Width 18.2 % (11.0-16.0); White Blood Count 8.8 X10*3/uL (4.8-10.8)
[2022-11-09 06:56] LABS: NRBC Pct Auto 1.8 /100WBC (0.0-0.2)
[2022-11-09 07:49] VITALS: BP 125/75; PULSE 83; RESP 16; TEMP 36.7; O2SAT 97
[2022-11-09] MEDS: Mesalamine 400 MG CAP.DRTAB. 1600 MG PO ×3 (08:08→19:41)
[2022-11-09] MEDS: 0.9 % Sodium Chloride 1,000 ML 100 ML IVCONT ×2 (08:08→19:40)
[2022-11-09] MEDS: Ferrous Sulfate 324 MG TABLET.DR PO (08:08)
[2022-11-09 08:09] LABS: CDiff Gene PCR NEGATIVE (Negative)
--- NOTE | 2022-11-09 10:32 | PM.GICN ---
History of Present Illness Data of Consult Service Date: 11/09/22 Requesting physician: Ilir Campos Primary Care Provider: Ihsan Astudillo MD HPI Reason for consult: colitis 46-year-old male with history of hypertension, ulcerative colitis, obstructive sleep apnea, GERD who i am seeing for assessment for bloody diarrheal stools Patient noted 9 d hx of severe upper and lower abdominal pain with small amounts of watery diarrhea with bright red blood upto 20 times a day. He thiks this developed after he had been taking alcoholic shots for leg pain. Since admission he feels much better and is hungry. Having less diarrhea now. Denies eating bad foods, recent travel, or recent antibiotic use. No sick contacts. He is supposed to be taking mesalamine 800 mg 3 times daily for colitis but has not done so for 5 months citing insurance issues, denies nsaid use. Patient received rx with Iv steroids, anlagesia. Lab: No leukocytosis.? H/H 8.7/28.3%.? CRP 10.10, ESR 42.? neg c diff and neg gi pcr stool panel Review of Systems Review of Systems: Constitutional : No Weight loss, No Fever, No Chills ENT/Mouth : No sore throat, No Rhinorrhea Eyes: No Swelling, No Redness Cardiovascular : No Chest Pain, No SOB, No Edema Respiratory : No Cough, No Sputum, No Wheezing Gastrointestinal : see HPI Genitourinary : NO Dysuria, No Urinary Frequency, No Hematuria, No Urgency Musculoskeletal : No joint pain, No Myalgias, No Joint Swelling Skin : No Skin Lesions, No rash Neuro : + Weakness, No Numbness, No Dizziness, No Headache Psych : No Anxiety/Panic, No Depression Heme/Lymph: No Bruising, No Lymphadenopathy Endocrine : No Polyuria, No Polydipsia All other systems reviewed and are negative. ON LICENSE OF [facility] Past Medical History Medical History Diverticulitis GERD (gastroesophageal reflux disease) GI bleeding Hypertension Sleep apnea Ulcerative colitis Family History Family History Mother Heart disease COPD (chronic obstructive pulmonary disease) Surgical History Surgical History Hx of colonoscopy Social History Social History Household Members: None Housing: House Do you presently have visiting nurse or other home services: No Alcohol intake: current Alcohol intake frequency: a few times a week Patient Tobacco Use Status: Never used Tobacco Smoked in Last 30 Days: No Use of substances other than those prescribed or required for medical reasons: No Currently Displaying Signs/Symptoms of Drug Intoxication Withdrawal: No Have you been hit, kicked, punched, or otherwise hurt by someone within the past year? If so, by whom?: No Do you feel safe in your current relationship?: No Current Relationship Is there a partner from a previous relationship who is making you feel unsafe now?: No Advance Directives: No Advance Directives Information Provided: Yes Do you have thoughts of harming others: None Do you have a plan to hurt others: No Plan Recently lost weight without trying: Unsure How much weight loss: Unsure Eating poorly because of decreased appetite: No Nutrition screen score: 4 Nutrition Risks: Acute nausea or vomiting x1 week and Poor intake 0-25% >4 days Poor oral hygiene: No service: No Current occupational status: employed Meds Allergies Allergy/AdvReac Type Severity Reaction Status Date / Time shellfish derived Allergy Swelling Verified 11/08/22 16:54 Active Medications: Current Medications Acetaminophen (Acetaminophen 325 Mg Tablet) 650 mg PO Q6H PRN PRN Reason: Pain, Mild (Pain Scale 1-3) Docusate Sodium (Docusate Sodium 100 Mg Capsule) 100 mg PO DAILY PRN PRN Reason: Constipation Ferrous Sulfate (Ferrous Sulfate 324 Mg Tablet.Dr) 324 mg PO DAILY [facility] Last Admin: 11/09/22 08:08 Dose: 324 mg Sodium Chloride (Ns) 1,000 mls @ 100 mls/hr IVCONT .Q10H [facility] Last Admin: 11/09/22 08:08 Dose: 100 mls/hr Mesalamine (Mesalamine 400 Mg Cap.Drtab.) 1,600 mg PO TID [facility] Last Admin: 11/09/22 08:08 Dose: 1,600 mg Methylprednisolone Sodium Succinate (Methylprednisolone Sod Succ 40 Mg/Ml Vial) 20 mg IVPUSH Q8H [facility] Last Admin: 11/09/22 05:53 Dose: 20 mg Morphine Sulfate (Morphine Sulfate 4 Mg/Ml Cartridge) 2 mg IVPUSH Q4H PRN; Protocol PRN Reason: Pain, Severe (Pain Scale 7-10) Last Admin: 11/09/22 05:43 Dose: 2 mg Oxycodone HCl (Oxycodone Hcl Immed Release 5 Mg Tablet) 5 mg PO Q6H PRN PRN Reason: Pain, Moderate(Pain Scale 4-6) Pharmacy Consult (Consult Rx Perform Med Rec) 1 each MISCELLANE ONCE PRN PRN Reason: Consult order Sodium Chloride (0.9 % Sodium Chloride Flush 3 Ml Syringe) 3 ml IVFLUSH QSHIFT [facility] Last Admin: 11/09/22 08:09 Dose: Not Given Home Medications Medication Instructions Recorded Confirmed Last Taken Type mesalamine 400 mg capsule (with 800 mg PO TID 11/08/22 11/08/22 11/08/22 History delayed release tablets inside) Physical Exam Vital Signs: Vital Signs: Last Vital Signs Temp 98.0 F 11/09/22 07:49 Pulse 83 11/09/22 07:49 Resp 16 11/09/22 07:49 BP 125/75 11/09/22 07:49 Pulse Ox 97 11/09/22 07:49 O2 Del Method CPAP 11/09/22 07:49 BMI result Body Mass Index 34.6 EXAM: GENERAL: The patient is well developed and nontoxic. VITAL SIGNS:see workflow HEENT: Nonicteric sclerae, PERRLA, EOMI. Oropharynx clear. Moist mucous membranes. Conjunctivae appear well perfused. No thyroid mass. CHEST: Chest wall is nontender. HEART: Regular rate and rhythm without murmurs. LUNGS: Clear to auscultation bilaterally. ABDOMEN: Soft, positive bowel sounds, diffusely tender, no organomegaly.no flank tenderness SKIN: No rash, no excessive bruising, petechiae, or purpura. NEUROLOGIC: Cranial nerves II-XII intact without motor/sensory deficit. psych-nml affect Results Labs 11/09/22 06:19 11/08/22 17:11 Labs: Short CBC 11/08/22 11/09/22 Range/Units 17:11 06:19 WBC 10.3 8.8 (4.8-10.8) X10*3/uL Hgb 8.7 L D 7.9 L (14.0-18.0) g/dl Hct 28.3 L D 25.7 L (42.0-52.0) % Plt Count 469 H 482 H (160-400) X10*3/uL BMP 11/08/22 17:11 Sodium 137 Potassium 3.9 Chloride 100 Carbon Dioxide 29 BUN 9 Creatinine 1.05 Calcium 8.6 D Liver Function 11/08/22 Range/Units 17:11 Total Bilirubin 0.3 (0.0-1.0) mg/dL Direct Bilirubin 0.1 (0.0-0.5) mg/dL AST 10 (5-37) U/L ALT 11 (0-40) U/L Alkaline Phosphatase 64 (39-117) U/L Albumin 3.4 L (3.5-5.0) g/dL Assessment and Plan (1) Ulcerative colitis: Status: Acute (2) Anemia: Status: Acute Plan 1/ Acute UC flare up due to alcohol use and non compliance with medication, feels improved-neg stool tests 2/ Anemia related to above, no evidence of toxic megacolon PLAN: 1/ Transfuse to keep HGB>7 g/dl or can use iron infusion 2/ cont with IV methypred 20 mg q8h for 48 hr then transition to PO sterodi taper over 4 weeks 3/ resume PO mesalamine 4/ if worsening distention, fever or diarrhea then CT or AXR to r/o megacolon Time Spent With Patient Time: Total time managing care of this patient today ____ minutes. Procedures Date of Service Date of Service: 11/09/22
[2022-11-09 11:07] LABS: Adenovirus F 40/41 Not Detected (Not Detect.); Astrovirus Not Detected (Not Detect.); Campylobacter Not Detected (Not Detect.); Cryptosporidium Not Detected (Not Detect.); Cyclospora cayetanensis Not Detected (Not Detect.); E. coli EAEC Not Detected (Not Detect.); E. coli EPEC Not Detected (Not Detect.); E. coli ETEC Not Detected (Not Detect.); E. coli STEC Not Detected (Not Detect.); Entamoeba histolytica Not Detected (Not Detect.); Giardia lamblia Not Detected (Not Detect.); Norovirus GI/GII Not Detected (Not Detect.); Plesiomonas shigelloides Not Detected (Not Detect.); Rotavirus A Not Detected (Not Detect.); Salmonella Not Detected (Not Detect.); Sapovirus Not Detected (Not Detect.); Shigella sp./EIEC Not Detected (Not Detect.); Vibrio Not Detected (Not Detect.); Vibrio Cholerae Not Detected (Not Detect.); Yersinia enterocolitica Not Detected (Not Detect.)
--- NOTE | 2022-11-09 11:52 | P.PNIM_ITS ---
Subjective Subjective Date of Service: 11/09/22 Review of Systems Follow up UC flare still with some diarrhea no pain Physical Exam Vital Signs: Vital Signs: Last Vital Signs Temp 98.0 F 11/09/22 07:49 Pulse 83 11/09/22 07:49 Resp 16 11/09/22 07:49 BP 125/75 11/09/22 07:49 Pulse Ox 97 11/09/22 07:49 O2 Del Method CPAP 11/09/22 07:49 BMI result Body Mass Index 34.6 Appearing in no acute distressd lung sounds are clear to auscultation heart regular rate rhythm, clear S1, S2 positive bowel sounds, abdomen is soft, nontender neuro patient is alert x3, no focal deficits Objective Data Active Medications Acetaminophen (Acetaminophen 325 Mg Tablet) 650 mg PO Q6H PRN PRN Reason: Pain, Mild (Pain Scale 1-3) Docusate Sodium (Docusate Sodium 100 Mg Capsule) 100 mg PO DAILY PRN PRN Reason: Constipation Ferrous Sulfate (Ferrous Sulfate 324 Mg Tablet.Dr) 324 mg PO DAILY [facility] Last Admin: 11/09/22 08:08 Dose: 324 mg Documented By: TONY Sodium Chloride (Ns) 1,000 mls @ 100 mls/hr IVCONT .Q10H [facility] Last Admin: 11/09/22 08:08 Dose: 100 mls/hr Documented By: TONY Mesalamine (Mesalamine 400 Mg Cap.Drtab.) 1,600 mg PO TID [facility] Last Admin: 11/09/22 08:08 Dose: 1,600 mg Documented By: TONY Methylprednisolone Sodium Succinate (Methylprednisolone Sod Succ 40 Mg/Ml Vial) 20 mg IVPUSH Q8H [facility] Last Admin: 11/09/22 05:53 Dose: 20 mg Documented By: JURGEN Morphine Sulfate (Morphine Sulfate 4 Mg/Ml Cartridge) 2 mg IVPUSH Q4H PRN; Protocol PRN Reason: Pain, Severe (Pain Scale 7-10) Last Admin: 11/09/22 05:43 Dose: 2 mg Documented By: JURGEN Oxycodone HCl (Oxycodone Hcl Immed Release 5 Mg Tablet) 5 mg PO Q6H PRN PRN Reason: Pain, Moderate(Pain Scale 4-6) Pharmacy Consult (Consult Rx Perform Med Rec) 1 each MISCELLANE ONCE PRN PRN Reason: Consult order Sodium Chloride (0.9 % Sodium Chloride Flush 3 Ml Syringe) 3 ml IVFLUSH QSHIFT [facility] Last Admin: 11/09/22 08:09 Dose: Not Given Documented By: TONY Non-Admin Reason: IV Running Labs 11/09/22 06:19 11/08/22 17:11 Labs: Laboratory Results - last 24 hr 11/08/22 11/08/22 11/08/22 17:11 17:11 17:11 MCV 75.9 L MCH 23.3 L MCHC 30.7 L RDW 17.9 H Plt Count 469 H MPV 9.0 L Immature Gran % (Auto) Cancelled Neut % (Auto) Cancelled Lymph % (Auto) Cancelled [place] % (Auto) Cancelled Eos % (Auto) Cancelled Baso % (Auto) Cancelled Lymph # (Auto) Cancelled [place] # (Auto) Cancelled Eos # (Auto) Cancelled Baso # (Auto) Cancelled Abs Immat Gran (auto) Cancelled Absolute Neuts (auto) Cancelled Absolute Nucleated RBC 0.440 H Nucleated RBC % (auto) 4.3 H Neutrophils % (Manual) 58 Band Neutrophils % 7 H Lymphocytes % (Manual) 21 Atypical Lymphs % (Man) 2 Monocytes % (Manual) 8 Eosinophils % (Manual) 4 Abs Neuts (Manual) 6.7 Lymphocytes # (Manual) 2.2 Atyp Lymphs # (Manual) 0.2 Monocytes # (Manual) 0.8 Eosinophils # (Manual) 0.4 Nucleated RBCs 9 H Toxic Granulation PRESENT Dohle Bodies PRESENT Platelet Estimate SLIGHTLY INCREASED Giant Platelets PRESENT Plt Morphology Comment NOTED RBC Morphology NOTED Polychromasia 1+ (0-2) Microcytosis 1+ (5-14) Target Cells 1+ (5-14) Tear Drop Cells 1+ (0-2) Raymond Cells 2+ (3-5) Acanthocytes (Spur) 1+ (0-2) ESR 42 H PT 12.8 INR 1.1 Anion Gap Estim Creat Clear Calc Estimated GFR Random Glucose Calcium Total Bilirubin Direct Bilirubin AST ALT Alkaline Phosphatase C-Reactive Protein Total Protein Albumin Stl C. cayetanensis PCR Stool Rotavirus A PCR Stl Adenov F 40/41 PCR Stool Astrovirus (PCR) Stool Campylobacter PCR Stool Cryptosporidium PCR Stl Sh Tox Pr E STEC PCR Stool E coli O157 PCR Stl Enterotoxigenic E PCR Stool EPEC (PCR) Stool EAEC (PCR) Stl E. histolytica PCR Stool Giardia Lamblia PCR Stl P. shigelloides PCR Stool Salmonella PCR Stool Sapovirus (PCR) Stl Shigella/EIEC PCR St Y.enterocolitica PCR Stool Vibrio (PCR) Stl Vibrio cholerae PCR Stl Norovirus GI/GII PCR C. difficile Tox B Gene 11/08/22 11/09/22 11/09/22 17:11 05:10 05:10 MCV MCH MCHC RDW Plt Count MPV Immature Gran % (Auto) Neut % (Auto) Lymph % (Auto) [place] % (Auto) Eos % (Auto) Baso % (Auto) Lymph # (Auto) [place] # (Auto) Eos # (Auto) Baso # (Auto) Abs Immat Gran (auto) Absolute Neuts (auto) Absolute Nucleated RBC Nucleated RBC % (auto) Neutrophils % (Manual) Band Neutrophils % Lymphocytes % (Manual) Atypical Lymphs % (Man) Monocytes % (Manual) Eosinophils % (Manual) Abs Neuts (Manual) Lymphocytes # (Manual) Atyp Lymphs # (Manual) Monocytes # (Manual) Eosinophils # (Manual) Nucleated RBCs Toxic Granulation Dohle Bodies Platelet Estimate Giant Platelets Plt Morphology Comment RBC Morphology Polychromasia Microcytosis Target Cells Tear Drop Cells [place] Cells Acanthocytes (Spur) ESR PT INR Anion Gap 12 Estim Creat Clear Calc 103.4 Estimated GFR > 60 Random Glucose 120 H Calcium 8.6 D Total Bilirubin 0.3 Direct Bilirubin 0.1 AST 10 ALT 11 Alkaline Phosphatase 64 C-Reactive Protein 10.10 H Total Protein 6.4 L Albumin 3.4 L Stl C. cayetanensis PCR Not Detected Stool Rotavirus A PCR Not Detected Stl Adenov F 40/41 PCR Not Detected Stool Astrovirus (PCR) Not Detected Stool Campylobacter PCR Not Detected Stool Cryptosporidium PCR Not Detected Stl Sh Tox Pr E STEC PCR Not Detected Stool E coli O157 PCR Not applicable Stl Enterotoxigenic E PCR Not Detected Stool EPEC (PCR) Not Detected Stool EAEC (PCR) Not Detected Stl E. histolytica PCR Not Detected Stool Giardia Lamblia PCR Not Detected Stl P. shigelloides PCR Not Detected Stool Salmonella PCR Not Detected Stool Sapovirus (PCR) Not Detected Stl Shigella/EIEC PCR Not Detected St Y.enterocolitica PCR Not Detected Stool Vibrio (PCR) Not Detected Stl Vibrio cholerae PCR Not Detected Stl Norovirus GI/GII PCR Not Detected C. difficile Tox B Gene NEGATIVE 11/09/22 06:19 MCV 76.9 L MCH 23.7 L MCHC 30.7 L RDW 18.2 H Plt Count 482 H MPV 9.4 Immature Gran % (Auto) 3.3 H Neut % (Auto) 84.9 H Lymph % (Auto) 7.3 L [place] % (Auto) 3.9 Eos % (Auto) 0.1 Baso % (Auto) 0.5 Lymph # (Auto) 0.6 L [place] # (Auto) 0.3 Eos # (Auto) 0.0 Baso # (Auto) 0.0 Abs Immat Gran (auto) 0.29 H Absolute Neuts (auto) 7.5 Absolute Nucleated RBC 0.160 H Nucleated RBC % (auto) 1.8 H Neutrophils % (Manual) Band Neutrophils % Lymphocytes % (Manual) Atypical Lymphs % (Man) Monocytes % (Manual) Eosinophils % (Manual) Abs Neuts (Manual) Lymphocytes # (Manual) Atyp Lymphs # (Manual) Monocytes # (Manual) Eosinophils # (Manual) Nucleated RBCs Toxic Granulation Dohle Bodies Platelet Estimate Giant Platelets Plt Morphology Comment RBC Morphology Polychromasia Microcytosis Target Cells Tear Drop Cells Raymond Cells Acanthocytes (Spur) ESR PT INR Anion Gap Estim Creat Clear Calc Estimated GFR Random Glucose Calcium Total Bilirubin Direct Bilirubin AST ALT Alkaline Phosphatase C-Reactive Protein Total Protein Albumin Stl C. cayetanensis PCR Stool Rotavirus A PCR Stl Adenov F 40/41 PCR Stool Astrovirus (PCR) Stool Campylobacter PCR Stool Cryptosporidium PCR Stl Sh Tox Pr E STEC PCR Stool E coli O157 PCR Stl Enterotoxigenic E PCR Stool EPEC (PCR) Stool EAEC (PCR) Stl E. histolytica PCR Stool Giardia Lamblia PCR Stl P. shigelloides PCR Stool Salmonella PCR Stool Sapovirus (PCR) Stl Shigella/EIEC PCR St Y.enterocolitica PCR Stool Vibrio (PCR) Stl Vibrio cholerae PCR Stl Norovirus GI/GII PCR C. difficile Tox B Gene Assessment and Plan (1) Ulcerative colitis: Status: Acute Plan 46-year-old male with history of hypertension, ulcerative colitis, obstructive sleep apnea, GERD to be observed for abdominal pain related to UC flare. Acute ulcerative colitis flare has not taken mesalamine in 6 months Prednisone 40 mg daily, taper over 4 weeks mesalamine to 1600 mg t.i.d. per GI Pain management clear liquids CDiff neg Continue IVF Appreciate GI input Acute blood loss anemia with hx of chronic normocytic anemia secondary to UC flare H/H 8.7/28.3 continue iron supplementation HTN not on home medications stable ARTIS CPAP at bedtime DVT prophylaxis-SCD boots Attending Dr. Call Full code OBS Time Spent With Patient Time: Total time managing care of this patient today ____ minutes. Quality Stroke Does the patient have a stroke diagnosis?: No VTE Prior VTE?: No VTE Risk Level:: Medical - moderate - high VTE Device Contraindication: N/A - Device Ordered VTE Drug Contraindication: Treatment Not Indicated
--- NOTE | 2022-11-09 13:55 | MHC.CM.PN ---
PATIENT IS FULLY INDEPENDENT CAR IS IN [facility] LOT NO DME OR [facility] SERVICES. HCP REQUESTED PCP VERIFIED LIKELY HOME TUESDAY - SELF CARE.
[2022-11-09] MEDS: oxyCODONE HCl Immed Release 5 MG TABLET PO ×2 (14:44→21:22)
[2022-11-09 15:53] VITALS: BP 130/81; PULSE 88; RESP 18; TEMP 37.1; O2SAT 98
[2022-11-09 19:33] VITALS: BP 136/65; PULSE 68; RESP 16; TEMP 36.5; O2SAT 97
[2022-11-09] MEDS: 0.9 % Sodium Chloride Flush 3 ML SYRINGE IVFLUSH (19:43)
[2022-11-10 02:59] VITALS: BP 129/71; PULSE 87; RESP 16; TEMP 36.4; O2SAT 93
[2022-11-10] MEDS: oxyCODONE HCl Immed Release 5 MG TABLET PO ×2 (03:44→16:59)
[2022-11-10] MEDS: 0.9 % Sodium Chloride 1,000 ML 100 ML IVCONT (03:44)
[2022-11-10 06:23] LABS: Hematocrit 25.6 % (42.0-52.0); Hemoglobin 8.1 g/dl (14.0-18.0); Mean Corpuscular HGB Conc 31.6 g/dl (31.0-36.0); Mean Corpuscular Hemoglobin 24.1 pg (27.0-33.0); Mean Corpuscular Volume 76.2 fL (80.0-98.0); Mean Platelet Volume 9.4 fL (9.4-12.4); Platelet Count 506 X10*3/uL (160-400); Red Blood Count 3.36 X10*6/uL (4.60-5.80); Red Cell Distribution Width 18.2 % (11.0-16.0); White Blood Count 9.8 X10*3/uL (4.8-10.8)
[2022-11-10 06:29] LABS: NRBC Pct Auto 3.9 /100WBC (0.0-0.2)
[2022-11-10 06:34] LABS: Anion Gap 12 (12-20); Blood Urea Nitrogen 11 mg/dL (9-16); Calcium 8.1 mg/dL (8.4-10.2); Carbon Dioxide 26 mmol/L (22-29); Chloride 106 mmol/L (96-108); Estimated Glomerular Filt Rate > 60; Glucose Random 108 mg/dL (60-115); Sodium 140 mmol/L (135-145)
[2022-11-10 07:48] VITALS: BP 127/79; PULSE 92; RESP 16; TEMP 37; O2SAT 96
[2022-11-10] MEDS: predniSONE 20 MG TABLET 40 MG PO (08:08)
[2022-11-10] MEDS: Ferrous Sulfate 324 MG TABLET.DR PO (08:08)
[2022-11-10] MEDS: Mesalamine 400 MG CAP.DRTAB. 1600 MG PO ×3 (08:08→20:10)
--- NOTE | 2022-11-10 15:29 | PM.DS ---
DS: Providers Provider Date of Service: 11/11/22 Date of admission: 11/09/22 12:52 Primary care physician: Ihsan Astudillo MD Consults: 11/08/22 20:26 Consult to Gastroenterology Routine Consulting Provider: Yobany Alves Reason for consultation: uc flare DS: Diagnosis Discharge Diagnosis (1) Ulcerative colitis: Status: Acute (2) Anemia: Status: Acute DS: Summary Hospital Course Hospital Course: history of presenting illness: Date of Service: 11/08/22 Attending physician on admission: Hao Carmen Chief Complaint: abd pain 46-year-old male with history of hypertension, ulcerative colitis, obstructive sleep apnea, GERD presented to the ED earlier today for evaluation of abdominal pain and bloody diarrhea ongoing for 9 days.? He states that symptoms started after he had been self medicating with shots of alcohol to treat sciatica pain to help him sleep and the following day developed symptoms.? He has been experiencing severe upper and lower abdominal pain with between 15-20 episodes of small amounts of watery diarrhea with bright red blood.? States pain resolved following bowel movement.? Denies eating bad foods, recent travel, or recent antibiotic use.? No one at home has similar symptoms.? He does follow outpatient with Dr. Alves for his ulcerative colitis and takes mesalamine 800 mg 3 times daily.? His last flare was about 1 year ago.? On arrival, patient tachycardic to 115 with tachypnea up to 22 likely related to pain.? Vitals otherwise stable.? No leukocytosis.? H/H 8.7/28.3%.? CRP 10.10, ESR 42.? ED discussed case with Gastroenterology recommending treatment with steroids.? However given severity of abdominal pain, patient will be admitted for pain management and treatment of ulcer colitis with steroids.? In the ED has been given 125 mg IV methylprednisolone, ondansetron, IV morphine, and 1 L IVF. hospital course: 46-year-old male with history of hypertension, ulcerative colitis, obstructive sleep apnea, GERD to be observed for abdominal pain related to UC flare. Acute ulcerative colitis flare, admitted to medical floor treated with IV Solu Medrol and mesalamine patient responded well to above treatment, C diff is negative,diet was gradually advanced that he is tolerating well with no further bout of diarrhea or abdominal pain patient evaluated by Gastroenterology and now being discharged home on tapering dose of prednisone starting at 40 mg and mesalamine 1600 mg t.i.d., Acute blood loss anemia with hx of chronic normocytic anemia, secondary to UC flare, H/H 8.7/28.3 recommend to continue iron supplementation. continue iron supplementation HTN not on home medications, stable BP. ARTIS Continue CPAP at bedtime. Time Spent with Patient Time attestation: Total time managing care of this patient today ____ minutes. Discharge coordination time: Greater than 30 minutes Quality: Safe Use of Opioids Does Pt have an Active Cancer Diagnosis on the Problem List?: No Quality: Stroke Does the patient have a stroke diagnosis?: No Physical Exam Vital Signs: Vital Signs: Last Vital Signs Temp 98.6 F 11/10/22 07:48 Pulse 92 11/10/22 07:48 Resp 16 11/10/22 07:48 BP 127/79 11/10/22 07:48 Pulse Ox 96 11/10/22 07:48 O2 Del Method Room Air 11/10/22 07:48 BMI result Body Mass Index 34.6 Const: Other: General patient resting comfortably in no acute distress. Neck is supple no JVD. CVS regular rate rhythm, Respiratory lungs clear to auscultation, no respiratory distress, no wheeze, no rhonchi. Gastrointestinal abdomen soft, nontender, bowel sounds audible, no guarding , no rigidity. Extremities no edema. Neuro nonfocal Skin no rash psych appropriate affect DS: Data Data Completed and Pending Completed studies during hospitalization [Text1]: Procedures Excision of Rectum, Via Natural or Artificial Opening Endoscopic, Diagnostic (01/03/22) Excision of Sigmoid Colon, Via Natural or Artificial Opening Endoscopic, Diagnostic (01/03/22) Transfusion of Nonautologous Red Blood Cells into Peripheral Vein, Percutaneous Approach (01/03/22) Labs on day of discharge: Laboratory Results - last 24 hr 11/10/22 11/10/22 05:55 05:55 WBC 9.8 RBC 3.36 L Hgb 8.1 L Hct 25.6 L MCV 76.2 L MCH 24.1 L MCHC 31.6 RDW 18.2 H Plt Count 506 H MPV 9.4 Absolute Nucleated RBC 0.380 H Nucleated RBC % (auto) 3.9 H Sodium 140 Potassium 4.0 Chloride 106 Carbon Dioxide 26 Anion Gap 12 BUN 11 Creatinine 0.89 Estim Creat Clear Calc 122.0 Estimated GFR > 60 Random Glucose 108 Calcium 8.1 L Discharge Plan Discharge Anticipated Discharge Date/Time: 11/10/22 13:55 Patient Disposition: Home, Self-Care Discharge Diagnosis: acute flare of ulcerative colitis Referrals: Ihsan Astudillo MD [Primary Care Provider] - 1 Week Discharge Medications: New prednisone 10 mg tablet 10 mg PO DAILY Qty: 70 0RF Rx Instructions: prednisone 40 mg (4 tabs x 10mg )by mouth daily x1 week prednisone 30 mg (3 tabs x 10mg )by mouth daily x1 week prednisone 20 mg (2 tabs x 10mg )xby mouth daily x1 week prednisone 10 mg by mouth daily x1 week oxycodone 5 mg Tablet 5 mg PO Q6H PRN (Reason: Pain, Moderate(Pain Scale 4-6)) Qty: 12 0RF Rx Instructions: Partial Fill upon patient request. Continued ferrous sulfate 325 mg (65 mg iron) tablet 325 mg PO DAILY 30 Days Qty: 30 2RF Changed mesalamine 400 mg capsule (with del rel tablets) 1,600 mg PO TID Qty: 10 0RF Discharge Orders: Discharge Order (Routine); Ordered 11/11/22 Ordered By: Bridgette Maldonado Diet: low fiber diet Activity on Discharge: As tolerated Stand Alone Forms: Patient Portal Discharge page Care Plan Goals: take prednisone tapering dose as ordered, continue mesalamine return to check with worsening abdominal pain or diarrhea follow low-fiber lactose-free diet Health Concerns: ulcerative colitis Plan of Treatment: follow-up with primary care physician and sales project manager call for appointment Assessment: as above
[2022-11-10 16:00] VITALS: BP 140/72; PULSE 97; RESP 16; TEMP 36.7; O2SAT 97
[2022-11-10] MEDS: 0.9 % Sodium Chloride Flush 3 ML SYRINGE IVFLUSH ×2 (16:06→20:11)
[2022-11-10] MEDS: Acetaminophen 325 MG TABLET 650 MG PO (16:59)
--- NOTE | 2022-11-10 17:22 | HO.PM.IMPN ---
Subjective Subjective Date of Service: 11/11/22 Interval History: Being followed for acute ulcerative colitis flare, patient tolerating clear liquid diet had 8 bowel movements at nighttime, complaining of abdominal pain, no bowel movement this morning no nausea, denies fever, chills , denies urinary symptoms, no shortness of breath, no cough. Review of Systems Review of Systems: Yes all other systems are reviewed and are negative Physical Exam Vital Signs: Vital Signs: Last Vital Signs Temp 98.1 F 11/10/22 16:00 Pulse 97 11/10/22 16:00 Resp 16 11/10/22 16:00 BP 140/72 H 11/10/22 16:00 Pulse Ox 97 11/10/22 16:00 O2 Del Method Room Air 11/10/22 16:00 BMI result Body Mass Index 34.6 Const: Other: General patient re sting comfortably in no acute distre ss.? Neck is suppl e no JVD. CVS? reg ular rate rhythm, Respiratory lungs clear to auscultat ion, no respirator y distress, no whe castillo, no rhonchi. G astrointestinal ab domen soft, mild m id abd. tenderness , bowel sounds aud ible, no guarding , no rigidity. Ext remities no edema. Neuro nonfocal Sk in no rash psych a ppropriate affect Objective Data Active Medications Acetaminophen (Acetaminophen 325 Mg Tablet) 650 mg PO Q6H PRN PRN Reason: Pain, Mild (Pain Scale 1-3) Last Admin: 11/10/22 16:59 Dose: 650 mg Documented By: IOANA Docusate Sodium (Docusate Sodium 100 Mg Capsule) 100 mg PO DAILY PRN PRN Reason: Constipation Ferrous Sulfate (Ferrous Sulfate 324 Mg Tablet.Dr) 324 mg PO DAILY [facility] Last Admin: 11/10/22 08:08 Dose: 324 mg Documented By: IOANA Mesalamine (Mesalamine 400 Mg Cap.Drtab.) 1,600 mg PO TID [facility] Last Admin: 11/10/22 16:06 Dose: 1,600 mg Documented By: IOANA Morphine Sulfate (Morphine Sulfate 4 Mg/Ml Cartridge) 2 mg IVPUSH Q4H PRN; Protocol PRN Reason: Pain, Severe (Pain Scale 7-10) Last Admin: 11/09/22 05:43 Dose: 2 mg Documented By: JURGEN Oxycodone HCl (Oxycodone Hcl Immed Release 5 Mg Tablet) 5 mg PO Q6H PRN PRN Reason: Pain, Moderate(Pain Scale 4-6) Last Admin: 11/10/22 16:59 Dose: 5 mg Documented By: IOANA Pharmacy Consult (Consult Rx Perform Med Rec) 1 each MISCELLANE ONCE PRN PRN Reason: Consult order Prednisone (Prednisone 20 Mg Tablet) 40 mg PO DAILY [facility] Last Admin: 11/10/22 08:08 Dose: 40 mg Documented By: IOANA Sodium Chloride (0.9 % Sodium Chloride Flush 3 Ml Syringe) 3 ml IVFLUSH QSHIFT [facility] Last Admin: 11/10/22 16:06 Dose: 3 ml Documented By: IOANA Labs 11/10/22 05:55 11/10/22 05:55 Labs: Laboratory Results - last 24 hr 11/10/22 11/10/22 05:55 05:55 MCV 76.2 L MCH 24.1 L MCHC 31.6 RDW 18.2 H Plt Count 506 H MPV 9.4 Absolute Nucleated RBC 0.380 H Nucleated RBC % (auto) 3.9 H Anion Gap 12 Estim Creat Clear Calc 122.0 Estimated GFR > 60 Random Glucose 108 Calcium 8.1 L Assessment and Plan (1) Ulcerative colitis: Status: Acute (2) Hypertension: Status: Acute Plan 46-year-old male with history of hypertension, ulcerative colitis, obstructive sleep apnea, GERD to be observed for abdominal pain related to UC flare. Acute ulcerative colitis flare, Persistent abdominal pain, 8 bowel movement at nighttime continue clear liquid diet follow clinical course today if symptoms improved will advance diet to to low-fiber lactose-free s/p IV Solu Medrol , continue prednisone and mesalamine , C diff is negative. Acute blood loss anemia with hx of chronic normocytic anemia, secondary to UC flare, H/H 8.7/28.3 continue iron supplementation HTN not on home medications, stable BP. ARTIS? Continue CPAP at bedtime. DVT prophylaxis-SCD boots admitted under observation. Time Spent With Patient Time: Total time managing care of this patient today ____ minutes. Quality Stroke Does the patient have a stroke diagnosis?: No VTE Prior VTE?: No VTE Risk Level:: Medical - moderate - high VTE Device Contraindication: N/A - Device Ordered VTE Drug Contraindication: Treatment Not Indicated
[2022-11-10 19:55] VITALS: BP 133/85; PULSE 89; RESP 18; TEMP 36.6; O2SAT 96
[2022-11-11 03:47] VITALS: BP 136/80; PULSE 97; RESP 16; TEMP 37.1
[2022-11-11] MEDS: oxyCODONE HCl Immed Release 5 MG TABLET PO (04:10)
[2022-11-11] MEDS: Acetaminophen 325 MG TABLET 650 MG PO (04:11)
[2022-11-11 07:39] VITALS: BP 126/83; PULSE 93; RESP 16; TEMP 36.7; O2SAT 95
[2022-11-11] MEDS: 0.9 % Sodium Chloride Flush 3 ML SYRINGE IVFLUSH (09:18)
[2022-11-11] MEDS: Mesalamine 400 MG CAP.DRTAB. 1600 MG PO (09:18)
[2022-11-11] MEDS: predniSONE 20 MG TABLET 40 MG PO (09:18)
[2022-11-11] MEDS: Ferrous Sulfate 324 MG TABLET.DR PO (09:18)
--- NOTE | 2022-11-11 11:24 | MHC.CM.PN ---
PATIENT IS DC HOME - SELF CARE RN AWARE OF PLAN. PATIENT'S [place] [facility].
== END 2022-11-11 11:00 | disposition home or self-care (01) | DRG 245 ==
LOC: HO.ED 18:07 → HO.EDOVER 20:28 → HO.S3 21:34
PROVIDERS: Nurse Practitioner Acute Care; Nurse Practitioner Family; Admitting Provider Physician Assistant; Emergency Provider Emergency Medicine; PCP Family Medicine; Visit Provider Hospitalist
DX: K51.911 Ulcerative colitis, unspecified with rectal bleeding (principal); D62 Acute posthemorrhagic anemia; I10 Essential (primary) hypertension; G47.33 Obstructive sleep apnea (adult) (pediatric); K21.9 Gastro-esophageal reflux disease without esophagitis; Z91.148 Patient's other noncompliance with medication regimen for other reason; Z79.899 Other long term (current) drug therapy
CPT/HCPCS: 36415; 80048; 80076; 85007; 85025; 85027; 85610; 85652; 86140; 87493; 87507; 94660; 99284; J2270; J2405; J2920; J2930

== ENCOUNTER 2022-11-15 10:04 | Outpatient (REF) | payer BC, SELFPAY ==
[2022-11-15 11:50] LABS: Hematocrit 24.9 % (42.0-52.0); Hemoglobin 7.6 g/dl (14.0-18.0); Mean Corpuscular HGB Conc 30.5 g/dl (31.0-36.0); Mean Corpuscular Volume 75.5 fL (80.0-98.0); Mean Platelet Volume 9.2 fL (9.4-12.4); Platelet Count 705 X10*3/uL (160-400); Red Cell Distribution Width 18.2 % (11.0-16.0); White Blood Count 9.7 X10*3/uL (4.8-10.8)
[2022-11-15 11:52] LABS: NRBC Pct Auto 10.1 /100WBC (0.0-0.2)
[2022-11-15 12:15] LABS: Iron 17 mcg/dL (45-160); Percent Iron Saturation 7 % (15-50); Total Iron Binding Capacity 256 mcg/dL (228-428); Unsaturated Iron Binding 239 ug/dL
[2022-11-15 12:33] LABS: Band Neutrophils Percent 23 % (3-5); Lymphocytes Percent Manual 10 % (20-40); Metamyelocytes Absolute 0.2 X10*3/uL; Metamyelocytes Percent 2 %; Monocytes Absolute Manual 1.1 X10*3/uL (0.1-1.2); Monocytes Percent Manual 11 % (2-11); Neutrophils Absolute Manual 7.5 X10*3/uL (2.0-8.3); Neutrophils Percent Manual 54 % (45-73); Nucleated Red Blood Cells 5 /100WBC (0-0)
[2022-11-15 12:36] LABS: Acanthocytes 2+ (3-5) /OIF; Large Platelet PRESENT; Microcytosis 1+ (5-14) /OIF; Platelet Estimate INCREASED (NORMAL); Platelet Morphology Comment NOTED; RBC Morphology NOTED; Schistocytes 1+ (0-2) /OIF
[2022-11-15 12:37] LABS: Basophilic Stippling 1+ (0-2) /OIF; Hypochromasia 1+ (5-14) /OIF; Polychromasia 2+ (3-5) /OIF
== END 2022-11-15 10:05 | disposition home or self-care (01) ==
LOC: HO.WFDLDS 10:04
PROVIDERS: Visit Provider Family Medicine
DX: Z00.00 Encounter for general adult medical examination without abnormal findings (principal); D64.9 Anemia, unspecified
CPT/HCPCS: 36415; 83540; 85007; 85027

== ENCOUNTER 2022-11-25 01:44 | Inpatient (IN) | payer BC, SELFPAY ==
[2022-11-25] VITALS (20 sets, daily range): BP systolic 115–169; BP diastolic 67–108; PULSE 66–126; RESP 12–21; TEMP 36.4–37.2; O2SAT 96–100; BMI 31.9; BMI 32.8
--- NOTE | ~2022-11-25 | CT_ITS ---
EXAMINATION: CT ANGIOGRAPHY LEGS WITH RUNOFF CLINICAL INFORMATION: Diminished right lower extremity pulses COMPARISON: Right lower extremity arterial duplex ultrasound earlier this morning. CT abdomen pelvis 01/28/2022 and 01/03/2022. TECHNIQUE: Axial imaging was performed through the abdomen, pelvis and bilateral lower extremities following the administration of 100 mL Omnipaque 350 IV contrast. Reformatted coronal, sagittal and MIP images were provided for interpretation. This CT examination was performed using dose optimization techniques as appropriate, variously including the following: *Automated exposure control *Adjustment of mA and/or kV according to patient size (this includes techniques or standardized protocols for targeted exams where dose is matched to indication/reason for exam; i.e. extremities or head) *Use of iterative reconstruction technique DLP: 502 mGy-cm FINDINGS: VASCULAR FINDINGS: The abdominal aorta is normal in caliber and widely patent, demonstrating only minimal atherosclerotic disease. The celiac access and superior mesenteric artery are widely patent. The inferior mesenteric artery demonstrates mild osteal stenosis but is patent. Single left renal artery and 3 right-sided renal arteries are all patent. Right common, internal and external iliac arteries are widely patent demonstrating only minimal atherosclerotic disease. Right common femoral and superficial femoral arteries are widely patent demonstrating only minimal atherosclerotic disease. Right profundus femoris artery is patent. There is abrupt cutoff and complete occlusion of the popliteal artery with a 4 mm calcification either within or adjacent to the popliteal artery (image 67/89, series 7). There is reconstitution with a three-vessel runoff of the right calf. The left common, internal and external iliac arteries are widely patent demonstrating only minimal atherosclerotic disease. The left common and superficial femoral arteries are widely patent demonstrating only minimal atherosclerotic disease. Left profundus femoris artery is patent. Left popliteal artery is widely patent. Normal three-vessel runoff of the left calf. NONVASCULAR FINDINGS: Visualized lung bases are well aerated. Visualized portions of the liver are unremarkable. The gallbladder is normally distended. The pancreas is normal in appearance. Visualized portions of the spleen are unremarkable. The adrenal glands are normal in appearance. Symmetrically enhancing kidneys without hydronephrosis. Normal caliber loops of small bowel. The colon is decompressed and therefore suboptimally evaluated. Cannot exclude circumferential mucosal thickening involving the descending and sigmoid colon. There is suspected mild pericolonic stranding particularly adjacent to the distal descending colon and the proximal ascending colon, nonspecific. The appendix is normal. There is a small fat-containing umbilical hernia. The bladder is normal in appearance. The prostate gland is normal in size. No gross free pelvic fluid. No inguinal lymphadenopathy. No acute osseous abnormality. CT/CT angio abd aorta runoff IMPRESSION: 1. Complete occlusion of the right popliteal artery with a 4 mm calcification either within or adjacent to the popliteal artery. There is reconstitution with a three-vessel runoff of the right calf. 2. The colon is decompressed and therefore suboptimally evaluated. Cannot exclude circumferential mucosal thickening involving the descending and sigmoid colon. There is suspected mild pericolonic stranding particularly adjacent to the distal descending colon and the proximal ascending colon. This is a nonspecific finding, however, similar findings were noted on prior CT imaging from December and January 2022. Colitis is suspected. Infectious, inflammatory or ischemic. Clinical correlation recommended. This Critical Result was discussed with Jorge Wu at 11:52 AM on 11/25/2022 and it was ascertained that the content and urgency of the report was understood at the time of direct communication.
--- NOTE | ~2022-11-25 | US_ITS ---
EXAMINATION: ULTRASOUND ARTERIAL DUPLEX RIGHT LOWER EXTREMITY CLINICAL INDICATION: Deep pain, question occlusion COMPARISON: None TECHNIQUE: Duplex ultrasound evaluation performed of the arteries in the right lower extremity. FINDINGS: Common femoral artery is patent with triphasic waveform and peak systolic velocity of the 127 cm/s. Proximal deep femoral artery is patent with triphasic waveform and peak systolic velocity of 70 cm/s. Femoral artery is patent and demonstrates triphasic waveform. Peak systolic velocities are 109 cm/s proximally, 117 cm/s in the mid vessel, and 91 cm/s distally. Popliteal artery is patent with triphasic waveform and peak systolic velocity of 108 cm/s. The posterior tibial artery appears patent proximally, though demonstrates monophasic waveform with low velocity towards the ankle. No flow detected within the peroneal artery throughout the calf. US/US arterial duplex LE RT IMPRESSION: No flow detected within the peroneal artery throughout the calf, suspicious for occlusion. Diminished flow noted in the posterior tibial artery towards the ankle. This was discussed with Dr. Garcia on 11/25/2022 4:45 AM.
--- NOTE | 2022-11-25 03:31 | PC.NURSE ---
pt to ultrasound
[2022-11-25 03:32] LABS: Basophils Percent Auto 0.4 % (0-2); Eosinophils Absolute Auto 0.2 X10*3/uL (0.0-0.4); Eosinophils Percent Auto 2.7 % (0-4); Imm Gran Abs Auto 0.16 X10*3/uL (0.00-0.03); Imm Gran Pct Auto 2.4 % (0.0-0.4); Lymphocytes Absolute Auto 1.6 X10*3/uL (1.2-4.9); Lymphocytes Percent Auto 23.9 % (20-40); MANUAL DIFF FLAG NO; Mean Corpuscular HGB Conc 29.7 g/dl (31.0-36.0); Mean Corpuscular Hemoglobin 22.7 pg (27.0-33.0); Mean Corpuscular Volume 76.4 fL (80.0-98.0); Mean Platelet Volume 8.8 fL (9.4-12.4); Monocytes Absolute Auto 0.7 X10*3/uL (0.1-1.2); Monocytes Percent Auto 9.8 % (2-11); Neutrophils Absolute Auto 4.1 x10*3/uL (2.0-8.3); Neutrophils Percent Auto 60.8 % (45-73); Platelet Count 589 X10*3/uL (160-400); Red Blood Count 2.25 X10*6/uL (4.60-5.80); Red Cell Distribution Width 18.6 % (11.0-16.0); White Blood Count 6.7 X10*3/uL (4.8-10.8)
[2022-11-25 03:35] LABS: NRBC Pct Auto 9.8 /100WBC (0.0-0.2)
[2022-11-25 03:37] LABS: Hemoglobin 5.1 g/dl (14.0-18.0)
[2022-11-25 03:38] LABS: Hematocrit 17.2 % (42.0-52.0)
[2022-11-25 03:46] LABS: Alanine Aminotransferase 37 U/L (0-40); Albumin Level 2.7 g/dL (3.5-5.0); Alkaline Phosphatase 53 U/L (39-117); Anion Gap 11 (12-20); Aspartate Amino Transferase 20 U/L (5-37); Bilirubin Total 0.2 mg/dL (0.0-1.0); Blood Urea Nitrogen 10 mg/dL (9-16); Calcium 8.2 mg/dL (8.4-10.2); Carbon Dioxide 27 mmol/L (22-29); Chloride 100 mmol/L (96-108); Estimated Glomerular Filt Rate > 60; Glucose Random 111 mg/dL (60-115); Magnesium 2.1 mg/dL (1.6-2.6); Potassium 3.4 mmol/L (3.3-5.1); Sodium 135 mmol/L (135-145); Total Protein 5.3 g/dL (6.5-8.0)
--- NOTE | 2022-11-25 03:52 | ED.EXTPRO ---
HPI - Extremity Problem General Chief complaint: Extremity Problem Stated complaint: leg numbness Time Seen by Provider: 11/25/22 02:51 Source: patient Mode of arrival: ambulatory Limitations: no limitations History of Present Illness HPI Narrative: Patient with ulcerative colitis with history of severe anemia and requiring blood transfusion comes here for pain in the right lower leg for last 3 days patient apparently went to [facility] and came back and noticed pain in the right foot while he was in [place] feels toes goes numb when he walks , skin normal color no history of DVT patient does have blood per rectum but is getting less now patient is on prednisone and mesalamine for ulcerative colitis Related Data Home Medications Medication Instructions Recorded Confirmed mesalamine 400 mg capsule (with 800 mg PO TID 11/25/22 11/25/22 delayed release tablets inside) Previous Rx's Medication Instructions Recorded ferrous sulfate 325 mg (65 mg 325 mg PO DAILY 30 days #30 tabs 07/06/22 iron) tablet prednisone 10 mg tablet 10 mg PO DAILY #70 tabs 11/10/22 multivitamin 1 tab PO QAM 30 days #30 tabs 11/15/22 vitamin B complex 1 tab PO DAILY 30 days #30 tabs 11/15/22 Allergies Allergy/AdvReac Type Severity Reaction Status Date / Time shellfish derived Allergy Swelling Verified 11/25/22 05:40 Review of Systems Review of Systems: Yes all other systems are reviewed and are negative [facility] Past Medical History Medical History Diverticulitis GERD (gastroesophageal reflux disease) GI bleeding Hypertension Sleep apnea Ulcerative colitis Surgical History Hx of colonoscopy Family History Family History Mother Heart disease COPD (chronic obstructive pulmonary disease) Social History Social History Household Members: None Housing: House Do you presently have visiting nurse or other home services: No Alcohol intake: current Alcohol intake frequency: a few times a week Alcohol type: hard liquor Patient Tobacco Use Status: Never used Tobacco Use of substances other than those prescribed or required for medical reasons: No Advance Directives: No Advance Directives Information Provided: Yes service: No Current occupational status: employed Physical Exam Vital Signs: Vital Signs: Last Vital Signs Temp 98.1 F 11/25/22 06:28 Pulse 100 11/25/22 06:28 Resp 16 11/25/22 06:28 BP 139/79 11/25/22 06:28 Pulse Ox 98 11/25/22 06:28 O2 Del Method Room Air 11/25/22 06:28 BMI result Body Mass Index 31.9 Appearance: Alert. Oriented X3. No acute distress. Eyes: Pallor++ ENT: Pharynx normal. Oral Mucosa moist Neck: Normal inspection. Neck supple. CVS: Normal heart rate and rhythm. Pulses normal. Respiratory: No respiratory distress. Equal air entry bilateral, no wheezing/rales/rhonchi Abdomen: Soft and nontender. Bowel sounds are present, no mass palpable, no CVA tenderness rectal: Brown stool guaiac negative Skin: Skin warm and dry. Normal skin color. Normal skin turgor. Extremities: No lower extremity edema. No calf swelling deep tenderness in right calf absent dorsalis pedis and posterior tibial pulsations normal color toes slight cold temperature as compared to left foot Neuro: Oriented X 3. No motor deficit. No sensory deficit.No cerebellar signs , cranial nerves II-XII intact Medications Administered Discontinued Medications Generic Name Dose Route Start Last Admin Trade Name Freq PRN Reason Stop Dose Admin Heparin Sodium (Porcine) 5,000 unit 11/25/22 04:19 11/25/22 04:59 Heparin Sodium,Porcine 5,000 Unit/Ml Vial IVPUSH 11/25/22 04:20 5,000 unit ONCE ONE Administration Medical Decision Making Medical Decision Making [facility] Narrative: Patient has ulcerative colitis with frequent GI bleed requiring blood transfusion currently on prednisone and mesalamine bleeding has decreased last few days rectal exam showed negative for guaiac. Severe anemia with hemoglobin of 5.1 will give 2 units of blood transfusion, Noted to have right lower leg pain with claudication arterial Doppler showed occlusion of right peroneal and decreased flow in posterior tibial. Case discussed with Dr. Garcia vascular surgeon not sure what needs to be done at this time no need of anticoagulation at this time as patient is high risk of bleeding and anemic will evaluate the patient for possible surgical treatment if needed Consult Healthcare Provider Management of the patient was discussed with: Hospitalist Lab Data [facility] Lab Attestation statement: I reviewed the patient's lab results. 11/25/22 03:26 11/25/22 03:26 Labs: Lab Results 11/25/22 11/25/22 11/25/22 Range/Units 03:26 03:26 04:25 WBC 6.7 (4.8-10.8) X10*3/uL RBC 2.25 L D (4.60-5.80) X10*6/uL Hgb 5.1 L* D (14.0-18.0) g/dl Hct 17.2 L* D (42.0-52.0) % MCV 76.4 L (80.0-98.0) fL MCH 22.7 L (27.0-33.0) pg MCHC 29.7 L (31.0-36.0) g/dl RDW 18.6 H (11.0-16.0) % Plt Count 589 H (160-400) X10*3/uL MPV 8.8 L (9.4-12.4) fL Immature Gran % (Auto) 2.4 H (0.0-0.4) % Neut % (Auto) 60.8 (45-73) % Lymph % (Auto) 23.9 (20-40) % Riley % (Auto) 9.8 (2-11) % Eos % (Auto) 2.7 (0-4) % Baso % (Auto) 0.4 (0-2) % Lymph # (Auto) 1.6 (1.2-4.9) X10*3/uL Riley # (Auto) 0.7 (0.1-1.2) X10*3/uL Eos # (Auto) 0.2 (0.0-0.4) X10*3/uL Baso # (Auto) 0.0 (0.0-0.2) X10*3/uL Abs Immat Gran (auto) 0.16 H (0.00-0.03) X10*3/uL Absolute Neuts (auto) 4.1 (2.0-8.3) x10*3/uL Absolute Nucleated RBC 0.660 H (0.0-0.012) X10*3/uL Nucleated RBC % (auto) 9.8 H (0.0-0.2) /100WBC PT (10.0-13.1) SEC INR (0.9-1.1) APTT (26.0-36.4) SEC Sodium 135 (135-145) mmol/L Potassium 3.4 (3.3-5.1) mmol/L Chloride 100 (96-108) mmol/L Carbon Dioxide 27 (22-29) mmol/L Anion Gap 11 L (12-20) BUN 10 (9-16) mg/dL Creatinine 0.84 (0.5-1.4) mg/dL Estim Creat Clear Calc 123.0 Estimated GFR > 60 Random Glucose 111 (60-115) mg/dL Calcium 8.2 L (8.4-10.2) mg/dL Magnesium 2.1 (1.6-2.6) mg/dL Total Bilirubin 0.2 (0.0-1.0) mg/dL AST 20 (5-37) U/L ALT 37 (0-40) U/L Alkaline Phosphatase 53 (39-117) U/L Total Protein 5.3 L (6.5-8.0) g/dL Albumin 2.7 L (3.5-5.0) g/dL Stool Occult Blood (NEGATIVE) Blood Type O Positive Antibody Screen NEGATIVE Crossmatch See Detail 11/25/22 11/25/22 Range/Units 04:25 05:22 WBC (4.8-10.8) X10*3/uL RBC (4.60-5.80) X10*6/uL Hgb (14.0-18.0) g/dl Hct (42.0-52.0) % MCV (80.0-98.0) fL MCH (27.0-33.0) pg MCHC (31.0-36.0) g/dl RDW (11.0-16.0) % Plt Count (160-400) X10*3/uL MPV (9.4-12.4) fL Immature Gran % (Auto) (0.0-0.4) % Neut % (Auto) (45-73) % Lymph % (Auto) (20-40) % Riley % (Auto) (2-11) % Eos % (Auto) (0-4) % Baso % (Auto) (0-2) % Lymph # (Auto) (1.2-4.9) X10*3/uL Riley # (Auto) (0.1-1.2) X10*3/uL Eos # (Auto) (0.0-0.4) X10*3/uL Baso # (Auto) (0.0-0.2) X10*3/uL Abs Immat Gran (auto) (0.00-0.03) X10*3/uL Absolute Neuts (auto) (2.0-8.3) x10*3/uL Absolute Nucleated RBC (0.0-0.012) X10*3/uL Nucleated RBC % (auto) (0.0-0.2) /100WBC PT 12.3 (10.0-13.1) SEC INR 1.1 (0.9-1.1) APTT 22.9 L (26.0-36.4) SEC Sodium (135-145) mmol/L Potassium (3.3-5.1) mmol/L Chloride (96-108) mmol/L Carbon Dioxide (22-29) mmol/L Anion Gap (12-20) BUN (9-16) mg/dL Creatinine (0.5-1.4) mg/dL Estim Creat Clear Calc Estimated GFR Random Glucose (60-115) mg/dL Calcium (8.4-10.2) mg/dL Magnesium (1.6-2.6) mg/dL Total Bilirubin (0.0-1.0) mg/dL AST (5-37) U/L ALT (0-40) U/L Alkaline Phosphatase (39-117) U/L Total Protein (6.5-8.0) g/dL Albumin (3.5-5.0) g/dL Stool Occult Blood NEGATIVE (NEGATIVE) Blood Type Antibody Screen Crossmatch Critical Care Time Critical Care Time Critical Care Time: Yes Total Critical Care Time: 90 Attestation: The patient was critically ill with a high probability of imminent or life threatening deterioration. I spent greater than 100 minutes of discontinuous time evaluating the patient,delivering critical care at the bedside, discussing and evaluating pertinent data with consultants. Critical care time does not include time spent performing separately billable procedures or teaching. Total time spent performing critical care was 90 minutes. Discharge Plan Discharge Clinical Impression: Acute occlusion of artery of lower extremity, Ulcerative colitis, GI (gastrointestinal bleed), Severe anemia Patient Disposition: Admitted As Inpatient
[2022-11-25 04:37] LABS: INTERNATIONAL NORM RATIO 1.1 (0.9-1.1); Prothrombin Time 12.3 SEC (10.0-13.1)
[2022-11-25 04:39] LABS: Partial Thromboplastin Time 22.9 SEC (26.0-36.4)
--- NOTE | 2022-11-25 04:49 | MHC.EDTECH ---
this pct just assumed care of pt ,vitals sign taken ,pt is watching television .
--- NOTE | 2022-11-25 04:50 | MHC.EDTECH ---
patient was hooked up to electronic device monitor .
[2022-11-25] MEDS: Heparin Sodium,Porcine 5,000 UNIT/ML VIAL 5000 UNIT IVPUSH (04:59)
[2022-11-25 05:26] LABS: OBS Int Ctl Valid YES; OBS1 NEGATIVE (NEGATIVE)
--- NOTE | 2022-11-25 05:36 | PC.NURSE ---
Assumed care of pt. pt brought to room via stretcher, returned from [facility]. Pt C/O RLE pain, around posterior and anterior area. per MD, pt has existing DVT's. Medicated pt with heparin per orders, blood product retrieved and started with no complications. Warm compresses applied with wamed blankets to RLE for comfort. VSS, no other acute distress. plan to monitor per protocols.
--- NOTE | 2022-11-25 07:18 | PHA.MEDREC ---
Pharmacy Consult ? Medication Reconciliation Pharmacy has reviewed the medication reconciliation done by RN. Changed Mesalamine as RN had dose at 1600 mg but claims show 800 mg
--- NOTE | 2022-11-25 09:21 | P.CONGS_ITS ---
History of Present Illness Consult details Consult date: 11/25/22 Narrative: 47-year-old gentleman with a history of ulcerative colitis and severe anemia presented to the emergency room with right lower extremity pain. He reported that the right calf pain began about 3-4 days prior. It has been consistent in nature. It did relieve with massaging it out. It was unrelenting for the last 3 or 4 days and he ventrally presented to the emergency room. At the time of workup he was found to be severely anemic with a hemoglobin of 5.1. In addition he was found to have right lower extremity concern of arterial occlusion on noninvasive testing. Upon discussion with the patient this morning he reports that the pain has improved. He does have motor and sensation at the time of my exam. Review of Systems Review of Systems: Yes all other systems are reviewed and are negative Constitutional: Constitutional: Reports no additional constitutional compl aints ENT: Reports Normal hearing present Cardiovascular: Cardiovascular: Denies chest pain, Denies chest pain at rest, Denies chest pain with activity and Denies pedal edema Respiratory: Respiratory: Denies cough Gastrointestinal: Gastrointestinal: Denies abdominal pain Musculoskeletal: Musculoskeletal: Denies abnormal gait, Denies muscle cramps and Denies radiating pain into limb Integumentary/Breasts: Skin/Breast: Denies skin ulcer and Denies wounds Neurologic: Reports Normal hearing present and Denies abnormal gait Psychiatric: Psychiatric: Reports no additional psychiatric complaints PMFSH Past Medical History Medical History Diverticulitis GERD (gastroesophageal reflux disease) GI bleeding Hypertension Sleep apnea Ulcerative colitis Family History Family History Mother Heart disease COPD (chronic obstructive pulmonary disease) Surgical History Surgical History Hx of colonoscopy Social History Social History Household Members: None Housing: House Do you presently have visiting nurse or other home services: No Alcohol intake: current Alcohol intake frequency: a few times a week Alcohol type: hard liquor Patient Tobacco Use Status: Never used Tobacco Use of substances other than those prescribed or required for medical reasons: No Advance Directives: No Advance Directives Information Provided: Yes service: No Current occupational status: employed Meds Allergies Allergy/AdvReac Type Severity Reaction Status Date / Time shellfish derived Allergy Swelling Verified 11/25/22 05:40 Home Medications Medication Instructions Recorded Confirmed Last Taken Type mesalamine 400 mg capsule (with 800 mg PO TID 11/25/22 11/25/22 Unknown History delayed release tablets inside) Physical Exam Vital Signs: Vital Signs: Last Vital Signs Temp 97.8 F 11/25/22 08:08 Pulse 86 11/25/22 08:08 Resp 20 11/25/22 08:08 BP 150/86 H 11/25/22 08:08 Pulse Ox 98 11/25/22 06:28 O2 Del Method Room Air 11/25/22 06:28 BMI result Body Mass Index 31.9 Const: General: cooperative, healthy appearing and comfortable Orientation/consciousness: oriented to person, oriented to place and oriented to time HEENT: Head: Yes normal to inspection Neck: Neck: Yes normal visual inspection Carotids: no bruits Chest: Chest palpation & inspection: normal inspection of the chest Resp: Effort & Inspection: normal respiratory effort and able to speak in complete sentences Auscultation: clear to auscultation bilaterally, no crackles, no rales, no rhonchi and no wheezes Cardio: Other: Right leg - DP signal, left leg palpable pulse on the dorsalis pedis Rate: regular rate Rhythm: regular rhythm Heart sounds: S1 normal heart sound present and S2 normal heart sound present Bruits: no carotid bruits Peripheral pulses: Peripheral pulses 2+ throughout GI: Inspection: Yes normal to inspection Skin: Wounds: no wounds Hair: normal Neuro: General: oriented to person, oriented to place and oriented to time Cranial nerves: Yes CN's II-XII intact bilaterally and Yes Normal hearing present Cognition (Neuro): normal cognition Motor exam (neuro): 5/5 motor strength present throughout Extrem: Other: venous exam: No significant superficial varicosities or spider telangiectasias, minimal edema General: No clubbing, No cyanosis and No edema Psych: Appearance: grossly normal Mental Status: mental status grossly normal Speech and movement: Normal speech and movement present Results Labs 11/25/22 03:26 11/25/22 03:26 Labs: Abnormal lab results 06/01/23 06/01/23 06/01/23 Range/Units 03:26 03:26 04:25 RBC 2.25 L D (4.60-5.80) X10*6/uL Hgb 5.1 L* D (14.0-18.0) g/dl Hct 17.2 L* D (42.0-52.0) % MCV 76.4 L (80.0-98.0) fL MCH 22.7 L (27.0-33.0) pg MCHC 29.7 L (31.0-36.0) g/dl RDW 18.6 H (11.0-16.0) % Plt Count 589 H (160-400) X10*3/uL MPV 8.8 L (9.4-12.4) fL Immature Gran % (Auto) 2.4 H (0.0-0.4) % Abs Immat Gran (auto) 0.16 H (0.00-0.03) X10*3/uL Absolute Nucleated RBC 0.660 H (0.0-0.012) X10*3/uL Nucleated RBC % (auto) 9.8 H (0.0-0.2) /100WBC APTT (26.0-36.4) SEC Anion Gap 11 L (12-20) Calcium 8.2 L (8.4-10.2) mg/dL Total Protein 5.3 L (6.5-8.0) g/dL Albumin 2.7 L (3.5-5.0) g/dL Crossmatch See Detail 11/25/22 Range/Units 04:25 RBC (4.60-5.80) X10*6/uL Hgb (14.0-18.0) g/dl Hct (42.0-52.0) % MCV (80.0-98.0) fL MCH (27.0-33.0) pg MCHC (31.0-36.0) g/dl RDW (11.0-16.0) % Plt Count (160-400) X10*3/uL MPV (9.4-12.4) fL Immature Gran % (Auto) (0.0-0.4) % Abs Immat Gran (auto) (0.00-0.03) X10*3/uL Absolute Nucleated RBC (0.0-0.012) X10*3/uL Nucleated RBC % (auto) (0.0-0.2) /100WBC APTT 22.9 L (26.0-36.4) SEC Anion Gap (12-20) Calcium (8.4-10.2) mg/dL Total Protein (6.5-8.0) g/dL Albumin (3.5-5.0) g/dL Crossmatch Short CBC 11/25/22 Range/Units 03:26 WBC 6.7 (4.8-10.8) X10*3/uL Hgb 5.1 L* D (14.0-18.0) g/dl Hct 17.2 L* D (42.0-52.0) % Plt Count 589 H (160-400) X10*3/uL BMP 11/25/22 03:26 Sodium 135 Potassium 3.4 Chloride 100 Carbon Dioxide 27 BUN 10 Creatinine 0.84 Calcium 8.2 L Liver Function 11/25/22 Range/Units 03:26 Total Bilirubin 0.2 (0.0-1.0) mg/dL AST 20 (5-37) U/L ALT 37 (0-40) U/L Alkaline Phosphatase 53 (39-117) U/L Albumin 2.7 L (3.5-5.0) g/dL All other labs normal. Assessment and Plan (1) PAD (peripheral artery disease): Status: Acute Plan In short the patient does have a pulse differential and right leg pain. At the current time it does not seem to be acute as the patient does have motor and sensation intact. The concern here is that he has severe anemia and would not be able to has significantly anticoagulate. At the current time his leg is stable. I have taken the liberty of ordering a CT angiogram with runoff. Would continue to transfuse as required. We will have to make decisions as to future intervention based on what is going on with his leg. We will proceed from there. Thank you for allowing us to assist in his care. We will closely monitor his status with you. Time Spent With Patient Time: Total time managing care of this patient today __60__ minutes. The time was required for record assessment, management of services, imaging review, discussion with the emergency room staff and hospitalist staff along with direct patient care. Procedures Date of Service Date of Service: 11/25/22
--- NOTE | 2022-11-25 09:22 | PM.GICN ---
History of Present Illness Data of Consult Service Date: 11/25/22 Requesting physician: Jhon Joy Primary Care Provider: Unknown Physician HPI Reason for consult: anemia 46-year-old male with history of hypertension, ulcerative colitis, obstructive sleep apnea, GERD and non compliance who i am seeing for assessment for acute on chronic anemia Patient had noted 3 d of worsening right leg pain and numbness whilst he was in [place]. He had been on a tapering steroid course commenced few weeks back for Uc flare as well as mesalamine and has had normal stools with occ small amounts of altered blood seen in the stool, but no melena or diarrhea and no blood clots. He denies abdominal pain, no nausea, or vomiting, normal appetite . He actulaly feels his colitis is improved as compared to before. Denies taking nsaids etc. Lab: No leukocytosis.? H/H 11/10? , microcytosis Imaging: doppler, concern for occlusion of peroneal artery CT with mild stacey colonic stranding and confirmation of occlusion Review of Systems Review of Systems: Constitutional : No Weight loss, No Fever, No Chills ENT/Mouth : No sore throat, No Rhinorrhea Eyes: No Swelling, No Redness Cardiovascular : No Chest Pain, No SOB, No Edema Respiratory : No Cough, No Sputum, No Wheezing Gastrointestinal : see HPI Genitourinary : NO Dysuria, No Urinary Frequency, No Hematuria, No Urgency Musculoskeletal : No joint pain, No Myalgias, No Joint Swelling Skin : No Skin Lesions, No rash Neuro : No Weakness, No Numbness, No Dizziness, No Headache Psych : No Anxiety/Panic, No Depression Heme/Lymph: No Bruising, No Lymphadenopathy Endocrine : No Polyuria, No Polydipsia All other systems reviewed and are negative. [facility] Past Medical History Medical History Diverticulitis GERD (gastroesophageal reflux disease) GI bleeding Hypertension Sleep apnea Ulcerative colitis Family History Family History Mother Heart disease COPD (chronic obstructive pulmonary disease) Surgical History Surgical History Hx of colonoscopy Social History Social History Household Members: None Housing: House Do you presently have visiting nurse or other home services: No Alcohol intake: current Alcohol intake frequency: a few times a week Alcohol type: hard liquor Patient Tobacco Use Status: Never used Tobacco Use of substances other than those prescribed or required for medical reasons: No Advance Directives: No Advance Directives Information Provided: Yes service: No Current occupational status: employed Meds Allergies Allergy/AdvReac Type Severity Reaction Status Date / Time shellfish derived Allergy Swelling Verified 11/25/22 05:40 Home Medications Medication Instructions Recorded Confirmed Last Taken Type mesalamine 400 mg capsule (with 800 mg PO TID 11/25/22 11/25/22 Unknown History delayed release tablets inside) Physical Exam Vital Signs: Vital Signs: Last Vital Signs Temp 97.8 F 11/25/22 08:08 Pulse 86 11/25/22 08:08 Resp 20 11/25/22 08:08 BP 150/86 H 11/25/22 08:08 Pulse Ox 98 11/25/22 06:28 O2 Del Method Room Air 11/25/22 06:28 BMI result Body Mass Index 31.9 EXAM: GENERAL: The patient is well developed and nontoxic. VITAL SIGNS:see workflow HEENT: Nonicteric sclerae, PERRLA, EOMI. Oropharynx clear. Moist mucous membranes. Conjunctivae appear well perfused. No thyroid mass. CHEST: Chest wall is nontender. HEART: Regular rate and rhythm without murmurs. LUNGS: Clear to auscultation bilaterally. ABDOMEN: Soft, positive bowel sounds, nontender, no organomegaly.no flank tenderness--small umbilical hernia seen SKIN: No rash, no excessive bruising, petechiae, or purpura. NEUROLOGIC: Cranial nerves II-XII intact without motor/sensory deficit. right foot, slightly cold and reduced cap refill Results Labs 11/25/22 03:26 11/25/22 03:26 Labs: Short CBC 11/25/22 Range/Units 03:26 WBC 6.7 (4.8-10.8) X10*3/uL Hgb 5.1 L* D (14.0-18.0) g/dl Hct 17.2 L* D (42.0-52.0) % Plt Count 589 H (160-400) X10*3/uL BMP 06/01/23 03:26 Sodium 135 Potassium 3.4 Chloride 100 Carbon Dioxide 27 BUN 10 Creatinine 0.84 Calcium 8.2 L Liver Function 11/25/22 Range/Units 03:26 Total Bilirubin 0.2 (0.0-1.0) mg/dL AST 20 (5-37) U/L ALT 37 (0-40) U/L Alkaline Phosphatase 53 (39-117) U/L Albumin 2.7 L (3.5-5.0) g/dL Imaging CT scan - abdomen: Attestation: I personally reviewed and interpreted this imaging study as follows: (mild stranding of colon) Assessment and Plan (1) Ulcerative colitis: Status: Acute (2) Anemia: Status: Acute (3) Acute occlusion of artery of lower extremity: Status: Acute Plan 1/ Chronic microcytic anemia,2/2 colitis which clinically seems to be improved with steroids and mesalamine-denie diarrhea or clots in stool. He has some low level intermittent bleeding and is currently on steroid taper 10 mg daily. now his care is complicated by acute thrombus in lower limb, IBD is also a prothrombotic condition. PLAN: 1/ If needs anti coagulation can use heparin, and aspirin 2/ Transfuse PRBC, hgb target > 7, check iron levels and replenish 3/ Can increase pred to 20 mg and cont with mesalamine. 4/ might need biologic if ongoing inflammation Time Spent With Patient Time: Total time managing care of this patient today ____ minutes. Procedures Date of Service Date of Service: 11/25/22
[2022-11-25] MEDS: iohexoL 350 MG/ML 100 ML INFUS..BTL IV (10:38)
--- NOTE | 2022-11-25 11:13 | P.HPHOSP_ITS ---
the patient was seen and evaluated with BRENNAN Skinner. I agree with his note, assessment and plan with the following. The patient was admitted to ICU post vascular surgery procedure. will continue to follow once he is out of the unit. Rest of evaluations by BRENNAN note. History of Present Illness Date of Service: 11/25/22 Attending physician on admission: Augustus Farias Chief Complaint: Right leg numbness Pt is a 47-year-old male with a PMH significant for?ulcerative colitis, hx of severe anemia requiring transfusions, HTN, GERD, and ARTIS who presents to the ED with?pain and numbness in right leg for the past 3 days. Patient states that he visited the [facility] for 1 week from last Tuesday until yesterday. Approximately 3 4 days ago patient began experiencing pain and tingling in his right leg that increased in intensity with walking. Patient with then removed his shoe and massage his right lower leg and calf which restored station and relieved the pain. [place] and had to keep his shoes on the whole day. Pt reports the pain in his right foot increased in intensity until it became unbearable and his foot eventually became completely numb. Pt also experienced lightheadedness, dizziness, nausea, and diaphoresis at this time. He then decided to come to the ED when he returned home. Patient currently says that his pain is now much better and rates it a 1-2. Pt also denies numbness and tingling now that he is lying in a bed without his shoes on. Of note, patient has a long history of ulcerative colitis for which he takes mesalamine, followed by Dr. Alves. Pt was recently admitted to the hospital for a UC flare on 11/08/2022, primarily complaining of severe abdominal pain and hematochezia. Patient was sent home on a prednisone taper and an increase in his mesalamine. Patient states that since discharge he has been feeling much better, currently does not complain of any abdominal pain, states his bowel movements have been formed and without blood the past few days. Patient has had a good appetite and been able to tolerate p.o. fluids and solids without limitations. In the ED patient was afebrile but tachycardic up to 126, and tachypneic up to 21, and hypertensive up to 150/86. Labs were significant for severe anemia of 5.1/17. Electrolytes WNL. Renal function baseline. Hepatic function baseline. Stool negative for occult blood. Arterial ultrasound of right lower leg showed likely occlusion of peroneal artery throughout the calf and diminished flow in the posterior tibial artery toward the ankle. CT angiogram with runoff showed complete occlusion of the right popliteal artery with a 4 mm calcification either within or adjacent to popliteal artery. CTA also showed mild pericolonic stranding suspicious of colitis. Pt was treated with 2 units of PRBCs, and will be placed on a heparin drip in the ICU. Pt will be admitted to the hospital for treatment and further evaluation of occluded popliteal artery of right leg. Review of Systems Review of Systems: Right lower leg and foot pain and numbness 1 episode nausea, no vomiting Lightheadedness, dizziness yesterday Denies chest pain/pressure palpitations Shortness of breath Denies fever, chills, diarrhea, abdominal pain No recent hematochezia in past few days Yes all other systems are reviewed and are negative [facility] Medical History Diverticulitis GERD (gastroesophageal reflux disease) GI bleeding Hypertension Sleep apnea Ulcerative colitis Family History Mother Heart disease COPD (chronic obstructive pulmonary disease) Surgical History Hx of colonoscopy Social History Household Members: None Housing: House Do you presently have visiting nurse or other home services: No Alcohol intake: current Alcohol intake frequency: a few times a week Alcohol type: hard liquor Patient Tobacco Use Status: Never used Tobacco Use of substances other than those prescribed or required for medical reasons: No Advance Directives: No Advance Directives Information Provided: Yes service: No Current occupational status: employed Meds Allergies Allergy/AdvReac Type Severity Reaction Status Date / Time shellfish derived Allergy Swelling Verified 11/25/22 05:40 Home Medications Medication Instructions Recorded Confirmed Last Taken Type mesalamine 400 mg capsule (with 800 mg PO TID 11/25/22 11/25/22 Unknown History delayed release tablets inside) Physical Exam Vital Signs and Narrative: Vital Signs: Last Vital Signs Temp 98.0 F 11/25/22 09:12 Pulse 66 11/25/22 09:12 Resp 16 11/25/22 09:12 BP 150/70 H 11/25/22 09:12 Pulse Ox 98 11/25/22 06:28 O2 Del Method Room Air 11/25/22 06:28 BMI result Body Mass Index 31.9 Constitutional: Alert, in no acute distress. Mental Status: Oriented to person, place and time. Eyes: Pupils are equal, round, and reactive to light. Ear, Nose, and Throat: Oropharynx clear, mucous membranes moist. Ears and nose without deformities. Trachea midline. Respiratory: Clear to auscultation bilaterally. No wheezing, rales, or rhonchi. Cardiovascular: S1, S2 regular. No murmurs, rubs, or gallops. Gastrointestinal: Abdomen soft, non-tender, non-distended. Normal bowel sounds. Neurologic: Cranial nerves II-XII are grossly intact bilaterally. No focal neurological deficits. Moves all extremities spontaneously. Skin: No rashes or lesions noted. Musculoskeletal: No cyanosis or clubbing. Extremities: Right foot slightly cool to the touch, mildly tender. Faint right pedal pulse, left pedal pulse 2+. Sensation to light touch intact bilaterally, though diminised on right compared to left. No edema. Psychiatric: Normal mood and affect. Results Labs 11/25/22 03:26 11/25/22 03:26 Labs: Laboratory Results - last 24 hr 11/25/22 11/25/22 11/25/22 03:26 03:26 04:25 MCV 76.4 L MCH 22.7 L MCHC 29.7 L RDW 18.6 H Plt Count 589 H MPV 8.8 L Immature Gran % (Auto) 2.4 H Neut % (Auto) 60.8 Lymph % (Auto) 23.9 [place] % (Auto) 9.8 Eos % (Auto) 2.7 Baso % (Auto) 0.4 Lymph # (Auto) 1.6 [place] # (Auto) 0.7 Eos # (Auto) 0.2 Baso # (Auto) 0.0 Abs Immat Gran (auto) 0.16 H Absolute Neuts (auto) 4.1 Absolute Nucleated RBC 0.660 H Nucleated RBC % (auto) 9.8 H PT INR APTT Anion Gap 11 L Estim Creat Clear Calc 123.0 Estimated GFR > 60 Random Glucose 111 Calcium 8.2 L Magnesium 2.1 Total Bilirubin 0.2 AST 20 ALT 37 Alkaline Phosphatase 53 Total Protein 5.3 L Albumin 2.7 L Stool Occult Blood Blood Type O Positive Antibody Screen NEGATIVE Crossmatch See Detail 11/25/22 11/25/22 04:25 05:22 MCV MCH MCHC RDW Plt Count MPV Immature Gran % (Auto) Neut % (Auto) Lymph % (Auto) [place] % (Auto) Eos % (Auto) Baso % (Auto) Lymph # (Auto) [place] # (Auto) Eos # (Auto) Baso # (Auto) Abs Immat Gran (auto) Absolute Neuts (auto) Absolute Nucleated RBC Nucleated RBC % (auto) PT 12.3 INR 1.1 APTT 22.9 L Anion Gap Estim Creat Clear Calc Estimated GFR Random Glucose Calcium Magnesium Total Bilirubin AST ALT Alkaline Phosphatase Total Protein Albumin Stool Occult Blood NEGATIVE Blood Type Antibody Screen Crossmatch Imaging Radiologist's Impressions: Impressions Duplex Scan Lower Extremity Artery 11/25/22 03:55 IMPRESSION: No flow detected within the peroneal artery throughout the calf, suspicious for occlusion. Diminished flow noted in the posterior tibial artery towards the ankle. This was discussed with Dr. Garcia on 11/25/2022 4:45 AM. Assessment and Plan (1) Acute occlusion of artery of lower extremity: Status: Acute (2) Ulcerative colitis: Status: Acute Plan Pt is a 47-year-old male with a PMH significant for?ulcerative colitis, hx of severe anemia requiring transfusions, HTN, GERD, and ARTIS who presents to the ED with?pain and numbness in right leg for the past 3 days. Occluded right popliteal artery CTA with runoff showed complete occlusion of the right popliteal artery Patient will be sent to ICU for thrombolysis on heparin drip, per vascular surgery Vascular surgery consult Acute anemia Patient presented with H&H of 5.1/17.2 Likely secondary to previous UC flare Patient still has occasional blood per rectum with bowel movement, though none recently, stool negative for occult blood Patient transfused 2 units of PRBC in ED Follow CBC Ulcerative colitis Patient presented to the hospital 3 weeks ago on 11/08/2022 acute UC flare, including hematochezia Patient treated with IV steroids, increase of mesalamine, pain management, and bowel rest Patient sent home on prednisone taper in increased mesalamine CTA showed mild pericolonic stranding, suspicious of colitis Patient likely not in acute flare: Patient not complaining of abdominal pain, diarrhea, hematochezia. Patient has had a good appetite and tolerating p.o. fluids and solids Continue prednisone, mesalamine GI consult ARTIS CPAP at bedtime Full Code Attending:?Dr. Farias DVT Prophylaxis: Heparin drip Pt will require a hospitalization of at least two nights for treatment of? with . Time Spent With Patient Time: Total time managing care of this patient today ____ minutes. Quality Stroke Does the patient have a stroke diagnosis?: No VTE Prior VTE?: No VTE Risk Level:: Medical - moderate - high VTE Device Contraindication: Treatment Not Indicated VTE Drug Contraindication: N/A - Med Ordered
--- NOTE | 2022-11-25 15:28 | P.OP_ITS ---
Operative Note Operative Note Date of Service: 11/25/22 Narrative: Angiogram report from [facility] Preoperative diagnosis: Acute right lower extremity arterial occlusion Postoperative diagnosis: Same Procedure: 1. Ultrasound-guided left common femoral access 2. Aortogram with right lower extremity runoff 3. Insertion of right lower extremity thrombolysis catheter Surgeon:Bowen Garcia M.D., FACS, RPVI Personal Attendant:None Anesthesia: Local with moderate conscious sedation. Total intraservice moderate sedation time was 36 minutes. I monitored the patient's level of consciousness and physiologic status continuously throughout the procedure. Specimens:none Drains:none Estimated blood loss: Less than 10 ml Implant: None Indications: 47-year-old gentleman with a history of ulcerative colitis presents with acute occlusion the right lower extremity which was discovered on CT scan. He now presents for endovascular intervention. Of note he is at increased bleeding risk which he was well aware of. The patient has signed the informed consent after reviewing risks, complications, benefits, and alternatives previously discussed with the patient. The patient was given the opportunity to ask any additional questions or voice any concerns. All questions were answered to the patient's satisfaction. Procedure in detail: Patient was brought to the angiography suite prior to which a time-out was called for patient identification and site verification. Bilateral groins were prepped and draped in the standard surgical fashion. Under ultrasound guidance left common femoral was punctured with micro puncture needle and wire. Subsequently a precision 4 [place] sheath was then placed. Bentson wire was advanced to the level of the aorta. 4 [place] Flush catheter was brought up and parked at the level of the renal arteries. Aortogram was then undertaken. Catheter was brought down to the level of the iliac bifurcation. Iliacs were subsequently imaged. Catheter was then brought in up and over to the right side SFA. Runoff study was then undertaken. We recognize there was an acute occlusion at the popliteal. We were able to traverse this with a 035 glidewire Advantage. Once in position we administered 3000 units of systemic heparin. We placed an up and over 6 [place] Balkin sheath. Through this bulk in sheath we then advanced a 50 cm Cragg Yeny thrombolysis catheter. This was brought into through the popliteal into the anterior tibial. Once in appropriate position we then did completion angio g which demonstrated good placement. We then at hoped up tPA and heparin. Once this was all accomplished this was attached to tPA to run and 0.5 mg an hour along with heparin by the sheath at 500 units an hour Interpretation of films: 1. Ultrasound demonstrates appropriate femoral puncture. Image of which was saved. 2. Aortogram demonstrates appropriate caliber aorta. Minimal disease. Appropriate take-off of the renals. 3. Iliac images demonstrate no significant disease 4. Right Leg Common femoral artery: No significant disease Profundus Femoris: No significant disease Superficial femoral artery: No significant disease Popliteal artery (p1,p2,p3): Acute occlusion at the P2 segment Anterior tibial artery: Not visualized Peroneal artery: Not visualized Posterior tibial artery: Not visualized Dorsalis pedis/plantar arch: Not visualized Conclusion: 1. Successful placement of thrombolysis catheter 2. Anticoagulation status: Continuous infusion of tPA and heparin This note is constructed using voice recognition software. While every effort has been made to ensure accuracy, adaptive physical education specialist errors may have been included. Thank you for allowing me to participate in the care of your patient. Yours sincerely, Bowen Garcia MD, FACS, R.P.V.I.
[2022-11-25] MEDS: Alteplase Cath Clear 5 MG in 0.9 % Sodium Chloride 495 ML 50 MG INTRAPLEUR ×2 (16:08→23:03)
[2022-11-25] MEDS: Heparin Sodium,Porcine/1/2NS 25,000 UNIT/250 ML IV.SOLN 5 UNIT IVCONT (16:09)
[2022-11-25] MEDS: Morphine Sulfate 4 MG/ML CARTRIDGE IVPUSH ×3 (16:18→22:58)
[2022-11-25] MEDS: 0.9 % Sodium Chloride 1,000 ML 100 ML IVCONT ×2 (16:19→23:00)
--- NOTE | 2022-11-25 16:40 | PM.CCN ---
Critical Care Event Note Summary Date of Service: 11/25/22 Code activated: No Narrative: 47-year-old gentleman with underlying ulcerative colitis admitted for right lower like pain of 3 day duration before being evaluated in ER. On ER evaluation demonstration of right peroneal artery thrombosis. Patient evaluated by vascular surgery and underwent IR angiogram with placement of right lower extremity arterial thrombolysis catheter with tPA and heparin infusion. Now being monitored in the intensive care unit. On my postprocedure exam patient does complain of pain in the right lower leg with his right foot cool to the touch. Patient is able to wiggle his right toes. Patient is planned for repeat angiogram in a.m.. Critical Care Time (minutes): 0
[2022-11-25] MEDS: Mesalamine 400 MG CAP.DRTAB. 800 MG PO (22:13)
[2022-11-25] MEDS: Acetaminophen 325 MG TABLET 650 MG PO (22:14)
[2022-11-25 22:52] LABS: Fibrinogen > 700 MG/DL (259-690); PTT Heparin Drip 27.9 SEC (53-77.9)
[2022-11-25] MEDS: 0.9 % Sodium Chloride Flush 3 ML SYRINGE IVFLUSH (23:07)
[2022-11-26] VITALS (37 sets, daily range): BP systolic 118–179; BP diastolic 70–111; PULSE 88–112; RESP 10–26; TEMP 36.3–37.3; O2SAT 93–99; BMI 32.1
[2022-11-26] MEDS: HYDROmorphone HCl 2 MG/ML VIAL IVPUSH ×7 (00:40→23:49)
--- NOTE | 2022-11-26 00:40 | PM.EVENT ---
Documented by User: Hien Bello NP 11/26/22 02:14 Event Note Date of Service: 11/26/22 Event Note: Patient complained of increased pain and burning in the right leg with no relief from morphine. Also exhibiting considerable anxiety related to medical condition. Foot remains cold to the touch, pulseless, cap refill about 3 seconds. Patient is able to move leg and foot. Pain medication changed to Dilaudid 2 mg IV Q3H. Midazolam 1 mg given for anxiety. Patient's care was discussed with Dr. Garcia. He is aware of changes and in agreement of plan of care. Time Spent With Patient Time: Total time managing care of this patient today ____ minutes. Documented by User: Adithya Capps MD 11/26/22 08:20 Event Note Date of Service: 11/26/22
[2022-11-26] MEDS: Labetalol HCL 100 MG/20 ML VIAL 10 MG IVPUSH (00:42)
[2022-11-26] MEDS: Midazolam HCl/PF 2 MG/2 ML VIAL 1 MG IVPUSH (00:50)
--- NOTE | 2022-11-26 02:06 | PC.NURSE ---
ASSUMED CARE OF PT AT 1900. PT C/O SEVERE PAIN RIGHT FOOT AND LOWER LEG #8 OR 9/10. RT FOOT COLD AND NO PEDAL, POST TIBIAL OR POPLITEAL PULSE PALPABLE OR AUDIBLE WITH A DOPPLER. STRONG FEMORAL PULSE NOTED. RT FOOT TOES PALE, BLANCHABLE 3 SECS. PT ABLE TO MOVE RT FOOT AND WIGGLE TOES. THROMBOLYSIS CATH LEFT GROIN WITH CONTINUOUS TPA AND HEPARIN INFUSIONS. DSG LT GROIN D&I. PT RECEIVED MORPHINE SULFATE 4 MG IV X2 AT 1957 AND 2257. SECOND DOSE WAS GIVEN 1 HR EARLY PER PROVIDER DUE TO PT'S SEVERE PAIN. PT ALSO REC'D TYLENOL PO AT 2213. CMS CHECKED Q1HR WITH NO CHANGES YET PAIN PERSISTED WITH LITTLE EFFECT FROM MEDS. PROVIDER IN TO SE PT SEVERAL TIMES AND CALLED AND SPOKE TO DR TURCIOS AT 1999. NO NEW ORDERS AT THAT TIME AND HIS CONCERN WAS PRIMARILY IF THE PT COULD MOVE THE FOOT AND TOES. DR TURCIOS CALLED THE UNIT BACK AT 2099 TO CHECK ON THE PT AND THIS RN SPOKE TO HIM AND REPORTED THE SAME CMS ASSESSMENT AND THAT THE PT COULD MOVE THE FOOT. ALSO ASKED IF IT WAS OK FOR THE PT TO MOVE IN BED OR PUT HOB UP. HE STATED THE HOB SHOULD BE NO MORE THAN 30 DEGREES TO PREVENT THE THROMBOLYSIS CATH FROM KINKING. PT MADE AWARE OF THIS HE KEPT TRYING TO SIT UP AND IT WAS EXPLAINED TO HIM WHY HE COULD NOT RAISE THE HOB MORE THAN 30 DEGREES. HE STATED HE UNDERSTOOD. PT CONTINUED TO C/O SEVERE PAIN AND BP WAS HIGH 180'S/107. PROVIDER FLORENCE WU IN TO SEE PT AT MIDNIGHT. CMS WAS NO CHANGE AND SHE CALLED AND SPOKE TO DR TURCIOS AT THAT TIME. PLAN WAS DECIDED TO CHANGE PAIN MED AND GIVE AN ANXIOLYTIC. PT RECEIVED DILAUDID 2 MG IV AT 0040 WITH EFFECT TO BRING PAIN FROM 10 TO 6/10, BETTER EFFECT THAN MORPHINE. PT THEN REC'D MIDAZOLAM 1 MG IV AT 0050 AND LABETOLOL 10 MG IV. GOOD EFFECT FROM MEDS AND PT RELAXED WITH DECREASE IN BP TO 150'S/60'S.
--- NOTE | 2022-11-26 04:29 | PC.NURSE ---
PT FELL ASLEEP AFTER RECEIVING DILAUDID AT 0040 AND VERSED AT 0050. STATES HE FEELS MUCH BETTER AND THAT RT FOOT AND LOWER LEG PAIN IS 3/10. BP MUCH IMPROVED AFTER ECEIVING LABETOLOL. CMS TO RT FOOT UNCHANGED. PT ABLE TO WIGGLE TOES AND MOVE FOOT WELL. CONTINUED NO PULSES AND FOOT IS COLD. PT WENT BACK TO SLEEP AND RANG FOR NURSE AT 0400 STATING HE HAD TO HAVE A BOWEL MOVEMENT. PT PUT ON BEDPAN AND PASSED 350 ML OF RED/BROWN LIQUID STOOL. PROVIDER AWARE AND BLOOD WORK CBC DRAWN. PLAN WILL BE TO TRANSFUSE IF NEEDED. PT ASYMPTOMATIC WITH BLOOD LOSS. COMPAINED OF 6/10 PAIN AT THIS TIME TO RT EXTREMITY AND DILAUDID 2MG IV GIVEN.
[2022-11-26 04:49] LABS: MANUAL DIFF FLAG NO
[2022-11-26 04:51] LABS: Basophils Percent Auto 0.6 % (0-2); Eosinophils Absolute Auto 0.1 X10*3/uL (0.0-0.4); Eosinophils Percent Auto 1.3 % (0-4); Hematocrit 26.5 % (42.0-52.0); Hemoglobin 8.1 g/dl (14.0-18.0); Imm Gran Abs Auto 0.15 X10*3/uL (0.00-0.03); Imm Gran Pct Auto 2.2 % (0.0-0.4); Lymphocytes Absolute Auto 1.2 X10*3/uL (1.2-4.9); Lymphocytes Percent Auto 17.8 % (20-40); Mean Corpuscular HGB Conc 30.6 g/dl (31.0-36.0); Mean Corpuscular Volume 81.8 fL (80.0-98.0); Mean Platelet Volume 9.3 fL (9.4-12.4); Monocytes Absolute Auto 0.6 X10*3/uL (0.1-1.2); Monocytes Percent Auto 8.3 % (2-11); NRBC Pct Auto 8.9 /100WBC (0.0-0.2); Neutrophils Absolute Auto 4.9 x10*3/uL (2.0-8.3); Neutrophils Percent Auto 69.8 % (45-73); Platelet Count 517 X10*3/uL (160-400); Red Blood Count 3.24 X10*6/uL (4.60-5.80); Red Cell Distribution Width 19.4 % (11.0-16.0)
--- NOTE | 2022-11-26 04:59 | PM.EVENT ---
Documented by User: Hien Bello NP 11/26/22 05:21 Event Note Date of Service: 11/26/22 Event Note: The patient passed approximately 300 mL of liquid bloody stool. A.m. labs were drawn stat. Hemoglobin 8.1, hematocrit 26.5. The patient was transfused yesterday with 2 units packed red blood cells for severe anemia due to ulcerative colitis. Stable for now. Dr. Garcia notified. Continue anticoagulants; patient is scheduled to go back to the OR at 07:00. Will continue to monitor for bleeding. Time Spent With Patient Time: Total time managing care of this patient today ____ minutes. Documented by User: Adithya Capps MD 11/26/22 08:20 Event Note Date of Service: 11/26/22
[2022-11-26 05:10] LABS: Albumin Level 2.8 g/dL (3.5-5.0); Anion Gap 13 (12-20); Blood Urea Nitrogen 7 mg/dL (9-16); Carbon Dioxide 25 mmol/L (22-29); Chloride 102 mmol/L (96-108); Creatinine Clr Calc Pharmacy 134.3; Estimated Glomerular Filt Rate > 60; Glucose Random 117 mg/dL (60-115); Magnesium 2.1 mg/dL (1.6-2.6); Phosphorus 3.6 mg/dL (2.7-4.5); Potassium 4.2 mmol/L (3.3-5.1); Sodium 136 mmol/L (135-145)
--- NOTE | 2022-11-26 05:17 | PC.NURSE ---
HGB/HCT AT 0422 8.1/26.5 NOT TRANSFUSING AT THIS TIME. CMS TO RT FOOT UNCHANGED EXCEPT FOR AREA APPROX 3 BY 2 OF A MOTTLED APPEARANCE WITH A PURPLE HUE. SYSTEMS SUPPORT SPECIALIST FLORENCE INSPECTED THE FOOT AND SPOKE TO DR TURCIOS. NO CHANGES AT THIS TIME. DR TURCIOS WILL BE COMING IN BY 0700. PT ABLE TO WIGGLE TOES AND MOVE RT FOOT. FOOT REMAINS COLD. NAILS BLANCHABLE 3 SECS. PT STATES PAIN IS MUCH BETTER AFTER RECEIVING DILAUDID, DOWN TO 2/10.
--- NOTE | 2022-11-26 06:25 | PC.NURSE ---
pt used bedpan for the second time and passed 300 ml of liquid red/brown stool. monitor shows NSR, rate 90's. BP stable 145/99. pt states pain is starting to come back but not nearly as severe as it was early in the shift, now 4/10. no changes in CMS of rt foot.
[2022-11-26] MEDS: Albumin Human 25 % 100 ML IV (06:33)
--- NOTE | 2022-11-26 07:00 | CA_ITS ---
Transthoracic Echocardiogram Amended Patient (Last, First, Middle): Gonzales Saba, Gender: Male Date of : 1975 Age: 47 Procedure Date: 11/26/2022 Procedure Type: Transthoracic Echocardiogram Location: [facility] [place] Height: 172.72 cm Weight: 95.71 kg BSA: 2.09 m2 Heart Rate: 98 bpm BP: 144 / 84 mmHg Edge Sawyer: Referring MD: Adithya Capps MD Group Social Worker: Howard Wiggins MD Symptoms: ? LV source for peripheral arterial thrombus Study Quality: Adequate ECG Rhythm: Sinus Conclusions: - 1. Normal LV systolic function with mild LVH 2. Thickened aortic valve with increased gradient and may suggest mild aortic stenosis 3. No clear vegetations seen on this study 4. Normal RV systolic pressure 5. No pericardial effusion Findings Left Ventricle Normal left ventricular size and systolic function. There is mildly increased left ventricular wall thickness. The visually estimated ejection fraction is between 60-65%. Spectral Doppler is indicative of a normal filling pattern. Right Ventricle Normal right ventricular cavity size and systolic function. Atria Both atria are normal in size. Interatrial shunt cannot be excluded. Aortic Valve There is mild calcification of the aortic valve. There is moderate thickening of the aortic valve. There is mild aortic valve stenosis. The mean gradient is 17 mmHg. There is no aortic valve regurgitation. Mitral Valve Normal mitral valve structure and function. There is trace mitral valve regurgitation. There is no mitral valve stenosis. Pulmonic Valve The pulmonic valve was not well visualized. Tricuspid Valve Likely normal tricuspid valve structure and function. There is trace tricuspid valve regurgitation. The right ventricular systolic pressure is normal. The right ventricular systolic pressure is 26 mmHg. Normal right atrial pressure. There is no evidence of pulmonary hypertension. Great Vessels All visible segments of the aorta are normal in size. The pulmonary artery was not well visualized. Venous The inferior vena cava is normal in size and collapses greater than 50% with inspiration. Pericardium/Pleural There is no evidence of pericardial effusion. Prior Study Comparison No prior study available for comparison. Recommendations, Care & Conclusions Consider a ASHLEY if clinically appropriate. Recommend contrast study to evaluate intracardiac shunting. Measurements 2D Linear Measurements IVSd: 1.22 0.6-0.9/0.6-1.0 cm LVIDd: 5.47 3.9-5.3/4.2-5.9 cm LVIDd Index: 2.62 2.4-3.2/2.2-3.1 cm/m2 LVIDs: 3.41 2.0-3.6 cm LVPWd: 1.28 0.7-1.1 cm LA Diam: 3.70 2.7-3.8/3.0-4.0 cm LAIDs Index: 1.77 1.5-2.3 cm/m2 LV Mass: 356.30 67-162/88-224 g LV Mass Index: 170.48 43-95/49-115 g/m2 LVOT Diam: 2.60 3.0+(-)1.3 cm Mitral Valve MV Pk E: 1.09 MV PK A: 1.05 MV Decel Time: 121.00 E/A: 1.00 E'Lateral: 7.72 E'Medial: 8.49 E/E' Med: 12.80 E/E' Lat: 14.10 PHT: 36.00 MVA PHT: 6.11 Decel [place]: 8.96 Aortic Valve AoV Pk Suleman: 2.87 AoV Mn Suleman: 1.89 AoV VTI: 0.43 AoV Pk Grad: 33.00 Aov Mn Grad: 17.00 ROSA MARIA Cont.VTI: 3.02 LVOT LVOT Pk Suleman: 1.38 LVOT Mn Suleman: 1.09 LVOT VTI: 0.25 LVOT Pk Grad: 8.00 LVOT Mn Grad: 5.00 LVOT Diam: 2.60 LVOT Area: 5.31 Diastolic Function MV Pk E: 1.09 MV Pk A: 1.05 E/A: 1.00 E'Medial: 8.49 E/E' Med: 12.80 E' Laterial: 7.72 E/E' Lat: 14.10 Right Ventricle TAPSE (mm): 32.70 TVS' Suleman: 24.00 Tricuspid Valve TR Pk Suleman: 2.42 TR Pk Grad: 23.00 RA Press: 3.00 RVSP: 26.00 Great Vessels Aorta Sinus of Valsalva: 3.30 2.0-3.5 cm Ao Asc: 3.50 2.1-3.4 cm Pulmonary Valve PV Pk Suleman: 1.57 Peak PV Grad: 10.00 Updated in Other Vendor System with Status of Final Howard Wiggins MD electronically signed on 11/27/2022 8:34:18 AM with status of Final
[2022-11-26] MEDS: 0.9 % Sodium Chloride Flush 3 ML SYRINGE IVFLUSH ×2 (07:16→16:06)
--- NOTE | 2022-11-26 09:48 | P.OP_ITS ---
Operative Note Operative Note Date of Service: 11/26/22 Narrative: Angiogram report from [facility] Preoperative diagnosis: Acute thrombosis right lower extremity Postoperative diagnosis: Same Procedure: 1. Follow-up thrombolysis angiogram 2. Aortogram with right lower extremity runoff 3. Plasty of right popliteal artery 4. Plasty right anterior tibial artery Surgeon:Bowen Garcia M.D., FACS, RPVI Auto Service Writer:None Anesthesia: Local only Specimens:none Drains:none Estimated blood loss: Less than 10 ml Implant: Medtronic Impact DCB 5 x 80 in 4 x 40 Indications: 47-year-old gentleman with an acute occlusion of the right lower extremity had a thrombolysis catheter placed yesterday. He presents for follow- up today. The concern overnight was that he has ulcerative colitis and had a large bloody bowel movement. He did require transfusions yesterday. The patient has signed the informed consent after reviewing risks, complications, benefits, and alternatives previously discussed with the patient. The patient was given the opportunity to ask any additional questions or voice any concerns. All questions were answered to the patient's satisfaction. Procedure in detail: Patient was brought to the angiography suite prior to which a time-out was called for patient identification and site verification. Bilateral groins were prepped and draped in the standard surgical fashion. The prior [employer] Yeny catheter was removed, prior to which an 035 glidewire Advantage had been advanced into the anterior tibial artery. Once this was removed through the Balkin sheath we did an angiogram. We did see some improvement of the vessel. The anterior tibial appeared to be the more dominant flow. We then brought in a 3 x 100 balloon and plasty did the entire popliteal in anterior tibial to just obtain luminal diameter. We then placed a 5 x 40 balloon into the popliteal region to try to open this out a little bit better. We subsequently followed this up with a 5 x 80 drug coated balloon in the popliteal of the right side. This was brought into position in under 3 minutes and insufflated for a total of 3 minutes in duration. Once this was all accomplished we had a more inferior portion which was then plasty did with a 4 x 40 drug coated balloon. The further part the anterior tibial had been plasty did with a 3 x 100 regular balloon. Once this was all accomplished we did obtain a reasonable result in the anterior tibial artery. Catheter wire sheath was removed. StarClose closure device was deployed. Patient tolerated the procedure well. Returned to recovery with stable vitals. Interpretation of films: 1. Aortogram demonstrates appropriate caliber aorta. Minimal disease. Appropriate take-off of the renals. 2 right Leg Common femoral artery: No significant disease Profundus Femoris: No significant disease Superficial femoral artery: No significant disease Popliteal artery (p1,p2,p3): Improve flow throughout the entire popliteal Anterior tibial artery: Flow down the anterior tibial with evidence spasm. Peroneal artery: Flow reconstitutes via collateral Posterior tibial artery: Flow reconstitutes via collaterals Dorsalis pedis/plantar arch: Incomplete Conclusion: 1. Successful re-establishment of flow to the right lower extremity anterior tibial artery 2. Anticoagulation status: Will remain on heparin drip as tolerated and will need conversion to formal anticoagulation. This note is constructed using voice recognition software. While every effort has been made to ensure accuracy, organization development consultant errors may have been included. Thank you for allowing me to participate in the care of your patient. Yours sincerely, Bowen Garcia MD, FACS, R.P.V.I.
--- NOTE | 2022-11-26 10:37 | PM.CCPN ---
Subjective Subjective Date of Service: 11/26/22 Interval History: 47-year-old gentleman with underlying ulcerative colitis admitted for right lower like pain of 3 day duration before being evaluated in ER. On ER evaluation demonstration of right peroneal artery thrombosis. Patient evaluated by vascular surgery and underwent IR angiogram with placement of right lower extremity arterial thrombolysis catheter with tPA and heparin infusion. Repeat angiogram with angioplasty this morning with re-establishment of arterial flow in anterior tibial artery and removal of thrombotic catheter. No events overnight. Critical Care Time (minutes): 0 Physical Exam Vital Signs: Vital Signs: Last Vital Signs Temp 98.2 F 11/26/22 09:26 Pulse 97 11/26/22 09:53 Resp 18 11/26/22 09:53 BP 144/84 H 11/26/22 09:53 Pulse Ox 93 11/26/22 09:53 O2 Del Method Room Air 11/26/22 09:53 BMI result Body Mass Index 32.1 Const: General: no acute distress, alert and awake Eyes: Sclerae: sclerae normal EOM: EOMs intact bilaterally Neck: Neck: Yes no lymphadenopathy, Yes trachea midline and Yes supple Resp: Effort & Inspection: normal respiratory effort and no respiratory distress Auscultation: clear to auscultation bilaterally Cardio: Rate: regular rate Rhythm: regular rhythm Heart sounds: no gallops, no murmurs and no rubs GI: Palpation (GI): Soft to palpation and Other GI palpation findings present ( Nontender) Auscultation: normal bowel sounds Extrem: Other: Preprocedure exam - right foot cool, no cyanosis, patient able to move right toes, no pain, but patient recently got opioids. General: Yes no pedal edema, No clubbing and No cyanosis Objective Data Labs 11/26/22 04:22 11/26/22 04:23 Labs: Laboratory Results - last 24 hr 11/25/22 11/25/22 11/26/22 22:31 22:31 04:22 WBC 7.0 RBC 3.24 L D Hgb 8.1 L D Hct 26.5 L D MCV 81.8 D MCH 25.0 L MCHC 30.6 L RDW 19.4 H Plt Count 517 H MPV 9.3 L Immature Gran % (Auto) 2.2 H Neut % (Auto) 69.8 Lymph % (Auto) 17.8 L [place] % (Auto) 8.3 Eos % (Auto) 1.3 Baso % (Auto) 0.6 Lymph # (Auto) 1.2 [place] # (Auto) 0.6 Eos # (Auto) 0.1 Baso # (Auto) 0.0 Abs Immat Gran (auto) 0.15 H Absolute Neuts (auto) 4.9 Absolute Nucleated RBC 0.620 H Nucleated RBC % (auto) 8.9 H aPTT Heparin Protocol 27.9 L Fibrinogen > 700 H Sodium Potassium Chloride Carbon Dioxide Anion Gap BUN Creatinine Estim Creat Clear Calc Estimated GFR Random Glucose Calcium Phosphorus Magnesium Albumin Blood Type Antibody Screen 11/26/22 11/26/22 04:23 05:18 WBC RBC Hgb Hct MCV MCH MCHC RDW Plt Count MPV Immature Gran % (Auto) Neut % (Auto) Lymph % (Auto) [place] % (Auto) Eos % (Auto) Baso % (Auto) Lymph # (Auto) [place] # (Auto) Eos # (Auto) Baso # (Auto) Abs Immat Gran (auto) Absolute Neuts (auto) Absolute Nucleated RBC Nucleated RBC % (auto) aPTT Heparin Protocol Fibrinogen Sodium 136 Potassium 4.2 D Chloride 102 Carbon Dioxide 25 Anion Gap 13 BUN 7 L Creatinine 0.78 Estim Creat Clear Calc 134.3 Estimated GFR > 60 Random Glucose 117 H Calcium 8.0 L Phosphorus 3.6 Magnesium 2.1 Albumin 2.8 L Blood Type O Positive Antibody Screen NEGATIVE Progress Note: A&P Assessment and plan (1) Acute occlusion of artery of lower extremity: Status: Acute (2) PAD (peripheral artery disease): Status: Acute (3) Ulcerative colitis: Status: Acute (4) Sleep apnea: Status: Acute Plan Assessment: 47-year-old gentleman admitted with acute arterial thrombosis, now status post placement of thrombolytic catheters with repeat angiogram /angioplasty establishing arterial flow in anterior tibial artery Plan: Neuro: No acute issues. Cardiac: acute arterial thrombosis status post thrombolytic catheter placement with repeat angiogram /angioplasty with reestablish of flow. vascular surgery service care appreciated. Heparin drip as per vascular surgery. 2D echo to assess possible LV source ordered. Pulmonary: No acute issues. Renal: No acute issues. Endo: No acute issues. GI: No acute issues. Underlying Crohn's disease on chronic steroids. ID: No acute issues Heme/Onc: No acute issues. Psych: No acute issues. Miscellaneous: No acute issues. Prophylaxis: Per vascular surgery Diet: regular Quality Stroke Does the patient have a stroke diagnosis?: No VTE Prior VTE?: No VTE Risk Level:: Medical - moderate - high VTE Device Contraindication: Treatment Not Indicated VTE Drug Contraindication: N/A - Med Ordered
[2022-11-26 11:01] LABS: Hematocrit 22.2 % (42.0-52.0); Mean Corpuscular HGB Conc 30.6 g/dl (31.0-36.0); Mean Corpuscular Hemoglobin 24.9 pg (27.0-33.0); Mean Corpuscular Volume 81.3 fL (80.0-98.0); Mean Platelet Volume 8.9 fL (9.4-12.4); Platelet Count 433 X10*3/uL (160-400); Red Blood Count 2.73 X10*6/uL (4.60-5.80); Red Cell Distribution Width 19.4 % (11.0-16.0)
[2022-11-26 11:05] LABS: INTERNATIONAL NORM RATIO 1.2 (0.9-1.1); Prothrombin Time 14.4 SEC (10.0-13.1)
[2022-11-26 11:08] LABS: PTT Heparin Drip 26.5 SEC (53-77.9)
--- NOTE | 2022-11-26 11:33 | P.PNVS_ITS ---
Subjective Subjective Date of Service: 11/26/22 Patient reports: no new complaints and feels better Interval history: Patient is status post thrombolysis. He did have an acute occlusion of the right popliteal and vessels below. Underwent thrombolysis overnight. This morning we were able to restore flow to the anterior tibial artery. Concern is his bleeding. Overnight he had a large bowel movement which was bloody. He is now for postprocedure follow-up in PACU. Physical Exam Vital Signs: Vital Signs: Last Vital Signs Temp 98.5 F 11/26/22 09:56 Pulse 100 11/26/22 10:41 Resp 14 11/26/22 10:41 BP 157/90 H 11/26/22 10:41 Pulse Ox 97 11/26/22 10:41 O2 Del Method Room Air 11/26/22 10:41 BMI result Body Mass Index 32.1 Const: General: cooperative, healthy appearing and no acute distress Orientation/consciousness: oriented to person, oriented to place and oriented to time HEENT: Head: Yes normal to inspection Neck: Carotids: no bruits Chest: Chest palpation & inspection: normal inspection of the chest Resp: Effort & Inspection: normal respiratory effort and able to speak in complete sentences Auscultation: clear to auscultation bilaterally Cardio: Other: Right popliteal triphasic signal. Hint of an anterior tibial signal Rate: regular rate Heart sounds: S1 normal heart sound present and S2 no rmal heart sound present GI: Inspection: Yes normal to inspection Skin: General skin exam: no rashes or lesions noted Wounds: no wounds Neuro: General: oriented to person, oriented to place, oriented to time and CN's II-XI intact bilaterally Extrem: General: Yes normal to inspection, Yes full ROM and Yes no clubbing, cyanosis or edema Psych: Appearance: grossly normal and well kempt Speech and movement: Normal speech and movement present Affect: normal affect Progress Note: A&P Assessment and plan (1) Acute occlusion of artery of lower extremity: Status: Acute Assessment and Plan: In short patient is status post thrombolysis and plasty. Ideally would like to have him on formal anticoagulation. In addition would like to add aspirin as we did use a drug coated balloon. Will remain on heparin throughout the weekend to see how he handles this and his overall hemoglobin status. I do hope that his leg does recover. Will continue to monitor his status. Thank you for allowing us to assist in his care Time Spent With Patient Time: Total time managing care of this patient today ____ minutes. Procedures Date of Service Date of Service: 11/26/22 Quality Stroke Does the patient have a stroke diagnosis?: No VTE Prior VTE?: No VTE Risk Level:: Medical - moderate - high VTE Device Contraindication: Treatment Not Indicated VTE Drug Contraindication: N/A - Med Ordered
[2022-11-26 11:35] LABS: NRBC Pct Auto 10.2 /100WBC (0.0-0.2)
[2022-11-26 11:38] LABS: Hemoglobin 6.8 g/dl (14.0-18.0)
[2022-11-26] MEDS: Heparin Sodium,Porcine/1/2NS 25,000 UNIT/250 ML IV.SOLN 13.41 UNIT IVCONT (12:17)
[2022-11-26] MEDS: 0.9 % Sodium Chloride 1,000 ML 100 ML IVCONT ×2 (12:49→23:53)
--- NOTE | 2022-11-26 13:03 | PC.NURSE ---
Addendum entered by Leo Gutiérrez RN 11/26/22 13:05: Discussion with pharmacy confirming that gtt hung in pacu during active with patient as per md. Radha and charting late time due to backcharting. Actual is charted and discussed with floor nurse that the next ptt would need to be drawn approx 17:00. Original Note: patient transported to tele, thorough bedside report provided and assessment demonstrated as well as texted report, questions asked and answered tele en route and tele applied upon arrival to floor, discussion on blood ready as called to pacu reported to Ly as well. Discussion on heparin gtt.
[2022-11-26] MEDS: Acetaminophen 325 MG TABLET 650 MG PO (13:07)
[2022-11-26] MEDS: predniSONE 10 MG TABLET 30 MG PO (13:08)
[2022-11-26] MEDS: Mesalamine 400 MG CAP.DRTAB. 800 MG PO ×2 (16:06→20:41)
[2022-11-26 17:22] LABS: PTT Heparin Drip 28.6 SEC (53-77.9)
[2022-11-26] MEDS: Heparin Sodium,Porcine 5,000 UNIT/ML VIAL 7700 UNIT IVPUSH (18:06)
[2022-11-26 20:40] LABS: Hematocrit 25.7 % (42.0-52.0); Hemoglobin 7.9 g/dl (14.0-18.0)
[2022-11-27 00:51] LABS: PTT Heparin Drip 34.5 SEC (53-77.9)
[2022-11-27] MEDS: Heparin Sodium,Porcine 5,000 UNIT/ML VIAL 7700 UNIT IVPUSH (01:57)
[2022-11-27] MEDS: Heparin Sodium,Porcine/1/2NS 25,000 UNIT/250 ML IV.SOLN 21.08 UNIT IVCONT ×2 (02:00→12:54)
[2022-11-27 04:00] VITALS: BP 140/86; PULSE 89; RESP 20; TEMP 37.1; O2SAT 96
[2022-11-27] MEDS: HYDROmorphone HCl 2 MG/ML VIAL IVPUSH (04:09)
[2022-11-27 05:12] LABS: Hematocrit 27.3 % (42.0-52.0); Hemoglobin 8.5 g/dl (14.0-18.0)
[2022-11-27 07:18] VITALS: BP 139/83; PULSE 94; RESP 20; TEMP 36.7; O2SAT 96
[2022-11-27 08:24] LABS: Hematocrit 30.4 % (42.0-52.0); Hemoglobin 9.5 g/dl (14.0-18.0); Mean Corpuscular HGB Conc 31.3 g/dl (31.0-36.0); Mean Corpuscular Hemoglobin 26.2 pg (27.0-33.0); Platelet Count 478 X10*3/uL (160-400); Red Blood Count 3.62 X10*6/uL (4.60-5.80); Red Cell Distribution Width 18.9 % (11.0-16.0); White Blood Count 6.9 X10*3/uL (4.8-10.8)
[2022-11-27 08:29] LABS: INTERNATIONAL NORM RATIO 1.1 (0.9-1.1)
[2022-11-27 08:32] LABS: PTT Heparin Drip 54.4 SEC (53-77.9)
[2022-11-27 08:33] LABS: NRBC Pct Auto 9.9 /100WBC (0.0-0.2)
[2022-11-27 08:36] LABS: Anion Gap 14 (12-20); Blood Urea Nitrogen 8 mg/dL (9-16); Calcium 8.2 mg/dL (8.4-10.2); Carbon Dioxide 25 mmol/L (22-29); Chloride 104 mmol/L (96-108); Creatinine Clr Calc Pharmacy 126.3; Estimated Glomerular Filt Rate > 60; Glucose Random 100 mg/dL (60-115); Potassium 3.7 mmol/L (3.3-5.1); Sodium 139 mmol/L (135-145)
--- NOTE | 2022-11-27 08:50 | MHC.CM.PN ---
Lives alone, independent, no prev. equipment or services, drives self places and works FT. Drove self [place] [facility] [place] [facility] [place]. At time of D/C, plan is home via self; car in [facility] [place]. Should [facility] MD recommend Pt have transportation provided for him, he has someone he can call to pick him up to bring him home. CM to follow.
[2022-11-27] MEDS: HYDROmorphone HCl 2 MG/ML VIAL 1 MG IVPUSH ×4 (09:08→21:49)
[2022-11-27] MEDS: 0.9 % Sodium Chloride Flush 3 ML SYRINGE IVFLUSH ×2 (09:11→21:50)
--- NOTE | 2022-11-27 09:13 | P.EN_ITS ---
Event Note Date of Service: 11/27/22 Event Note: S/p catheter directed thrombolysis 11/25. Cont to have small but frequent bloody BMs despite increasing PO pred to 30mg PO and continuing mesalamine PO. Vitals and H/H improved. Suspect bleeding is low grade. * Given ongoing taper and pt's subjective feeling of improving colitis, will recommend checking C Diff, along with CRP and fecal calpro. (orders placed) * If C Diff positive - treat as per protocol. * If C Diff negative and CRP/fecal ramona high, would recommend IV methylpred 60 x 3 days. - If improves in 48-72h, this can be followed by a PO taper - If does not improve, will plan for flex sig for endoscopic and mucosal eval and to r/o other causes of inflammation such as infectious/CMV colitis. * Cont IV anticoagulation. Time Spent With Patient Time: Total time managing care of this patient today ____ minutes.
[2022-11-27 09:31] LABS: C Reactive Protein 18.47 mg/dL (< or = 0.50)
[2022-11-27] MEDS: Ferrous Sulfate 324 MG TABLET.DR PO (09:47)
[2022-11-27] MEDS: Acetaminophen 325 MG TABLET 650 MG PO ×2 (09:47→17:12)
[2022-11-27] MEDS: Multivitamin TABLET 1 TAB PO (09:47)
[2022-11-27] MEDS: predniSONE 10 MG TABLET 30 MG PO (09:47)
[2022-11-27] MEDS: Mesalamine 400 MG CAP.DRTAB. 800 MG PO ×3 (09:47→21:49)
[2022-11-27 11:08] VITALS: BP 138/80; PULSE 97; RESP 20; TEMP 36.7; O2SAT 94
--- NOTE | 2022-11-27 11:39 | HO.PM.IMPN ---
Subjective Subjective Date of Service: 11/27/22 Interval History: Seen and evaluated this morning reporting episodes of rectal bleeding of small amount overnight BRBPR Hb stable on heparin drip RLE still cold and has pain but no change in color or pain overnight no other reported events overnight Review of Systems Review of Systems: Yes all other systems are reviewed and are negative Physical Exam Vital Signs: Vital Signs: Last Vital Signs Temp 98.1 F 11/27/22 11:08 Pulse 97 11/27/22 11:08 Resp 20 11/27/22 11:08 BP 138/80 11/27/22 11:08 Pulse Ox 94 11/27/22 11:08 O2 Del Method Room Air 11/27/22 11:08 BMI result Body Mass Index 32.1 Const: Other: Constitutional : Awake, interactive, not in distress Neck : Normal inspection, Supple Cardiovascular : RRR, no JVP, no lower extremity edema Respiratory : good bilateral air entry, no crackles, wheezes or rhonchi Gastrointestinal: soft, lax, Normal bowel sounds, Non tender Skin : Warm, Dry, Right foot and ankle cold, dusky, non tender, weak pulse at dorsalis pedis Neurological : Alert & oriented x3, No focal deficit Objective Data Active Medications Acetaminophen (Acetaminophen 325 Mg Tablet) 650 mg PO Q6H PRN PRN Reason: Pain, Mild (Pain Scale 1-3) Last Admin: 11/27/22 09:47 Dose: 650 mg Documented By: ANDRE Ferrous Sulfate (Ferrous Sulfate 324 Mg Tablet.Dr) 324 mg PO DAILY VU Last Admin: 11/27/22 09:47 Dose: 324 mg Documented By: ANDRE Heparin Sodium (Porcine) (Heparin Sodium,Porcine 5,000 Unit/Ml Vial) 3,800 unit 40 unit/kg (3800 unit) IVPUSH PROTOCOL BOLUS PRN; Protocol PRN Reason: 40 unit/kg - Heparin Protocol Heparin Sodium (Porcine) (Heparin Sodium,Porcine 5,000 Unit/Ml Vial) 7,700 unit 80 unit/kg (7700 unit) IVPUSH PROTOCOL BOLUS PRN; Protocol PRN Reason: 80 unit/kg - Heparin Protocol Last Admin: 11/27/22 01:57 Dose: 7,700 unit Documented By: АНДРЕЙ Hydromorphone HCl (Hydromorphone Hcl 2 Mg/Ml Vial) 1 mg IVPUSH Q3H PRN; Protocol PRN Reason: Pain, Severe (Pain Scale 7-10) Last Admin: 11/27/22 09:08 Dose: 1 mg Documented By: ANDRE Heparin Sodium/Sodium Chloride (Heparin Sodium,Porcine/1/2ns) 25,000 unit in 250 mls @ 0 mls/hr IVCONT .Q0M [facility]; Protocol Last Admin: 11/27/22 02:00 Dose: 22 units/kg/hr, 21.08 mls/hr Documented By: АНДРЕЙ Co-signed By: SKYLER Mesalamine (Mesalamine 400 Mg Cap.Drtab.) 800 mg PO TID [facility] Last Admin: 11/27/22 09:47 Dose: 800 mg Documented By: ANDRE Multivitamins/Vitamin C (Multivitamin Tablet) 1 tab PO DAILY [facility] Last Admin: 11/27/22 09:47 Dose: 1 tab Documented By: ANDRE Ondansetron HCl (Ondansetron Hcl 4 Mg/2 Ml Vial) 4 mg IVPUSH Q8H PRN PRN Reason: Nausea and Vomiting Prednisone (Prednisone 10 Mg Tablet) 30 mg PO DAILY [facility] Last Admin: 11/27/22 09:47 Dose: 30 mg Documented By: ANDRE Sodium Chloride (0.9 % Sodium Chloride Flush 3 Ml Syringe) 3 ml IVFLUSH QSHIFT [facility] Last Admin: 11/27/22 09:11 Dose: 3 ml Documented By: ANDRE Labs 11/27/22 08:08 11/27/22 08:08 Labs: Laboratory Results - last 24 hr 11/26/22 11/26/22 11/27/22 05:18 16:47 00:17 MCV MCH MCHC RDW Plt Count MPV Absolute Nucleated RBC Nucleated RBC % (auto) PT INR aPTT Heparin Protocol 28.6 L 34.5 L D Anion Gap Estim Creat Clear Calc Estimated GFR Random Glucose Calcium C-Reactive Protein Blood Type O Positive Antibody Screen NEGATIVE Crossmatch See Detail 11/27/22 11/27/22 11/27/22 08:08 08:08 08:08 MCV 84.0 MCH 26.2 L MCHC 31.3 RDW 18.9 H Plt Count 478 H MPV 9.0 L Absolute Nucleated RBC 0.690 H Nucleated RBC % (auto) 9.9 H PT 13.0 INR 1.1 aPTT Heparin Protocol Anion Gap 14 Estim Creat Clear Calc 126.3 Estimated GFR > 60 Random Glucose 100 Calcium 8.2 L C-Reactive Protein 18.47 H Blood Type Antibody Screen Crossmatch 11/27/22 11/27/22 08:08 09:19 MCV MCH MCHC RDW Plt Count MPV Absolute Nucleated RBC Nucleated RBC % (auto) PT INR aPTT Heparin Protocol 54.4 D Anion Gap Estim Creat Clear Calc Estimated GFR Random Glucose Calcium C-Reactive Protein Cancelled Blood Type Antibody Screen Crossmatch Assessment and Plan (1) Acute occlusion of artery of lower extremity: Status: Acute (2) Ulcerative colitis: Status: Acute (3) Acute blood loss anemia: Status: Acute Plan A 47 year gentleman admitted with acute arterial thrombosis in RLE, status post placement of thrombolysis with repeat angiogram /angioplasty establishing? arterial flow in anterior tibial artery and placement of balloon. Acute occlusion of artery of lower extremity S\P thrombolysis and plasty w Balloon placement Continue Heparin drip Continue ASA Vascular surgery following will need hypercoagulability work up after finishing Heparin therapy Acute on chronic blood loss anemia 2/2 GI bleed from Ulcerative colitis w exacerbation Hb stable at 9.5 after transfusion of total 5 units Increase PRednisone dose Continue Pentasa GI input appreciated, continue heparin and check CDiff follow H&H DVT PPx Heparin PAtient will need overnight hospital stay for ischemic limb on heparin drip. Time Spent With Patient Time: Total time managing care of this patient today ____ minutes. Quality Stroke Does the patient have a stroke diagnosis?: No VTE Prior VTE?: No VTE Risk Level:: Medical - moderate - high VTE Device Contraindication: Treatment Not Indicated VTE Drug Contraindication: N/A - Med Ordered
[2022-11-27 12:12] LABS: Hematocrit 27.8 % (42.0-52.0); Hemoglobin 8.6 g/dl (14.0-18.0)
[2022-11-27 14:20] LABS: CDiff Gene PCR NEGATIVE (Negative)
[2022-11-27 15:32] VITALS: BP 141/82; PULSE 100; RESP 20; TEMP 36.3; O2SAT 99
[2022-11-27 19:05] VITALS: BP 116/70; PULSE 86; RESP 20; TEMP 36.6; O2SAT 98
[2022-11-27 22:34] LABS: Hematocrit 27.8 % (42.0-52.0); Hemoglobin 8.7 g/dl (14.0-18.0)
[2022-11-27 23:55] VITALS: BP 139/85; PULSE 90; RESP 20; TEMP 36.2; O2SAT 96
[2022-11-28] MEDS: HYDROmorphone HCl 2 MG/ML VIAL 1 MG IVPUSH ×6 (00:57→21:20)
[2022-11-28] MEDS: Heparin Sodium,Porcine/1/2NS 25,000 UNIT/250 ML IV.SOLN 21.08 UNIT IVCONT ×2 (01:15→13:08)
[2022-11-28 04:00] VITALS: BP 127/73; PULSE 76; RESP 18; TEMP 36.4; O2SAT 97
[2022-11-28 04:50] LABS: Hematocrit 28.7 % (42.0-52.0); Hemoglobin 8.8 g/dl (14.0-18.0); Mean Corpuscular HGB Conc 30.7 g/dl (31.0-36.0); Mean Corpuscular Hemoglobin 25.9 pg (27.0-33.0); Mean Corpuscular Volume 84.4 fL (80.0-98.0); Mean Platelet Volume 9.4 fL (9.4-12.4); Platelet Count 490 X10*3/uL (160-400); Red Cell Distribution Width 19.1 % (11.0-16.0)
[2022-11-28 04:52] LABS: NRBC Pct Auto 3.8 /100WBC (0.0-0.2)
[2022-11-28 05:09] LABS: Anion Gap 12 (12-20); Blood Urea Nitrogen 8 mg/dL (9-16); Carbon Dioxide 26 mmol/L (22-29); Chloride 104 mmol/L (96-108); Creatinine Clr Calc Pharmacy 136.3; Estimated Glomerular Filt Rate > 60; Glucose Random 104 mg/dL (60-115); Potassium 3.8 mmol/L (3.3-5.1); Sodium 138 mmol/L (135-145)
[2022-11-28 07:03] LABS: PTT Heparin Drip 55.5 SEC (53-77.9)
--- NOTE | 2022-11-28 07:15 | HO.VASCPN ---
Subjective Subjective Date of Service: 11/28/22 Patient reports: no new complaints and feels better Interval history: Patient seen and examined. Events over the last day or so noted. Appears to be tolerating pain a little bit better. Hemoglobin stable at 8.8. Still unable to bear weight on that right lower extremity. Physical Exam Vital Signs: Vital Signs: Last Vital Signs Temp 97.6 F 11/28/22 04:00 Pulse 76 11/28/22 04:00 Resp 18 11/28/22 04:00 BP 127/73 11/28/22 04:00 Pulse Ox 97 11/28/22 04:00 O2 Del Method Room Air 11/28/22 04:00 BMI result Body Mass Index 32.1 Const: General: cooperative, healthy appearing and no acute distress Orientation/consciousness: oriented to person, oriented to place and oriented to time HEENT: Head: Yes normal to inspection Neck: Carotids: no bruits Chest: Chest palpation & inspection: normal inspection of the chest Resp: Effort & Inspection: normal respiratory effort and able to speak in complete sentences Auscultation: clear to auscultation bilaterally Cardio: Rate: regular rate Heart sounds: S1 normal heart sound present and S2 normal heart sound present GI: Inspection: Yes normal to inspection Skin: Other: Right 4th and 5th toe dusky looking General skin exam: no rashes or lesions noted Wounds: no wounds Neuro: General: oriented to person, oriented to place, oriented to time and CN's II-XI intact bilaterally Extrem: General: Yes normal to inspection, Yes full ROM and Yes no clubbing, cyanosis or edema Psych: Appearance: grossly normal and well kempt Speech and movement: Normal speech and movement present Affect: normal affect Progress Note: A&P Assessment and plan (1) Acute occlusion of artery of lower extremity: Status: Acute Assessment and Plan: in short the leg does appear viable at the current time. Will see the viability of his 4th and 5th toe. At the current time would recommend continued heparin as tolerated. Will start with physical therapy tomorrow. Ambulate as tolerated. Will most likely require rehab time. We will closely monitor with you. Time Spent With Patient Time: Total time managing care of this patient today ____ minutes. Procedures Date of Service Date of Service: 11/28/22 Quality Stroke Does the patient have a stroke diagnosis?: No VTE Prior VTE?: No VTE Risk Level:: Medical - moderate - high VTE Device Contraindication: Treatment Not Indicated VTE Drug Contraindication: N/A - Med Ordered
[2022-11-28 07:19] VITALS: BP 135/90; PULSE 108; RESP 20; TEMP 36.9; O2SAT 98
[2022-11-28] MEDS: Mesalamine 400 MG CAP.DRTAB. 800 MG PO ×3 (08:26→19:52)
[2022-11-28] MEDS: 0.9 % Sodium Chloride Flush 3 ML SYRINGE IVFLUSH ×2 (08:27→21:21)
[2022-11-28] MEDS: methylPREDNISolone Sod Succ 125 MG/2 ML VIAL 60 MG IVPUSH (08:27)
[2022-11-28] MEDS: Multivitamin TABLET 1 TAB PO (08:27)
[2022-11-28] MEDS: Ferrous Sulfate 324 MG TABLET.DR PO (08:27)
--- NOTE | 2022-11-28 10:46 | PM.GIPN ---
Subjective Subjective Date of Service: 11/28/22 Interval History: Pt seen and evaluated at bedside. Reports drastic improvement with IV methylpred. Reports having a BM a short while ago which was his first solid BM without blood in almost 2 weeks now. Labs reviewed: CRP up to 18. C Diff negative. Fecal ramona pending. Critical Care Time (minutes): 0 Physical Exam Vital Signs: Vital Signs: Last Vital Signs Temp 98.5 F 11/28/22 07:19 Pulse 108 H 11/28/22 07:19 Resp 20 11/28/22 07:19 BP 135/90 H 11/28/22 07:19 Pulse Ox 98 11/28/22 07:19 O2 Del Method Room Air 11/28/22 07:19 BMI result Body Mass Index 32.1 Gen appear: NAD, nontoxic appearing Abd: soft, nontender, mildly distended Objective Data Labs 11/28/22 04:37 11/28/22 04:37 Labs: Laboratory Results - last 24 hr 11/27/22 11/27/22 11/27/22 10:35 12:01 15:08 WBC RBC Hgb 8.6 L Hct 27.8 L MCV MCH MCHC RDW Plt Count MPV Absolute Nucleated RBC Nucleated RBC % (auto) aPTT Heparin Protocol 62.0 Sodium Potassium Chloride Carbon Dioxide Anion Gap BUN Creatinine Estim Creat Clear Calc Estimated GFR Random Glucose Calcium C. difficile Tox B Gene NEGATIVE 11/27/22 11/28/22 11/28/22 20:13 04:37 04:37 WBC 7.0 RBC 3.40 L Hgb 8.7 L Cancelled 8.8 L Hct 27.8 L Cancelled 28.7 L MCV 84.4 MCH 25.9 L MCHC 30.7 L RDW 19.1 H Plt Count 490 H MPV 9.4 Absolute Nucleated RBC 0.270 H Nucleated RBC % (auto) 3.8 H aPTT Heparin Protocol Sodium Potassium Chloride Carbon Dioxide Anion Gap BUN Creatinine Estim Creat Clear Calc Estimated GFR Random Glucose Calcium C. difficile Tox B Gene 11/28/22 11/28/22 04:37 05:58 WBC RBC Hgb Hct MCV MCH MCHC RDW Plt Count MPV Absolute Nucleated RBC Nucleated RBC % (auto) aPTT Heparin Protocol 55.5 Sodium 138 Potassium 3.8 Chloride 104 Carbon Dioxide 26 Anion Gap 12 BUN 8 L Creatinine 0.76 Estim Creat Clear Calc 136.3 Estimated GFR > 60 Random Glucose 104 Calcium 8.0 L C. difficile Tox B Gene Procedures Date of Service Date of Service: 11/28/22 Progress Note: A&P Assessment and plan (1) Ulcerative colitis: Status: Acute (2) GI bleeding: Status: Acute Plan Likely UC flare (which also likely led to VTE event). Recommendations: Agree with Methylpred 60mg IV x 3 days Daily CRP x 3 days Cont anticoagulation, can switch to therapeutic Lovenox from GI standpoint. Based on clinical course and CRP if no significant progress in 2-3 days, will plan for a flexible sigmoidoscopy for evaluation. Otherwise, will switch to PO prednisone + taper after 3 days of IV methylpred. Will also favor supplementing with mesalamine enema during taper. Time Spent With Patient Time: Total time managing care of this patient today ____ minutes. Quality Stroke Does the patient have a stroke diagnosis?: No VTE Prior VTE?: No VTE Risk Level:: Medical - moderate - high VTE Device Contraindication: Treatment Not Indicated VTE Drug Contraindication: N/A - Med Ordered
[2022-11-28] MEDS: Cyclobenzaprine HCl 5 MG TABLET PO ×2 (11:17→19:52)
[2022-11-28 11:24] VITALS: BP 140/78; PULSE 101; RESP 20; TEMP 36.5; O2SAT 98
--- NOTE | 2022-11-28 12:40 | P.PNIM_ITS ---
Subjective Subjective Date of Service: 11/28/22 Interval History: Seen and evaluated this morning reporting episodes of rectal bleeding of small amount overnight BRBPR Hb stable on heparin drip RLE little warmer and has pain but no reported change in color or pain overnight no other reported events overnight Review of Systems Review of Systems: Yes all other systems are reviewed and are negative Physical Exam Vital Signs: Vital Signs: Last Vital Signs Temp 97.7 F 11/28/22 11:24 Pulse 101 H 11/28/22 11:24 Resp 20 11/28/22 11:24 BP 140/78 H 11/28/22 11:24 Pulse Ox 98 11/28/22 11:24 O2 Del Method Room Air 11/28/22 11:24 BMI result Body Mass Index 32.1 Const: Other: Constitutional : Awake, interactive, not in distress Neck : Normal inspection, Supple Cardiovascular : RRR, no JVP, no lower extremity edema Respiratory : good bilateral air entry, no crackles, wheezes or rhonchi Gastrointestinal: soft, lax, Normal bowel sounds, Non tender Skin : Warm, Dry, Right foot and ankle cold, dusky 4th,5th toes, non tender, weak pulse at dorsalis pedis Neurological : Alert & oriented x3, No focal deficit Objective Data Active Medications Acetaminophen (Acetaminophen 325 Mg Tablet) 650 mg PO Q6H PRN PRN Reason: Pain, Mild (Pain Scale 1-3) Last Admin: 11/27/22 17:12 Dose: 650 mg Documented By: ANDRE Cyclobenzaprine HCl (Cyclobenzaprine Hcl 5 Mg Tablet) 5 mg PO TID PRN PRN Reason: Muscle Spasm Last Admin: 11/28/22 11:17 Dose: 5 mg Documented By: ANDRE Ferrous Sulfate (Ferrous Sulfate 324 Mg Tablet.Dr) 324 mg PO DAILY VU Last Admin: 11/28/22 08:27 Dose: 324 mg Documented By: ANDRE Heparin Sodium (Porcine) (Heparin Sodium,Porcine 5,000 Unit/Ml Vial) 3,800 unit 40 unit/kg (3800 unit) IVPUSH PROTOCOL BOLUS PRN; Protocol PRN Reason: 40 unit/kg - Heparin Protocol Heparin Sodium (Porcine) (Heparin Sodium,Porcine 5,000 Unit/Ml Vial) 7,700 unit 80 unit/kg (7700 unit) IVPUSH PROTOCOL BOLUS PRN; Protocol PRN Reason: 80 unit/kg - Heparin Protocol Last Admin: 11/27/22 01:57 Dose: 7,700 unit Documented By: АНДРЕЙ Hydromorphone HCl (Hydromorphone Hcl 2 Mg/Ml Vial) 1 mg IVPUSH Q3H PRN; Protocol PRN Reason: Pain, Severe (Pain Scale 7-10) Last Admin: 11/28/22 12:29 Dose: 1 mg Documented By: ANDRE Heparin Sodium/Sodium Chloride (Heparin Sodium,Porcine/1/2ns) 25,000 unit in 25 0 mls @ 0 mls/hr IVCONT .Q0M [facility]; Protocol Last Titration: 11/28/22 07:06 Dose: 22 units/kg/hr, 21.08 mls/hr Documented By: ADNRE Co-signed By: GARY Mesalamine (Mesalamine 400 Mg Cap.Drtab.) 800 mg PO TID [facility] Last Admin: 11/28/22 08:26 Dose: 800 mg Documented By: ANDRE Methylprednisolone Sodium Succinate (Methylprednisolone Sod Succ 125 Mg/2 Ml Vial) 60 mg IVPUSH Q24H [facility] Last Admin: 11/28/22 08:27 Dose: 60 mg Documented By: ANDRE Multivitamins/Vitamin C (Multivitamin Tablet) 1 tab PO DAILY [facility] Last Admin: 11/28/22 08:27 Dose: 1 tab Documented By: ANDRE Ondansetron HCl (Ondansetron Hcl 4 Mg/2 Ml Vial) 4 mg IVPUSH Q8H PRN PRN Reason: Nausea and Vomiting Sodium Chloride (0.9 % Sodium Chloride Flush 3 Ml Syringe) 3 ml IVFLUSH QSHIFT [facility] Last Admin: 11/28/22 08:27 Dose: 3 ml Documented By: ANDRE Labs 11/28/22 11:51 11/28/22 04:37 Labs: Laboratory Results - last 24 hr 11/27/22 11/27/22 11/28/22 10:35 15:08 04:37 MCV 84.4 MCH 25.9 L MCHC 30.7 L RDW 19.1 H Plt Count 490 H MPV 9.4 Absolute Nucleated RBC 0.270 H Nucleated RBC % (auto) 3.8 H aPTT Heparin Protocol 62.0 Anion Gap Estim Creat Clear Calc Estimated GFR Random Glucose Calcium C. difficile Tox B Gene NEGATIVE 11/28/22 11/28/22 04:37 05:58 MCV MCH MCHC RDW Plt Count MPV Absolute Nucleated RBC Nucleated RBC % (auto) aPTT Heparin Protocol 55.5 Anion Gap 12 Estim Creat Clear Calc 136.3 Estimated GFR > 60 Random Glucose 104 Calcium 8.0 L C. difficile Tox B Gene Assessment and Plan (1) Acute occlusion of artery of lower extremity: Status: Acute (2) Ulcerative colitis: Status: Acute Plan A 47 year gentleman admitted with acute arterial thrombosis in RLE, status post placement of thrombolysis with repeat angiogram /angioplasty establishing? arterial flow in anterior tibial artery and placement of balloon. Acute occlusion of artery of lower extremity S\P thrombolysis and plasty w Balloon placement Continue Heparin drip Continue ASA Vascular surgery following will need hypercoagulability work up after finishing Heparin therapy Acute on chronic blood loss anemia 2/2 GI bleed from Ulcerative colitis w exacerbation Hb stable at 9.5 after transfusion of total 5 units Change to Methylprednisone Follow CRP daily for 3 days Continue Pentasa GI input appreciated, if CRP remains high\bleeding to do Sigmoidiscopy follow H&H DVT PPx Heparin PAtient will need overnight hospital stay for ischemic limb on heparin drip. Time Spent With Patient Time: Total time managing care of this patient today ____ minutes. Quality Stroke Does the patient have a stroke diagnosis?: No VTE Prior VTE?: No VTE Risk Level:: Medical - moderate - high VTE Device Contraindication: Treatment Not Indicated VTE Drug Contraindication: N/A - Med Ordered
[2022-11-28 15:03] VITALS: BP 122/84; PULSE 88; RESP 20; TEMP 36.4; O2SAT 99
[2022-11-28] MEDS: Acetaminophen 325 MG TABLET 650 MG PO (18:14)
[2022-11-28 19:02] VITALS: BP 131/80; PULSE 90; RESP 21; TEMP 36.6; O2SAT 95
[2022-11-28 20:19] LABS: Hematocrit 30.1 % (42.0-52.0); Hemoglobin 9.5 g/dl (14.0-18.0)
[2022-11-29] VITALS (7 sets, daily range): BP systolic 123–166; BP diastolic 76–92; PULSE 73–115; RESP 16–20; TEMP 36.4–37.1; O2SAT 93–98
[2022-11-29] MEDS: HYDROmorphone HCl 2 MG/ML VIAL 1 MG IVPUSH ×6 (00:41→20:54)
[2022-11-29] MEDS: Heparin Sodium,Porcine/1/2NS 25,000 UNIT/250 ML IV.SOLN 21.08 UNIT IVCONT ×2 (01:48→17:33)
[2022-11-29] MEDS: Cyclobenzaprine HCl 5 MG TABLET PO ×3 (05:42→21:01)
[2022-11-29 06:16] LABS: PTT Heparin Drip 58.5 SEC (53-77.9)
[2022-11-29 06:34] LABS: C Reactive Protein 11.57 mg/dL (< or = 0.50)
[2022-11-29 06:37] LABS: Anion Gap 12 (12-20); Blood Urea Nitrogen 9 mg/dL (9-16); Calcium 8.4 mg/dL (8.4-10.2); Carbon Dioxide 27 mmol/L (22-29); Chloride 104 mmol/L (96-108); Creatinine Clr Calc Pharmacy 138.1; Estimated Glomerular Filt Rate > 60; Glucose Random 115 mg/dL (60-115); Sodium 139 mmol/L (135-145)
--- NOTE | 2022-11-29 07:00 | CA_ITS ---
Transthoracic Echocardiogram Patient (Last, First, Middle): Gonzales Saba, Gender: Male Date of : 1975 Age: 47 Procedure Date: 11/29/2022 Procedure Type: Transthoracic E[place]ocardi[place] [facility] [place]: 162.56 cm Weight: 95.26 kg BSA: 2.00 m2 Heart Rate: bpm Histopath Tech: Referring MD: Sravan Riddle MD Symptoms: arterial clot TTE with bubble to rule out PFO Study Quality: Fair ECG Rhythm: Sinus Conclusions: - There is no evidence of interatrial shunt by agitated saline. - Normal bubble study. Findings Left Ventricle Normal left ventricular size and systolic function. The visually estimated ejection fraction is between 55-60%. Right Ventricle Normal right ventricular cavity size and systolic function. Atria There is no evidence of interatrial shunt by agitated saline. Prior Study Comparison No significant change compared to prior study. Updated in Other Vendor System with Status of Final Sravan Riddle MD electronically signed on 11/29/2022 1:08:22 PM with status of Final
[2022-11-29 07:09] LABS: Hematocrit 27.5 % (42.0-52.0); Hemoglobin 8.5 g/dl (14.0-18.0); Mean Corpuscular HGB Conc 30.9 g/dl (31.0-36.0); Mean Corpuscular Hemoglobin 26.4 pg (27.0-33.0); Mean Corpuscular Volume 85.4 fL (80.0-98.0); Mean Platelet Volume 9.9 fL (9.4-12.4); Platelet Count 538 X10*3/uL (160-400); Red Blood Count 3.22 X10*6/uL (4.60-5.80); Red Cell Distribution Width 19.3 % (11.0-16.0); White Blood Count 7.4 X10*3/uL (4.8-10.8)
[2022-11-29 07:10] LABS: NRBC Pct Auto 1.5 /100WBC (0.0-0.2)
--- NOTE | 2022-11-29 07:48 | P.PNVS_ITS ---
Subjective Subjective Date of Service: 11/29/22 Patient reports: no new complaints and feels better Interval history: Pleasant 47-year-old gentleman status post revascularization of an acute occlusion of the right lower extremity. Appears to be doing significantly better. Was able to get up to a bedside commode. He notes that the foot does feel warmer. He does report a fair amount pain but in general is doing much better. In good spirits. Physical Exam Vital Signs: Vital Signs: Last Vital Signs Temp 98.7 F 11/29/22 07:10 Pulse 73 11/29/22 07:10 Resp 18 11/29/22 07:10 BP 142/88 H 11/29/22 07:10 Pulse Ox 96 11/29/22 07:10 O2 Del Method Room Air 11/29/22 07:10 BMI result Body Mass Index 32.1 Const: General: cooperative, healthy appearing and comfortable Orientation/consciousness: oriented to person, oriented to place and oriented to time HEENT: Head: Yes normal to inspection Neck: Neck: Yes normal visual inspection Carotids: no bruits Chest: Chest palpation & inspection: normal inspection of the chest Resp: Effort & Inspection: normal respiratory effort and able to speak in complete sentences Auscultation: clear to auscultation bilaterally, no crackles, no rales, no rhonchi and no wheezes Cardio: Other: Right side DP signal Rate: regular rate Rhythm: regular rhythm Heart sounds: S1 normal heart sound present and S2 normal heart sound present Bruits: no carotid bruits GI: Inspection: Yes normal to inspection Skin: Wounds: no wounds Hair: normal Neuro: General: oriented to person, oriented to place and oriented to time Cranial nerves: Yes CN's II-XII intact bilaterally and Yes Normal hearing present Cognition (Neuro): normal cognition Motor exam (neuro): 5/5 motor strength present throughout Extrem: Other: venous exam: No significant superficial varicosities or spider telangiectasias, minimal edema General: No clubbing, No cyanosis and No edema Psych: Appearance: grossly normal Mental Status: mental status grossly normal Speech and movement: Normal speech and movement present Progress Note: A&P Assessment and plan (1) PAD (peripheral artery disease): Status: Acute Assessment and Plan: In short patient is status post revascularization 3 thrombolysis of the right lower extremity. Appears to be doing significantly better. Would transition heparin GTT over to Eliquis. In addition will start physical therapy. The patient will most likely require rehab placement. Continued monitoring of H&H due to his ulcerative colitis in GI bleed. Thank you for allowing us to assist in his care. If there are any questions or concerns please do not hesitate to c ontact us. Time Spent With Patient Time: Total time managing care of this patient today ____ minutes. Procedures Date of Service Date of Service: 11/29/22 Quality Stroke Does the patient have a stroke diagnosis?: No VTE Prior VTE?: No VTE Risk Level:: Medical - moderate - high VTE Device Contraindication: Treatment Not Indicated VTE Drug Contraindication: N/A - Med Ordered
[2022-11-29] MEDS: methylPREDNISolone Sod Succ 125 MG/2 ML VIAL 60 MG IVPUSH (09:18)
[2022-11-29] MEDS: Ferrous Sulfate 324 MG TABLET.DR PO (09:18)
[2022-11-29] MEDS: Multivitamin TABLET 1 TAB PO (09:18)
[2022-11-29] MEDS: 0.9 % Sodium Chloride Flush 3 ML SYRINGE IVFLUSH (09:19)
[2022-11-29] MEDS: Mesalamine 400 MG CAP.DRTAB. 800 MG PO ×3 (09:23→20:53)
--- NOTE | 2022-11-29 10:16 | MHC.CM.PN ---
Per ROUNDS discussion, patient is not yet medically cleared for dc (Heparin drip, IV Dilaudid today, IV Solu Medrol); home is the goal and CM will continue to follow.
--- NOTE | 2022-11-29 12:26 | HO.PM.IMPN ---
Subjective Subjective Date of Service: 11/29/22 Interval History: Seen and evaluated this morning no rectal bleeding overnight Hb stable on heparin drip RLE little still cold but has weak pulses no other reported events overnight Review of Systems Review of Systems: Yes all other systems are reviewed and are negative Physical Exam Vital Signs: Vital Signs: Last Vital Signs Temp 98.2 F 11/29/22 11:03 Pulse 115 H 11/29/22 11:03 Resp 20 11/29/22 11:03 BP 123/85 11/29/22 11:03 Pulse Ox 98 11/29/22 11:03 O2 Del Method Room Air 11/29/22 11:03 BMI result Body Mass Index 32.1 Const: Other: Constitutional : Awake, interactive, not in distress Neck : Normal inspection, Supple Cardiovascular : RRR, no JVP, no lower extremity edema Respiratory : good bilateral air entry, no crackles, wheezes or rhonchi Gastrointestinal: soft, lax, Normal bowel sounds, Non tender Skin : Warm, Dry, Right foot and ankle cold, dusky 4th,5th toes, non tender, weak pulse at dorsalis pedis Neurological : Alert & oriented x3, No focal deficit Objective Data Active Medications Acetaminophen (Acetaminophen 325 Mg Tablet) 650 mg PO Q6H PRN PRN Reason: Pain, Mild (Pain Scale 1-3) Last Admin: 11/28/22 18:14 Dose: 650 mg Documented By: ANDRE Cyclobenzaprine HCl (Cyclobenzaprine Hcl 5 Mg Tablet) 5 mg PO TID PRN PRN Reason: Muscle Spasm Last Admin: 11/29/22 05:42 Dose: 5 mg Documented By: MAX Ferrous Sulfate (Ferrous Sulfate 324 Mg Tablet.) 324 mg PO DAILY VU Last Admin: 11/29/22 09:18 Dose: 324 mg Documented By: RON Heparin Sodium (Porcine) (Heparin Sodium,Porcine 5,000 Unit/Ml Vial) 3,800 unit 40 unit/kg (3800 unit) IVPUSH PROTOCOL BOLUS PRN; Protocol PRN Reason: 40 unit/kg - Heparin Protocol Heparin Sodium (Porcine) (Heparin Sodium,Porcine 5,000 Unit/Ml Vial) 7,700 unit 80 unit/kg (7700 unit) IVPUSH PROTOCOL BOLUS PRN; Protocol PRN Reason: 80 unit/kg - Heparin Protocol Last Admin: 11/27/22 01:57 Dose: 7,700 unit Documented By: АНДРЕЙ Hydromorphone HCl (Hydromorphone Hcl 2 Mg/Ml Vial) 1 mg IVPUSH Q3H PRN; Protocol PRN Reason: Pain, Severe (Pain Scale 7-10) Last Admin: 11/29/22 09:20 Dose: 1 mg Documented By: RON Heparin Sodium/Sodium Chloride (Heparin Sodium,Porcine/1/2ns) 25,000 unit in 250 mls @ 0 mls/hr IVCONT .Q0M [facility] [place]; Protocol Last Titration: 11/29/22 06:20 Dose: 22 units/kg/hr, 21.08 mls/hr Documented By: MAX Co-signed By: CHETAN Mesalamine (Mesalamine 400 Mg Cap.Drtab.) 800 mg PO TID [facility] [place] Last Admin: 11/29/22 09:23 Dose: 800 mg Documented By: RON Methylprednisolone Sodium Succinate (Methylprednisolone Sod Succ 125 Mg/2 Ml Vial) 60 mg IVPUSH Q24H [facility] [place] Last Admin: 11/29/22 09:18 Dose: 60 mg Documented By: RON Multivitamins/Vitamin C (Multivitamin Tablet) 1 tab PO DAILY [facility] [place] Last Admin: 11/29/22 09:18 Dose: 1 tab Documented By: RON Ondansetron HCl (Ondansetron Hcl 4 Mg/2 Ml Vial) 4 mg IVPUSH Q8H PRN PRN Reason: Nausea and Vomiting Sodium Chloride (0.9 % Sodium Chloride Flush 3 Ml Syringe) 3 ml IVFLUSH QSHIFT [facility] [place] Last Admin: 11/29/22 09:19 Dose: 3 ml Documented By: RON Labs 11/29/22 05:33 11/29/22 05:33 Labs: Laboratory Results - last 24 hr 11/29/22 11/29/22 11/29/22 05:33 05:33 05:33 MCV 85.4 MCH 26.4 L MCHC 30.9 L RDW 19.3 H Plt Count 538 H MPV 9.9 Absolute Nucleated RBC 0.110 H Nucleated RBC % (auto) 1.5 H aPTT Heparin Protocol 58.5 Anion Gap Estim Creat Clear Calc Estimated GFR Random Glucose Calcium C-Reactive Protein 11.57 H 11/29/22 05:33 MCV MCH MCHC RDW Plt Count MPV Absolute Nucleated RBC Nucleated RBC % (auto) aPTT Heparin Protocol Anion Gap 12 Estim Creat Clear Calc 138.1 Estimated GFR > 60 Random Glucose 115 Calcium 8.4 C-Reactive Protein Assessment and Plan (1) Acute occlusion of artery of lower extremity: Status: Acute (2) Ulcerative colitis: Status: Acute (3) GI (gastrointestinal bleed): Status: Acute Plan A 47 year gentleman admitted with acute arterial thrombosis in RLE, status post placement of thrombolysis with repeat angiogram /angioplasty establishing? arterial flow in anterior tibial artery and placement of balloon. Acute occlusion of artery of lower extremity S\P thrombolysis and plasty w Balloon placement Continue Heparin drip Continue ASA Vascular surgery following will need hypercoagulability work up after finishing Heparin therapy Cardiology following, do TTE w Bubble study now, hold on ASHLEY start PT Acute on chronic blood loss anemia 2/2 GI bleed from Ulcerative colitis w exacerbation Hb now at 8.5 after transfusion of total 5 units Change to Methylprednisone day 2 Follow CRP daily for 3 days, trending down Continue Pentasa GI input appreciated, if CRP remains high\bleeding to do Sigmoidiscopy follow H&H DVT PPx Heparin PAtient will need overnight hospital stay for ischemic limb on heparin drip with GI bleed and need of transfusion Time Spent With Patient Time: Total time managing care of this patient today ____ minutes. Quality Stroke Does the patient have a stroke diagnosis?: No VTE Prior VTE?: No VTE Risk Level:: Medical - moderate - high VTE Device Contraindication: Treatment Not Indicated VTE Drug Contraindication: N/A - Med Ordered
[2022-11-30] VITALS (12 sets, daily range): BP systolic 133–176; BP diastolic 80–94; PULSE 80–105; RESP 12–20; TEMP 36.2–36.9; O2SAT 96–98
[2022-11-30] MEDS: HYDROmorphone HCl 2 MG/ML VIAL 1 MG IVPUSH ×6 (00:52→19:48)
[2022-11-30] MEDS: Acetaminophen 325 MG TABLET 650 MG PO ×2 (00:56→16:34)
[2022-11-30] MEDS: 0.9 % Sodium Chloride Flush 3 ML SYRINGE IVFLUSH ×4 (00:56→19:43)
[2022-11-30] MEDS: Cyclobenzaprine HCl 5 MG TABLET PO ×2 (04:37→16:35)
[2022-11-30] MEDS: Heparin Sodium,Porcine/1/2NS 25,000 UNIT/250 ML IV.SOLN 21.08 UNIT IVCONT (05:54)
[2022-11-30 06:40] LABS: Hemoglobin 8.3 g/dl (14.0-18.0); Mean Corpuscular HGB Conc 30.7 g/dl (31.0-36.0); Mean Corpuscular Hemoglobin 26.1 pg (27.0-33.0); Mean Corpuscular Volume 84.9 fL (80.0-98.0); Mean Platelet Volume 9.9 fL (9.4-12.4); Platelet Count 541 X10*3/uL (160-400); Red Blood Count 3.18 X10*6/uL (4.60-5.80); Red Cell Distribution Width 19.2 % (11.0-16.0); White Blood Count 10.3 X10*3/uL (4.8-10.8)
[2022-11-30 06:42] LABS: NRBC Pct Auto 2.8 /100WBC (0.0-0.2)
[2022-11-30 06:49] LABS: PTT Heparin Drip 41.4 SEC (53-77.9)
[2022-11-30 06:58] LABS: C Reactive Protein 11.12 mg/dL (< or = 0.50)
[2022-11-30 07:02] LABS: Anion Gap 12 (12-20); Blood Urea Nitrogen 11 mg/dL (9-16); Calcium 8.3 mg/dL (8.4-10.2); Carbon Dioxide 27 mmol/L (22-29); Chloride 104 mmol/L (96-108); Creatinine Clr Calc Pharmacy 138.1; Estimated Glomerular Filt Rate > 60; Glucose Random 106 mg/dL (60-115); Potassium 3.9 mmol/L (3.3-5.1); Sodium 139 mmol/L (135-145)
[2022-11-30] MEDS: methylPREDNISolone Sod Succ 125 MG/2 ML VIAL 60 MG IVPUSH (08:25)
[2022-11-30] MEDS: Heparin Sodium,Porcine 5,000 UNIT/ML VIAL 3800 UNIT IVPUSH (08:26)
[2022-11-30] MEDS: Multivitamin TABLET 1 TAB PO (08:26)
[2022-11-30] MEDS: Mesalamine 400 MG CAP.DRTAB. 800 MG PO ×3 (08:26→19:43)
[2022-11-30] MEDS: Ferrous Sulfate 324 MG TABLET.DR PO (08:26)
--- NOTE | 2022-11-30 09:41 | HO.VASCPN ---
Subjective Subjective Date of Service: 11/30/22 Patient reports: no new complaints and still having pain Interval history: Pleasant 47-year-old gentleman presents for follow-up status post thrombolysis for ischemic lower extremity. Reports that the foot does feel warmer but has significant pain of that lower extremity. Unable to really bear weight on that. He is able to get a stepper to to bedside commode but in general has a fair amount of pain. He is now for routine postprocedure follow-up. Physical Exam Vital Signs: Vital Signs: Last Vital Signs Temp 97.7 F 11/30/22 07:07 Pulse 87 11/30/22 07:07 Resp 20 11/30/22 07:07 BP 160/80 H 11/30/22 07:07 Pulse Ox 96 11/30/22 07:07 O2 Del Method Room Air 11/30/22 07:07 BMI result Body Mass Index 32.1 Const: General: cooperative, healthy appearing and no acute distress Orientation/consciousness: oriented to person, oriented to place and oriented to time HEENT: Head: Yes normal to inspection Neck: Carotids: no bruits Chest: Chest palpation & inspection: normal inspection of the chest Resp: Effort & Inspection: normal respiratory effort and able to speak in complete sentences Auscultation: clear to auscultation bilaterally Cardio: Other: DP signal Rate: regular rate Heart sounds: S1 normal heart sound present and S2 normal heart sound present GI: Inspection: Yes normal to inspection Skin: General skin exam: no rashes or lesions noted Wounds: no wounds Neuro: General: oriented to person, oriented to place, oriented to time and CN's II-XI intact bilaterally Extrem: General: Yes normal to inspection, Yes full ROM and Yes no clubbing, cyanosis or edema Psych: Appearance: grossly normal and well kempt Speech and movement: Normal speech and movement present Affect: normal affect Progress Note: A&P Assessment and plan (1) Acute occlusion of artery of lower extremity: Status: Acute Plan In short patient is recovering from ischemic lower extremity. I do believe that the leg is viable and has reasonable arterial supply. The question is whether there was significant ischemic time to cause damage here. I have requested a neurologic evaluation. At the current time will continue with physical therapy and heparin. The hope is that we can get him strong enough to get him to rehab placement. Thank you for the hospitalist team for their assistance in his care. We will closely monitor with you. Thank you for allowing us to assist in his care. Time Spent With Patient Time: Total time managing care of this patient today ____ minutes. Procedures Date of Service Date of Service: 11/30/22 Quality Stroke Does the patient have a stroke diagnosis?: No VTE Prior VTE?: No VTE Risk Level:: Medical - moderate - high VTE Device Contraindication: Treatment Not Indicated VTE Drug Contraindication: N/A - Med Ordered
--- NOTE | 2022-11-30 10:40 | PM.GIPN ---
Subjective Subjective Date of Service: 11/30/22 Interval History: Pt seen and evaluated at bedside. No abd pain or distention. Just had a BM which is soft but form and without blood. Labs reviewed: CRP 18 --> 11 Fecal ramona pending. Critical Care Time (minutes): 0 Physical Exam Vital Signs: Vital Signs: Last Vital Signs Temp 97.7 F 11/30/22 07:07 Pulse 87 11/30/22 07:07 Resp 20 11/30/22 07:07 BP 160/80 H 11/30/22 07:07 Pulse Ox 96 11/30/22 07:07 O2 Del Method Room Air 11/30/22 07:07 BMI result Body Mass Index 32.1 GEn appear: nontoxic appearing Abd: soft, nondistended, nontender Objective Data Labs 11/30/22 06:04 11/30/22 06:04 Labs: Laboratory Results - last 24 hr 11/30/22 11/30/22 11/30/22 06:03 06:03 06:04 WBC 10.3 RBC 3.18 L Hgb 8.3 L Hct 27.0 L MCV 84.9 MCH 26.1 L MCHC 30.7 L RDW 19.2 H Plt Count 541 H MPV 9.9 Absolute Nucleated RBC 0.290 H Nucleated RBC % (auto) 2.8 H aPTT Heparin Protocol 41.4 L D Sodium Potassium Chloride Carbon Dioxide Anion Gap BUN Creatinine Estim Creat Clear Calc Estimated GFR Random Glucose Calcium C-Reactive Protein 11.12 H 11/30/22 06:04 WBC RBC Hgb Hct MCV MCH MCHC RDW Plt Count MPV Absolute Nucleated RBC Nucleated RBC % (auto) aPTT Heparin Protocol Sodium 139 Potassium 3.9 Chloride 104 Carbon Dioxide 27 Anion Gap 12 BUN 11 Creatinine 0.75 Estim Creat Clear Calc 138.1 Estimated GFR > 60 Random Glucose 106 Calcium 8.3 L C-Reactive Protein Procedures Date of Service Date of Service: 11/30/22 Progress Note: A&P Assessment and plan (1) Ulcerative colitis: Status: Acute (2) GI bleeding: Status: Acute Plan Likely UC flare (which also likely led to VTE event). Clinically improved. Recommendations: Can switch to PO prednisone 60mg tomorrow to be continued for 4 more days (i.e 7d of pred 60) followed by taper of 10mg per week. Cont mesalamine PO, consider increasing to 1g QID Can be switched to lovenox for anticoagulation from GI standpoint. Will sign off, pls call back with questions or concerns. Time Spent With Patient Time: Total time managing care of this patient today ____ minutes. Quality Stroke Does the patient have a stroke diagnosis?: No VTE Prior VTE?: No VTE Risk Level:: Medical - moderate - high VTE Device Contraindication: Treatment Not Indicated VTE Drug Contraindication: N/A - Med Ordered
--- NOTE | 2022-11-30 12:50 | HO.PM.IMPN ---
Subjective Subjective Date of Service: 11/30/22 Interval History: Seen and evaluated this morning having small amount of rectal bleeding overnight Hb trending down to 8.3 on heparin drip RLE little warmer but has weak pulses and neuropathy no other reported events overnight Review of Systems Review of Systems: Yes all other systems are reviewed and are negative Physical Exam Vital Signs: Vital Signs: Last Vital Signs Temp 97.4 F 11/30/22 11:37 Pulse 98 11/30/22 11:37 Resp 20 11/30/22 11:37 BP 141/86 H 11/30/22 11:37 Pulse Ox 98 11/30/22 11:37 O2 Del Method Room Air 11/30/22 11:37 BMI result Body Mass Index 32.1 Const: Other: Constitutional : Awake, interactive, not in distress Neck : Normal inspection, Supple Cardiovascular : RRR, no JVP, trace lower extremity edema RLE Respiratory : good bilateral air entry, no crackles, wheezes or rhonchi Gastrointestinal: soft, lax, Normal bowel sounds, Non tender Skin : Warm, Dry, Right foot and ankle little warmer , dusky 4th,5th toes, non tender, weak pulse at dorsalis pedis Neurological : Alert & oriented x3, No focal deficit , decrease sensation if right foot Objective Data Active Medications Acetaminophen (Acetaminophen 325 Mg Tablet) 650 mg PO Q6H PRN PRN Reason: Pain, Mild (Pain Scale 1-3) Last Admin: 11/30/22 00:56 Dose: 650 mg Documented By: KAITLYNN Cyclobenzaprine HCl (Cyclobenzaprine Hcl 5 Mg Tablet) 5 mg PO TID PRN PRN Reason: Muscle Spasm Last Admin: 11/30/22 04:37 Dose: 5 mg Documented By: KAITLYNN Ferrous Sulfate (Ferrous Sulfate 324 Mg Tablet.) 324 mg PO DAILY VU Last Admin: 11/30/22 08:26 Dose: 324 mg Documented By: RON Heparin Sodium (Porcine) (Heparin Sodium,Porcine 5,000 Unit/Ml Vial) 3,800 unit 40 unit/kg (3800 unit) IVPUSH PROTOCOL BOLUS PRN; Protocol PRN Reason: 40 unit/kg - Heparin Protocol Last Admin: 11/30/22 08:26 Dose: 3,800 unit Documented By: RON Heparin Sodium (Porcine) (Heparin Sodium,Porcine 5,000 Unit/Ml Vial) 7,700 unit 80 unit/kg (7700 unit) IVPUSH PROTOCOL BOLUS PRN; Protocol PRN Reason: 80 unit/kg - Heparin Protocol Last Admin: 11/27/22 01:57 Dose: 7,700 unit Documented By: АНДРЕЙ Hydromorphone HCl (Hydromorphone Hcl 2 Mg/Ml Vial) 1 mg IVPUSH Q3H PRN; Protocol PRN Reason: Pain, Severe (Pain Scale 7-10) Last Admin: 11/30/22 11:48 Dose: 1 mg Documented By: RON Heparin Sodium/Sodium Chloride (Heparin Sodium,Porcine/1/2ns) 25,000 unit in 250 mls @ 0 mls/hr IVCONT .Q0M [facility]; Protocol Last Titration: 11/30/22 07:11 Dose: 24 units/kg/hr, 22.99 mls/hr Documented By: RON Co-signed By: KAITLYNN Mesalamine (Mesalamine 400 Mg Cap.Drtab.) 800 mg PO TID [facility] Last Admin: 11/30/22 08:26 Dose: 800 mg Documented By: RON Methylprednisolone Sodium Succinate (Methylprednisolone Sod Succ 125 Mg/2 Ml Vial) 60 mg IVPUSH Q24H [facility] Last Admin: 11/30/22 08:25 Dose: 60 mg Documented By: RON Multivitamins/Vitamin C (Multivitamin Tablet) 1 tab PO DAILY [facility] Last Admin: 11/30/22 08:26 Dose: 1 tab Documented By: RON Ondansetron HCl (Ondansetron Hcl 4 Mg/2 Ml Vial) 4 mg IVPUSH Q8H PRN PRN Reason: Nausea and Vomiting Sodium Chloride (0.9 % Sodium Chloride Flush 3 Ml Syringe) 3 ml IVFLUSH QSHIFT [facility] Last Admin: 11/30/22 08:25 Dose: 3 ml Documented By: RON Labs 11/30/22 06:04 11/30/22 06:04 Labs: Laboratory Results - last 24 hr 11/30/22 11/30/22 11/30/22 06:03 06:03 06:04 MCV 84.9 MCH 26.1 L MCHC 30.7 L RDW 19.2 H Plt Count 541 H MPV 9.9 Absolute Nucleated RBC 0.290 H Nucleated RBC % (auto) 2.8 H aPTT Heparin Protocol 41.4 L D Anion Gap Estim Creat Clear Calc Estimated GFR Random Glucose Calcium C-Reactive Protein 11.12 H 11/30/22 06:04 MCV MCH MCHC RDW Plt Count MPV Absolute Nucleated RBC Nucleated RBC % (auto) aPTT Heparin Protocol Anion Gap 12 Estim Creat Clear Calc 138.1 Estimated GFR > 60 Random Glucose 106 Calcium 8.3 L C-Reactive Protein Assessment and Plan (1) Acute occlusion of artery of lower extremity: Status: Acute (2) Ulcerative colitis: Status: Acute Plan A 47 year gentleman admitted with acute arterial thrombosis in RLE, status post placement of thrombolysis with repeat angiogram /angioplasty establishing? arterial flow in anterior tibial artery and placement of balloon. Acute occlusion of artery of lower extremity S\P thrombolysis and plasty w Balloon placement Continue Heparin drip Continue ASA Vascular surgery following will need hypercoagulability work up after finishing Heparin therapy Cardiology following, do TTE w Bubble study now, hold on ASHLEY PT pending Neurology eval for parasthesia Rt foot Acute on chronic blood loss anemia 2/2 GI bleed from Ulcerative colitis w exacerbation Hb now at 8.5 after transfusion of total 5 units Change to Methylprednisone day 2 Follow CRP daily for 3 days, trending down Continue Pentasa GI input appreciated, if CRP remains high\bleeding to do Sigmoidiscopy follow H&H DVT PPx Heparin PAtient will need overnight hospital stay for ischemic limb on heparin drip with GI bleed and need of transfusion Time Spent With Patient Time: Total time managing care of this patient today ____ minutes. Quality Stroke Does the patient have a stroke diagnosis?: No VTE Prior VTE?: No VTE Risk Level:: Medical - moderate - high VTE Device Contraindication: Treatment Not Indicated VTE Drug Contraindication: N/A - Med Ordered
--- NOTE | 2022-11-30 13:38 | HO.ANESPROP2 ---
HPI - Anesthesia Eval Consult details Narrative: Acute blood loss, anemia PMFSH Active Problems Active Problems: All Active Problems (Updated 11/25/22 @ 09:23 by Bowen Garcia MD) PAD (peripheral artery disease) (Acute) Acute occlusion of artery of lower extremity (Acute) Abdominal pain (Acute) Aphthous ulcer (Acute) Ulcerative colitis (Acute) Sleep apnea (Acute) Hypoxemia associated with sleep (Acute) ARTIS (obstructive sleep apnea) (Acute) Excessive daytime sleepiness (Acute) History of shingles (Acute) Immunization counseling (Acute) Shingles (Acute) Anemia (Acute) Elevated blood pressure reading (Acute) Diverticulitis (Acute) GI bleeding (Acute) GERD (gastroesophageal reflux disease) (Acute) Ulcerative colitis (Acute) Left against medical advice (Acute) Acute blood loss anemia (Acute) Ulcerative colitis, acute (Acute) Colitis (Acute) GI (gastrointestinal bleed) (Acute) Severe anemia (Acute) Past Medical History Medical History Diverticulitis GERD (gastroesophageal reflux disease) GI bleeding Hypertension Sleep apnea Ulcerative colitis Family History Family History Mother Heart disease COPD (chronic obstructive pulmonary disease) Family history of problems with anesthesia: No Surgical History Surgical History Hx of colonoscopy History of Problems with Anesthesia: No Social History Social History Household Members: None Housing: House Do you presently have visiting nurse or other home services: No Alcohol intake: current Alcohol intake frequency: a few times a week Alcohol type: hard liquor Patient Tobacco Use Status: Never used Tobacco service: No Current occupational status: employed Meds Allergies Allergy/AdvReac Type Severity Reaction Status Date / Time shellfish derived Allergy Swelling Verified 11/25/22 05:40 Active Medications: Current Medications Acetaminophen (Acetaminophen 325 Mg Tablet) 650 mg PO Q6H PRN PRN Reason: Pain, Mild (Pain Scale 1-3) Last Admin: 11/30/22 00:56 Dose: 650 mg Cyclobenzaprine HCl (Cyclobenzaprine Hcl 5 Mg Tablet) 5 mg PO TID PRN PRN Reason: Muscle Spasm Last Admin: 11/30/22 04:37 Dose: 5 mg Ferrous Sulfate (Ferrous Sulfate 324 Mg Tablet.Dr) 324 mg PO DAILY [facility] Last Admin: 11/30/22 08:26 Dose: 324 mg Heparin Sodium (Porcine) (Heparin Sodium,Porcine 5,000 Unit/Ml Vial) 3,800 unit 40 unit/kg (3800 unit) IVPUSH PROTOCOL BOLUS PRN; Protocol PRN Reason: 40 unit/kg - Heparin Protocol Last Admin: 11/30/22 08:26 Dose: 3,800 unit Heparin Sodium (Porcine) (Heparin Sodium,Porcine 5,000 Unit/Ml Vial) 7,700 unit 80 unit/kg (7700 unit) IVPUSH PROTOCOL BOLUS PRN; Protocol PRN Reason: 80 unit/kg - Heparin Protocol Last Admin: 11/27/22 01:57 Dose: 7,700 unit Hydromorphone HCl (Hydromorphone Hcl 2 Mg/Ml Vial) 1 mg IVPUSH Q3H PRN; Protocol PRN Reason: Pain, Severe (Pain Scale 7-10) Last Admin: 11/30/22 11:48 Dose: 1 mg Heparin Sodium/Sodium Chloride (Heparin Sodium,Porcine/1/2ns) 25,000 unit in 250 mls @ 0 mls/hr IVCONT .Q0M [facility]; Protocol Last Titration: 11/30/22 07:11 Dose: 24 units/kg/hr, 22.99 mls/hr Mesalamine (Mesalamine 400 Mg Cap.Drtab.) 800 mg PO TID [facility] Last Admin: 11/30/22 08:26 Dose: 800 mg Methylprednisolone Sodium Succinate (Methylprednisolone Sod Succ 125 Mg/2 Ml Vial) 60 mg IVPUSH Q24H [facility] Last Admin: 11/30/22 08:25 Dose: 60 mg Multivitamins/Vitamin C (Multivitamin Tablet) 1 tab PO DAILY [facility] Last Admin: 11/30/22 08:26 Dose: 1 tab Ondansetron HCl (Ondansetron Hcl 4 Mg/2 Ml Vial) 4 mg IVPUSH Q8H PRN PRN Reason: Nausea and Vomiting Sodium Chloride (0.9 % Sodium Chloride Flush 3 Ml Syringe) 3 ml IVFLUSH QSHIFT [facility] Last Admin: 11/30/22 08:25 Dose: 3 ml Home Medications Medication Instructions Recorded Confirmed Last Taken Type mesalamine 400 mg capsule (with 800 mg PO TID 06/01/23 06/01/23 Unknown History delayed release tablets inside) Exam Exam Date and Time: November 30, 2022 1338 Height,Weight and Vital Signs: Height 5 ft 8 in Weight 95.8 kg Last Vital Signs Temp 97.4 F 11/30/22 11:37 Pulse 98 11/30/22 11:37 Resp 20 11/30/22 11:37 BP 141/86 H 11/30/22 11:37 Pulse Ox 98 11/30/22 11:37 O2 Del Method Room Air 11/30/22 11:37 Pertinent Lab Results Pertinent Lab Results: Laboratory Tests 11/25/22 11/25/22 11/25/22 03:26 03:26 04:25 WBC 6.7 RBC 2.25 L D Hgb 5.1 L* D Hct 17.2 L* D MCV 76.4 L MCH 22.7 L MCHC 29.7 L RDW 18.6 H Plt Count 589 H MPV 8.8 L Immature Gran % (Auto) 2.4 H Neut % (Auto) 60.8 Lymph % (Auto) 23.9 [place] % (Auto) 9.8 Eos % (Auto) 2.7 Baso % (Auto) 0.4 Lymph # (Auto) 1.6 [place] # (Auto) 0.7 Eos # (Auto) 0.2 Baso # (Auto) 0.0 Abs Immat Gran (auto) 0.16 H Absolute Neuts (auto) 4.1 Absolute Nucleated RBC 0.660 H Nucleated RBC % (auto) 9.8 H PT INR APTT aPTT Heparin Protocol PT Mixing Study PT Normal Plasma Immed PTT Mixing Study PTT Normal Plasma Immed PTT Normal Plasma Post Mixing Interpretation Fibrinogen Sodium 135 Potassium 3.4 Chloride 100 Carbon Dioxide 27 Anion Gap 11 L BUN 10 Creatinine 0.84 Estim Creat Clear Calc 123.0 Estimated GFR > 60 Random Glucose 111 Calcium 8.2 L Phosphorus Magnesium 2.1 Total Bilirubin 0.2 AST 20 ALT 37 Alkaline Phosphatase 53 C-Reactive Protein Total Protein 5.3 L Albumin 2.7 L Stool Occult Blood C. difficile Tox B Gene Blood Type O Positive Antibody Screen NEGATIVE Crossmatch See Detail 11/25/22 11/25/22 11/25/22 04:25 05:22 22:31 WBC RBC Hgb Hct MCV MCH MCHC RDW Plt Count MPV Immature Gran % (Auto) Neut % (Auto) Lymph % (Auto) [place] % (Auto) Eos % (Auto) Baso % (Auto) Lymph # (Auto) [place] # (Auto) Eos # (Auto) Baso # (Auto) Abs Immat Gran (auto) Absolute Neuts (auto) Absolute Nucleated RBC Nucleated RBC % (auto) PT 12.3 INR 1.1 APTT 22.9 L aPTT Heparin Protocol 27.9 L PT Mixing Study PT Normal Plasma Immed PTT Mixing Study PTT Normal Plasma Immed PTT Normal Plasma Post Mixing Interpretation Fibrinogen Sodium Potassium Chloride Carbon Dioxide Anion Gap BUN Creatinine Estim Creat Clear Calc Estimated GFR Random Glucose Calcium Phosphorus Magnesium Total Bilirubin AST ALT Alkaline Phosphatase C-Reactive Protein Total Protein Albumin Stool Occult Blood NEGATIVE C. difficile Tox B Gene Blood Type Antibody Screen Crossmatch 11/25/22 11/26/22 11/26/22 22:31 04:22 04:23 WBC 7.0 RBC 3.24 L D Hgb 8.1 L D Hct 26.5 L D MCV 81.8 D MCH 25.0 L MCHC 30.6 L RDW 19.4 H Plt Count 517 H MPV 9.3 L Immature Gran % (Auto) 2.2 H Neut % (Auto) 69.8 Lymph % (Auto) 17.8 L [place] % (Auto) 8.3 Eos % (Auto) 1.3 Baso % (Auto) 0.6 Lymph # (Auto) 1.2 [place] # (Auto) 0.6 Eos # (Auto) 0.1 Baso # (Auto) 0.0 Abs Immat Gran (auto) 0.15 H Absolute Neuts (auto) 4.9 Absolute Nucleated RBC 0.620 H Nucleated RBC % (auto) 8.9 H PT INR APTT aPTT Heparin Protocol PT Mixing Study PT Normal Plasma Immed PTT Mixing Study PTT Normal Plasma Immed PTT Normal Plasma Post Mixing Interpretation Fibrinogen > 700 H Sodium 136 Potassium 4.2 D Chloride 102 Carbon Dioxide 25 Anion Gap 13 BUN 7 L Creatinine 0.78 Estim Creat Clear Calc 134.3 Estimated GFR > 60 Random Glucose 117 H Calcium 8.0 L Phosphorus 3.6 Magnesium 2.1 Total Bilirubin AST ALT Alkaline Phosphatase C-Reactive Protein Total Protein Albumin 2.8 L Stool Occult Blood C. difficile Tox B Gene Blood Type Antibody Screen Crossmatch 11/26/22 11/26/2223 05:18 10:48 10:48 WBC 5.0 RBC 2.73 L Hgb 6.8 L* Hct 22.2 L MCV 81.3 MCH 24.9 L MCHC 30.6 L RDW 19.4 H Plt Count 433 H MPV 8.9 L Immature Gran % (Auto) Neut % (Auto) Lymph % (Auto) [place] % (Auto) Eos % (Auto) Baso % (Auto) Lymph # (Auto) [place] # (Auto) Eos # (Auto) Baso # (Auto) Abs Immat Gran (auto) Absolute Neuts (auto) Absolute Nucleated RBC 0.510 H Nucleated RBC % (auto) 10.2 H PT 14.4 H INR 1.2 H APTT aPTT Heparin Protocol 26.5 L PT Mixing Study PT Normal Plasma Immed PTT Mixing Study PTT Normal Plasma Immed PTT Normal Plasma Post Mixing Interpretation Fibrinogen Sodium Potassium Chloride Carbon Dioxide Anion Gap BUN Creatinine Estim Creat Clear Calc Estimated GFR Random Glucose Calcium Phosphorus Magnesium Total Bilirubin AST ALT Alkaline Phosphatase C-Reactive Protein Total Protein Albumin Stool Occult Blood C. difficile Tox B Gene Blood Type O Positive Antibody Screen NEGATIVE Crossmatch See Detail 11/26/22 11/26/22 11/26/22 10:48 16:47 20:20 WBC RBC Hgb 7.9 L Hct 25.7 L MCV MCH MCHC RDW Plt Count MPV Immature Gran % (Auto) Neut % (Auto) Lymph % (Auto) [place] % (Auto) Eos % (Auto) Baso % (Auto) Lymph # (Auto) [place] # (Auto) Eos # (Auto) Baso # (Auto) Abs Immat Gran (auto) Absolute Neuts (auto) Absolute Nucleated RBC Nucleated RBC % (auto) PT INR APTT aPTT Heparin Protocol 28.6 L PT Mixing Study TNP PT Normal Plasma Immed TNP PTT Mixing Study TNP PTT Normal Plasma Immed TNP PTT Normal Plasma Post TNP Mixing Interpretation TNP Fibrinogen Sodium Potassium Chloride Carbon Dioxide Anion Gap BUN Creatinine Estim Creat Clear Calc Estimated GFR Random Glucose Calcium Phosphorus Magnesium Total Bilirubin AST ALT Alkaline Phosphatase C-Reactive Protein Total Protein Albumin Stool Occult Blood C. difficile Tox B Gene Blood Type Antibody Screen Crossmatch 11/27/22 11/27/22 11/27/22 00:17 04:41 08:08 WBC 6.9 RBC 3.62 L D Hgb 8.5 L 9.5 L Hct 27.3 L 30.4 L MCV 84.0 MCH 26.2 L MCHC 31.3 RDW 18.9 H Plt Count 478 H MPV 9.0 L Immature Gran % (Auto) Neut % (Auto) Lymph % (Auto) [place] % (Auto) Eos % (Auto) Baso % (Auto) Lymph # (Auto) [place] # (Auto) Eos # (Auto) Baso # (Auto) Abs Immat Gran (auto) Absolute Neuts (auto) Absolute Nucleated RBC 0.690 H Nucleated RBC % (auto) 9.9 H PT INR APTT aPTT Heparin Protocol 34.5 L D PT Mixing Study PT Normal Plasma Immed PTT Mixing Study PTT Normal Plasma Immed PTT Normal Plasma Post Mixing Interpretation Fibrinogen Sodium Potassium Chloride Carbon Dioxide Anion Gap BUN Creatinine Estim Creat Clear Calc Estimated GFR Random Glucose Calcium Phosphorus Magnesium Total Bilirubin AST ALT Alkaline Phosphatase C-Reactive Protein Total Protein Albumin Stool Occult Blood C. difficile Tox B Gene Blood Type Antibody Screen Crossmatch 11/27/22 11/27/22 11/27/22 08:08 08:08 08:08 WBC RBC Hgb Cancelled Hct Cancelled MCV MCH MCHC RDW Plt Count MPV Immature Gran % (Auto) Neut % (Auto) Lymph % (Auto) [place] % (Auto) Eos % (Auto) Baso % (Auto) Lymph # (Auto) [place] # (Auto) Eos # (Auto) Baso # (Auto) Abs Immat Gran (auto) Absolute Neuts (auto) Absolute Nucleated RBC Nucleated RBC % (auto) PT 13.0 INR 1.1 APTT aPTT Heparin Protocol PT Mixing Study PT Normal Plasma Immed PTT Mixing Study PTT Normal Plasma Immed PTT Normal Plasma Post Mixing Interpretation Fibrinogen Sodium 139 Potassium 3.7 Chloride 104 Carbon Dioxide 25 Anion Gap 14 BUN 8 L Creatinine 0.82 Estim Creat Clear Calc 126.3 Estimated GFR > 60 Random Glucose 100 Calcium 8.2 L Phosphorus Magnesium Total Bilirubin AST ALT Alkaline Phosphatase C-Reactive Protein 18.47 H Total Protein Albumin Stool Occult Blood C. difficile Tox B Gene Blood Type Antibody Screen Crossmatch 11/27/22 11/27/22 11/27/22 08:08 09:19 10:35 WBC RBC Hgb Hct MCV MCH MCHC RDW Plt Count MPV Immature Gran % (Auto) Neut % (Auto) Lymph % (Auto) [place] % (Auto) Eos % (Auto) Baso % (Auto) Lymph # (Auto) [place] # (Auto) Eos # (Auto) Baso # (Auto) Abs Immat Gran (auto) Absolute Neuts (auto) Absolute Nucleated RBC Nucleated RBC % (auto) PT INR APTT aPTT Heparin Protocol 54.4 D PT Mixing Study PT Normal Plasma Immed PTT Mixing Study PTT Normal Plasma Immed PTT Normal Plasma Post Mixing Interpretation Fibrinogen Sodium Potassium Chloride Carbon Dioxide Anion Gap BUN Creatinine Estim Creat Clear Calc Estimated GFR Random Glucose Calcium Phosphorus Magnesium Total Bilirubin AST ALT Alkaline Phosphatase C-Reactive Protein Cancelled Total Protein Albumin Stool Occult Blood C. difficile Tox B Gene NEGATIVE Blood Type Antibody Screen Crossmatch 11/27/22 11/27/22 11/27/22 12:01 15:08 20:13 WBC RBC Hgb 8.6 L 8.7 L Hct 27.8 L 27.8 L MCV MCH MCHC RDW Plt Count MPV Immature Gran % (Auto) Neut % (Auto) Lymph % (Auto) [place] % (Auto) Eos % (Auto) Baso % (Auto) Lymph # (Auto) [place] # (Auto) Eos # (Auto) Baso # (Auto) Abs Immat Gran (auto) Absolute Neuts (auto) Absolute Nucleated RBC Nucleated RBC % (auto) PT INR APTT aPTT Heparin Protocol 62.0 PT Mixing Study PT Normal Plasma Immed PTT Mixing Study PTT Normal Plasma Immed PTT Normal Plasma Post Mixing Interpretation Fibrinogen Sodium Potassium Chloride Carbon Dioxide Anion Gap BUN Creatinine Estim Creat Clear Calc Estimated GFR Random Glucose Calcium Phosphorus Magnesium Total Bilirubin AST ALT Alkaline Phosphatase C-Reactive Protein Total Protein Albumin Stool Occult Blood C. difficile Tox B Gene Blood Type Antibody Screen Crossmatch 11/28/22 11/28/22 11/28/22 04:37 04:37 04:37 WBC 7.0 RBC 3.40 L Hgb Cancelled 8.8 L Hct Cancelled 28.7 L MCV 84.4 MCH 25.9 L MCHC 30.7 L RDW 19.1 H Plt Count 490 H MPV 9.4 Immature Gran % (Auto) Neut % (Auto) Lymph % (Auto) [place] % (Auto) Eos % (Auto) Baso % (Auto) Lymph # (Auto) [place] # (Auto) Eos # (Auto) Baso # (Auto) Abs Immat Gran (auto) Absolute Neuts (auto) Absolute Nucleated RBC 0.270 H Nucleated RBC % (auto) 3.8 H PT INR APTT aPTT Heparin Protocol PT Mixing Study PT Normal Plasma Immed PTT Mixing Study PTT Normal Plasma Immed PTT Normal Plasma Post Mixing Interpretation Fibrinogen Sodium 138 Potassium 3.8 Chloride 104 Carbon Dioxide 26 Anion Gap 12 BUN 8 L Creatinine 0.76 Estim Creat Clear Calc 136.3 Estimated GFR > 60 Random Glucose 104 Calcium 8.0 L Phosphorus Magnesium Total Bilirubin AST ALT Alkaline Phosphatase C-Reactive Protein Total Protein Albumin Stool Occult Blood C. difficile Tox B Gene Blood Type Antibody Screen Crossmatch 11/28/22 11/28/22 11/28/22 05:58 11:51 20:07 WBC RBC Hgb 9.0 L 9.5 L Hct 29.0 L 30.1 L MCV MCH MCHC RDW Plt Count MPV Immature Gran % (Auto) Neut % (Auto) Lymph % (Auto) [place] % (Auto) Eos % (Auto) Baso % (Auto) Lymph # (Auto) [place] # (Auto) Eos # (Auto) Baso # (Auto) Abs Immat Gran (auto) Absolute Neuts (auto) Absolute Nucleated RBC Nucleated RBC % (auto) PT INR APTT aPTT Heparin Protocol 55.5 PT Mixing Study PT Normal Plasma Immed PTT Mixing Study PTT Normal Plasma Immed PTT Normal Plasma Post Mixing Interpretation Fibrinogen Sodium Potassium Chloride Carbon Dioxide Anion Gap BUN Creatinine Estim Creat Clear Calc Estimated GFR Random Glucose Calcium Phosphorus Magnesium Total Bilirubin AST ALT Alkaline Phosphatase C-Reactive Protein Total Protein Albumin Stool Occult Blood C. difficile Tox B Gene Blood Type Antibody Screen Crossmatch 11/29/22 11/29/22 11/29/22 05:33 05:33 05:33 WBC 7.4 RBC 3.22 L Hgb 8.5 L Hct 27.5 L MCV 85.4 MCH 26.4 L MCHC 30.9 L RDW 19.3 H Plt Count 538 H MPV 9.9 Immature Gran % (Auto) Neut % (Auto) Lymph % (Auto) [place] % (Auto) Eos % (Auto) Baso % (Auto) Lymph # (Auto) [place] # (Auto) Eos # (Auto) Baso # (Auto) Abs Immat Gran (auto) Absolute Neuts (auto) Absolute Nucleated RBC 0.110 H Nucleated RBC % (auto) 1.5 H PT INR APTT aPTT Heparin Protocol 58.5 PT Mixing Study PT Normal Plasma Immed PTT Mixing Study PTT Normal Plasma Immed PTT Normal Plasma Post Mixing Interpretation Fibrinogen Sodium Potassium Chloride Carbon Dioxide Anion Gap BUN Creatinine Estim Creat Clear Calc Estimated GFR Random Glucose Calcium Phosphorus Magnesium Total Bilirubin AST ALT Alkaline Phosphatase C-Reactive Protein 11.57 H Total Protein Albumin Stool Occult Blood C. difficile Tox B Gene Blood Type Antibody Screen Crossmatch 11/29/22 11/30/22 11/30/22 05:33 06:03 06:03 WBC RBC Hgb Hct MCV MCH MCHC RDW Plt Count MPV Immature Gran % (Auto) Neut % (Auto) Lymph % (Auto) [place] % (Auto) Eos % (Auto) Baso % (Auto) Lymph # (Auto) [place] # (Auto) Eos # (Auto) Baso # (Auto) Abs Immat Gran (auto) Absolute Neuts (auto) Absolute Nucleated RBC Nucleated RBC % (auto) PT INR APTT aPTT Heparin Protocol 41.4 L D PT Mixing Study PT Normal Plasma Immed PTT Mixing Study PTT Normal Plasma Immed PTT Normal Plasma Post Mixing Interpretation Fibrinogen Sodium 139 Potassium 4.0 Chloride 104 Carbon Dioxide 27 Anion Gap 12 BUN 9 Creatinine 0.75 Estim Creat Clear Calc 138.1 Estimated GFR > 60 Random Glucose 115 Calcium 8.4 Phosphorus Magnesium Total Bilirubin AST ALT Alkaline Phosphatase C-Reactive Protein 11.12 H Total Protein Albumin Stool Occult Blood C. difficile Tox B Gene Blood Type Antibody Screen Crossmatch 11/30/22 11/30/22 06:04 06:04 WBC 10.3 RBC 3.18 L Hgb 8.3 L Hct 27.0 L MCV 84.9 MCH 26.1 L MCHC 30.7 L RDW 19.2 H Plt Count 541 H MPV 9.9 Immature Gran % (Auto) Neut % (Auto) Lymph % (Auto) [place] % (Auto) Eos % (Auto) Baso % (Auto) Lymph # (Auto) [place] # (Auto) Eos # (Auto) Baso # (Auto) Abs Immat Gran (auto) Absolute Neuts (auto) Absolute Nucleated RBC 0.290 H Nucleated RBC % (auto) 2.8 H PT INR APTT aPTT Heparin Protocol PT Mixing Study PT Normal Plasma Immed PTT Mixing Study PTT Normal Plasma Immed PTT Normal Plasma Post Mixing Interpretation Fibrinogen Sodium 139 Potassium 3.9 Chloride 104 Carbon Dioxide 27 Anion Gap 12 BUN 11 Creatinine 0.75 Estim Creat Clear Calc 138.1 Estimated GFR > 60 Random Glucose 106 Calcium 8.3 L Phosphorus Magnesium Total Bilirubin AST ALT Alkaline Phosphatase C-Reactive Protein Total Protein Albumin Stool Occult Blood C. difficile Tox B Gene Blood Type Antibody Screen Crossmatch Airway Mallampati Class: II TM Dist: >3cm Neck ROM: Full Loose/Missing/Broken Teeth: Yes (chipped upper front tooth, many missing upper poor globally) Heart: [id number] Lungs: cta b/l Assessment and Plan Assessment Anesthesia Assessment: Anesthesia Plan Discussed and Chart Reviewed Final Anesthetic Review Family History of Problems with Anesthesia: No History of Problems with Anesthesia: No NPO: Yes ASA Class: III Final Preanesthetic Review: No Changes in Pt Med Stat, Meds/Allgs Chart Reviewed, Consent Obtained/Reviewed and Anes Risks/Benef Reviewed Patient Risk: Intermediate Procedure Risk: Intermediate Assessment/Block/Sedation in SS: Assess/Block/Sedation-SS Anesthetic Plan Anesthetic Plan: MAC: and Agree w/ Assess. and Plan Disposition: Standard PACU
--- NOTE | 2022-11-30 14:00 | CA_ITS ---
Transesophageal Echocardiogram Patient (Last, First, Middle): Gonzales Saba, Gender: Male Date of : 1975 Age: 47 Procedure Date: 11/30/2022 Procedure Type: Transesophageal Echocardiogram Location: [facility] Height: 175.26 cm Weight: kg Access Tech: ANAMIKA Bradley MD: Sravan Riddle MD Managed Care Liaison: Sravan Riddle MD Symptoms: arterial thromboembolism. + bubble study Conclusion: ??? Normal left ventricular size and systolic function. The visually estimated ejection fraction is between 55-60%. ??? There is no evidence of a thrombus in the left atrial appendage. There is no evidence of interatrial shunt by color Doppler and contrast. ??? There is a bicuspid aortic valve. ??? All visible segments of the aorta are normal in size. There is no evidence of plaque in the aorta. Findings Left Ventricle Normal left ventricular size and systolic function. The visually estimated ejection fraction is between 55-60%. There is no evidence of regional wall motion abnormalities. Right Ventricle Normal right ventricular cavity size and systolic function. Atria There is no evidence of a thrombus in the left atrial appendage. There is no evidence of interatrial shunt by color Doppler and contrast. Aortic Valve There is a bicuspid aortic valve. There is mild calcification of the aortic valve. There is no aortic valve regurgitation. Mitral Valve Normal mitral valve structure and function. There is no mitral valve regurgitation. Pulmonic Valve The pulmonic valve was not well visualized. Tricuspid Valve Normal tricuspid valve structure and function. There is no tricuspid valve regurgitation. Great Vessels All visible segments of the aorta are normal in size. There is no evidence of plaque in the aorta. Pericardium/Pleural There is no evidence of pericardial effusion. Updated by Sravan Riddle on 09:36 AM with Status of Final Sravan Riddle MD electronically signed on 12/01/2022 9:36:35 AM with status of Final
[2022-11-30] MEDS: fentaNYL citrate/PF 100 MCG/2 ML VIAL 50 MCG IVPUSH (15:17)
--- NOTE | 2022-11-30 17:35 | P.CNNE_ITS ---
History of Present Illness Data of Consult Service Date: 11/30/22 Primary Care Provider: Ihsan Astudillo MD HPI Reason for consult: Question Ischemic neuropathy This is a 47-year-old male admitted with severe anemia requiring transfusions with h/o ?chr. ulcerative colitis on Meselamine, HTN, GERD, and ARTIS who presents to the ED with?pain and numbness in right leg for the past 3 days.? Patient states that he visited the [facility] for the last week. Approximately 3 4 days prior to adm. he began experiencing pain and tingling in his right leg that increased in intensity with walking.?Tthe pain in his right foot increased in intensity until it became unbearable and his foot eventually became comple tely numb during air travel. He experienced lightheadedness, dizziness, nausea, and diaphoresis at this time.?After admission the numbness and tingling and pain improved,. Pt was recently admitted to the hospital for a UC flare on 11/08/2022 for severe abdominal pain and hematochezia.? Patient was sent home on a prednisone taper and an increase in his mesalamine.? Labs were significant for severe anemia of 5.07/13.? Electrolytes WNL.? Renal function baseline.? Hepatic function baseline.? Stool negative for occult blood. Arterial ultrasound of right lower leg showed likely occlusion of peroneal artery throughout the calf and diminished flow in the posterior tibial artery toward the ankle. CT a ngiogram with runoff showed complete occlusion of the right popliteal artery with a 4 mm calcification either within or adjacent to popliteal artery.? CTA also showed mild pericolonic stranding suspicious of colitis.?He has had vascular intervention for a right popliteal artery occlusion and his circulation has been restored, but he still has some numbness distal to the tarsometatarsal joint in the right foot. Review of Systems Review of Systems: Constitutional : No Weight loss, No Fever, No Chills ENT/Mouth : No sore throat, No Rhinorrhea Eyes: No Swelling, No Redness Cardiovascular : No Chest Pain, No SOB, No Edema Respiratory : No Cough, No Sputum, No Wheezing Gastrointestinal : see HPI Genitourinary : NO Dysuria, No Urinary Frequency, No Hematuria, No Urgency Musculoskeletal : No joint pain, No Myalgias, No Joint Swelling Skin : No Skin Lesions, No rash Neuro : No Weakness, No Numbness, No Dizziness, No Headache Psych : No Anxiety/Panic, No Depression Heme/Lymph: No Bruising, No Lymphadenopathy Endocrine : No Polyuria, No Polydipsia All other systems reviewed and are negative. Yes all other systems are reviewed and are negative Constitutional: Constitutional: Reports no additional constitutional complaints ENT: Reports Normal hearing present Cardiovascular: Cardiovascular: Denies chest pain, Denies chest pain at rest, Denies chest pain with activity and Denies pedal edema Respiratory: Respiratory: Denies cough Gastrointestinal: Gastrointestinal: Denies abdominal pain Musculoskeletal: Musculoskeletal: Denies abnormal gait, Denies muscle cramps and Denies radiating pain into limb Integumentary/Breasts: Skin/Breast: Denies skin ulcer and Denies wounds Neurologic: Reports Normal hearing present and Denies abnormal gait Psychiatric: Psychiatric: Reports no additional psychiatric complaints [facility] Past Medical History Medical History Diverticulitis GERD (gastroesophageal reflux disease) GI bleeding Hypertension Sleep apnea Ulcerative colitis Family History Family History Mother Heart disease COPD (chronic obstructive pulmonary disease) Surgical History Surgical History Hx of colonoscopy Social History Social History Household Members: None Housing: House Do you presently have visiting nurse or other home services: No Alcohol intake: current Alcohol intake frequency: a few times a week Alcohol type: hard liquor Patient Tobacco Use Status: Never used Tobacco Second Hand Smoke Exposure: No service: No Current occupational status: employed Meds Allergies Allergy/AdvReac Type Severity Reaction Status Date / Time shellfish derived Allergy Swelling Verified 11/25/22 05:40 Active Medications: Current Medications Acetaminophen (Acetaminophen 325 Mg Tablet) 650 mg PO Q6H PRN PRN Reason: Pain, Mild (Pain Scale 1-3) Last Admin: 11/30/22 16:34 Dose: 650 mg Acetaminophen (Acetaminophen 325 Mg Tablet) 650 mg PO ONCE PRN PRN Reason: Pain, Mild (Pain Scale 1-3) Cyclobenzaprine HCl (Cyclobenzaprine Hcl 5 Mg Tablet) 5 mg PO TID PRN PRN Reason: Muscle Spasm Last Admin: 11/30/22 16:35 Dose: 5 mg Fentanyl (Fentanyl Citrate/Pf 100 Mcg/2 Ml Vial) 50 mcg IVPUSH Q5M PRN; Protocol PRN Reason: Pain, Severe (Pain Scale 7-10) Last Admin: 11/30/22 15:17 Dose: 50 mcg Ferrous Sulfate (Ferrous Sulfate 324 Mg Tablet.Dr) 324 mg PO DAILY [facility] Last Admin: 11/30/22 08:26 Dose: 324 mg Heparin Sodium (Porcine) (Heparin Sodium,Porcine 5,000 Unit/Ml Vial) 3,800 unit 40 unit/kg (3800 unit) IVPUSH PROTOCOL BOLUS PRN; Protocol PRN Reason: 40 unit/kg - Heparin Protocol Last Admin: 11/30/22 08:26 Dose: 3,800 unit Heparin Sodium (Porcine) (Heparin Sodium,Porcine 5,000 Unit/Ml Vial) 7,700 unit 80 unit/kg (7700 unit) IVPUSH PROTOCOL BOLUS PRN; Protocol PRN Reason: 80 unit/kg - Heparin Protocol Last Admin: 11/27/22 01:57 Dose: 7,700 unit Hydromorphone HCl (Hydromorphone Hcl 2 Mg/Ml Vial) 1 mg IVPUSH Q3H PRN; Protocol PRN Reason: Pain, Severe (Pain Scale 7-10) Last Admin: 11/30/22 16:41 Dose: 1 mg Hydromorphone HCl (Hydromorphone Hcl 0.5 Mg/0.5 Ml Syringe) 0.5 mg IVPUSH Q5M PRN; Protocol PRN Reason: Pain, Severe (Pain Scale 7-10) Heparin Sodium/Sodium Chloride (Heparin Sodium,Porcine/1/2ns) 25,000 unit in 250 mls @ 0 mls/hr IVCONT .Q0M VU; Protocol Last Titration: 11/30/22 07:11 Dose: 24 units/kg/hr, 22.99 mls/hr Mesalamine (Mesalamine 400 Mg Cap.Drtab.) 800 mg PO TID [facility] Last Admin: 11/30/22 16:57 Dose: 800 mg Methylprednisolone Sodium Succinate (Methylprednisolone Sod Succ 125 Mg/2 Ml Vial) 60 mg IVPUSH Q24H [facility] Last Admin: 11/30/22 08:25 Dose: 60 mg Multivitamins/Vitamin C (Multivitamin Tablet) 1 tab PO DAILY [facility] Last Admin: 11/30/22 08:26 Dose: 1 tab Ondansetron HCl (Ondansetron Hcl 4 Mg/2 Ml Vial) 4 mg IVPUSH Q8H PRN PRN Reason: Nausea and Vomiting Ondansetron HCl (Ondansetron Hcl 4 Mg/2 Ml Vial) 4 mg IVPUSH ONCE PRN PRN Reason: Nausea and Vomiting Ondansetron HCl (Ondansetron Hcl 4 Mg/2 Ml Vial) 4 mg IVPUSH ONCE PRN PRN Reason: Nausea and Vomiting Sodium Chloride (0.9 % Sodium Chloride Flush 3 Ml Syringe) 3 ml IVFLUSH QSHIFT [facility] Last Admin: 11/30/22 08:25 Dose: 3 ml Home Medications Medication Instructions Recorded Confirmed Last Taken Type mesalamine 400 mg capsule (with 800 mg PO TID 11/25/22 11/25/22 Unknown History delayed release tablets inside) Physical Exam Vital Signs: Vital Signs: Last Vital Signs Temp 97.2 F 11/30/22 16:00 Pulse 92 11/30/22 16:00 Resp 12 11/30/22 16:41 BP 135/91 H 11/30/22 16:00 Pulse Ox 97 11/30/22 16:00 O2 Del Method Room Air 11/30/22 16:00 BMI result Body Mass Index 32.1 Const: Other: Constitutional : Awake, interactive, not in distress Neck : Normal inspection, Supple Cardiovascular : RRR, no JVP, trace lower extremity edema RLE Respiratory : good bilateral air entry, no crackles, wheezes or rhonchi Gastrointestinal: soft, lax, Normal bowel sounds, Non tender Skin : Warm, Dry, Right foot and ankle little warmer , dusky 4th,5th toes, non tender, weak pulse at dorsalis pedis Neurological : Alert & oriented x3, No focal deficit , decrease sensation if right foot General: cooperative, healthy appearing, comfortable, no acute distress, alert and awake Orientation/consciousness: oriented to person, oriented to place and oriented to time Limitations: No language barrier HEENT: Head: Yes normal to inspection Eyes: Sclerae: sclerae normal EOM: EOMs intact bilaterally Neck: Neck: Yes normal visual inspection, Yes no lymphadenopathy, Yes trachea midline and Yes supple Carotids: no bruits Chest: Chest palpation & inspection: normal inspection of the chest Resp: Effort & Inspection: normal respiratory effort, able to speak in complete sentences and no respiratory distress Auscultation: clear to auscultation bilaterally, no crackles, no rales, no rhonchi and no wheezes Cardio: Other: DP signal Rate: regular rate Rhythm: regular rhythm Heart sounds: S1 normal heart sound present, S2 normal heart sound present, no gallops, no murmurs and no rubs Bruits: no carotid bruits Peripheral pulses: Peripheral pulses 2+ throughout GI: Inspection: Yes normal to inspection Palpation (GI): Soft to palpation and Other GI palpation findings present ( Nontender) Auscultation: normal bowel sounds Skin: Other: Right 4th and 5th toe dusky looking General skin exam: no rashes or lesions noted Wounds: no wounds Hair: normal Neuro: Other: Absent right ankle reflex. Loss of sensation distal to the tarsometatarsal joints and the right foot. He has some feeble toe movements. Proximal sttrength is normal General: oriented to person, oriented to place, oriented to time and CN's II- XI intact bilaterally Cranial nerves: Yes CN's II-XII intact bilaterally and Yes Normal hearing present Cognition (Neuro): normal cognition Motor exam (neuro): 5/5 motor strength present throughout Extrem: Other: venous exam: No significant superficial varicosities or spider telangiectasias, minimal edema General: Yes normal to inspection, Yes full ROM, Yes no clubbing, cyanosis or edema, Yes no pedal edema, No clubbing, No cyanosis and No edema Psych: Appearance: grossly normal and well kempt Mental Status: mental status grossly normal Speech and movement: Normal speech and movement present Affect: normal affect Results Labs 11/30/22 06:04 11/30/22 06:04 Labs: Short CBC 11/30/22 Range/Units 06:04 WBC 10.3 (4.8-10.8) X10*3/uL Hgb 8.3 L (14.0-18.0) g/dl Hct 27.0 L (42.0-52.0) % Plt Count 541 H (160-400) X10*3/uL BMP 11/30/22 06:04 Sodium 139 Potassium 3.9 Chloride 104 Carbon Dioxide 27 BUN 11 Creatinine 0.75 Calcium 8.3 L Assessment and Plan (1) Ulcerative colitis: Status: Acute (2) GI bleeding: Status: Acute (3) Ischemic neuropathy of right foot: Status: Acute He appears to have an early distal ischemic neuropathy of the right foot. It is too early to prognosticate. If symptoms persist beyond 6 weeks, then nerve conduction studies should be scheduled. Plan Likely UC flare (which also likely led to VTE event). Clinically improved. Recommendations: Can switch to PO prednisone 60mg tomorrow to be continued for 4 more days (i.e 7d of pred 60) followed by taper of 10mg per week. Cont mesalamine PO, consider increasing to 1g QID Can be switched to lovenox for anticoagulation from GI standpoint. Will sign off, pls call back with questions or concerns. Time Spent With Patient Time: Total time managing care of this patient today ____ minutes. Procedures Date of Service Date of Service: 11/30/22
[2022-11-30 17:44] LABS: PTT Heparin Drip 72.7 SEC (53-77.9)
[2022-11-30] MEDS: Heparin Sodium,Porcine/1/2NS 25,000 UNIT/250 ML IV.SOLN 22.99 UNIT IVCONT (17:52)
[2022-12-01] MEDS: HYDROmorphone HCl 2 MG/ML VIAL 1 MG IVPUSH ×5 (00:07→15:00)
[2022-12-01 03:47] VITALS: BP 147/85; PULSE 93; RESP 18; TEMP 36.9; O2SAT 97
[2022-12-01] MEDS: Heparin Sodium,Porcine/1/2NS 25,000 UNIT/250 ML IV.SOLN 22.99 UNIT IVCONT (04:55)
[2022-12-01 06:05] LABS: Hemoglobin 8.1 g/dl (14.0-18.0); Mean Corpuscular HGB Conc 31.2 g/dl (31.0-36.0); Mean Corpuscular Hemoglobin 26.6 pg (27.0-33.0); Mean Corpuscular Volume 85.2 fL (80.0-98.0); Mean Platelet Volume 10.3 fL (9.4-12.4); Platelet Count 542 X10*3/uL (160-400); Red Blood Count 3.05 X10*6/uL (4.60-5.80); Red Cell Distribution Width 19.5 % (11.0-16.0); White Blood Count 10.2 X10*3/uL (4.8-10.8)
[2022-12-01 06:09] LABS: NRBC Pct Auto 3.4 /100WBC (0.0-0.2)
[2022-12-01 06:20] LABS: C Reactive Protein 18.33 mg/dL (< or = 0.50)
[2022-12-01 06:24] LABS: Anion Gap 12 (12-20); Blood Urea Nitrogen 10 mg/dL (9-16); Calcium 8.5 mg/dL (8.4-10.2); Carbon Dioxide 28 mmol/L (22-29); Chloride 101 mmol/L (96-108); Creatinine Clr Calc Pharmacy 127.9; Estimated Glomerular Filt Rate > 60; Glucose Random 103 mg/dL (60-115); Potassium 4.3 mmol/L (3.3-5.1); Sodium 137 mmol/L (135-145)
[2022-12-01 06:34] LABS: PTT Heparin Drip 53.2 SEC (53-77.9)
[2022-12-01 06:55] VITALS: BP 158/90; PULSE 89; RESP 20; TEMP 36.5; O2SAT 97
[2022-12-01] MEDS: Mesalamine 400 MG CAP.DRTAB. 800 MG PO (07:50)
[2022-12-01] MEDS: Cyclobenzaprine HCl 5 MG TABLET PO ×2 (07:51→17:10)
[2022-12-01] MEDS: Multivitamin TABLET 1 TAB PO (07:51)
[2022-12-01] MEDS: Ferrous Sulfate 324 MG TABLET.DR PO (07:51)
[2022-12-01] MEDS: Acetaminophen 325 MG TABLET 650 MG PO (07:51)
--- NOTE | 2022-12-01 07:51 | HO.VASCPN ---
Subjective Subjective Date of Service: 12/01/22 Patient reports: no new complaints and feels better Interval history: Patient seen and examined. Events of yesterday were were noted. He was seen by GI and Neurology. He reports he is doing fairly well from a GI standpoint. He reports no more bloody bowel movements. In addition his right lower extremity feels warmer. He is still having difficulty bearing weight on it. He now presents to us for vascular follow-up. Physical Exam Vital Signs: Vital Signs: Last Vital Signs Temp 97.7 F 12/01/22 06:55 Pulse 89 12/01/22 06:55 Resp 20 12/01/22 06:55 BP 158/90 H 12/01/22 06:55 Pulse Ox 97 12/01/22 06:55 O2 Del Method Room Air 12/01/22 06:55 BMI result Body Mass Index 32.1 Const: General: cooperative, healthy appearing and no acute distress Orientation/consciousness: oriented to person, oriented to place and oriented to time HEENT: Head: Yes normal to inspection Neck: Carotids: no bruits Chest: Chest palpation & inspection: normal inspection of the chest Resp: Effort & Inspection: normal respiratory effort and able to speak in complete sentences Auscultation: clear to auscultation bilaterally Cardio: Other: DP signal Rate: regular rate Heart sounds: S1 normal heart sound present and S2 normal heart sound present GI: Inspection: Yes normal to inspection Skin: General skin exam: no rashes or lesions noted Wounds: no wounds Neuro: General: oriented to person, oriented to place, oriented to time and CN's II-XI intact bilaterally Extrem: General: Yes normal to inspection, Yes full ROM and Yes no clubbing, cyanosis or edema Psych: Appearance: grossly normal and well kempt Speech and movement: Normal speech and movement present Affect: normal affect Progress Note: A&P Assessment and plan (1) Acute occlusion of artery of lower extremity: Status: Acute Assessment and Plan: In short patient appears to be doing relatively better. He has stabilized from a GI standpoint although his hemoglobin is slowly drifting down is down to 8.1 today. Neurology input appreciated. I do agree that he does have an element of ischemic neuropathy. In addition his foot does appear to be we have viable at the current time. This is all presumably from hypercoagulability of inflammatory bowel disease. He will require long-term anticoagulation. He is stable from my perspective for transfer to rehab facility. He can follow up with me in approximately 2 weeks time. Thank you for allowing us to assist in his care. If there are questions or concerns please do not hesitate to contact us. Time Spent With Patient Time: Total time managing care of this patient today ____ minutes. Procedures Date of Service Date of Service: 12/01/22 Quality Stroke Does the patient have a stroke diagnosis?: No VTE Prior VTE?: No VTE Risk Level:: Medical - moderate - high VTE Device Contraindication: Treatment Not Indicated VTE Drug Contraindication: N/A - Med Ordered
[2022-12-01] MEDS: methylPREDNISolone Sod Succ 125 MG/2 ML VIAL 60 MG IVPUSH (07:52)
[2022-12-01] MEDS: 0.9 % Sodium Chloride Flush 3 ML SYRINGE IVFLUSH ×2 (07:53→17:11)
[2022-12-01] MEDS: Apixaban 5 MG TABLET 10 MG PO (09:54)
--- NOTE | 2022-12-01 10:43 | MHC.CM.PN ---
Patient is medically cleared for dc to Acute Rehab today. CM met with Patient at bedside and he has accepted the bed offer at [facility]. RODOLFO has asked [facility] to initiate auth with [employer]. CM will follow.
--- NOTE | 2022-12-01 11:24 | HO.PM.IMPN ---
Subjective Subjective Date of Service: 12/01/22 Interval History: small amounts blood in stool Physical Exam Vital Signs: Vital Signs: Last Vital Signs Temp 97.7 F 12/01/22 06:55 Pulse 89 12/01/22 06:55 Resp 20 12/01/22 06:55 BP 158/90 H 12/01/22 06:55 Pulse Ox 97 12/01/22 06:55 O2 Del Method Room Air 12/01/22 06:55 BMI result Body Mass Index 32.1 General: AO X 3, no acute distress Resp: CTA bilateral, no accessory muscles used CVS: S1,S2,RRR GI: soft, non tender, non distended Neuro: motor grossly intact, alert Psych: appropriate affect, appropriate insight rle dusky 4-5 toes Objective Data Active Medications Acetaminophen (Acetaminophen 325 Mg Tablet) 650 mg PO Q6H PRN PRN Reason: Pain, Mild (Pain Scale 1-3) Last Admin: 12/01/22 07:51 Dose: 650 mg Documented By: LUKASZ Acetaminophen (Acetaminophen 325 Mg Tablet) 650 mg PO ONCE PRN PRN Reason: Pain, Mild (Pain Scale 1-3) Apixaban (Apixaban 5 Mg Tablet) 10 mg PO BID [facility] Stop: 12/07/22 21:01 Last Admin: 12/01/22 09:54 Dose: 10 mg Documented By: LUKASZ Cyclobenzaprine HCl (Cyclobenzaprine Hcl 5 Mg Tablet) 5 mg PO TID PRN PRN Reason: Muscle Spasm Last Admin: 12/01/22 07:51 Dose: 5 mg Documented By: LUKASZ Fentanyl (Fentanyl Citrate/Pf 100 Mcg/2 Ml Vial) 50 mcg IVPUSH Q5M PRN; Protocol PRN Reason: Pain, Severe (Pain Scale 7-10) Last Admin: 11/30/22 15:17 Dose: 50 mcg Documented By: STANLEY Ferrous Sulfate (Ferrous Sulfate 324 Mg Tablet.) 324 mg PO DAILY [facility] Last Admin: 12/01/22 07:51 Dose: 324 mg Documented By: LUKASZ Hydromorphone HCl (Hydromorphone Hcl 2 Mg/Ml Vial) 1 mg IVPUSH Q3H PRN; Protocol PRN Reason: Pain, Severe (Pain Scale 7-10) Last Admin: 12/01/22 07:52 Dose: 1 mg Documented By: LUKASZ Hydromorphone HCl (Hydromorphone Hcl 0.5 Mg/0.5 Ml Syringe) 0.5 mg IVPUSH Q5M PRN; Protocol PRN Reason: Pain, Severe (Pain Scale 7-10) Mesalamine (Mesalamine 400 Mg Cap.Drtab.) 1,000 mg PO QID [facility] Last Admin: 12/01/22 08:38 Dose: Not Given Documented By: LUKASZ Non-Admin Reason: med already given Multivitamins/Vitamin C (Multivitamin Tablet) 1 tab PO DAILY [facility] Last Admin: 12/01/22 07:51 Dose: 1 tab Documented By: LUKASZ Ondansetron HCl (Ondansetron Hcl 4 Mg/2 Ml Vial) 4 mg IVPUSH Q8H PRN PRN Reason: Nausea and Vomiting Ondansetron HCl (Ondansetron Hcl 4 Mg/2 Ml Vial) 4 mg IVPUSH ONCE PRN PRN Reason: Nausea and Vomiting Ondansetron HCl (Ondansetron Hcl 4 Mg/2 Ml Vial) 4 mg IVPUSH ONCE PRN PRN Reason: Nausea and Vomiting Prednisone (Prednisone 20 Mg Tablet) 60 mg PO DAILY [facility] Last Admin: 12/01/22 08:41 Dose: Not Given Documented By: LUKASZ Non-Admin Reason: Administered by Alternate Route Sodium Chloride (0.9 % Sodium Chloride Flush 3 Ml Syringe) [facility] Last Admin: 12/01/22 07:53 Dose: 3 ml Documented By: LUKASZ Labs 12/01/22 05:26 12/01/22 05:26 Labs: Laboratory Results - last 24 hr 11/30/22 11/30/22 12/01/22 17:13 23:26 05:26 MCV 85.2 MCH 26.6 L MCHC 31.2 RDW 19.5 H Plt Count 542 H MPV 10.3 Absolute Nucleated RBC 0.350 H Nucleated RBC % (auto) 3.4 H aPTT Heparin Protocol 72.7 D 58.0 D Anion Gap Estim Creat Clear Calc Estimated GFR Random Glucose Calcium C-Reactive Protein 12/01/22 12/01/22 12/01/22 05:26 05:26 05:26 MCV Cancelled MCH Cancelled MCHC Cancelled RDW Cancelled Plt Count Cancelled MPV Cancelled Absolute Nucleated RBC Cancelled Nucleated RBC % (auto) Cancelled aPTT Heparin Protocol Anion Gap 12 Estim Creat Clear Calc 127.9 Estimated GFR > 60 Random Glucose 103 Calcium 8.5 C-Reactive Protein 18.33 H 12/01/22 05:26 MCV MCH MCHC RDW Plt Count MPV Absolute Nucleated RBC Nucleated RBC % (auto) aPTT Heparin Protocol 53.2 Anion Gap Estim Creat Clear Calc Estimated GFR Random Glucose Calcium C-Reactive Protein Assessment and Plan (1) Acute occlusion of artery of lower extremity: Status: Acute (2) Ulcerative colitis: Status: Acute Plan 47M PMH htn, katherine, ulcerative colitis admitted with acute arterial thrombosis in RLE Acute occlusion of artery of right lower extremity S\P thrombolysis and plasty w Balloon placement change to eliquis Vascular surgery following will need hypercoagulability work up after finishing Heparin therapy ASHLEY with bicuspid AV, no source of thromboembolism plan for outpatient event monitor plan for acute rehab Acute on chronic blood loss anemia 2/2 GI bleed from Ulcerative colitis w acute exacerbation Hb now at 8.5 after transfusion of total 5 units prednisone taper Continue Pentasa - increased to 1gm qid DVT PPx eliquis full code reason for continued hospitalization:awaiting acute rehab Time Spent With Patient Time: Total time managing care of this patient today ____ minutes. Quality Stroke Does the patient have a stroke diagnosis?: No VTE Prior VTE?: No VTE Risk Level:: Medical - moderate - high VTE Device Contraindication: Treatment Not Indicated VTE Drug Contraindication: N/A - Med Ordered
--- NOTE | 2022-12-01 11:44 | PM.DS ---
DS: Providers Provider Date of Service: 12/01/22 Date of admission: 11/25/22 12:18 Primary care physician: Ihsan Astudillo MD Consults: 11/25/22 07:49 Consult to Gastroenterology Stat Consulting Provider: Yobany Alves Reason for consultation: gi bleed 11/25/22 12:45 Consult to Vascular Surgery Routine Consulting Provider: [facility] Reason for consultation: Occluded right popliteal artery 11/30/22 09:40 Consult to Neurology Routine Consulting Provider: [facility] Reason for consultation: Neuropathy status post ischemia to lower extremity Has provider been notified: No DS: Diagnosis Discharge Diagnosis (1) Acute occlusion of artery of lower extremity: Status: Acute (2) Ulcerative colitis: Status: Acute DS: Summary Hospital Course Hospital Course: from initial hpi: Chief Complaint: Right leg numbness Pt is a 47-year-old male with a PMH significant for?ulcerative colitis, hx of severe anemia requiring transfusions, HTN, GERD, and ARTIS who presents to the ED with?pain and numbness in right leg for the past 3 days.? Patient states that he visited the [facility] for 1 week from last Tuesday until yesterday.? Approximately 3 4 days ago patient began experiencing pain and tingling in his right leg that increased in intensity with walking.? Patient with then removed his shoe and massage his right lower leg and calf which restored station and relieved the pain.? [place] the airport and had to keep his shoes on the whole day. Pt reports the pain in his right foot increased in intensity until it became unbearable and his foot eventually became completely numb. Pt also experienced lightheadedness, dizziness, nausea, and diaphoresis at this time.? He then decided to come to the ED when he returned home.? Patient currently says that his pain is now much better and rates it a 1-2. Pt also denies numbness and tingling now that he is lying in a bed without his shoes on. Of note, patient has a long history of ulcerative colitis for which he takes mesalamine, followed by Dr. Alves. Pt was recently admitted to the hospital for a UC flare on 11/08/2022, primarily complaining of severe abdominal pain and hematochezia.? Patient was sent home on a prednisone taper and an increase in his mesalamine.? Patient states that since discharge he has been feeling much better, currently does not complain of any abdominal pain, states his bowel movements have been formed and without blood the past few days.? Patient has had a good appetite and been able to tolerate p.o. fluids and solids without limitations. In the ED patient was afebrile but tachycardic up to 126, and tachypneic up to 21, and hypertensive up to 150/86. Labs were significant for severe anemia of 5.1/17.? Electrolytes WNL.? Renal function baseline.? Hepatic function baseline.? Stool negative for occult blood. Arterial ultrasound of right lower leg showed likely occlusion of peroneal artery throughout the calf and diminished flow in the posterior tibial artery toward the ankle. CT angiogram with runoff showed complete occlusion of the right popliteal artery with a 4 mm calcification either within or adjacent to popliteal artery.? CTA also showed mild pericolonic stranding suspicious of colitis.? Pt was treated with 2 units of PRBCs, and will be placed on a heparin drip in the ICU.? Pt will be admitted to the hospital for treatment and further evaluation of occluded popliteal artery of right leg. hospital course: Patient was admitted for acute occlusion of right lower extremity artery. Underwent thrombolysis and angioplasty with balloon placement. He was treated with IV heparin and eventually transitioned to p.o. Eliquis. He will continue 10 mg b.i.d. until 12/04/2022 and then decrease to 5 mg b.i.d.. He was seen and followed by vascular who recommended outpatient follow-up. He was seen by Cardiology who performed ASHLEY which showed bicuspid aortic valve but no source of thromboembolism. Recommended outpatient follow-up for event monitor. Was seen by physical therapy recommended acute rehab. Patient also presented with acute on chronic blood loss anemia due to GI bleed from ulcerative colitis with acute exacerbation. He received total 5 units PRBC, hemoglobin improved to about 8. He was seen by GI who recommended prolonged prednisone taper. His starting at 60 mg daily and will decrease by 10 mg per day every week. His mesalamine was increased to 1 g q.i.d.. He will follow up with GI as outpatient. Patient is feeling better will be discharged to acute rehab. Time Spent with Patient Time attestation: Total time managing care of this patient today ____ minutes. Discharge coordination time: Greater than 30 minutes Quality: Safe Use of Opioids Does Pt have an Active Cancer Diagnosis on the Problem List?: No Quality: Stroke Does the patient have a stroke diagnosis?: No Physical Exam Vital Signs: Vital Signs: Last Vital Signs Temp 97.7 F 12/01/22 06:55 Pulse 89 12/01/22 06:55 Resp 20 12/01/22 06:55 BP 158/90 H 12/01/22 06:55 Pulse Ox 97 12/01/22 06:55 O2 Del Method Room Air 12/01/22 06:55 BMI result Body Mass Index 32.1 General: AO X 3, no acute distress Resp: CTA bilateral, no accessory muscles used CVS: S1,S2,RRR GI: soft, non tender, non distended Neuro: motor grossly intact, alert Psych: appropriate affect, appropriate insight rle dusky 4-5 toes DS: Data Data Completed and Pending Completed studies during hospitalization [Text1]: Procedures Excision of Rectum, Via Natural or Artificial Opening Endoscopic, Diagnostic (01/03/22) Excision of Sigmoid Colon, Via Natural or Artificial Opening Endoscopic, Diagnostic (01/03/22) Transfusion of Nonautologous Red Blood Cells into Peripheral Vein, Percutaneous Approach (01/03/22) Labs on day of discharge: Laboratory Results - last 24 hr 11/30/22 11/30/22 12/01/22 17:13 23:26 05:26 WBC 10.2 RBC 3.05 L Hgb 8.1 L Hct 26.0 L MCV 85.2 MCH 26.6 L MCHC 31.2 RDW 19.5 H Plt Count 542 H MPV 10.3 Absolute Nucleated RBC 0.350 H Nucleated RBC % (auto) 3.4 H aPTT Heparin Protocol 72.7 D 58.0 D Sodium Potassium Chloride Carbon Dioxide Anion Gap BUN Creatinine Estim Creat Clear Calc Estimated GFR Random Glucose Calcium C-Reactive Protein 12/01/22 12/01/22 12/01/22 05:26 05:26 05:26 WBC Cancelled RBC Cancelled Hgb Cancelled Hct Cancelled MCV Cancelled MCH Cancelled MCHC Cancelled RDW Cancelled Plt Count Cancelled MPV Cancelled Absolute Nucleated RBC Cancelled Nucleated RBC % (auto) Cancelled aPTT Heparin Protocol Sodium 137 Potassium 4.3 Chloride 101 Carbon Dioxide 28 Anion Gap 12 BUN 10 Creatinine 0.81 Estim Creat Clear Calc 127.9 Estimated GFR > 60 Random Glucose 103 Calcium 8.5 C-Reactive Protein 18.33 H 12/01/22 05:26 WBC RBC Hgb Hct MCV MCH MCHC RDW Plt Count MPV Absolute Nucleated RBC Nucleated RBC % (auto) aPTT Heparin Protocol 53.2 Sodium Potassium Chloride Carbon Dioxide Anion Gap BUN Creatinine Estim Creat Clear Calc Estimated GFR Random Glucose Calcium C-Reactive Protein Discharge Plan Discharge Anticipated Discharge Date/Time: 12/01/22 11:36 Patient Disposition: Xfer Inpatient Rehab Fac Discharge Diagnosis: acute ischemic limb Referrals: [facility] [Outside] - 1 Week Ihsan Astudillo MD [Primary Care Provider] - 1 Week Discharge Medications: New Eliquis 5 mg Tablet 10 mg PO BID Qty: 60 0RF Rx Instructions: decrease to 5mg bid on 12/04/22 prednisone 20 mg Tablet 60 mg PO DAILY Qty: 0 0RF Rx Instructions: taper by 10mg/day every week (6 weeks total) mesalamine [Delzicol] 400 mg Capsule (With Del Rel Tablets) 1,000 mg PO QID Qty: 0 0RF oxycodone 5 mg tablet 5 mg PO Q6H PRN (Reason: moderate pain (scale score 5-6)) Qty: 14 0RF Rx Instructions: Partial Fill upon patient request. Continued ferrous sulfate 325 mg (65 mg iron) tablet 325 mg PO DAILY 30 Days Qty: 30 2RF multivitamin Tablet 1 tab PO QAM 30 Days Qty: 30 2RF vitamin B complex Tablet 1 tab PO DAILY 30 Days Qty: 30 3RF Discontinued prednisone 10 mg tablet 10 mg PO DAILY Qty: 70 0RF Rx Instructions: prednisone 40 mg (4 tabs x 10mg )by mouth daily x1 week prednisone 30 mg (3 tabs x 10mg )by mouth daily x1 week prednisone 20 mg (2 tabs x 10mg )xby mouth daily x1 week prednisone 10 mg by mouth daily x1 week mesalamine 400 mg capsule (with del rel tablets) 800 mg PO TID Discharge Orders: Discharge Order (Routine); Ordered 12/01/22 Ordered By: Fede Brewer Diet: Advance to usual diet Activity on Discharge: As tolerated Stand Alone Forms: Patient Portal Discharge page Care Plan Goals: recovery Health Concerns: RLE arterial thromboembolism, UC flare Plan of Treatment: eliquis as prescribed (decrease to 5mg bid 6/10/23), prednisone taper as prescribed, follow up with cardio (for event monitor) and GI and vascular. monitor for worsening pain/discoloration and increased bleeding Assessment: see above
[2022-12-01 11:46] VITALS: BP 155/90; PULSE 95; RESP 20; TEMP 36.3; O2SAT 96
[2022-12-01 12:41] LABS: COVID-19 Test Negative (Negative); IDNOW Serial# 9DB6401D
[2022-12-01] MEDS: Mesalamine 250 MG CAPSULE.ER 1000 MG PO ×2 (14:05→17:09)
--- NOTE | 2022-12-01 14:33 | HO.POSTANES ---
Post Anesthesia Evaluation Post Anesthesia Evaluation Date of Service: 12/01/22 Vital Signs: Vital Signs Temp Pulse Resp BP Pulse Ox O2 Del Method 12/01/22 13:41 Room Air 12/01/22 11:46 97.4 F 95 20 155/90 H 96 Room Air 12/01/22 06:55 97.7 F 89 20 158/90 H 97 Room Air 12/01/22 03:47 98.5 F 93 18 147/85 H 97 Room Air Anesthesia: Monitored Mental Status: Awake Pain Control: Satisfactory Nausea/Vomiting: None Hydration: Adequate Anesthesia-Related Issues: No Anes. Related Issues
[2022-12-01 14:59] VITALS: BP 151/91; PULSE 112; RESP 20; TEMP 36.1; O2SAT 98
--- NOTE | 2022-12-01 16:10 | MHC.CM.PN ---
Patient has been medically cleared for dc to Acute Rehab today. Patient will dc to [facility] today at 5:30 PM, via [facility].
[2022-12-04 21:37] LABS: Calprotectin, Fecal 2940 mcg/g
== END 2022-12-01 17:46 | DRG 181 ==
LOC: HO.ED 13:03 → HO.EDOVER 13:08 → HO.ICU 15:31 → HO.IMC 11-26 09:41
PROVIDERS: Internal Medicine; Internal Medicine Cardiovascular Disease; Internal Medicine Pulmonary Disease; Nurse Practitioner Family; Student in an Organized Health Care Education/Training Program; Surgery Vascular Surgery; Admitting Provider Student in an Organized Health Care Education/Training Program; Emergency Provider Emergency Medicine Emergency Medical Services; PCP Family Medicine; Visit Provider Internal Medicine
PROC: 3E05317 Introduction of Other Thrombolytic into Peripheral Artery, Percutaneous Approach (ICD-10-PCS; principal; 2022-11-25 13:00)
PROC: 047P3Z1 Dilation of Right Anterior Tibial Artery using Drug-Coated Balloon, Percutaneous Approach (ICD-10-PCS; principal; 2022-11-26 07:30)
PROC: B24BZZ4 Ultrasonography of Heart with Aorta, Transesophageal (ICD-10-PCS; CPT 93312; principal; 2022-11-30 14:00)
DX: I74.3 Embolism and thrombosis of arteries of the lower extremities (principal); D62 Acute posthemorrhagic anemia; G58.9 Mononeuropathy, unspecified; Q23.1 Congenital insufficiency of aortic valve; K51.911 Ulcerative colitis, unspecified with rectal bleeding; K21.9 Gastro-esophageal reflux disease without esophagitis; G47.33 Obstructive sleep apnea (adult) (pediatric); Z79.899 Other long term (current) drug therapy
CPT/HCPCS: 36415; 37212; 37214; 37224; 75635; 75898; 76937; 80048; 80053; 82040; 82272; 83735; 83993; 84100; 85014; 85018; 85025; 85027; 85384; 85610; 85611; 85730; 85732; 86140; 86850; 86900; 86901; 86923; 87493; 87635; 93306; 93308; 93926; 97110; 97162; 97166; 97530; 97535; 99152; 99153; 99284; C1725; C1751; C1760; C1769; C1776; C1887; C1894; C2623; J1170; J1643; J2250; J2270; J2930; J2997; J3010; P9016; P9047; Q9967

== ENCOUNTER 2023-02-21 15:12 | Outpatient (AMB) | payer BC, SELFPAY ==
--- NOTE | 2023-02-21 15:23 | MHC.OFFVIS ---
Intake Vital Signs 02/21/23 15:26 Height 5 ft 8 in Weight 190 lb BMI 28.9 BP 134/94 H Blood Pressure Location Lt brachial Position Sitting Pulse 94 Intake Visit Reasons: follow up missed in November Intake Note: Gonzales presents in the office as a follow up. CC: He states that since the mesalamine and prednisone he states that he is feeling a lot better!! Public Relations Required: No Allergies shellfish derived Allergy (Verified 11/25/22 05:40) Swelling HPI follow up missed in November HPI Details 47 yr old m being seen for f/u RECAP: Last seen by me 08/2019 ?He was admitted? with anemia and diarrhea ?EGD and colonoscopy with? colitis ?suspected UC ?c diff neg, celiac neg ?crp? 2.71 He was doing much better at that time He then had admission 12/2021 with tenesmus and rectal bleeding sigmoidoscopy with chronic appearing changes and ulcerations path: ?Chronic colitis with moderate activity; negative for dysplasia. He was d/c'ed with long pred taper and mesalamine TID, iron tabs He had further 2 admissions October and November 2022 with colitis flare, last admission complicated by DVT ?INTERIM: He is on another steroid short course he was on pentasa then back on mesalamine TID stool is solid now no blood no abdominal pain no stool urgency back home now, has wound infection around amputation stump with vacuum in place he denies joint pain or swelling ?no mouth ulcers, not smoking at this time ? EXAM: GENERAL: The patient is well developed and nontoxic, amputated right leg below knee VITAL SIGNS:see workflow HEENT: Nonicteric sclerae, PERRLA, EOMI. Oropharynx clear. Moist mucous membranes. Conjunctivae appear well perfused. No thyroid mass. CHEST: Chest wall is nontender. HEART: Regular rate and rhythm without murmurs. LUNGS: Clear to auscultation bilaterally. ABDOMEN: Soft, positive bowel sounds, nontender, no organomegaly.no flank tenderness SKIN: vacuum in place NEUROLOGIC: Cranial nerves II-XII intact without motor/sensory deficit. A?P: 1/ UC-- complicated by clot and gangrene, issues wiht compliance in the past PLAN: 1/ rechekc labs incl CRP and trend fecal lactoferrin 2. commence budesonide and change to apriso 3. TB spot and hep screen ? 4. eventually transition to biologic, prob entyvio 5. will need pneumovax and zoster shots, [facility] Medical History Diverticulitis GERD (gastroesophageal reflux disease) GI bleeding Hypertension Sleep apnea Ulcerative colitis Surgical History Hx of amputation below knee Hx of colonoscopy Family History Mother Heart disease COPD (chronic obstructive pulmonary disease) Social History Household Members: None Housing: House Do you presently have visiting nurse or other home services: No Alcohol intake: current Alcohol intake frequency: a few times a week Alcohol type: hard liquor Patient Tobacco Use Status: Never used Tobacco Second Hand Smoke Exposure: No service: No Current occupational status: employed Physical Exam Vital Signs: Last Vital Signs Pulse 94 02/21/23 15:26 BP 134/94 H 02/21/23 15:26 BMI result Body Mass Index 28.9 Assessment & Plan Assessment & Plan (1) PAD (peripheral artery disease): Code(s): I73.9 - Peripheral vascular disease, unspecified (2) Ulcerative colitis: Code(s): K51.90 - Ulcerative colitis, unspecified, without complications Orders: Orders Lactoferrin, Fecal, Quant. Today I73.9 - Peripheral vascular disease, unspecified, K51.50 - Left sided colitis without complications, K51.90 - Ulcerative colitis, unspecified, without complications Comprehensive Met. Panel Today I73.9 - Peripheral vascular disease, unspecified, K51.90 - Ulcerative colitis, unspecified, without complications, K75.81 - Nonalcoholic steatohepatitis (ANDINO) C Reactive Protein Today I73.9 - Peripheral vascular disease, unspecified, K51.90 - Ulcerative colitis, unspecified, without complications Ferritin Today I73.9 - Peripheral vascular disease, unspecified, K51.90 - Ulcerative colitis, unspecified, without complications Complete Blood Count Auto Diff Today I73.9 - Peripheral vascular disease, unspecified, K51.90 - Ulcerative colitis, unspecified, without complications Hepatitis A,B,C Profile Today I73.9 - Peripheral vascular disease, unspecified, K51.90 - Ulcerative colitis, unspecified, without complications T Spot TB Today I73.9 - Peripheral vascular disease, unspecified, K51.90 - Ulcerative colitis, unspecified, without complications Hepatitis A IgG Today K51.90 - Ulcerative colitis, unspecified, without complications Medications: New budesonide ER 9 mg (3 x 3 mg) PO DAILY 90 ea 1RF mesalamine ER (Apriso) 1.5 grams (4 x 0.375 gram) PO QAM 240 caps 1RF Discontinued mesalamine 1,600 mg (4 x 400 mg) PO TID 10 ea 0RF Coding Level of Care Code Est Pt Level 4 (44754) Diagnoses PAD (peripheral artery disease) I73.9 Ulcerative colitis K51.90
[2023-02-21 15:26] VITALS: BP 134/94; PULSE 94; BMI 28.9
== END 2023-02-21 15:53 | disposition home or self-care (01) ==
PROVIDERS: PCP Family Medicine; Visit Provider Internal Medicine Gastroenterology
DX: I73.9 Peripheral vascular disease, unspecified (principal); K51.90 Ulcerative colitis, unspecified, without complications
CPT/HCPCS: 99214

== ENCOUNTER 2023-02-21 15:12 | Outpatient (REF) | payer BC, SELFPAY ==
[2023-02-21 16:17] LABS: MANUAL DIFF FLAG NO
[2023-02-21 17:45] LABS: Basophils Percent Auto 0.3 % (0-2); Hematocrit 26.8 % (42.0-52.0); Hemoglobin 7.6 g/dl (14.0-18.0); Imm Gran Abs Auto 0.19 X10*3/uL (0.00-0.03); Lymphocytes Absolute Auto 0.7 X10*3/uL (1.2-4.9); Lymphocytes Percent Auto 7.7 % (20-40); Mean Corpuscular HGB Conc 28.4 g/dl (31.0-36.0); Mean Corpuscular Hemoglobin 23.9 pg (27.0-33.0); Mean Corpuscular Volume 84.3 fL (80.0-98.0); Mean Platelet Volume 9.4 fL (9.4-12.4); Monocytes Absolute Auto 0.2 X10*3/uL (0.1-1.2); Monocytes Percent Auto 1.7 % (2-11); Neutrophils Absolute Auto 8.5 x10*3/uL (2.0-8.3); Neutrophils Percent Auto 88.3 % (45-73); Red Blood Count 3.18 X10*6/uL (4.60-5.80); Red Cell Distribution Width 16.4 % (11.0-16.0); White Blood Count 9.6 X10*3/uL (4.8-10.8)
[2023-02-21 18:06] LABS: Alanine Aminotransferase 21 U/L (0-40); Albumin Level 3.9 g/dL (3.5-5.0); Alkaline Phosphatase 79 U/L (39-117); Anion Gap 14 (12-20); Aspartate Amino Transferase 17 U/L (5-37); Bilirubin Total 0.2 mg/dL (0.0-1.0); Blood Urea Nitrogen 13 mg/dL (9-16); C Reactive Protein 0.25 mg/dL (< or = 0.50); Calcium 9.5 mg/dL (8.4-10.2); Carbon Dioxide 24 mmol/L (22-29); Chloride 105 mmol/L (96-108); Estimated Glomerular Filt Rate > 60; Glucose Random 120 mg/dL (60-115); Iron 218 mcg/dL (45-160); Percent Iron Saturation 62 % (15-50); Sodium 139 mmol/L (135-145); Total Iron Binding Capacity 350 mcg/dL (228-428); Total Protein 7.3 g/dL (6.5-8.0); Unsaturated Iron Binding 132 ug/dL
[2023-02-21 18:29] LABS: Ferritin 19 ng/mL (20-250)
[2023-02-21 18:39] LABS: NRBC Pct Auto 1.8 /100WBC (0.0-0.2)
[2023-02-21 18:40] LABS: Folate 14.8 ng/mL (> or = 4.0); Vitamin B12 468 pg/mL (200-900)
[2023-02-21 18:42] LABS: Platelet Count 1059 X10*3/uL (160-400)
[2023-02-22 04:24] LABS: Hepatitis A Antibody IgG REACTIVE (Nonreactive); ~Hepatitis A Antibody IgG 10.41 S/CO (0.00-0.99)
[2023-02-22 04:31] LABS: HBS Num1 0.25 mIU/mL (0-7.99); HBc Num1 0.09 S/CO (0.00-0.79); HBsAGNum1 0.33 S/CO (0.00-0.99); Hepatitis B Core Antibody Nonreactive (Nonreactive); Hepatitis B Surface Antigen Negative (Negative); ~HepC Num1 0.12 S/CO (0.00-0.79); ~Hepatitis A Antibody IgM Nonreactive (Nonreactive); ~Hepatitis B Surface Antibody NONREACTIVE (Nonreactive); ~Hepatitis C Antibody Nonreactive (Nonreactive)
[2023-02-23 22:44] LABS: TS Negative Control Passed; TS Panel A 0; TS Panel B 0; TS Positive Control Passed; TSpotTB Negative (Negative)
== END 2023-02-21 15:13 | disposition home or self-care (01) ==
LOC: HO.LAB 15:12
PROVIDERS: PCP Family Medicine; Visit Provider Internal Medicine Gastroenterology
DX: Z00.00 Encounter for general adult medical examination without abnormal findings (principal); K75.81 Nonalcoholic steatohepatitis (NASH); I73.9 Peripheral vascular disease, unspecified; K51.90 Ulcerative colitis, unspecified, without complications; K51.50 Left sided colitis without complications; R19.7 Diarrhea, unspecified; K92.2 Gastrointestinal hemorrhage, unspecified; D64.9 Anemia, unspecified
CPT/HCPCS: 36415; 80053; 82607; 82728; 82746; 83540; 85025; 86140; 86481; 86704; 86706; 86708; 86709; 86803; 87340

== ENCOUNTER 2023-02-21 19:34 | Emergency (ER) | payer BC, SELFPAY ==
[2023-02-21 19:41] VITALS: BP 135/87; PULSE 105; RESP 18; TEMP 36.4; O2SAT 99; BMI 28.9
--- NOTE | 2023-02-21 19:42 | ED.GENADULT ---
HPI - General Adult General Chief complaint: Recheck/Abnormal Lab/Rx Stated complaint: emergency blood work Time Seen by Provider: 02/21/23 19:56 Source: patient, RN notes reviewed and old records reviewed Mode of arrival: wheelchair Limitations: no limitations History of Present Illness HPI narrative: 47-year-old male past medical history significant for peripheral artery disease, status post BKA (November of 2022), obstructive sleep apnea, diff colitis, GERD presents for evaluation of ?abnormal labs. ? Patient reports that he had routine stone by his GI doctor today. He was told that his ?platelet count was 1000. ? Patient reports that he feels well and has no complaints He admits that he had some rectal bleeding last week but was given prednisone by his GI doctor and this has resolved. The patient had outpatient labs that are in our computer showing a count of 1,059,000 On review of the patient's externa records, he has a long history of thrombocytosis with a platelet count usually of 500k to 700k. She has been as high as 850 K in the past dating back to August 262019 Patient has never had a splenectomy Related Data Home Medications Medication Instructions Recorded Confirmed atorvastatin 80 mg tablet 80 mg PO DAILY 02/21/23 lisinopril 10 mg tablet mg PO 02/21/23 mesalamine 400 mg capsule (with 1,200 mg PO QID 02/21/23 delayed release tablets inside) (Delzicol) multivitamin with folic acid 400 1 tab PO DAILY 02/21/23 mcg tablet (Daily-Donna (with folic acid)) Previous Rx's Medication Instructions Recorded oxycodone 5 mg tablet 5 mg PO Q6H PRN moderate pain 12/01/22 (scale score 5-6) #14 tabs miscellaneous medical supply See Rx Instructions miscellaneous 12/29/22 .COMPLEX #1 ea multivitamin 1 tab PO QAM 30 days #90 tabs 01/20/23 vitamin B complex 1 tab PO DAILY 30 days #30 tabs 02/03/23 ferrous sulfate 325 mg (65 mg 325 mg PO DAILY 30 days #30 tabs 02/14/23 iron) tablet prednisolone 5 mg tablet 40 mg PO DAILY 7 days #56 tabs 02/16/23 budesonide 3 mg 9 mg PO DAILY #90 ea 02/21/23 capsule,delayed,extended release mesalamine 0.375 gram 1.5 g PO QAM #240 caps 02/21/23 capsule,extended release 24 hr (Apriso) Allergies Allergy/AdvReac Type Severity Reaction Status Date / Time shellfish derived Allergy Swelling Verified 02/21/23 19:46 Review of Systems Constitutional: Constitutional: Denies chills, Denies fever(s) and Denies headache(s) Eyes: Eyes: Denies blurry vision ENT: Denies headache(s) Cardiovascular: Cardiovascular: Denies chest pain and Denies dyspnea Respiratory: Respiratory: Denies cough and Denies dyspnea Gastrointestinal: Gastrointestinal: Denies abdominal pain, Denies nausea and Denies vomiting Musculoskeletal: Musculoskeletal: Denies back pain Integumentary/Breasts: Comments: Wound VAC on Right lower leg Neurologic: Denies headache(s) Psychiatric: Psychiatric: Denies depression PMFSH Past Medical History Medical History Diverticulitis GERD (gastroesophageal reflux disease) GI bleeding Hypertension Sleep apnea Ulcerative colitis Surgical History Hx of amputation below knee Hx of colonoscopy Family History Family History Mother Heart disease COPD (chronic obstructive pulmonary disease) Social History Social History Household Members: None Housing: House Do you presently have visiting nurse or other home services: No Alcohol intake: never Patient Tobacco Use Status: Never used Tobacco Smoked in Last 30 Days: No Second Hand Smoke Exposure: No Use of substances other than those prescribed or required for medical reasons: No Advance Directives: No Advance Directives Information Provided: No service: No Current occupational status: employed Physical Exam ED Vital Signs: Vital Signs - 24 hr 02/21/23 19:41 Temperature 97.6 F Pulse Rate 105 H Respiratory Rate 18 Blood Pressure 135/87 Pulse Oximetry 99 Oxygen Delivery Method Room Air BMI result Body Mass Index 28.9 Const General: healthy appearing, comfortable, no acute distress, alert and awake Nutritional Appearance: well nourished Orientation/consciousness: patient oriented x3 HENMT Head: Yes normocephalic and Yes atraumatic Eyes Eyelids: Yes eyelids normal Conjunctivae: conjunctivae normal Sclerae: sclerae normal Corneas: corneas normal Pupils: Equal, round and reactive pupils present EOM: EOMs intact bilaterally Neck Neck: Yes full ROM Resp Effort & Inspection: normal respiratory effort, able to speak in complete sentences and not labored GI Inspection: No distended Palpation (GI): Soft to palpation, not firm, nontender, no guarding and not rigid Auscultation: normoactive bowel sounds Skin General skin exam: no rashes or lesions noted and elasticity normal Neuro General: patient oriented x3 Cranial nerves: Yes Equal, round and reactive pupils present and Yes Bilaterally intact EOM present Cognition (Neuro): normal cognition Extrem Other: Wound VAC on right lower extremity Course Course Course Narrative: This is an RME: Additional HPI, ROS, PE not included below will be deferred to primary provider. 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 He had a right leg below the knee amputation December 12 and reports that today it feels tingly. Denies headaches, dizziness, nausea, vomiting. Plan- sending patient back Medical Decision Making Medical Decision Making [facility] Narrative: 47-year-old male presents for evaluation of thrombocytosis. This appears to have been a chronic issue that has not been addressed this point. Will repeat labs and likely consult heme Onc. The patient currently has no complaints. Differential Diagnosis Differential Diagnoses: The differential diagnosis associated with the presentation includes Thrombocytosis Mild dysplastic syndrome Coagulopathy Iron deficiency anemia Admission/Observation Consideration of admission/observation: Escalation of care including admission/observation considered Repeat platelet count [id number] in the ER today. Consult Healthcare Provider Management of the patient was discussed with: Clinical Audiologist Clinical Audiologist with Hematology-Oncology Dr Ortiz. She recommends the patient can be discharged to follow-up as an outpatient. She recommends treating the patient's low iron. She feels that the elevated iron may be related to the patient's recent GI bleed and may be reactive to this. He does report that he takes iron supplementation daily. Will given extra dose of iron. Lab Data [facility] Lab Attestation statement: I reviewed the patient's lab results. Patient has acute on chronic anemia with a hemoglobin of 7.1 and hematocrit 24.1. He does state that he had GI bleed all last week which has improved since Tuesday. Patient's platelet count in the ER is [id number]. No significant electrolyte abnormalities with a sodium of 141 potassium 3.7, normal renal function. Patient's iron is low at 21 micro g per dL and 7% saturation. 02/21/23 20:30 02/21/23 20:30 Labs: Lab Results 02/21/23 Range/Units 20:30 WBC 9.8 (4.8-10.8) X10*3/uL RBC 2.89 L (4.60-5.80) X10*6/uL Hgb 7.1 L (14.0-18.0) g/dl Hct 24.1 L (42.0-52.0) % MCV 83.4 (80.0-98.0) fL MCH 24.6 L (27.0-33.0) pg MCHC 29.5 L (31.0-36.0) g/dl RDW 16.3 H (11.0-16.0) % Plt Count 900 H (160-400) X10*3/uL MPV 9.1 L (9.4-12.4) fL Immature Gran % (Auto) 2.1 H (0.0-0.4) % Neut % (Auto) 74.4 H (45-73) % Lymph % (Auto) 15.3 L (20-40) % Prentiss % (Auto) 7.8 (2-11) % Eos % (Auto) 0.1 (0-4) % Baso % (Auto) 0.3 (0-2) % Lymph # (Auto) 1.5 (1.2-4.9) X10*3/uL Prentiss # (Auto) 0.8 (0.1-1.2) X10*3/uL Eos # (Auto) 0.0 (0.0-0.4) X10*3/uL Baso # (Auto) 0.0 (0.0-0.2) X10*3/uL Abs Immat Gran (auto) 0.21 H (0.00-0.03) X10*3/uL Absolute Neuts (auto) 7.3 (2.0-8.3) x10*3/uL Absolute Nucleated RBC 0.230 H (0.0-0.012) X10*3/uL Nucleated RBC % (auto) 2.3 H (0.0-0.2) /100WBC Discharge Plan Discharge Clinical Impression: Chronic iron deficiency anemia, Thrombocytosis Patient Disposition: Home, Self-Care Instructions: Iron Deficiency Anemia (ED) Additional Instructions: Your platelet count today is [id number] in the ER. Your iron was low and your given iron supplementation. Continue all other medications as prescribed You need to follow-up with hematology/oncology Call the offices of Dr. Ortiz tomorrow morning Prescriptions: No Action miscellaneous medical supply Misc See Rx Instructions miscellaneous .COMPLEX Qty: 1 0RF Rx Instructions: 1 wheelchair cushion multivitamin Tablet 1 tab PO QAM 30 Days Qty: 90 0RF vitamin B complex Tablet 1 tab PO DAILY 30 Days Qty: 30 3RF ferrous sulfate 325 mg (65 mg iron) tablet 325 mg PO DAILY 30 Days Qty: 30 2RF prednisolone 5 mg tablet 40 mg PO DAILY 7 Days Qty: 56 0RF oxycodone 5 mg tablet 5 mg PO Q6H PRN (Reason: moderate pain (scale score 5-6)) Qty: 14 0RF Rx Instructions: Partial Fill upon patient request. atorvastatin 80 mg tablet 80 mg PO DAILY lisinopril 10 mg tablet PO multivitamin with folic acid [Daily-Donna (with folic acid)] 400 mcg tablet 1 tab PO DAILY mesalamine [Delzicol] 400 mg capsule (with del rel tablets) 1,200 mg PO QID budesonide 3 mg capsule,delayed,extend.release 9 mg PO DAILY Qty: 90 1RF mesalamine [Apriso] 0.375 gram capsule,extended release 24hr 1.5 g PO QAM Qty: 240 1RF Referrals: Quin Ortiz MD [Physician] - (Thrombocytosis)
[2023-02-21 20:34] LABS: MANUAL DIFF FLAG NO
[2023-02-21 20:40] LABS: Basophils Percent Auto 0.3 % (0-2); Eosinophils Percent Auto 0.1 % (0-4); Hematocrit 24.1 % (42.0-52.0); Hemoglobin 7.1 g/dl (14.0-18.0); Imm Gran Abs Auto 0.21 X10*3/uL (0.00-0.03); Imm Gran Pct Auto 2.1 % (0.0-0.4); Lymphocytes Absolute Auto 1.5 X10*3/uL (1.2-4.9); Lymphocytes Percent Auto 15.3 % (20-40); Mean Corpuscular HGB Conc 29.5 g/dl (31.0-36.0); Mean Corpuscular Hemoglobin 24.6 pg (27.0-33.0); Mean Corpuscular Volume 83.4 fL (80.0-98.0); Mean Platelet Volume 9.1 fL (9.4-12.4); Monocytes Absolute Auto 0.8 X10*3/uL (0.1-1.2); Monocytes Percent Auto 7.8 % (2-11); Neutrophils Absolute Auto 7.3 x10*3/uL (2.0-8.3); Neutrophils Percent Auto 74.4 % (45-73); Platelet Count 900 X10*3/uL (160-400); Red Blood Count 2.89 X10*6/uL (4.60-5.80); Red Cell Distribution Width 16.3 % (11.0-16.0); White Blood Count 9.8 X10*3/uL (4.8-10.8)
[2023-02-21 20:41] LABS: NRBC Pct Auto 2.3 /100WBC (0.0-0.2)
[2023-02-21 20:51] LABS: Alanine Aminotransferase 17 U/L (0-40); Albumin Level 3.7 g/dL (3.5-5.0); Alkaline Phosphatase 74 U/L (39-117); Anion Gap 13 (12-20); Aspartate Amino Transferase 17 U/L (5-37); Bilirubin Total 0.2 mg/dL (0.0-1.0); Blood Urea Nitrogen 14 mg/dL (9-16); Calcium 8.9 mg/dL (8.4-10.2); Carbon Dioxide 26 mmol/L (22-29); Chloride 106 mmol/L (96-108); Creatinine Clr Calc Pharmacy 136.9; Estimated Glomerular Filt Rate > 60; Glucose Random 125 mg/dL (60-115); Potassium 3.7 mmol/L (3.3-5.1); Sodium 141 mmol/L (135-145); Total Protein 6.9 g/dL (6.5-8.0)
[2023-02-21 20:52] LABS: C Reactive Protein 0.22 mg/dL (< or = 0.50); Iron 21 mcg/dL (45-160); Percent Iron Saturation 7 % (15-50); Total Iron Binding Capacity 295 mcg/dL (228-428); Unsaturated Iron Binding 274 ug/dL
[2023-02-21 21:20] LABS: Lymphocytes Percent Manual 10 % (20-40); Metamyelocytes Absolute 0.1 X10*3/uL; Metamyelocytes Percent 1 %; Monocytes Absolute Manual 0.7 X10*3/uL (0.1-1.2); Monocytes Percent Manual 7 % (2-11); Neutrophils Percent Manual 82 % (45-73); Nucleated Red Blood Cells 4 /100WBC (0-0); Ovalocytes 1+ (5-14) /OIF; RBC Morphology NOTED
[2023-02-21 21:21] LABS: Schistocytes 1+ (0-2) /OIF
[2023-02-21] MEDS: Ferrous Sulfate 324 MG TABLET.DR PO (21:21)
[2023-02-21 21:23] LABS: Platelet Estimate INCREASED (NORMAL); Platelet Morphology Comment NORMAL
[2023-02-21 21:26] VITALS: BP 151/88; PULSE 90; RESP 16; TEMP 36.9; O2SAT 100
[2023-02-21 21:35] LABS: Erythrocyte Sedimentation Rate 14 MM/HR (0-15)
== END 2023-02-21 21:30 | disposition home or self-care (01) ==
PROVIDERS: Physician Assistant; Emergency Provider Emergency Medicine; PCP Family Medicine
DX: D50.9 Iron deficiency anemia, unspecified (principal); D47.3 Essential (hemorrhagic) thrombocythemia; Z79.899 Other long term (current) drug therapy
CPT/HCPCS: 36415; 80053; 83540; 83735; 85007; 85025; 85652; 86140; 99283

== ENCOUNTER 2023-03-11 08:44 | Outpatient (AMB) | payer BC, SELFPAY ==
--- NOTE | 2023-03-11 08:48 | A.OFFPC_ITS ---
Vital Signs 03/11/23 08:51 Height 5 ft 8 in BMI Reason not done Patient refused/unable BP 140/80 H Blood Pressure Location Lt brachial Position Sitting Respiration 14 Pulse 105 H Pulse Source Pulse Oximeter Temp 98.7 F Temp Source Temporal Artery Scan Pulse Oximetry (%) 97 Oxygen Delivery Method Room Air Intake Visit Reasons: f/u anemia Intake Note: Patient is here today to follow up on anemia. Patient reports since his last visit he has had an amputation of the right leg below the knee. Cytotechnologist/Histotechnologist Required: No Accompanied by: Self / Same As Patient Allergies shellfish derived Allergy (Verified 03/11/23 08:54) Swelling Tobacco use date assessed: 03/11/23 Dental Screening Dental Screen Date: 03/11/23 Did you have a dental visit in the last 12 months?: No Did you have a dental problem in the last 6 months where you did not have access to dental care?: No Was dental information given to patient?: Patient has dentist HPI f/u anemia HPI Details 47 y/o male presents to f/u anemia. Had presented to the ER 02/21/23 for chronic iron deficiency anemia and thrombocytosis. Was given iron supplementation and recommended f/u with HemeOnc. [facility] Medical History Sleep apnea Hypertension Ulcerative colitis GERD (gastroesophageal reflux disease) GI bleeding Diverticulitis Surgical History Hx of amputation below knee Hx of colonoscopy Family History Mother Heart disease COPD (chronic obstructive pulmonary disease) Social History Household Members: None Housing: House Do you presently have visiting nurse or other home services: No Alcohol intake: never Patient Tobacco Use Status: Never used Tobacco e-Cigarette/Vaping Use: Former Use Second Hand Smoke Exposure: No service: No Current occupational status: employed Current occupation: Currently has job held for 12 months Current occupational exposures/hazards: No Cognitive needs: No Hearing needs: Yes Vision needs: Yes Questionnaire Thrive Questionnaire Date Thrive assessed: 08/18/22 MAYRA-7 AMB Questionnaire MAYRA-7 Date MAYRA - 7 assessed: 08/18/22 Source: Developed by Drs. Enrico Rendon, Danitza Frances, Angel Gaines and colleagues, with an educational laury from [employer]. Review of Systems Const Denies chills, Denies fatigue, Denies fever(s), Denies headache(s) and Denies weakness ENT Denies dizziness and Denies headache(s) Card Denies chest pain, Denies lightheadedness, Denies dyspnea and Denies other (Palpitations) Resp Denies cough, Denies dyspnea, Denies wheezing and Denies other ( shortness of breath) Musc Denies numbness and Denies tingling Neuro Denies dizziness, Denies headache(s), Denies numbness, Denies tingling, Denies paresthesias and Denies weakness Psych Denies anxiety and Denies depression Endo Denies fatigue Aller/Immun Denies wheezing Physical exam (Primary Care) Vital Signs: Last Vital Signs Temp 98.7 F 03/11/23 08:51 Pulse 105 H 03/11/23 08:51 Resp 14 03/11/23 08:51 BP 140/80 H 03/11/23 08:51 Pulse Ox 97 03/11/23 08:51 Oxygen Delivery Method Room Air 03/11/23 08:51 Tobacco/Smoking Status: Tobacco use Status Tobacco use date assessed 03/11/23 03/11/23 08:57 Patient Tobacco Use Status Never used Tobacco 03/11/23 08:50 e-Cigarette/Vaping Use Former Use 03/11/23 08:57 Thrive Assessment: Date of Thrive Assessment Date Thrive assessed 08/18/22 03/11/23 08:50 Const General: no acute distress and well developed Nutritional Appearance: well nourished Orientation/consciousness: patient oriented x3 [facility] Head: Yes normocephalic and Yes atraumatic Eyes General: appearance normal, both eyes and all related structures Pupils: Equal, round and reactive pupils present EOM: EOMs intact bilaterally Resp Effort & Inspection: normal respiratory effort Auscultation: clear to auscultation bilaterally Cardio Rate: regular rate Rhythm: regular rhythm Heart sounds: S1 normal heart sound present, S2 normal heart sound present, no gallops, no murmurs and no rubs Neuro General: patient oriented x3 and gait normal Cranial nerves: Yes Equal, round and reactive pupils present Psych Affect: normal affect Assessment and Plan Assessment & Plan (1) Anemia: Code(s): D64.9 - Anemia, unspecified Plan: Ongoing anemia primarily due to ulcerative colitis and GI bleeding Recent hospitalizations and transfusions Bleeding seems to have stopped - he is now on Apriso and budesonide. Will check CBC again today. (2) Thrombocytosis: Code(s): D75.839 - Thrombocytosis, unspecified Plan: Significant thrombocytosis May have reactive thrombocytosis component unclear to me if this is the only underlying cause He has an appointment with Hematology-Oncology Tuesday Follow-up with Heme-Onc (3) Ulcerative colitis: Code(s): K51.90 - Ulcerative colitis, unspecified, without complications Plan: As above, he is on Apriso and budesonide. Bleeding seems to have stopped Follow-up with GI (4) PAD (peripheral artery disease): Code(s): I73.9 - Peripheral vascular disease, unspecified Plan: Arterial insufficiency and recent right lower extremity thrombosis with below- knee amputation Also significant thrombocytosis Follow-up with [facility] [place] Follow-up with Hematology-Oncology (5) Below-knee amputation of right lower extremity: Code(s): S88.111A - Complete traumatic amputation at level between knee and ankle, right lower leg, initial encounter Plan: As above, recent right BKA Was undergoing rehab but had infection of stump and required wound VAC Infection has resolved. He will resume rehab and is awaiting prosthesis Continue rehab Continue using wheelchair for now Medications: Changed From multivitamin with folic acid 400 mcg (Daily-Donna (with folic acid)) 1 tab PO DAILY To multivitamin with folic acid 400 mcg (Daily-Donna (with folic acid)) 1 tab PO DAILY 90 days 90 tabs 2RF From lisinopril PO To lisinopril 10 mg PO DAILY 30 days 30 tabs 2RF Refilled vitamin B complex 1 tab PO DAILY 30 days 30 tabs 3RF Coding Level of Care Code Est Pt Level 4 (09533) Diagnoses Anemia D64.9 Thrombocytosis D75.839 Ulcerative colitis K51.90 PAD (peripheral artery disease) I73.9 Below-knee amputation of right lower extremity S88.111A
[2023-03-11 08:51] VITALS: BP 140/80; PULSE 105; RESP 14; TEMP 37.1; O2SAT 97
== END 2023-03-11 09:30 | disposition home or self-care (01) ==
PROVIDERS: PCP Family Medicine; Visit Provider Family Medicine
DX: K51.90 Ulcerative colitis, unspecified, without complications (principal); I73.9 Peripheral vascular disease, unspecified; S88.111A Complete traumatic amputation at level between knee and ankle, right lower leg, initial encounter; D64.9 Anemia, unspecified; D75.839 Thrombocytosis, unspecified
CPT/HCPCS: 99214

== ENCOUNTER 2023-03-11 09:50 | Outpatient (REF) | payer BC, SELFPAY ==
[2023-03-11 11:23] LABS: MANUAL DIFF FLAG NO
[2023-03-11 11:38] LABS: Basophils Absolute Auto 0.1 X10*3/uL (0.0-0.2); Basophils Percent Auto 1.3 % (0-2); Eosinophils Absolute Auto 0.3 X10*3/uL (0.0-0.4); Eosinophils Percent Auto 5.1 % (0-4); Hematocrit 31.3 % (42.0-52.0); Hemoglobin 8.9 g/dl (14.0-18.0); Imm Gran Abs Auto 0.03 X10*3/uL (0.00-0.03); Imm Gran Pct Auto 0.5 % (0.0-0.4); Lymphocytes Percent Auto 16.2 % (20-40); Mean Corpuscular HGB Conc 28.4 g/dl (31.0-36.0); Mean Corpuscular Hemoglobin 24.8 pg (27.0-33.0); Mean Corpuscular Volume 87.2 fL (80.0-98.0); Monocytes Absolute Auto 0.5 X10*3/uL (0.1-1.2); Monocytes Percent Auto 7.9 % (2-11); Neutrophils Absolute Auto 4.4 x10*3/uL (2.0-8.3); Platelet Count 604 X10*3/uL (160-400); Red Blood Count 3.59 X10*6/uL (4.60-5.80); Red Cell Distribution Width 18.3 % (11.0-16.0); White Blood Count 6.3 X10*3/uL (4.8-10.8)
[2023-03-11 11:57] LABS: Alanine Aminotransferase 14 U/L (0-40); Albumin Level 3.9 g/dL (3.5-5.0); Alkaline Phosphatase 81 U/L (39-117); Anion Gap 12 (12-20); Aspartate Amino Transferase 11 U/L (5-37); Bilirubin Total 0.1 mg/dL (0.0-1.0); Blood Urea Nitrogen 9 mg/dL (9-16); C Reactive Protein 0.23 mg/dL (< or = 0.50); Calcium 9.4 mg/dL (8.4-10.2); Carbon Dioxide 29 mmol/L (22-29); Chloride 105 mmol/L (96-108); Estimated Glomerular Filt Rate > 60; Glucose Random 113 mg/dL (60-115); Potassium 3.9 mmol/L (3.3-5.1); Sodium 142 mmol/L (135-145); Total Protein 6.8 g/dL (6.5-8.0)
[2023-03-11 12:49] LABS: Ferritin 27 ng/mL (20-250)
== END 2023-03-11 09:51 | disposition home or self-care (01) ==
LOC: HO.WFDLDS 09:50
PROVIDERS: Internal Medicine Gastroenterology; Visit Provider Family Medicine
DX: Z00.00 Encounter for general adult medical examination without abnormal findings (principal); D64.9 Anemia, unspecified; R19.7 Diarrhea, unspecified; K92.2 Gastrointestinal hemorrhage, unspecified; K51.90 Ulcerative colitis, unspecified, without complications; K75.81 Nonalcoholic steatohepatitis (NASH)
CPT/HCPCS: 36415; 80053; 82728; 85025; 86140

== ENCOUNTER 2023-03-21 14:59 | Outpatient (AMB) | payer BC, SELFPAY ==
--- NOTE | 2023-03-21 15:14 | MHC.OFFVIS ---
Intake Vital Signs 03/21/23 15:15 Height 5 ft 8 in Weight 196 lb 10.437 oz BMI 29.9 BP 141/81 H Blood Pressure Location Rt brachial Position Sitting Pulse 81 Intake Visit Reasons: 5 week follow up Intake Note: Gonzales presents in the office as a 5 weeks follow up of labs and UC. CC: He reports doing well today and denies any new GI symptoms or concerns. 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 with anemia and diarrhea ?EGD and colonoscopy with? colitis ?suspected UC ?c diff neg, celiac neg ?crp? 2.71 He was doing much better at that time He then had admission 12/2021 with tenesmus and rectal bleeding sigmoidoscopy with chronic appearing changes and ulcerations path: ?Chronic colitis with moderate activity; negative for dysplasia. He was d/c'ed with long pred taper and mesalamine TID, iron tabs He had further 2 admissions October and November 2022 with colitis flare, last admission complicated by DVT, may have been an arterial clot and had to have a below knee amputation ?INTERIM: He is taking mesalamine and budesonide stool is formed, and not runny wound has healed up now on his stump no blood no abdominal pain no stool urgency he denies joint pain or swelling ?no mouth ulcers, not smoking at this time he was changed to apriso and budeosnide and is taking ? EXAM: GENERAL: The patient is well developed and nontoxic, amputated right leg below knee VITAL SIGNS:see workflow HEENT: Nonicteric sclerae, PERRLA, EOMI. Oropharynx clear. Moist mucous membranes. Conjunctivae appear well perfused. No thyroid mass. CHEST: Chest wall is nontender. HEART: Regular rate and rhythm without murmurs. LUNGS: Clear to auscultation bilaterally. ABDOMEN: Soft, positive bowel sounds, nontender, no organomegaly.no flank tenderness SKIN: BKA right side, bandage on stump NEUROLOGIC: Cranial nerves II-XII intact without motor/sensory deficit. A?P: 1/ UC-- complicated by clot and gangrene wiht BKA right side, issues wiht compliance in the past 2/ Anemia, improving slowly, on iron, 2/2 colitis and chronic disease PLAN: 1/ check fecal lactoferrin 2. cont budesonide and apriso 3. TB spot annually 4. transition to biologic, entyvio 5. will need pneumovax and zoster shots (first dose Hep A,b given today--) 6. avoid nsaids PFSH Medical History Sleep apnea Hypertension Ulcerative colitis GERD (gastroesophageal reflux disease) GI bleeding Diverticulitis Surgical History Hx of amputation below knee Hx of colonoscopy Family History Mother Heart disease COPD (chronic obstructive pulmonary disease) Social History Household Members: None Housing: House Do you presently have visiting nurse or other home services: No Alcohol intake: never Patient Tobacco Use Status: Never used Tobacco e-Cigarette/Vaping Use: Former Use Second Hand Smoke Exposure: No service: No Current occupational status: employed Current occupation: Currently has job held for 12 months Current occupational exposures/hazards: No Cognitive needs: No Hearing needs: Yes Vision needs: Yes Physical Exam Vital Signs: BMI result Body Mass Index 29.9 Assessment & Plan Assessment & Plan (1) Ulcerative colitis: Code(s): K51.90 - Ulcerative colitis, unspecified, without complications (2) PAD (peripheral artery disease): Code(s): I73.9 - Peripheral vascular disease, unspecified (3) Acute occlusion of artery of lower extremity: Code(s): I70.209 - Unspecified atherosclerosis of [place] arteries of extremities, unspecified extremity Coding Level of Care Code Est Pt Level 4 (46269) Diagnoses Ulcerative colitis K51.90 PAD (peripheral artery disease) I73.9 Acute occlusion of artery of lower extremity I70.209
[2023-03-21 15:15] VITALS: BP 141/81; PULSE 81; BMI 29.9
== END 2023-03-21 15:34 | disposition home or self-care (01) ==
PROVIDERS: PCP Family Medicine; Visit Provider Internal Medicine Gastroenterology
DX: Z23 Encounter for immunization (principal); K51.90 Ulcerative colitis, unspecified, without complications
CPT/HCPCS: 90472; 99214

== ENCOUNTER → 2023-03-21 14:59 | Outpatient (BNVA) | payer BC, SELFPAY | PROVIDERS: PCP Family Medicine; Visit Provider Internal Medicine Gastroenterology | DX: K51.90 Ulcerative colitis, unspecified, without complications (principal); I70.209 Unspecified atherosclerosis of native arteries of extremities, unspecified extremity; Z23 Encounter for immunization | CPT/HCPCS: 90471; 90632; 90746 ==

== ENCOUNTER 2023-04-06 07:54 | Outpatient (REF) | payer BC, SELFPAY | END 2023-04-06 07:55 | disposition home or self-care (01) | LOC: HO.MDS 07:54 | PROVIDERS: Visit Provider Internal Medicine Gastroenterology | DX: K50.90 Crohn's disease, unspecified, without complications (principal) | CPT/HCPCS: 96365; J3380 ==

== ENCOUNTER 2023-04-20 07:51 | Outpatient (REF) | payer BC, SELFPAY | END 2023-04-20 07:52 | disposition home or self-care (01) | LOC: HO.MDS 07:51 | PROVIDERS: Visit Provider Internal Medicine Gastroenterology | DX: K51.90 Ulcerative colitis, unspecified, without complications (principal) | CPT/HCPCS: 96365; J3380 ==

== ENCOUNTER 2023-04-22 08:37 | Outpatient (AMB) | payer BC, SELFPAY ==
[2023-04-22 08:41] VITALS: BP 134/86; PULSE 109; RESP 13; TEMP 36.4; O2SAT 99; BMI 31.1
--- NOTE | 2023-04-22 08:41 | MHC.PC.OV ---
Vital Signs 04/22/23 08:41 Height 5 ft 8 in Weight 204 lb 6 oz BMI 31.1 BP 134/86 Blood Pressure Location Lt brachial Position Sitting Respiration 13 Pulse 109 H Pulse Source Pulse Oximeter Temp 97.6 F Temp Source Temporal Artery Scan Pulse Oximetry (%) 99 Oxygen Delivery Method Room Air Intake Visit Reasons: f/u anemia/labs Launch Operator Required: No Accompanied by: Self / Same As Patient Allergies shellfish derived Allergy (Verified 04/22/23 08:46) Swelling Tobacco use date assessed: 04/22/23 Dental Screening Dental Screen Date: 04/22/23 Did you have a dental visit in the last 12 months?: No Did you have a dental problem in the last 6 months where you did not have access to dental care?: No Was dental information given to patient?: Patient has dentist HPI f/u anemia/labs HPI Details 47 y/o male presents to f/u anemia/labs. Labs were drawn 03/11/23. Reviewed labs with pt. Ongoing anemia but improving. Pt denies any bleeding anywhere. PFSH Medical History Sleep apnea Hypertension Ulcerative colitis GERD (gastroesophageal reflux disease) GI bleeding Diverticulitis Surgical History Hx of amputation below knee Hx of colonoscopy Family History Mother Heart disease COPD (chronic obstructive pulmonary disease) Social History Household Members: None Housing: House Do you presently have visiting nurse or other home services: No Alcohol intake: never Patient Tobacco Use Status: Never used Tobacco e-Cigarette/Vaping Use: Former Use Second Hand Smoke Exposure: No service: No Current occupational status: employed Current occupation: Currently has job held for 12 months Current occupational exposures/hazards: No Cognitive needs: No Hearing needs: Yes Vision needs: Yes Questionnaire Thrive Questionnaire Date Thrive assessed: 08/18/22 MAYRA-7 AMB Questionnaire MAYRA-7 Date MAYRA - 7 assessed: 08/18/22 Source: Developed by Drs. Enrioc Rendon, Danitza Frances, Angel Gaines and colleagues, with an educational laury from [employer]. Review of Systems Const Denies chills, Denies fatigue, Denies fever(s), Denies headache(s) and Denies weakness ENT Denies dizziness and Denies headache(s) Card Denies chest pain, Denies lightheadedness, Denies dyspnea and Denies other (Palpitations) Resp Denies cough, Denies dyspnea, Denies wheezing and Denies other ( shortness of breath) Musc Denies numbness and Denies tingling Neuro Denies dizziness, Denies headache(s), Denies numbness, Denies tingling, Denies paresthesias and Denies weakness Psych Denies anxiety and Denies depression Endo Denies fatigue Aller/Immun Denies wheezing Physical exam (Primary Care) Vital Signs: Last Vital Signs Temp 97.6 F 04/22/23 08:41 Pulse 109 H 04/22/23 08:41 Resp 13 04/22/23 08:41 BP 134/86 04/22/23 08:41 Pulse Ox 99 04/22/23 08:41 Oxygen Delivery Method Room Air 04/22/23 08:41 BMI result Body Mass Index 31.1 Tobacco/Smoking Status: Tobacco use Status Tobacco use date assessed 03/11/23 04/22/23 08:48 Patient Tobacco Use Status Never used Tobacco 04/22/23 08:48 e-Cigarette/Vaping Use Former Use 04/22/23 08:48 Thrive Assessment: Date of Thrive Assessment Date Thrive assessed 08/18/22 04/22/23 08:48 Const General: no acute distress and well developed Nutritional Appearance: well nourished Orientation/consciousness: patient oriented x3 [facility] Head: Yes normocephalic and Yes atraumatic Eyes General: appearance normal, both eyes and all related structures Pupils: Equal, round and reactive pupils present EOM: EOMs intact bilaterally Resp Effort & Inspection: normal respiratory effort Auscultation: clear to auscultation bilaterally Cardio Rate: regular rate Rhythm: regular rhythm Heart sounds: S1 normal heart sound present, S2 normal heart sound present, no gallops, no murmurs and no rubs Neuro General: patient oriented x3 and gait normal Cranial nerves: Yes Equal, round and reactive pupils present Psych Affect: normal affect Assessment and Plan Assessment & Plan (1) Anemia: Code(s): D64.9 - Anemia, unspecified Plan: Anemia?had?improved?at?last?lab?check?and?patient?has?no?blood?in?stools.??History?of?ulcerative?colitis?which?is?being?managed?by?[facility]?gastroenterology;?stable. He?is?on?iron?supplementation Rechecking?H&H?today. (2) Below-knee amputation of right lower extremity: Code(s): S88.111A - Complete traumatic amputation at level between knee and ankle, right lower leg, initial encounter Plan: Peripheral?arterial?disease?and?thrombosis?resulting?in?right?below?knee?amputation. He?has?seen?Hematology-Oncology?regarding?the?thrombosis?and?is?now?on?Xarelto?and?aspirin. Follow-up?with?Hematology-Oncology Amputation?appears?well?healed?with?no?infection Awaiting?prosthesis Still?using?oxycodone?for?pain. Will?refill?this. We?discussed?that?once?he?has?started?getting?use?to?his?prosthesis,?we?will?want?to?start?weaning?down?his?pain?medication.??Patient?says?he?is?already?been?doing?some?of?that?and?understands. (3) Ulcerative colitis: Code(s): K51.90 - Ulcerative colitis, unspecified, without complications Plan: As?above,?followed?by?Gastroenterology?and?undergoing?therapy. Has?had?numerous?bouts?significant?UC?flare?up?with?severe?bloody?stools?and?acute?anemia?requiring?transfusions. Currently?stable Follow-up?with?Gastroenterology Orders: Orders Complete Blood Count Auto Diff Today D62 - Acute posthemorrhagic anemia, Z00.00 - Encounter for general adult medical examination without abnormal findings Lipid Panel 2 Months D62 - Acute posthemorrhagic anemia, Z00.00 - Encounter for general adult medical examination without abnormal findings Microalbumin, Random (w Creat) 2 Months D62 - Acute posthemorrhagic anemia, I10 - Essential (primary) hypertension Prostate Specific Antigen Scr 2 Months D62 - Acute posthemorrhagic anemia, Z12.5 - Encounter for screening for malignant neoplasm of prostate TSH reflex Free T4 2 Months D62 - Acute posthemorrhagic anemia, Z00.00 - Encounter for general adult medical examination without abnormal findings Basic Metabolic Panel Today D62 - Acute posthemorrhagic anemia, Z00.00 - Encounter for general adult medical examination without abnormal findings Comprehensive [place]. Panel Fast 2 Months D62 - Acute posthemorrhagic anemia, Z00.00 - Encounter for general adult medical examination without abnormal findings Complete Blood Count Auto Diff 2 Months D62 - Acute posthemorrhagic anemia, Z00.00 - Encounter for general adult medical examination without abnormal findings UA and rflx microscopic 2 Months D62 - Acute posthemorrhagic anemia, Z00.00 - Encounter for general adult medical examination without abnormal findings Medications: New rivaroxaban (Xarelto) 2.5 mg PO DAILY 30 days 30 tabs 3RF Refilled oxycodone Partial Fill upon patient request. 5 mg PO Q6H PRN 14 tabs 0RF moderate pain (scale score 5-6) D62 - Acute posthemorrhagic anemia Coding Level of Care Code Est Pt Level 4 (62847) Diagnoses Anemia D64.9 Below-knee amputation of right lower extremity S88.111A Ulcerative colitis K51.90
== END 2023-04-22 09:48 | disposition home or self-care (01) ==
PROVIDERS: PCP Family Medicine; Visit Provider Family Medicine
DX: D64.9 Anemia, unspecified (principal); S88.111A Complete traumatic amputation at level between knee and ankle, right lower leg, initial encounter; K51.90 Ulcerative colitis, unspecified, without complications
CPT/HCPCS: 99214

== ENCOUNTER 2023-04-22 09:49 | Outpatient (REF) | payer BC, SELFPAY ==
[2023-04-22 11:30] LABS: MANUAL DIFF FLAG NO
[2023-04-22 11:45] LABS: Basophils Absolute Auto 0.1 X10*3/uL (0.0-0.2); Basophils Percent Auto 1.2 % (0-2); Eosinophils Absolute Auto 0.3 X10*3/uL (0.0-0.4); Eosinophils Percent Auto 3.6 % (0-4); Hematocrit 42.8 % (42.0-52.0); Hemoglobin 12.9 g/dl (14.0-18.0); Imm Gran Abs Auto 0.06 X10*3/uL (0.00-0.03); Imm Gran Pct Auto 0.7 % (0.0-0.4); Lymphocytes Absolute Auto 1.5 X10*3/uL (1.2-4.9); Lymphocytes Percent Auto 18.4 % (20-40); Mean Corpuscular HGB Conc 30.1 g/dl (31.0-36.0); Mean Corpuscular Hemoglobin 26.5 pg (27.0-33.0); Mean Corpuscular Volume 88.1 fL (80.0-98.0); Mean Platelet Volume 10.1 fL (9.4-12.4); Monocytes Absolute Auto 0.6 X10*3/uL (0.1-1.2); Monocytes Percent Auto 7.4 % (2-11); Neutrophils Absolute Auto 5.7 x10*3/uL (2.0-8.3); Neutrophils Percent Auto 68.7 % (45-73); Platelet Count 412 X10*3/uL (160-400); Red Blood Count 4.86 X10*6/uL (4.60-5.80); Red Cell Distribution Width 17.1 % (11.0-16.0); White Blood Count 8.3 X10*3/uL (4.8-10.8)
[2023-04-22 12:21] LABS: Anion Gap 15 (12-20); Blood Urea Nitrogen 11 mg/dL (9-16); Carbon Dioxide 24 mmol/L (22-29); Chloride 104 mmol/L (96-108); Estimated Glomerular Filt Rate > 60; Glucose Random 100 mg/dL (60-115); Potassium 3.8 mmol/L (3.3-5.1); Sodium 139 mmol/L (135-145)
== END 2023-04-22 09:50 | disposition home or self-care (01) ==
LOC: HO.WFDLDS 09:49
PROVIDERS: Visit Provider Family Medicine
DX: Z00.00 Encounter for general adult medical examination without abnormal findings (principal); D62 Acute posthemorrhagic anemia
CPT/HCPCS: 36415; 80048; 85025

== ENCOUNTER 2023-05-18 08:16 | Outpatient (REF) | payer BC, SELFPAY | END 2023-05-18 08:17 | disposition home or self-care (01) | LOC: HO.MDS 08:16 | PROVIDERS: Visit Provider Internal Medicine Gastroenterology | DX: K51.90 Ulcerative colitis, unspecified, without complications (principal) | CPT/HCPCS: 96365; J3380 ==

== ENCOUNTER 2023-06-15 10:33 | Outpatient (AMB) | payer BC, SELFPAY ==
[2023-06-15 11:01] VITALS: BP 132/76; PULSE 92; O2SAT 97; BMI 34.4
--- NOTE | 2023-06-15 11:01 | MHC.PC.OV ---
Vital Signs 06/15/23 11:01 Height 5 ft 8 in Weight 226 lb BMI 34.4 BP 132/76 Blood Pressure Location Lt brachial Position Sitting Pulse 92 Pulse Source Pulse Oximeter Pulse Oximetry (%) 97 Oxygen Delivery Method Room Air Intake Visit Reasons: discussion of discontinuation of meds Intake Note: Patient is here for discussion of meds. Allergies shellfish derived Allergy (Verified 06/15/23 11:04) Swelling Tobacco use date assessed: 06/15/23 Dental Screening Dental Screen Date: 06/15/23 Did you have a dental visit in the last 12 months?: No Did you have a dental problem in the last 6 months where you did not have access to dental care?: No Was dental information given to patient?: Patient has dentist HPI discussion of discontinuation of meds HPI Details 47 y/o male presents to discuss medications. Pt states he would like to talk about his pain medications/possible discontinuation of them. R BKA with subsequent infection - infection resolved. Pt continues to use his prosthetic leg. Pt still has complaints of pain. Oxycodone has been working and hopes to be off it by the time he goes back to work. Additionally has trialed alleve which helps a bit with discomfort and has been using gabapentin 600mg qhs. PFS Medical History Sleep apnea Hypertension Ulcerative colitis GERD (gastroesophageal reflux disease) GI bleeding Diverticulitis Surgical History Hx of amputation below knee Hx of colonoscopy Family History Mother Heart disease COPD (chronic obstructive pulmonary disease) Social History Household Members: None Housing: House Do you presently have visiting nurse or other home services: No Alcohol intake: never Comment: S3 Patient Tobacco Use Status: Never used Tobacco e-Cigarette/Vaping Use: Former Use Second Hand Smoke Exposure: No service: No Current occupational status: employed Current occupation: Currently has job held for 12 months Current occupational exposures/hazards: No Cognitive needs: No Hearing needs: Yes Vision needs: Yes Questionnaire Thrive Questionnaire Date Thrive assessed: 08/18/22 MAYRA-7 AMB Questionnaire MAYRA-7 Date MAYRA - 7 assessed: 08/18/22 Source: Developed by Drs. Enrico Rendon, Danitza Frances, Angel Gaines and colleagues, with an educational laury from [email or web address]. Review of Systems Const Denies chills, Denies fatigue, Denies fever(s), Denies headache(s) and Denies weakness ENT Denies dizziness and Denies headache(s) Card Denies dyspnea Resp Denies cough, Denies dyspnea, Denies wheezing and Denies other (shortness of breath) Musc Denies numbness and Denies tingling Neuro Denies dizziness, Denies headache(s), Denies numbness, Denies tingling and Denies weakness Psych Denies anxiety and Denies depression Endo Denies fatigue Aller/Immun Denies wheezing Physical exam (Primary Care) Vital Signs: Last Vital Signs Pulse 92 06/15/23 11:01 BP 132/76 06/15/23 11:01 Pulse Ox 97 06/15/23 11:01 Oxygen Delivery Method Room Air 06/15/23 11:01 BMI result Body Mass Index 34.4 Tobacco/Smoking Status: Tobacco use Status Tobacco use date assessed 06/15/23 06/15/23 11:07 Patient Tobacco Use Status Never used Tobacco 06/15/23 11:07 e-Cigarette/Vaping Use Former Use 06/15/23 11:07 Thrive Assessment: Date of Thrive Assessment Date Thrive assessed 08/18/22 06/15/23 11:07 Const General: well developed; No acute distress Nutritional Appearance: well nourished Orientation/consciousness: patient oriented x3 [facility] Head: Yes normocephalic and Yes atraumatic Eyes General: appearance normal, both eyes and all related structures Pupils: Equal, round and reactive pupils present EOM: EOMs intact bilaterally Resp Effort & Inspection: normal respiratory effort Neuro General: patient oriented x3 and No gait normal Cranial nerves: Yes Equal, round and reactive pupils present Psych Affect: normal affect Assessment and Plan Assessment & Plan (1) Below-knee amputation of right lower extremity: Code(s): S88.111A - Complete traumatic amputation at level between knee and ankle, right lower leg, initial encounter Plan: Following?up?on?pain?secondary?to?right?BKA?with?subsequent?infection. Infection?has?resolved.??Patient?has?his?prosthetic?lower?leg?and?is?using?this. Still?has?complaints?of?pain Had?been?requesting?oxycodone?5?mg?daily, frequently.??Has?been?using?gabapentin?600?mg?q.h.s. Will?give?him?Percocet?2.5?mg?daily?for?more?severe?pain?and?he?can?use?naproxen?500?mg?b.i.d.?and?I?will?increase?gabapentin?to?300?mg?in?the?morning?and?600?mg?at?night Patient?has?tolerated?ibuprofen?and?naproxen?in?the?past?and?he?will?use?this?sparingly. He?will?follow-up?in?1?month?at?his?physical?and?we?can?discuss?adjusting?medications?further. Medications: New oxycodone-acetaminophen 5-325 mg (Percocet) MassPat Verified, Partial Fill upon patient request. 0.5 tabs PO DAILY PRN 15 tabs 0RF pain 30 days naproxen 500 mg PO BID PRN 60 tabs 0RF pain 15 days gabapentin orally 2 times a day; 300mg (1 cap) AM and 600mg (2 caps) PM 90 caps 3RF 30 days Discontinued oxycodone Partial Fill upon patient request. Discontinued Reason: Doctor's Order 5 mg PO DAILY PRN 10 tabs 0RF moderate pain (scale score 5-6) 10 days Coding Level of Care Code Est Pt Level 3 (83585) Diagnoses Below-knee amputation of right lower extremity S88.111A
== END 2023-06-15 12:04 | disposition home or self-care (01) ==
PROVIDERS: PCP Family Medicine; Visit Provider Family Medicine
DX: S88.111A Complete traumatic amputation at level between knee and ankle, right lower leg, initial encounter (principal)
CPT/HCPCS: 99213

== ENCOUNTER → 2023-06-24 08:39 | Outpatient (BNVA) | payer BC, SELFPAY | PROVIDERS: PCP Family Medicine; Visit Provider Internal Medicine Gastroenterology ==

== ENCOUNTER → 2023-06-24 08:39 | Outpatient (AMB) | payer BC, SELFPAY ==
--- NOTE | 2023-06-24 08:39 | MHC.OFFVIS ---
Intake Intake Visit Reasons: 3 month follow up Intake Note: Gonzales presents as a video call today. CC: Insurance stopped covering the apriso. May need a PA. Warper Tender Required: No Allergies shellfish derived Allergy (Verified 06/24/23 08:40) Swelling HPI 3 month follow up HPI Details 47 yr old m called for f/u RECAP: ?He was admitted? with anemia and diarrhea ?EGD and colonoscopy with? colitis ?suspected UC ?c diff neg, celiac neg ?crp? 2.71 He was doing much better at that time He then had admission 12/2021 with tenesmus and rectal bleeding sigmoidoscopy with chronic appearing changes and ulcerations path: ?Chronic colitis with moderate activity; negative for dysplasia. He was d/c'ed with long pred taper and mesalamine TID, iron tabs He had further 2 admissions October and November 2022 with colitis flare, last admission complicated by DVT, may have been an arterial clot and had to have a below knee amputation I started him on entyvio whilst bridging with budesonide and apriso ?INTERIM: He is still on budesonide On induction entyvio and feels good stools only 3-4 times a day and not loose no abdominal pain no stool urgency he denies joint pain or swelling ?no mouth ulcers, ? A?P: 1/ UC-- complicated by clot and gangrene wiht BKA right side, non compliance, which has improved 2/ Anemia, improving slowly, on iron, 2/2 colitis and chronic disease PLAN: 1/ recheck fecal lactoferrin 2. cont budesonide for the moment, will not refill after current script 3. TB spot annually 4. cont biologic, entyvio 5. avoid nsaids PFSH Medical History Sleep apnea Hypertension Ulcerative colitis GERD (gastroesophageal reflux disease) GI bleeding Diverticulitis Surgical History Hx of amputation below knee Hx of colonoscopy Family History Mother Heart disease COPD (chronic obstructive pulmonary disease) Social History Household Members: None Housing: House Do you presently have visiting nurse or other home services: No Alcohol intake: never Comment: S3 Patient Tobacco Use Status: Never used Tobacco e-Cigarette/Vaping Use: Former Use Second Hand Smoke Exposure: No service: No Current occupational status: employed Current occupation: Currently has job held for 12 months Current occupational exposures/hazards: No Cognitive needs: No Hearing needs: Yes Vision needs: Yes Assessment & Plan Assessment & Plan (1) Ulcerative colitis: Code(s): K51.90 - Ulcerative colitis, unspecified, without complications Plan: see above Orders: Orders Complete Blood Count Auto Diff Today K51.90 - Ulcerative colitis, unspecified, without complications Comprehensive Met. Panel Today K51.90 - Ulcerative colitis, unspecified, without complications, K75.81 - Nonalcoholic steatohepatitis (ANDINO) C Reactive Protein Today K51.90 - Ulcerative colitis, unspecified, without complications Lactoferrin, Fecal, Quant. Today K51.50 - Left sided colitis without complications, K51.90 - Ulcerative colitis, unspecified, without complications Ferritin Today K51.90 - Ulcerative colitis, unspecified, without complications Telehealth Telehealth Location of provider rendering services: practice address Location of patient: address on file Patient Identification confirmed using: Name, : Yes Telehealth method: voice only Patient verbally consented to treatment: Yes Patient verbally consented to billing insurance company: Yes Patient informed of any privacy concerns related to visit: Yes Minutes spent on Phone/Video with Pt.: 8 Coding Level of Care Code Tele Est Pt Level 3 (26063) Diagnoses Ulcerative colitis K51.90
== END ==
PROVIDERS: PCP Family Medicine; Visit Provider Internal Medicine Gastroenterology
DX: K51.90 Ulcerative colitis, unspecified, without complications (principal)
CPT/HCPCS: 99441

== ENCOUNTER 2023-07-06 08:00 | Outpatient (RCR) | payer BC, SELFPAY | END 2023-09-07 14:42 | disposition home or self-care (01) | LOC: HO.PT 08:00 | PROVIDERS: PCP Family Medicine; Visit Provider Surgery Vascular Surgery | DX: Z89.511 Acquired absence of right leg below knee (principal) | CPT/HCPCS: 97110; 97112; 97116; 97140; 97162; 97530 ==

== ENCOUNTER 2023-07-13 07:50 | Outpatient (REF) | payer BC, SELFPAY ==
[2023-07-16 07:59] LABS: TS Negative Control Passed; TS Panel A 0; TS Panel B 0; TS Positive Control Passed; TSpotTB Negative (Negative)
== END 2023-07-13 07:51 | disposition home or self-care (01) ==
LOC: HO.MDS 07:50
PROVIDERS: Visit Provider Internal Medicine Gastroenterology
DX: K51.90 Ulcerative colitis, unspecified, without complications (principal); Z11.1 Encounter for screening for respiratory tuberculosis
CPT/HCPCS: 36415; 86481; 96365; J3380

== ENCOUNTER 2023-08-03 09:50 | Outpatient (AMB) | payer BC, SELFPAY ==
--- NOTE | 2023-08-03 10:07 | A.OFFPC_ITS ---
Vital Signs 08/03/23 10:08 Height 5 ft 8 in Weight 222 lb 3 oz BMI 33.8 BP 120/70 Blood Pressure Location Lt brachial Position Sitting Pulse 78 Pulse Source Pulse Oximeter Pulse Oximetry (%) 98 Oxygen Delivery Method Room Air Intake Visit Reasons: discuss medication Intake Note: Patient is here to discuss percocet today. Allergies shellfish derived Allergy (Verified 08/03/23 10:09) Swelling Tobacco use date assessed: 08/03/23 Dental Screening Dental Screen Date: 08/03/23 Did you have a dental visit in the last 12 months?: No Did you have a dental problem in the last 6 months where you did not have access to dental care?: No Was dental information given to patient?: Patient has dentist HPI discuss medication HPI Details 47 y/o male presents to discuss medicati ons. Pt reports ongoing throbbing pain. He continues to use gabapentin, naproxen. [facility] Medical History Sleep apnea Hypertension Ulcerative colitis GERD (gastroesophageal reflux disease) GI bleeding Diverticulitis Surgical History Hx of amputation below knee Hx of colonoscopy Family History Mother Heart disease COPD (chronic obstructive pulmonary disease) Social History Household Members: None Housing: House Do you presently have visiting nurse or other home services: No Alcohol intake: never Comment: S3 Patient Tobacco Use Status: Never used Tobacco e-Cigarette/Vaping Use: Former Use Second Hand Smoke Exposure: No service: No Current occupational status: employed Current occupation: Currently has job held for 12 months Current occupational exposures/hazards: No Cognitive needs: No Hearing needs: Yes Vision needs: Yes Questionnaire PHQ-9 Over the last 2 weeks, how often have you been bothered by any of the following problems? 1. Little interest or pleasure in doing things: not at all 2. Feeling down, depressed, or hopeless: not at all 3. Trouble falling or staying asleep, or sleeping too much: not at all 4. Feeling tired or having little energy: not at all 5. Poor appetite or overeating: not at all 6. Feeling bad about yourself - or that you are a failure or have let yourself or your family down: not at all 7. Trouble concentrating on things, such as reading the newspaper or watching television: not at all 8. Moving or speaking so slowly that other people could have noticed. Or the opposite - being so fidgety or restless that you have been moving around a lot more than usual: not at all 9. Thoughts that you would be better off or of hurting yourself in some way: not at all Total score: 0 Depression Screening Interpretation: Negative Depression Screening Done: Yes Source: Developed by Drs. Enrico Rendon, Danitza Frances, Angel Gaines and colleagues, with an educational laury from [employer]. Thrive Questionnaire Date Thrive assessed: 08/18/22 I am a: Patient What is your living situation today?: I have a steady place to live Within the past 12 months, did the food you bought not last and you didn't have the money to get more?: Never true Within the past 12 months, did you worry whether your food would run out before you got money to buy more?: Never true Do you have trouble paying for medicines?: No Do you have trouble getting transportation to medical appointments?: No Do you have trouble paying your heating and electricity bill?: No Do you have trouble taking care of your child, family member or friend?: No Do you have trouble with day-to-day activities such as bathing, preparing meals, shopping, managing finances, etc.?: No Are you currently unemployed and looking for a job?: No Are you interested in more education?: No THRIVE Score: 0 AUDIT C Alcohol Use Questionnaire (AUDIT-C) 1. How often do you have a drink containing alcohol?: Monthly or less 2. How many drinks containing alcohol do you have on a typical day when you are drinking?: 1 or 2 3. How often do you have six or more drinks on one occasion?: Never Total Score: 1 MAYRA-7 AMB Questionnaire MAYRA-7 Date MAYRA - 7 assessed: 08/03/23 Feeling nervous, anxious, or on edge: 0 = Not at all Not being able to stop or control worryin = Not at all Worrying too much about different things: 0 = Not at all Trouble relaxin = Not at all Being so restless that it is hard to sit still: 0 = Not at all Becoming easily annoyed or irritable: 0 = Not at all Feeling afraid as if something awful might happen: 0 = Not at all Total MAYRA-7 score (0-4 normal; 5-9 mild; 10-14 moderate; 15-21 severe): 0 Source: Developed by Drs. Enrico Rendon, Danitza Frances, Angel Gaines and colleagues, with an educational laury from [employer]. Review of Systems Const Denies chills, Denies fatigue, Denies fever(s), Denies headache(s) and Denies weakness ENT Denies dizziness and Denies headache(s) Card Denies dyspnea Resp Denies cough, Denies dyspnea, Denies wheezing and Denies other (shortness of breath) Musc Denies numbness and Denies tingling Neuro Denies dizziness, Denies headache(s), Denies numbness, Denies tingling and Denies weakness Psych Denies anxiety and Denies depression Endo Denies fatigue Aller/Immun Denies wheezing Physical exam (Primary Care) Vital Signs: Last Vital Signs Pulse 78 08/03/23 10:08 BP 120/70 08/03/23 10:08 Pulse Ox 98 08/03/23 10:08 Oxygen Delivery Method Room Air 08/03/23 10:08 BMI result Body Mass Index 33.8 Tobacco/Smoking Status: Tobacco use Status Tobacco use date assessed 08/03/23 08/03/23 10:12 Patient Tobacco Use Status Never used Tobacco 08/03/23 10:12 e-Cigarette/Vaping Use Former Use 08/03/23 10:12 PHQ-9: PHQ-9 Score PHQ-9: Total score 0 08/03/23 10:19 Depression Screening Interpretation: Negative Thrive Assessment: Date of Thrive Assessment Date Thrive assessed 08/18/22 08/03/23 10:12 Const General: well developed; No acute distress Nutritional Appearance: well nourished Orientation/consciousness: patient oriented x3 HENMT Head: Yes normocephalic and Yes atraumatic Eyes General: appearance normal, both eyes and all related structures Pupils: Equal, round and reactive pupils present EOM: EOMs intact bilaterally Resp Effort & Inspection: normal respiratory effort Neuro General: patient oriented x3 and gait normal Cranial nerves: Yes Equal, round and reactive pupils present Psych Affect: normal affect Assessment and Plan Assessment & Plan (1) Below-knee amputation of right lower extremity: Code(s): S88.111A - Complete traumatic amputation at level between knee and ankle, right lower leg, initial encounter Plan: Patient?has?below-knee?amputation?of?right?leg Amputation?was?greater?than?6?months?ago?but?patient?has?continuing?pain. Pain?is?essentially?every?day?by?the?end?of?work. Has?been?requesting?Percocet He?is?also?using?gabapentin?and?intermittent?naproxen?which?he?tolerates. Using?naproxen?only?cautiously?and?we?have?discussed?cautious?use?of?NSAIDs?due? to?history?of?GI?bleeding?and?ulcerative?colitis. We?discussed?a?referral?to?PN?management?to?see?if?they?have?any?other?options?t hat?could?help?control?his?pain. Will?trial?tramadol?today. (2) Ulcerative colitis: Code(s): K51.90 - Ulcerative colitis, unspecified, without complications Plan: Stable He?is?now?on?Entyvio Follow-up?with?GI?as?recommended (3) Right leg pain: Code(s): M79.604 - Pain in right leg Plan: As?above Orders: Orders Comprehensive Pacific. Panel Fast Today Z00.00 - Encounter for general adult me dical examination without abnormal findings Complete Blood Count Auto Diff Today Z00.00 - Encounter for general adult medical examination without abnormal findings UA and rflx microscopic Today Z00.00 - Encounter for general adult medical examination without abnormal findings Lipid Panel Today Z00.00 - Encounter for general adult medical examination without abnormal findings Microalbumin, Random (w Creat) Today I10 - Essential (primary) hypertension Prostate Specific Antigen Scr Today Z12.5 - Encounter for screening for malignant neoplasm of prostate TSH reflex Free T4 Today Z00.00 - Encounter for general adult medical examination without abnormal findings IRON PROFILE Today D64.9 - Anemia, unspecified Referrals Pain Management Referral M79.604 - Pain in right leg, S88.111A - Complete traumatic amputation at level between knee and ankle, right lower leg, initial encounter Medications: New tramadol MassPat Verified. 50 mg PO DAILY 30 days 30 tabs 0RF M79.604 - Pain in right leg, Z89.511 - Acquired absence of right leg below knee vedolizumab (Entyvio) administer over 30 mins 300 mg IV Q8W 0RF D64.9 - Anemia, unspecified Discontinued oxycodone-acetaminophen 5-325 mg (Percocet) MassPat Verified, Partial Fill upon patient request. Discontinued Reason: Doctor's Order 0.5 tabs PO DAILY 22 days PRN 11 tabs 0RF pain rivaroxaban (Xarelto) Discontinued Reason: Patient no longer taking 2.5 mg PO DAILY 30 days 30 tabs 3RF Coding Level of Care Code Est Pt Level 3 (53269) Diagnoses Below-knee amputation of right lower extremity S88.111A Ulcerative colitis K51.90 Right leg pain M79.604
[2023-08-03 10:08] VITALS: BP 120/70; PULSE 78; O2SAT 98; BMI 33.8
== END 2023-08-03 10:29 | disposition home or self-care (01) ==
PROVIDERS: PCP Family Medicine; Visit Provider Family Medicine
DX: S88.111A Complete traumatic amputation at level between knee and ankle, right lower leg, initial encounter (principal); K51.90 Ulcerative colitis, unspecified, without complications; M79.604 Pain in right leg
CPT/HCPCS: 99213

== ENCOUNTER 2023-09-02 08:48 | Outpatient (AMB) | payer BC, SELFPAY ==
[2023-09-02 09:07] VITALS: BP 120/66; PULSE 82; O2SAT 97; BMI 34.7
--- NOTE | 2023-09-02 09:07 | MHC.PC.OV ---
Vital Signs 09/02/23 09:07 Height 5 ft 8 in Weight 228 lb 6 oz BMI 34.7 BP 120/66 Blood Pressure Location Lt brachial Position Sitting Pulse 82 Pulse Source Pulse Oximeter Pulse Oximetry (%) 97 Oxygen Delivery Method Room Air Intake Visit Reasons: CPE with f/u labs and health maint. Intake Note: Patient is here for his physical today. Patient forgot to get his labs done. Allergies shellfish derived Allergy (Verified 09/02/23 09:10) Swelling Medication List - Last Reconciled 09/02/23 by Ihsan Astudillo MD aspirin 81 mg PO DAILY atorvastatin 80 mg PO DAILY ferrous sulfate 325 mg PO DAILY 30 days gabapentin orally 2 times a day; 300mg (1 cap) AM and 600mg (2 caps) PM 30 days lisinopril 10 mg PO DAILY 30 days miscellaneous medical supply 1 wheelchair cushion multivitamin with folic acid 400 mcg (Daily-Donna (with folic acid)) 1 tab PO DAILY 90 days naproxen 500 mg PO BID PRN 15 days tramadol 50 mg PO DAILY 30 days vedolizumab (Entyvio) 300 mg IV Q8W vitamin B complex 1 tab PO DAILY 30 days Tobacco use date assessed: 09/02/23 Dental Screening Dental Screen Date: 09/02/23 Did you have a dental visit in the last 12 months?: No Did you have a dental problem in the last 6 months where you did not have access to dental care?: No Was dental information given to patient?: Patient has dentist HPI CPE with f/u labs and health maint. HPI Details 47 y/o male presents for a CPE with f/u labs and health maintenance. No recent labs to review. Pt reports hearing changes. Right?BKA?and?still?reports?pain?after?many?months. Had?referred?patient?to?pain?management?but?he?did?not?make?the?appointment?due?to?difficulty?getting?time?from?work. [facility] Medical History Sleep apnea Hypertension Ulcerative colitis GERD (gastroesophageal reflux disease) GI bleeding Diverticulitis Surgical History Hx of amputation below knee Hx of colonoscopy Family History Mother Heart disease COPD (chronic obstructive pulmonary disease) Social History (Reviewed 09/02/23 @ 09:11 by Nishi Mancia [facility]) Household Members: None Housing: House Do you presently have visiting nurse or other home services: No Alcohol intake: never Comment: S3 Patient Tobacco Use Status: Never used Tobacco e-Cigarette/Vaping Use: Former Use Second Hand Smoke Exposure: No service: No Current occupational status: employed Current occupation: Currently has job held for 12 months Current occupational exposures/hazards: No Cognitive needs: No Hearing needs: Yes Vision needs: Yes Questionnaire PHQ-9 Over the last 2 weeks, how often have you been bothered by any of the following problems? 1. Little interest or pleasure in doing things: not at all 2. Feeling down, depressed, or hopeless: not at all 3. Trouble falling or staying asleep, or sleeping too much: not at all 4. Feeling tired or having little energy: not at all 5. Poor appetite or overeating: not at all 6. Feeling bad about yourself - or that you are a failure or have let yourself or your family down: not at all 7. Trouble concentrating on things, such as reading the newspaper or watching television: not at all 8. Moving or speaking so slowly that other people could have noticed. Or the opposite - being so fidgety or restless that you have been moving around a lot more than usual: not at all 9. Thoughts that you would be better off or of hurting yourself in some way: not at all Total score: 0 Depression Screening Interpretation: Negative Depression Screening Done: Yes 56137 - PHQ-9 Billing: Yes Source: Developed by Drs. Enrico Rendon, Danitza Frances, Angel Gaines and colleagues, with an educational laury from [employer]. Thrive Questionnaire Date Thrive assessed: 09/02/23 I am a: Patient What is your living situation today?: I have a steady place to live Within the past 12 months, did the food you bought not last and you didn't have the money to get more?: Never true Within the past 12 months, did you worry whether your food would run out before you got money to buy more?: Never true Do you have trouble paying for medicines?: No Do you have trouble getting transportation to medical appointments?: No Do you have trouble paying your heating and electricity bill?: No Do you have trouble taking care of your child, family member or friend?: No Do you have trouble with day-to-day activities such as bathing, preparing meals, shopping, managing finances, etc.?: No Are you currently unemployed and looking for a job?: No Are you interested in more education?: No THRIVE Score: 0 AUDIT C Alcohol Use Questionnaire (AUDIT-C) 1. How often do you have a drink containing alcohol?: Monthly or less 2. How many drinks containing alcohol do you have on a typical day when you are drinking?: 1 or 2 3. How often do you have six or more drinks on one occasion?: Never Total Score: 1 MAYRA-7 AMB Questionnaire MAYRA-7 Date MAYRA - 7 assessed: 09/02/23 Feeling nervous, anxious, or on edge: 1 = Several days Not being able to stop or control worryin = More than half the days Worrying too much about different things: 2 = More than half the days Trouble relaxin = Several days Being so restless that it is hard to sit still: 1 = Several days Becoming easily annoyed or irritable: 2 = More than half the days Feeling afraid as if something awful might happen: 1 = Several days Total MAYRA-7 score (0-4 normal; 5-9 mild; 10-14 moderate; 15-21 severe): 10 Source: Developed by Drs. Enrico Rendon, Danitza Frances, Angel Gaines and colleagues, with an educational laury from [employer]. MAYRA-7 Assessment Billing MAYRA-7 Assessment Tool: MAYRA-7 Assessment 77792 Review of Systems Const Denies chills, Denies fatigue, Denies fever(s), Denies headache(s) and Denies weakness Eyes Denies change in vision ENT Denies dizziness, Denies headache(s), Denies hearing loss, Denies nasal congestion, Denies sinus pain, Denies sinus pressure and Denies sore throat Card Denies chest pain, Denies lightheadedness, Denies dyspnea and Denies other (palpitations) Resp Denies cough, Denies dyspnea and Denies wheezing GI Denies abdominal pain, Denies melena, Denies hematochezia, Denies change in bowel habits, Denies dyspepsia and Denies nausea Denies hematuria and Denies dysuria Musc Denies abnormal gait, Denies myalgias, Denies arthralgias, Denies numbness and Denies tingling Skin/Breast Denies rash, Denies unusual bruising and Denies wounds Neuro Denies abnormal gait, Denies dizziness, Denies headache(s), Denies memory loss, Denies numbness, Denies Sensory deficit (Neuro), Denies tingling and Denies weakness Psych Denies anxiety, Denies depression and Denies memory loss Endo Denies cold intolerance, Denies fatigue, Denies heat intolerance, Denies polydipsia and Denies polyuria Bryan/Lymph Denies easy bleeding and Denies easy bruising Aller/Immun Denies wheezing Physical exam (Primary Care) Vital Signs: Last Vital Signs Pulse 82 09/02/23 09:07 BP 120/66 09/02/23 09:07 Pulse Ox 97 09/02/23 09:07 Oxygen Delivery Method Room Air 09/02/23 09:07 BMI result Body Mass Index 34.7 Tobacco/Smoking Status: Tobacco use Status Tobacco use date assessed 09/02/23 09/02/23 09:17 Patient Tobacco Use Status Never used Tobacco 09/02/23 09:08 e-Cigarette/Vaping Use Former Use 09/02/23 09:08 PHQ-9: PHQ-9 Score PHQ-9: Total score 0 09/02/23 09:38 Depression Screening Interpretation: Negative Thrive Assessment: Date of Thrive Assessment Date Thrive assessed 09/02/23 09/02/23 09:17 Const General: no acute distress, well developed, alert and awake Nutritional Appearance: well nourished Orientation/consciousness: patient oriented x3 HENMT Head: Yes normocephalic and Yes atraumatic Ears: hearing grossly normal bilaterally and TM's normal bilaterally General nose exam: Normal external nose present and Normal nares present Mouth: Normal oral and palatal mucosa present and moist mucous membranes Teeth and gingiva: dentition normal Throat: Yes posterior oropharynx normal Eyes General: appearance normal, both eyes and all related structures Pupils: Equal, round and reactive pupils present and Pupil accommodation reflex normal EOM: EOMs intact bilaterally Neck Neck: Yes normal visual inspection, Yes no lymphadenopathy and Yes trachea midline Thyroid: Thyroid normal Carotids: no bruits Lymphatic: no lymphadenopathy noted Chest Chest palpation & inspection: normal inspection of the chest Resp Effort & Inspection: normal respiratory effort Auscultation: clear to auscultation bilaterally Cardio Rate: regular rate Rhythm: regular rhythm Heart sounds: S1 normal heart sound present, S2 normal heart sound present, no gallops, no murmurs and no rubs Bruits: no abdominal aortic bruits and no carotid bruits GI Palpation (GI): No Abdominal aortic bruit present, Soft to palpation, nontender, No hepatosplenomegaly present and No Rebound tenderness present Auscultation: normal bowel sounds General: Yes no CVA tenderness Back/Spine/Pelvis Back: no CVA tenderness Cervical Spine: cervical ROM normal and No Cervical spine tenderness Thoracic/Lumbar Spine: thoraco-lumbar ROM normal, No pain with thoraco-lumbar ROM, No thoracic spinal tenderness and No lumbar spinal tenderness Skin Lesions: no lesions Rashes: no rashes Trauma: no lacerations or abrasions Wounds: no wounds Nails: normal Neuro General: patient oriented x3 and No gait normal Cranial nerves: Yes Equal, round and reactive pupils present Cognition (Neuro): normal cognition Gait exam (Neuro): gait abnormal Motor exam (neuro): strength not 5/5 throughout Sensory Exam: No Sensory deficit (Neuro) Deep tendon reflexes (DTR's): Right patellar reflex intensity grade: 2+ and Left patellar reflex intensity grade: 2+ Extrem General: Yes normal to inspection and No edema Psych Appearance: grossly normal Affect: normal affect Attitude: cooperative Thought process: Normal thought process present Assessment and Plan Assessment & Plan (1) Adult general medical exam: Code(s): Z00.00 - Encounter for general adult medical examination without abnormal findings Plan: 47-year-old?male?presents?for?complete?physical?exam (2) Below-knee amputation of right lower extremity: Code(s): S88.111A - Complete traumatic amputation at level between knee and ankle, right lower leg, initial encounter Plan: Patient?reports?ongoing?pain?at?amputation?site?despite?this?being?greater?than?6?months?since?the?surgery. Uses?gabapentin?and?had?been?on?Percocet?which?has?been?decreased?to?tramadol. He?is?on?Xarelto?and?also?has?a?history?of?ulcerative?colitis?with?GI?bleeding?so?only?uses?tolerates?naproxen. Had?referred?him?to?pain?management?but?he?had?difficulty?making?the?appointment?and?missed?it. We?discussed?that?he?will?need?to?be?seen?at?pain?management?to?ensure?that?we?are?doing?everything?we?can?to?manage?his?pain?with?the?least?amount?of?medication?possible. Patient?understands Will?continue?the?above?pain?medications?but?we?did?discuss?that?if?he?does?not?set?aside?time?to?be?evaluated?by?pain?management?I?would?consider?weaning?down?tramadol. Patient?understands (3) Change in hearing: Code(s): H91.90 - Unspecified hearing loss, unspecified ear Plan: Left?ear?hearing?loss. Referred?to?ENT?for?evaluation (4) Screening for colon cancer: Code(s): Z12.11 - Encounter for screening for malignant neoplasm of colon Plan: Followed?closely?by??Joselyn?for?screening?for?colon?cancer?as?well?as?for?follow-up?of?ulcerative?colitis Up-to-date (5) Screening for prostate cancer: Code(s): Z12.5 - Encounter for screening for malignant neoplasm of prostate Plan: Patient?will?get?labs?drawn?including?PSA?level?and?we?will?follow-up?at?upcoming?visit. Orders: Referrals Ear/Nose/Throat Referral H91.90 - Unspecified hearing loss, unspecified ear Medications: Refilled tramadol MassPat Verified. 50 mg PO DAILY 30 tabs 0RF 30 days M79.604 - Pain in right leg, Z89.511 - Acquired absence of right leg below knee gabapentin orally 2 times a day; 300mg (1 cap) AM and 600mg (2 caps) PM 90 caps 3RF 30 days rivaroxaban (Xarelto) 2.5 mg PO DAILY 30 tabs 2RF 30 days Coding Level of Care Code Est Pt Level 3 (00816) Diagnoses Adult general medical exam Z00.00 Below-knee amputation of right lower extremity S88.111A Change in hearing H91.90 Screening for colon cancer Z12.11 Screening for prostate cancer Z12.5 Additional Codes MAYRA-7 Assessment Billing - MAYRA-7 Assessment Tool: MAYRA-7 Assessment 22311 ([id number])
== END 2023-09-02 10:14 | disposition home or self-care (01) ==
PROVIDERS: PCP Family Medicine; Visit Provider Family Medicine
DX: Z00.00 Encounter for general adult medical examination without abnormal findings (principal); S88.111A Complete traumatic amputation at level between knee and ankle, right lower leg, initial encounter; H91.92 Unspecified hearing loss, left ear; Z12.11 Encounter for screening for malignant neoplasm of colon; Z12.5 Encounter for screening for malignant neoplasm of prostate
CPT/HCPCS: 99396

== ENCOUNTER 2023-09-15 12:52 | Outpatient (REF) | payer BC, SELFPAY ==
[2023-09-15 12:54] VITALS: BP 171/100; PULSE 86; RESP 20; TEMP 37.2; O2SAT 96
--- NOTE | 2023-09-15 13:00 | PC.NURSE ---
pharmacy called for lee
[2023-09-15] MEDS: Vedolizumab 300 MG in 0.9 % Sodium Chloride 250 ML 510 MG IV (13:43)
== END 2023-09-15 12:53 | disposition home or self-care (01) ==
LOC: HO.MDS 12:52
PROVIDERS: Visit Provider Internal Medicine Gastroenterology
DX: K51.90 Ulcerative colitis, unspecified, without complications (principal)
CPT/HCPCS: 96365; J3380

== ENCOUNTER 2023-09-15 14:35 | Outpatient (AMB) | payer BC, SELFPAY ==
--- NOTE | 2023-09-15 14:51 | MHC.OFFVIS ---
Intake Vital Signs 09/15/23 15:05 Height 5 ft 8 in Weight 227 lb 4 oz BMI 34.5 BP 140/74 H Blood Pressure Location Lt brachial Position Sitting Respiration 16 Pulse 69 Pulse Source Pulse Oximeter Pulse Oximetry (%) 97 Oxygen Delivery Method Room Air Intake Visit Reasons: RIGHT LEG PAIN Intake Note: Patient comes in for initial visit was referred by [facility] [place] [place] primary care. Reports pain 12/04. Allergies shellfish derived Allergy (Verified 09/15/23 15:06) Swelling HPI HPI Comments History of Present Illness Details Mr. Saba is very very pleasant 47 years old gentleman who presents in my office with complains on pain in BKA stump as well as phantom limb pain on the right side. He reported that 9 months ago he had procedure performed on his lower extremity to alleviate thrombosis of the right lower extremity arteries. He reported that despite physicians efforts the necrotic area of the right foot started to grow and gangrene developed. Eventually the BKA was performed. The patient started to work recently and reports more stump pain and more pain in the phantom. He reports that he can not sleep normally can not do activities of daily living he can not take care of himself but he can not function normally. Weather changes in movements aggravate his pain and oral medications make his pain better. His pain is less severe when he is sleeping and the most of his pain is when he is working walking and doing activities. In terms of tissue damage he reports his pain is pulsing and pounding, jumping and shooting, stabbing and lancinating, sharp and lacerating, pinching and crushing, tugging and wrenching, tingling and stinging, dull and heavy, punishing and killing, tight and tearing. Received significant physical therapy and occupational therapy to adjust the prosthesis and to perform improvement. He has images of the stump however I do not think that this will be helpful. His past medical history significant for hypertension anemia and asthma, past surgical history significant for vascular surgery described as above. He also have history of ulcerative colitis and severe anemia due to anticoagulation during the vascular surgeries multiple blood transfusions. He denies smoking cigarettes admits drinking alcohol however states that he was sober for the past 6 months he drinks caffeinated beverages he denies recreational drugs. [facility] Medical History Sleep apnea Hypertension Ulcerative colitis GERD (gastroesophageal reflux disease) GI bleeding Diverticulitis Surgical History Hx of amputation below knee Hx of colonoscopy Family History Mother Heart disease COPD (chronic obstructive pulmonary disease) Social History Household Members: None Housing: House Do you presently have visiting nurse or other home services: No Alcohol intake: never Comment: S3 Patient Tobacco Use Status: Never used Tobacco e-Cigarette/Vaping Use: Former Use Second Hand Smoke Exposure: No service: No Current occupational status: employed Current occupation: Currently has job held for 12 months Current occupational exposures/hazards: No Cognitive needs: No Hearing needs: Yes Vision needs: Yes Review of Systems Const Denies chills, Denies fatigue, Denies fever(s), Denies headache(s) and Denies weakness Eyes Denies change in vision ENT Reports Normal hearing present, Denies dizziness, Denies headache(s), Denies hearing loss, Denies nasal congestion, Denies sinus pain, Denies sinus pressure and Denies sore throat Card Denies chest pain, Denies lightheadedness, Denies dyspnea and Denies other (palpitations) Resp Denies cough, Denies dyspnea and Denies wheezing GI Denies abdominal pain, Denies melena, Denies hematochezia, Denies change in bowel habits, Denies dyspepsia and Denies nausea Denies hematuria and Denies dysuria Musc Denies abnormal gait, Denies myalgias, Denies arthralgias, Denies numbness and Denies tingling Skin/Breast Denies rash, Denies unusual bruising and Denies wounds Neuro Reports Normal hearing present, Denies Abnormal speech present, Denies abnormal gait, Denies confusion, Denies dizziness, Denies headache(s), Denies memory loss, Denies numbness, Denies Sensory deficit (Neuro), Denies tingling and Denies weakness Psych Denies anxiety, Denies confusion, Denies depression and Denies memory loss Endo Denies cold intolerance, Denies fatigue, Denies heat intolerance, Denies polydipsia and Denies polyuria Bryan/Lymph Denies easy bleeding and Denies easy bruising Aller/Immun Denies wheezing Physical Exam Vital Signs: Last Vital Signs Pulse 69 09/15/23 15:05 Resp 16 09/15/23 15:05 BP 140/74 H 09/15/23 15:05 Pulse Ox 97 09/15/23 15:05 Oxygen Delivery Method Room Air 09/15/23 15:05 BMI result Body Mass Index 34.5 Const General: no acute distress; No confusion Orientation/consciousness: patient oriented x3 and No confusion Eyes General: appearance normal, both eyes and all related structures Pupils: Equal, round and reactive pupils present EOM: EOMs intact bilaterally Neck Neck: Yes full ROM Chest Chest palpation & inspection: normal inspection of the chest Resp Effort & Inspection: normal respiratory effort, able to speak in complete sentences, normal respiratory pattern, no audible wheezes and no cough Cardio Jugular venous distension: no JVD GI Inspection: Yes normal to inspection Neuro General: patient oriented x3, gait normal and No confusion Cranial nerves: Yes CN's II-XII intact bilaterally, Yes Equal, round and reactive pupils present, Yes Normal hearing present and Yes Ability to bilaterally elevate shoulders present Speech: No Abnormal speech present Gait exam (Neuro): Normal gait present Motor exam (neuro): 5/5 motor strength present throughout Sensory Exam: No Sensory deficit (Neuro) Extrem Other: On inspection right stump BKA is very well-healed. The tibial bone appears to be right under the skin. The muscular flap on inspection appeared to be little bit more posterior than it should be. General: No pedal edema Psych Speech and movement: Normal speech and movement present Affect: normal affect Attitude: cooperative Thought process: Normal thought process present Thought content: Normal thought content present Insight: Good insight present (Psych) Judgement: Good judgement present (Psych) Assessment & Plan Assessment & Plan (1) Phantom limb pain: Code(s): G54.6 - Phantom limb syndrome with pain (2) Amputation stump pain: Code(s): T87.89 - Other complications of amputation stump; M79.609 - Pain in unspecified limb (3) Chronic pain syndrome: Code(s): G89.4 - Chronic pain syndrome (4) PAD (peripheral artery disease): Code(s): I73.9 - Peripheral vascular disease, unspecified Plan To treat the pain of this patient especially phantom limb pain I offered him to perform lumbar sympathetic injection on the right. 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 However at the same time I discussed with the patient spinal cord stimulator. He was asking multiple questions and all of his questions were satisfactory answered. He wants to go for psychological evaluation. As of stump pain it appears to be that the stump can not be surgically improved at least for my non surgical opinion. I recommended him to seek for surgical 2nd opinion to perform reflupping of the procedure with a vascular or general surgeon. Patient Instructions: I here by testify that I spent 45 minutes in conversation with this patient as well as evaluating his prior records, planning his future procedures and organizing this note. Coding Level of Care Code New Pt Level 4 (01306) Diagnoses Phantom limb pain G54.6 Amputation stump pain T87.89; M79.609 Chronic pain syndrome G89.4 PAD (peripheral artery disease) I73.9
[2023-09-15 15:05] VITALS: BP 140/74; PULSE 69; RESP 16; O2SAT 97; BMI 34.5
== END 2023-09-15 15:36 | disposition home or self-care (01) ==
PROVIDERS: PCP Family Medicine; Referring Provider Family Medicine; Visit Provider Anesthesiology
DX: G54.6 Phantom limb syndrome with pain (principal); T87.89 Other complications of amputation stump; M79.609 Pain in unspecified limb; G89.4 Chronic pain syndrome; I73.9 Peripheral vascular disease, unspecified
CPT/HCPCS: 99204

== ENCOUNTER 2023-11-04 08:52 | Outpatient (REF) | payer BC, SELFPAY ==
[2023-11-04 09:11] LABS: MANUAL DIFF FLAG NO
[2023-11-04 09:36] LABS: Basophils Absolute Auto 0.1 X10*3/uL (0.0-0.2); Basophils Percent Auto 1.3 % (0-2); Eosinophils Absolute Auto 0.3 X10*3/uL (0.0-0.4); Eosinophils Percent Auto 4.2 % (0-4); Hemoglobin 14.2 g/dl (14.0-18.0); Imm Gran Abs Auto 0.05 X10*3/uL (0.00-0.03); Imm Gran Pct Auto 0.7 % (0.0-0.4); Lymphocytes Absolute Auto 1.4 X10*3/uL (1.2-4.9); Mean Corpuscular Hemoglobin 29.8 pg (27.0-33.0); Mean Corpuscular Volume 90.1 fL (80.0-98.0); Mean Platelet Volume 9.8 fL (9.4-12.4); Monocytes Absolute Auto 0.6 X10*3/uL (0.1-1.2); Monocytes Percent Auto 7.4 % (2-11); Neutrophils Absolute Auto 5.2 x10*3/uL (2.0-8.3); Neutrophils Percent Auto 68.4 % (45-73); Platelet Count 357 X10*3/uL (160-400); Red Blood Count 4.77 X10*6/uL (4.60-5.80); Red Cell Distribution Width 13.4 % (11.0-16.0); White Blood Count 7.6 X10*3/uL (4.8-10.8)
[2023-11-04 10:12] LABS: Appearance Urine Clear; Color Urine Yellow; Glucose Urine UA Negative (Negative); Leukocyte Esterase Urine Small (1+) (Negative); Nitrite Urine Negative (Negative); PH 5.5 (5.0-9.0); Specific Gravity - Urine 1.015 (1.005-1.025); UMIC TRIGGER UA YES; Urine Blood Negative (Negative); Urine Ketones Negative (Negative); Urine Protein Negative (Neg-Trace)
[2023-11-04 10:16] LABS: Creatinine Urine 163.31 mg/dL; Microalbum/Creatinine Ratio Ur 4.2 ug/mg cr (<30)
[2023-11-04 10:18] LABS: Bacteria Urine None Seen (None Seen); Hyaline Casts Urine 0-2 /LPF (0-2); RBC Urine 0-2 /HPF (0-2); Squamous Epithelial Cell Urine 0-2 /HPF (0-2)
[2023-11-04 10:21] LABS: Alanine Aminotransferase 27 U/L (0-40); Albumin Level 4.1 g/dL (3.5-5.0); Alkaline Phosphatase 74 U/L (39-117); Anion Gap 14 (12-20); Aspartate Amino Transferase 18 U/L (5-37); Bilirubin Total 0.3 mg/dL (0.0-1.0); Blood Urea Nitrogen 10 mg/dL (9-16); Calcium 9.8 mg/dL (8.4-10.2); Carbon Dioxide 29 mmol/L (22-29); Chloride 104 mmol/L (96-108); Cholesterol 148 mg/dL (<200); Estimated Glomerular Filt Rate > 60; Glucose Fasting 108 mg/dL (60-99); HDL Cholesterol 41 mg/dL (>40); Iron 72 mcg/dL (45-160); LDL Cholesterol Calculated 90 mg/dL (<100); Percent Iron Saturation 22 % (15-50); Potassium 4.6 mmol/L (3.3-5.1); Sodium 142 mmol/L (135-145); Total Iron Binding Capacity 324 mcg/dL (228-428); Total Protein 7.4 g/dL (6.5-8.0); Triglycerides 86 mg/dL (<150); Unsaturated Iron Binding 252 ug/dL
[2023-11-04 10:28] LABS: TSH reflex Free T4 0.59 uIU/mL (0.32-4.0)
[2023-11-04 10:31] LABS: Prostate Specific Antigen Scr 0.43 ng/mL (<0.05-4.0)
== END 2023-11-04 08:53 | disposition home or self-care (01) ==
LOC: HO.LAB 08:52
PROVIDERS: PCP Family Medicine; Visit Provider Family Medicine
DX: Z00.00 Encounter for general adult medical examination without abnormal findings (principal); Z12.5 Encounter for screening for malignant neoplasm of prostate; D62 Acute posthemorrhagic anemia; I10 Essential (primary) hypertension
CPT/HCPCS: 36415; 80053; 80061; 81001; 81003; 82043; 82570; 83540; 84153; 84443; 85025

== ENCOUNTER → 2023-11-04 15:31 | Outpatient (AMB) | payer BC, SELFPAY ==
--- NOTE | 2023-11-04 15:21 | A.OFFPC_ITS ---
Intake Visit Reasons: follow up Labs Intake Note: Patient is scheduled to follow up on labs today, would like a refill of Tramadol at this time. Allergies shellfish derived Allergy (Verified 11/04/23 15:22) Swelling Tobacco use date assessed: 11/04/23 Dental Screening Dental Screen Date: 09/02/23 HPI follow up Labs HPI Details Telemedicine?encounter?to?discuss?CPE-labs. Reviewed?labs?with?patient Mildly?elevated?fasting?blood?sugar. The?remainder?of?his?labs? looked?okay.??He?has?had?severe?anemia?in?the?past?but?this?is?within?normal?ran ge?now Also?reviewed?PSA?level/screening?for?prostate?cancer.??PSA?is?within?normal?ran ge. He?has?had?Dr.?Khibkin?f rom?pain?management?recently?regarding?phantom?leg?pain.??Dr.?Khibkin?is?offerin g?sympathetic?lumbar?injections?or?spinal?stimulator?and?patient?is?thinking?abo ut?these. [facility] Medical History Sleep apnea Hypertension Ulcerative colitis GERD (gastroesophageal reflux disease) GI bleeding Diverticulitis Surgical History Hx of amputation below knee Hx of colonoscopy Family History (Updated 11/04/23 @ 15:25 by Nishi Mancia CMA) Mother Heart disease COPD (chronic obstructive pulmonary disease) Father Substance abuse Social History Household Members: None Housing: House Do you presently have visiting nurse or other home services: No Alcohol intake: never Comment: S3 Patient Tobacco Use Status: Never used Tobacco e-Cigarette/Vaping Use: Former Use Second Hand Smoke Exposure: No service: No Current occupational status: employed Current occupation: Currently has job held for 12 months Current occupational exposures/hazards: No Cognitive needs: No Hearing needs: Yes Vision needs: Yes Questionnaire Thrive Questionnaire Date Thrive assessed: 09/02/23 MAYRA-7 AMB Questionnaire MAYRA-7 Date MAYRA - 7 assessed: 09/02/23 Source: Developed by Drs. Enrico Rendon, Danitza Frances, Angel Gaines and colleagues, with an educational laury from [employer]. Review of Systems Const Denies chills, Denies fatigue, Denies fever(s), Denies headache(s) and Denies weakness ENT Denies dizziness and Denies headache(s) Card Denies chest pain, Denies lightheadedness, Denies dyspnea and Denies other (Palpitations) Resp Denies cough, Denies dyspnea, Denies wheezing and Denies other ( shortness of breath) Musc Denies numbness and Denies tingling Neuro Denies dizziness, Denies headache(s), Denies numbness, Denies tingling, Denies paresthesias and Denies weakness Psych Denies anxiety and Denies depression Endo Denies fatigue Aller/Immun Denies wheezing Physical exam (Primary Care) Tobacco/Smoking Status: Tobacco use Status Tobacco use date assessed 11/04/23 11/04/23 15:29 Patient Tobacco Use Status Never used Tobacco 11/04/23 15:29 e-Cigarette/Vaping Use Former Use 11/04/23 15:29 Thrive Assessment: Date of Thrive Assessment Date Thrive assessed 09/02/23 11/04/23 15:29 Telehealth Telehealth Telehealth Platform: Telephone Location of provider rendering services: practice address Location of patient: address on file Patient Identification confirmed using: Name, : Yes Telehealth method: voice only Patient verbally consented to treatment: Yes Patient verbally consented to billing insurance company: Yes Patient informed of any privacy concerns related to visit: Yes Minutes spent on Phone/Video with Pt.: 8 Assessment and Plan Assessment & Plan (1) Elevated fasting blood sugar: Code(s): R73.01 - Impaired fasting glucose Plan: Mildly?elevated?fasting?blood?sugar. Will?check?an?A1c?at?his?next?visit (2) Amputation stump pain: Code(s): T87.89 - Other complications of amputation stump; M79.609 - Pain in unspecified limb Plan: Ongoing?amputation.??Pain?and?also?phantom?limb?pain. Reviewed?pain?management?recommendations?with?patient Patient?seemed?interested?in?lumbar?sympathetic?injections?and?would?like?to?dis cuss?further?with??Nancy. (3) Phantom limb pain: Code(s): G54.6 - Phantom limb syndrome with pain Plan: As?above (4) Screening for prostate cancer: Code(s): Z12.5 - Encounter for screening for malignant neoplasm of prostate Plan: PSA?is?within?normal?range Will?continue?annual?screening Coding Level of Care Code Tele Est Pt Level 2 (57155) Diagnoses Elevated fasting blood sugar R73.01 Amputation stump pain T87.89; M79.609 Phantom limb pain G54.6 Screening for prostate cancer Z12.5
== END ==
LOC: HO.HMGFM 15:32
PROVIDERS: PCP Family Medicine; Visit Provider Family Medicine
DX: R73.01 Impaired fasting glucose (principal); T87.89 Other complications of amputation stump; G54.6 Phantom limb syndrome with pain; M79.609 Pain in unspecified limb; Z12.5 Encounter for screening for malignant neoplasm of prostate
CPT/HCPCS: 99441

== ENCOUNTER 2024-05-11 11:27 | Outpatient (AMB) | payer BC, SELFPAY ==
--- NOTE | 2024-05-11 11:29 | A.OFFPC_ITS ---
Vital Signs 05/11/24 11:36 Height 5 ft 8 in Weight 184 lb 2 oz BMI 28.0 BP 120/82 Blood Pressure Location Rt brachial Position Sitting Respiration 16 Pulse 77 Pulse Source Pulse Oximeter Temp 98.2 F Temp Source Oral Pulse Oximetry (%) 100 Oxygen Delivery Method Room Air Intake Visit Reasons: Mental health issue, pain in amputee Intake Note: patient here for mental health issues and pain in amputee Education Instructor Required: No Allergies shellfish derived Allergy (Verified 05/11/24 11:55) Swelling Medication List - Last Reconciled 05/11/24 by Yris Duong, FLEXIBLE BABYSITTER- aspirin 81 mg PO DAILY atorvastatin 80 mg PO DAILY ferrous sulfate 325 mg PO DAILY 30 days gabapentin orally 2 times a day; 300mg (1 cap) AM and 600mg (2 caps) PM 30 days lisinopril 10 mg PO DAILY 30 days miscellaneous medical supply 1 wheelchair cushion multivitamin with folic acid 400 mcg (Daily-Donna (with folic acid)) 1 tab PO DAILY 90 days rivaroxaban (Xarelto) 2.5 mg PO DAILY 30 days vedolizumab (Entyvio) 300 mg IV Q8W vitamin B complex 1 tab PO DAILY 30 days Tobacco use date assessed: 05/11/24 Dental Screening Dental Screen Date: 05/11/24 Did you have a dental visit in the last 12 months?: No Did you have a dental problem in the last 6 months where you did not have access to dental care?: No Was dental information given to patient?: Patient has dentist HPI HPI Comments History of Present Illness Details 48 y/o M with chronic neuropathic pain h ere today with complaints of severe depression and anxiety related to his pain. Reports that the pain has taken over his life. He has started using medications off of the street. He states that he will use anything that he can get his hands on. He is very embarrassed and ashamed of this. He has a 12-year-old son who he cares for and is aware that this can affect his ability to be a father. He was tried several things to help his pain without relief. Upon review of his medication list he was prescribed gabapentin. He is not taking. Uncertain why. 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/06/2023 12/06/2023 1 Tra madol Hcl 50 Mg Tablet 30 30 Th Gra [id number] Cv s (4352) 0/0 10.00 MME Comm Ins [place] 11/09/2023 09/02/2023 1 Juvenal apentin 300 Mg Capsule 90 30 Th Gra [id number] Cv s (4352) 1/3 Comm Ins [place] 09/29/2023 09/02/2023 1 Tra madol Hcl 50 Mg Tablet 30 30 Th Gra [id number] Cv s (4352) 0/0 10.00 MME Comm Ins [place] 09/18/2023 09/02/2023 1 Juvenal apentin 300 Mg Capsule 90 30 Th Gra [id number] Cv s (4352) 0/3 Comm Ins [place] 09/01/2023 08/31/2023 1 Tra madol Hcl 50 Mg Tablet 30 30 Th Gra [id number] Cv s (4352) 0/0 10.00 MME Comm Ins [place] 08/11/2023 01/21/2023 1 Juvenal apentin 300 Mg Capsule 90 30 [place] Mar [id number] Cv s (4352) 2/ Exam Awake alert oriented, no acute distress Tearful, poor eye contact, cooperative Ambulates with a cane, prosthesis of right lower extremity Plan I empathized with the patient in his situation. Reviewed the comprehensive [facility] at [facility]. Reviewed the services with him. He is willing to go for a walk in appointment today. I have provided him with the address as well as the phone number. I have sent a tiger text to the recovery support nurse and also touched base by phone to give a warm handoff. I thanked the patient for coming in and being honest with his struggles today. I will have the front office arrange for a close follow up with his primary care provider, Dr Astudillo -- scheduled tuesday at 12pm. This note is constructed using voice recognition software. While every effort has been made to ensure accuracy in cement railroad car loader, still errors may have been included Sometimes, these errors may affect the content or meaning of the given sentence . Total time spent caring for the patient today was 30 minutes. This includes time spent before the visit reviewing the chart, time spent during the visit, and time spent after the visit on documentation [facility] Medical History (Reviewed 09/02/23 @ 09:11 by Nishi Mancia [facility]) Sleep apnea Hypertension Ulcerative colitis GERD (gastroesophageal reflux disease) GI bleeding Diverticulitis Surgical History Hx of amputation below knee Hx of colonoscopy Family History (Updated 11/04/23 @ 15:25 by Nishi Mancia CMA) Mother Heart disease COPD (chronic obstructive pulmonary disease) Father Substance abuse Social History Household Members: None Housing: House Do you presently have visiting nurse or other home services: No Alcohol intake: never Comment: S3 Patient Tobacco Use Status: Never used Tobacco e-Cigarette/Vaping Use: Former Use Second Hand Smoke Exposure: No service: No Current occupational status: employed Current occupation: Currently has job held for 12 months Current occupational exposures/hazards: No Cognitive needs: No Hearing needs: Yes Vision needs: Yes Questionnaire PHQ-9 Over the last 2 weeks, how often have you been bothered by any of the following problems? 1. Little interest or pleasure in doing things: nearly every day 2. Feeling down, depressed, or hopeless: nearly every day 3. Trouble falling or staying asleep, or sleeping too much: nearly every day 4. Feeling tired or having little energy: more than half the days 5. Poor appetite or overeating: several days 6. Feeling bad about yourself - or that you are a failure or have let yourself or your family down: more than half the days 7. Trouble concentrating on things, such as reading the newspaper or watching television: nearly every day 8. Moving or speaking so slowly that other people could have noticed. Or the opposite - being so fidgety or restless that you have been moving around a lot more than usual: not at all 9. Thoughts that you would be better off or of hurting yourself in some way: several days Total score: 18 Depression Screening Interpretation: Positive Depression Screening Follow-up: Existing condition Depression Screening Done: Yes 96481 - PHQ-9 Billing: Yes Source: Developed by Drs. Enrico Rendon, Danitza Frances, Angel Gaines and colleagues, with an educational laury from [employer]. Thrive Questionnaire Date Thrive assessed: 05/11/24 I am a: Patient What is your living situation today?: I have a place to live, but I am worried about losing it in the future Within the past 12 months, did the food you bought not last and you didn't have the money to get more?: Never true Within the past 12 months, did you worry whether your food would run out before you got money to buy more?: Never true Do you have trouble paying for medicines?: No Do you have trouble getting transportation to medical appointments?: No Do you have trouble paying your heating and electricity bill?: No Do you have trouble taking care of your child, family member or friend?: No Do you have trouble with day-to-day activities such as bathing, preparing meals, shopping, managing finances, etc.?: Yes Are you currently unemployed and looking for a job?: No Are you interested in more education?: No Please select the resources that you would like help with: None Currently or been in a relationship where the following occur: No concerns reported THRIVE Score: 1 AUDIT C Alcohol Use Questionnaire (AUDIT-C) 1. How often do you have a drink containing alcohol?: Monthly or less 2. How many drinks containing alcohol do you have on a typical day when you are drinking?: 1 or 2 3. How often do you have six or more drinks on one occasion?: Never Total Score: 1 Score Reviewed/Action Taken: Yes MAYRA-7 AMB Questionnaire MAYRA-7 Date MAYRA - 7 assessed: 05/11/24 Feeling nervous, anxious, or on edge: 3 = Nearly every day Not being able to stop or control worryin = Nearly every day Worrying too much about different things: 3 = Nearly every day Trouble relaxin = Nearly every day Being so restless that it is hard to sit still: 3 = Nearly every day Becoming easily annoyed or irritable: 3 = Nearly every day Feeling afraid as if something awful might happen: 3 = Nearly every day Total MAYRA-7 score (0-4 normal; 5-9 mild; 10-14 moderate; 15-21 severe): 21 Source: Developed by Drs. Enrico Rendon, Danitza Frances, Angel Gaines and colleagues, with an educational laury from [employer] MAYRA-7 Assessment Billing MAYRA-7 Assessment Tool: MAYRA-7 Assessment 59263 Physical exam (Primary Care) Vital Signs: Last Vital Signs Temp 98.2 F 05/11/24 11:36 Pulse 77 05/11/24 11:36 Resp 16 05/11/24 11:36 BP 120/82 05/11/24 11:36 Pulse Ox 100 05/11/24 11:36 Oxygen Delivery Method Room Air 05/11/24 11:36 BMI result Body Mass Index 28.0 Tobacco/Smoking Status: Tobacco use Status Tobacco use date assessed 05/11/24 05/11/24 11:39 Patient Tobacco Use Status Never used Tobacco 05/11/24 11:32 e-Cigarette/Vaping Use Former Use 05/11/24 11:32 PHQ-9: PHQ-9 Score PHQ-9: Total score 18 05/11/24 11:39 Depression Screening Interpretation: Positive Depression Screening Follow-up: Existing condition Thrive Assessment: Date of Thrive Assessment Date Thrive assessed 05/11/24 05/11/24 11:39 Currently or been in a relationship where the following occur: No concerns reported Coding Level of Care Code Est Pt Level 4 (81793) Complex EM visit Add On G2211 Diagnoses Neuropathic pain M79.2 Severe episode of recurrent major depressive disorder, without psychotic features F33.2 Major depression episode severity: severe Psychotic features: without psychotic features MAYRA (generalized anxiety disorder) F41.1 Additional Codes MAYRA-7 Assessment Billing - MAYRA-7 Assessment Tool: MAYRA-7 Assessment 58534 ([id number]) PHQ-9 - 52102 - PHQ-9 Billing: Yes ([id number]) Assessment & Plan Assessment & Plan (1) Neuropathic pain: Comment: RLE Code(s): M79.2 - Neuralgia and neuritis, unspecified Category: Medical Plan: . (2) MDD (major depressive disorder), recurrent episode: Code(s): F33.9 - Major depressive disorder, recurrent, unspecified Category: Medical Qualifiers: Major depression episode severity: severe Psychotic features: without psychotic features Qualified Code(s): F33.2 - Major depressive disorder, recurrent severe without psychotic features Plan: . (3) MAYRA (generalized anxiety disorder): Code(s): F41.1 - Generalized anxiety disorder Category: Medical Plan: . Plan . Patient Instructions: Crisis Hotlines Suicide prevention, domestic violence, and other crisis hotlines for youth, young adults, and their friends and families. [employer] Safeline: The [employer] helps youth who have run away, are thinking about running away, or who already ran away but are ready to come home. Parents and guardians can also contact the hotline if they are worried about their child running away or if their child has already left home. The hotline is available 24 hours a day, seven days a week. Youth, parents, and guardians can also use the online chat feature on the [facility]'s website to ask for help and get support, or [place] [address]. [facility] National Suicide Prevention Lifeline: The National Suicide Prevention Lifeline is a network of local crisis centers t hat are available 17/01 to provide support for youth and adults who are in any kind of emotional crisis. In addition to the main hotline number listed above, there are several other numbers to call depending on your needs: Dutch Language: Deaf and Hard of Hearin1-857.505.8593 Veterans: Disaster Distress: Anyone can also use their online chat feature on their website. [place] Suicide Prevention Lifeline [facility] Helpline: The [facility] Helpline is available to anyone in [place] who is need of emotional support. Anyone can call or text the helpline to receive help from specially trained volunteers. [place] high school and college students can also get online support through the IMH[employer]_ program. For high school students, volunteers ages 15-18 are available Tuesday- from 6-9PM. For college students, [employer]_ is available Tuesday-Tuesday from 5-9PM. The Pop Project - The Pop Project is a 17/01 crisis intervention and suicide prevention hotline for LGBTQ youth. Youth can also text Opp to for support, or use the online chat feature on the Pop Project's website. [employer] is available Tuesday-Tuesday between 3-10PM. [employer] is available seven days a week between 3-10PM. SafeLink: SafeLink is for anyone who is being affected by domestic violence or dating violence. Volunteers at [employer] speak [place] and Dutch, and [employer] also has a service that can provide translation in more than 130 languages. TTY:
[2024-05-11 11:36] VITALS: BP 120/82; PULSE 77; RESP 16; TEMP 36.8; O2SAT 100; BMI 28.0
== END 2024-05-11 12:00 | disposition home or self-care (01) ==
PROVIDERS: PCP Family Medicine; Visit Provider Nurse Practitioner Family
DX: M79.2 Neuralgia and neuritis, unspecified (principal); F33.2 Major depressive disorder, recurrent severe without psychotic features; F41.1 Generalized anxiety disorder

== ENCOUNTER → 2024-05-11 11:27 | Outpatient (BNVA) | payer BC, SELFPAY | PROVIDERS: PCP Family Medicine; Visit Provider Nurse Practitioner Family | DX: F11.90 Opioid use, unspecified, uncomplicated (principal); M79.2 Neuralgia and neuritis, unspecified; F33.2 Major depressive disorder, recurrent severe without psychotic features; F41.1 Generalized anxiety disorder | CPT/HCPCS: 96127 ==

== ENCOUNTER 2024-05-11 13:04 | Outpatient (AMB) | payer BC, SELFPAY ==
--- NOTE | 2024-05-11 14:45 | A.OFFVISCC_ITS ---
Intake Visit Reasons: MAT intake Walk in Allergies shellfish derived Allergy (Verified 05/11/24 11:55) Swelling HPI HPI MAT intake Walk in: Details: Patient presents as a walk in for evaluation of opiate use Referred by primary care who he had seen earlier Seen by printed forms proofreader in office and he reported using non prescribed percocets for some time Patient with poor eye contact, expressing embarrassment with being in office, I am not an addict much focus on frustration that he not able to be prescribed tramadol which he reports was helpful to him. Guarded and irritable. T/w explained how MOUD (Buprenorphine) can address his current opiate use, and withdrawal sx he experiences when he does not take it Allowed patient to share his frustration and hesitation with considering treatment and provided gentle reassurance, while clearing up misinformation/misconceptions about medications patient ultimately decided to leave visit t/w offered written materials for him to review on his own time, and encouraged him to call or return at any time. Patient declined information Review of Systems Const Details: deferred as patient exited visit abruptly Physical Exam Psych Affect: Irritable affect present Attitude: Guarded attititude/behavior present and Avoids eye contact (attititude/behavior) Insight: Limited insight present (Psych) Assessment & Plan Assessment & Plan (1) Opioid use disorder: Code(s): F11.90 - Opioid use, unspecified, uncomplicated Category: Medical Plan: * no follow up scheduled, but patient welcome back at any time to discuss possiblity of MOUD [facility] Medical History Sleep apnea Hypertension Ulcerative colitis GERD (gastroesophageal reflux disease) GI bleeding Diverticulitis Surgical History Hx of amputation below knee Hx of colonoscopy Family History (Updated 11/04/23 @ 15:25 by Nishi Mancia CMA) Mother Heart disease COPD (chronic obstructive pulmonary disease) Father Substance abuse Social History Household Members: None Housing: House Do you presently have visiting nurse or other home services: No Alcohol intake: never Comment: S3 Patient Tobacco Use Status: Never used Tobacco e-Cigarette/Vaping Use: Former Use Second Hand Smoke Exposure: No service: No Current occupational status: employed Current occupation: Currently has job held for 12 months Current occupational exposures/hazards: No Cognitive needs: No Hearing needs: Yes Vision needs: Yes
== END 2024-05-11 13:22 | disposition home or self-care (01) ==
LOC: HO.HCC 13:04
PROVIDERS: PCP Family Medicine; Visit Provider Nurse Practitioner Psychiatric/Mental Health
DX: F11.90 Opioid use, unspecified, uncomplicated (principal)
CPT/HCPCS: 99213

== ENCOUNTER 2024-05-15 11:48 | Outpatient (AMB) | payer BC, SELFPAY ==
--- NOTE | 2024-05-15 12:01 | A.OFFPC_ITS ---
Vital Signs 05/15/24 12:05 Height 5 ft 8 in Weight 184 lb 4 oz BMI 28.0 BP 106/66 Blood Pressure Location Rt brachial Position Sitting Respiration 16 Pulse 74 Pulse Source Pulse Oximeter Temp 98.1 F Temp Source Oral Pulse Oximetry (%) 98 Oxygen Delivery Method Room Air Intake Visit Reasons: est/neuropathic pain/mdd/mayra per deondre Intake Note: neuropathic pain rt leg, pt would like to discuss and option for pain medication and would also need a dr note stating why he needs a prostetic leg or wheelchair so her can visit his incarcerated family member. Allergies shellfish derived Allergy (Verified 05/15/24 12:02) Swelling Tobacco use date assessed: 05/11/24 Dental Screening Dental Screen Date: 05/11/24 HPI est/neuropathic pain/mdd/mayra per deondre HPI Details 48 y/o male presents to f[facility]. Notes ongoing chronic pain. He states he seems reluctant about spine injections due to his hx of amputation. He is on tramadol, gabapentin for pain. He also notes he had been using additional pain meds and began using percocets off the street. HPI Comments History of Present Illness Details Documentation assistance for Ihsan Astudillo MD, was provided by Chapo Lagunas, Oil Deliverer on 05/15/2024 at 1:05 PM EST. I, Dr. Astudillo, have read, observed, and verified documentation. [facility] Medical History Sleep apnea Hypertension Ulcerative colitis GERD (gastroesophageal reflux disease) GI bleeding Diverticulitis Surgical History Hx of amputation below knee Hx of colonoscopy Family History (Updated 11/04/23 @ 15:25 by Nishi Mancia CMA) Mother Heart disease COPD (chronic obstructive pulmonary disease) Father Substance abuse Social History Household Members: None Housing: House Do you presently have visiting nurse or other home services: No Alcohol intake: never Comment: S3 Patient Tobacco Use Status: Never used Tobacco e-Cigarette/Vaping Use: Former Use Second Hand Smoke Exposure: No service: No Current occupational status: employed Current occupation: Currently has job held for 12 months Current occupational exposures/hazards: No Cognitive needs: No Hearing needs: Yes Vision needs: Yes Questionnaire Thrive Questionnaire Date Thrive assessed: 05/11/24 I am a: Patient What is your living situation today?: I have a place to live, but I am worried about losing it in the future Within the past 12 months, did the food you bought not last and you didn't have the money to get more?: Never true Within the past 12 months, did you worry whether your food would run out before you got money to buy more?: Never true Do you have trouble paying for medicines?: No Do you have trouble getting transportation to medical appointments?: No Do you have trouble paying your heating and electricity bill?: No Do you have trouble taking care of your child, family member or friend?: No Do you have trouble with day-to-day activities such as bathing, preparing meals, shopping, managing finances, etc.?: Yes Are you currently unemployed and looking for a job?: No Are you interested in more education?: No Please select the resources that you would like help with: None Currently or been in a relationship where the following occur: No concerns reported THRIVE Score: 1 MAYRA-7 AMB Questionnaire MAYRA-7 Date MAYRA - 7 assessed: 05/11/24 Source: Developed by Drs. Enrico Rendon, Danitza Frances, Angel Gaines and colleagues, with an educational laury from [employer]. Review of Systems Const Denies chills, Denies fatigue, Denies fever(s), Denies headache(s) and Denies weakness ENT Denies dizziness and Denies headache(s) Card Denies dyspnea Resp Denies cough, Denies dyspnea, Denies wheezing and Denies other (shortness of breath) Musc Denies numbness and Denies tingling Neuro Denies dizziness, Denies headache(s), Denies numbness, Denies tingling and Denies weakness Psych Denies anxiety and Denies depression Endo Denies fatigue Aller/Immun Denies wheezing Physical exam (Primary Care) Vital Signs: Last Vital Signs Temp 98.1 F 05/15/24 12:05 Pulse 74 05/15/24 12:05 Resp 16 05/15/24 12:05 BP 106/66 05/15/24 12:05 Pulse Ox 98 11/19/24 12:05 Oxygen Delivery Method Room Air 05/15/24 12:05 BMI result Body Mass Index 28.0 Tobacco/Smoking Status: Tobacco use Status Tobacco use date assessed 05/11/24 05/15/24 12:06 Patient Tobacco Use Status Never used Tobacco 05/15/24 12:06 e-Cigarette/Vaping Use Former Use 05/15/24 12:06 Thrive Assessment: Date of Thrive Assessment Date Thrive assessed 05/11/24 05/15/24 12:06 Currently or been in a relationship where the following occur: No concerns reported Const General: well developed; No acute distress Nutritional Appearance: well nourished Orientation/consciousness: patient oriented x3 HENMT Head: Yes normocephalic and Yes atraumatic Eyes General: appearance normal, both eyes and all related structures Pupils: Equal, round and reactive pupils present EOM: EOMs intact bilaterally Resp Effort & Inspection: normal respiratory effort Neuro General: patient oriented x3 and gait normal Cranial nerves: Yes Equal, round and reactive pupils present Psych Affect: normal affect Coding Level of Care Code Est Pt Level 4 (76278) Diagnoses Chronic pain syndrome G89.4 Neuropathic pain M79.2 Amputation stump pain T87.89; M79.609 Opioid use disorder F11.90 Assessment & Plan Assessment & Plan (1) Chronic pain syndrome: Code(s): G89.4 - Chronic pain syndrome Category: Medical Plan: Patient?with?chronic?pain?secondary?to?right?BKA?and?stump?pain See?below (2) Neuropathic pain: Comment: RLE Code(s): M79.2 - Neuralgia and neuritis, unspecified Category: Medical Plan: Chronic?pain?and?neuropathic?pain Had?seen?pain?management?in?the?past?and?he?had?declined?treatments?such?as?inje ction?therapy?which?they?had?discussed.??We?reviewed?this?today?and?patient?seem ed?less?apprehensive.??He?contact?pain?management?for?further?consideration. Continue?gabapentin (3) Amputation stump pain: Code(s): T87.89 - Other complications of amputation stump; M79.609 - Pain in unspecified limb Category: Medical Plan: Chronic?right?BKA?stump?pain He?should?follow-up?with?mannequin decorator?prosthetics?to?be?refit He?can?see?pain?management?regarding?options?such?as?injection?therapy?and?nerve ?ablation Had?been?using?tramadol?but?we?are?discontinuing?this-see?below (4) Opioid use disorder: Code(s): F11.90 - Opioid use, unspecified, uncomplicated Category: Medical Plan: Patient?had?entered?into?a?pain?contract?and?was?then?prescribed?tramadol,?1?tab ?daily?as?well?gabapentin. Patient?has?not?inform?me?that?he?was?n eeding?additional?pain?medication?and?begin?using?Percocets?off?of?Street. He?says?that?he?was?getting?30?mg?oxycodone?tablets. Patient?is?insisting?that?does?have?opioid?use?disorder?but?just?pain?pr oblems.??We?discussed?that?he?likely?have?significant?withdrawal?from?high?doses ?of?medication?and?that?I?am?not?able?help?manage?this?without?the?help?of?the?[facility]rehens[facility]Clinic. Patient?says?t hat?he?has?not?taken?medication?for?past?2?days?and?does?not?problem. Declines?at?this?time?to?go?the?addiction?medicine?clinic?he?left?the?office?fru strated?and?seeing?that?he?will?new?doctor?to?prescribe?his?medication. I?let?that?he?is?welcome?to?return?for?further?discussion.??Recommended?that?see k?the?addiction?medicine?clinic?ready. He?can?continue?to?receive?gabapentin?for?pain?also?I?made ?a?referral?to?wound?care?as?above Orders: Referrals Wound Care Referral T81.30XA - Disruption of wound, unspecified, initial encounter, Z89.519 - Acquired absence of unspecified leg below knee Addiction Medicine Referral F11.90 - Opioid use, unspecified, uncomplicated
[2024-05-15 12:05] VITALS: BP 106/66; PULSE 74; RESP 16; TEMP 36.7; O2SAT 98; BMI 28.0
== END 2024-05-15 15:11 | disposition home or self-care (01) ==
PROVIDERS: PCP Family Medicine; Visit Provider Family Medicine
DX: G89.4 Chronic pain syndrome (principal); M79.2 Neuralgia and neuritis, unspecified; T87.89 Other complications of amputation stump; M79.609 Pain in unspecified limb; F11.90 Opioid use, unspecified, uncomplicated

== ENCOUNTER 2024-05-15 13:52 | Outpatient (AMB) | payer BC, SELFPAY ==
--- NOTE | 2024-05-15 14:02 | A.OFFVISCC_ITS ---
Intake Visit Reasons: MAT Allergies shellfish derived Allergy (Verified 05/15/24 12:02) Swelling HPI HPI MAT: Details: Patient presents as walk in to establish care Open to discussing treatment for OUD Reports that he has been using btwn 6-15 pressed pills daily He reports periods or not taking pills and subsequent withdrawal and pain associated. Denies any history of heroin use. He is aware that pills are pressed He is aware of overdose risk Discussed tolerance, and challenges with unknown amounts of fentanyl in pressed pills Discussed dependance and why pain and other sx return once time has passed with no use. Patient with minimal understanding of opioid dependance and tolerance. Extensive discussion about treatment options for OUD, including choosing buprenorphine or methadone Discussed challenges with initiating buprenorphine with fentanyl Reviewed possibility of starting methadone with goal of transitioning to buprenophine --this is due to patient's work schedule and other responsibilities Patient declined referral to [facility] for methadone. Stated that he would like to trial the low dose cross titration method for induction Again, reviewed at length daily dosing plan, ongoing opiate use, and side effect management Both verbal and written. Patient verbalized understanding Review of Systems Const Reports as per HPI, Reports body aches, Reports chills, Reports difficulty sleeping, Reports lethargy and Reports malaise Psych Reports anxiety, Reports depression, Reports irritability and Reports anhedonia Physical Exam Const General: cooperative, healthy appearing, no acute distress and well groomed Nutritional Appearance: average body habitus Orientation/consciousness: patient oriented x3 Limitations: other limitations (prosthesis right lower limb ) Neuro General: patient oriented x3 Assessment & Plan Assessment & Plan (1) Opioid use disorder: Code(s): F11.90 - Opioid use, unspecified, uncomplicated Category: Medical Plan: * low dose suboxone induction * comfort meds sent and reviewed * overdose prevention discussion--RN provided with education and naloxone kit * follow up in office --RN to follow up via phone * encouraged to call office or present to ED with any concerns or withdrawal sx that he can not manage at home Medications: New clonidine HCl 0.1 mg PO DAILY PRN 10 tabs 0RF withdrawal symptoms hydroxyzine pamoate 25 mg PO TID PRN 30 caps 0RF anxiety buprenorphine-naloxone 2-0.5 mg (Suboxone) 1 film buccal BID 4 ea 0RF buprenorphine-naloxone 8-2 mg (Suboxone) to be started after induction with 2mg films 1 film sublingual TID 21 ea 0RF PFSH Medical History Sleep apnea Hypertension Ulcerative colitis GERD (gastroesophageal reflux disease) GI bleeding Diverticulitis Surgical History Hx of amputation below knee Hx of colonoscopy Family History (Updated 11/04/23 @ 15:25 by Nishi Mancia CMA) Mother Heart disease COPD (chronic obstructive pulmonary disease) Father Substance abuse Social History Household Members: None Housing: House Do you presently have visiting nurse or other home services: No Alcohol intake: never Comment: S3 Patient Tobacco Use Status: Never used Tobacco e-Cigarette/Vaping Use: Former Use Second Hand Smoke Exposure: No service: No Current occupational status: employed Current occupation: Currently has job held for 12 months Current occupational exposures/hazards: No Cognitive needs: No Hearing needs: Yes Vision needs: Yes
== END 2024-05-15 14:45 | disposition home or self-care (01) ==
LOC: HO.HCC 13:53
PROVIDERS: PCP Family Medicine; Visit Provider Nurse Practitioner Psychiatric/Mental Health
DX: F11.90 Opioid use, unspecified, uncomplicated (principal)
CPT/HCPCS: 99214

== ENCOUNTER 2024-06-29 10:19 | Emergency (ER) | payer BC, SELFPAY ==
[2024-06-29 10:35] VITALS: BP 132/96; PULSE 122; RESP 20; TEMP 36.8; O2SAT 100; BMI 27.1
--- NOTE | 2024-06-29 10:38 | ED_ITS ---
HPI - General Adult General Chief complaint: Abdominal Pain Stated complaint: SOB, Colitis Source: patient Mode of arrival: ambulatory Limitations: no limitations History of Present Illness ED Provider: Deirdre Curran PA-C HPI narrative: Patient is a 48 year old assigned male at with a history of MAYRA, MDD, OUD, PAD, right BKA, colitis, and GERD presenting to the emergency department today with abdominal pain and rectal bleeding. Patient states that starting yesterday he began to have a lot of bleeding per rectum and is feeling generally unwell with dizziness and abdominal pain. Patient denies any nausea, vomiting, fever, chills, blurry vision, double vision, loss of vision, chest pain, difficulty breathing, shortness of breath, back pain, night sweats, pain with urination, increased urinary frequency, increased urinary urgency, blood in his urine, syncope or a near syncopal episode, recent trauma or falls, bowel incontinence, bladder incontinence, or any other complaints at this time. Relieving factors: none Exacerbating factors: none Associated symptoms: denies other symptoms Treatments prior to arrival: none Related Data Home Medications ?Medication ?Instructions ?Recorded ?Confirmed atorvastatin 80 mg tablet 80 mg PO DAILY 02/21/23 05/11/24 aspirin 81 mg tablet,delayed 81 mg PO DAILY 03/21/23 05/11/24 release Previous Rx's ?Medication ?Instructions ?Recorded miscellaneous medical supply See Rx Instructions miscellaneous 12/29/22 .COMPLEX #1 ea multivitamin with folic acid 400 1 tab PO DAILY 90 days #90 tabs 03/11/23 mcg tablet (Daily-Donna (with folic acid)) vedolizumab 300 mg intravenous 300 mg IV Q8W 08/03/23 solution (Entyvio) gabapentin 300 mg capsule See Rx Instructions PO BID 30 days 09/02/23 #90 caps lisinopril 10 mg tablet 10 mg PO DAILY 30 days #30 tabs 09/08/23 vitamin B complex 1 tab PO DAILY 30 days #30 tabs 09/12/23 rivaroxaban 2.5 mg tablet (Xarelto) 2.5 mg PO DAILY 30 days #30 tabs 11/30/23 ferrous sulfate 325 mg (65 mg 325 mg PO DAILY 30 days #30 tabs 12/19/23 iron) tablet buprenorphine 2 mg-naloxone 0.5 mg 1 film buccal BID #4 ea 05/15/24 sublingual film (Suboxone) buprenorphine 8 mg-naloxone 2 mg 1 film sublingual TID #21 ea 05/15/24 sublingual film (Suboxone) clonidine HCl 0.1 mg tablet 0.1 mg PO DAILY PRN withdrawal 05/15/24 symptoms #10 tabs hydroxyzine pamoate 25 mg capsule 25 mg PO TID PRN anxiety #30 caps 05/15/24 Allergies Allergy/AdvReac Type Severity Reaction Status Date / Time shellfish derived Allergy Swelling Verified 06/29/24 10:40 Review of Systems 2 Constitutional: Constitutional: Reports no additional constitutional complaints, Denies chills, Denies fever(s) and Denies night sweats Eyes: Eyes: Reports no additional eye complaints, Denies blurry vision, Denies change in vision, Denies diplopia, Denies eye discharge, Denies loss of vision and Denies eye pain ENT: Denies dizziness Cardiovascular: Cardiovascular: Reports no additional cardiovascular complaints, Denies chest pain, Denies lightheadedness, Denies Loss of Consciousness and Denies dyspnea Respiratory: Respiratory: Reports no additional respiratory complaints and Denies dyspnea Gastrointestinal: Gastrointestinal: Reports no additional gastrointestinal complaints, Reports abdominal pain, Denies melena, Reports hematochezia, Denies change in bowel habits and Denies change in stool character Genitourinary: Genitourinary: Reports no additional male genitourinary complaints, Denies hematuria, Denies oliguria, Denies difficulty urinating, Denies dysuria, Denies urinary frequency, Denies urinary hesitancy, Denies urinary incontinence and Denies urinary urgency Musculoskeletal: Musculoskeletal: Reports no additional musculoskeletal complaints, Denies numbness and Denies tingling Neurologic: Denies dizziness, Denies loss of vision, Denies numbness and Denies tingling Psychiatric: Psychiatric: Reports no additional psychiatric complaints Endocrine: Endocrine: Reports no additional endocrine complaints Hematologic/Lymphatic: Hematologic/Lymphatic: Reports no additional hematologic/lymphatic complaints Allergic/Immunologic: Allergic/Immunologic: Reports no additional allergic/immunologic complaints PMFSH Past Medical History Attestation statement: The following information was validated with the patient. Source: old records reviewed and nursing notes reviewed Medical History Sleep apnea Hypertension Ulcerative colitis GERD (gastroesophageal reflux disease) GI bleeding Diverticulitis Surgical History Hx of amputation below knee Hx of colonoscopy Family History Family History Mother Heart disease COPD (chronic obstructive pulmonary disease) Father Substance abuse Social History Social History Household Members: None Housing: House Do you presently have visiting nurse or other home services: No Alcohol intake: never Comment: S3 Patient Tobacco Use Status: Never used Tobacco e-Cigarette/Vaping Use: Former Use Second Hand Smoke Exposure: No Advance Directives: No Advance Directives Information Provided: No Do you have a plan to hurt others: No Plan service: No Current occupational status: employed Current occupation: Currently has job held for 12 months Current occupational exposures/hazards: No Cognitive needs: No Hearing needs: Yes Vision needs: Yes Physical Exam ED Vital Signs: Vital Signs - 24 hr 06/29/24 10:35 06/29/24 17:01 Temperature 98.2 F 97.2 F Pulse Rate 122 H 117 H Respiratory Rate 20 20 Blood Pressure 132/96 H 167/103 H Pulse Oximetry 100 97 Oxygen Delivery Method Room Air Room Air BMI result Body Mass Index 27.1 Const General: cooperative, no acute distress, alert and awake Nutritional Appearance: well nourished Orientation/consciousness: patient oriented x3 Limitations: no limitations HENMT Head: Yes normal to inspection and Yes atraumatic Ears: hearing grossly normal bilaterally and external ears normal General nose exam: Normal external nose present, no nasal discharge noted and no epistaxis Face and sinus: Yes normal facial exam, No abrasion and No laceration Mouth: Normal oral and palatal mucosa present, no drooling and no muffled voice Eyes General: appearance normal, both eyes and all related structures Periorbital: periorbital findings normal Eyelids: Yes eyelids normal Conjunctivae: conjunctivae normal Pupils: Equal, round and reactive pupils present EOM: EOMs intact bilaterally Neck Neck: Yes normal visual inspection, Yes full ROM and Yes no lymphadenopathy Chest Chest palpation & inspection: normal inspection of the chest Resp Effort & Inspection: normal respiratory effort and able to speak in complete sentences GI Other: unable to perform rectal exam in triage Inspection: Yes normal to inspection Neuro General: patient oriented x3 and moves all extremities Cranial nerves: Yes Equal, round and reactive pupils present Cognition (Neuro): normal cognition Extrem Other: right BKA - chronic for the patient Psych Appearance: grossly normal Mental Status: mental status grossly normal Affect: normal affect Attitude: cooperative Thought process: Normal thought process present Thought content: Normal thought content present Insight: Good insight present (Psych) Course Course Course Narrative: RME performed by Deirdre Curran PA-C. Patient is a 48 year old assigned male at presenting to the emergency department with rectal bleeding. Patient states over the last few days he has been having anal bleeding and pain. Patient states that he usually follows with Dr. Alves in GI. Detailed physical exam and review of systems are deferred to the director of primary. Labs ordered. Patient placed back in the waiting room pending room availability and results. Patient re-evaluated at 17:02. Patient stating that he has been waiting too long, is going to leave, does not want to stay for repeat bloodwork/full evaluation. Medical Decision Making Medical Decision Making [facility] Narrative: Patient is a 48 year old assigned male at with a history of MAYRA, MDD, OUD, PAD, right BKA, colitis, and GERD presenting to the emergency department today with abdominal pain and rectal bleeding. Patient's limited physical exam performed in triage was unremarkable. Patient's blood work was showed a hgb of 8.5, hct of 25.6, and a potassium of 2.7. Patient left the department without completing treatment. Patient left the department before myself or any of the other emergency department clinicians could explain to or review with the patient; physical exam findings, test results, need or lack there of for additional testing, need or lack there of for a procedure to be performed, need or lack there of for hospital admission / transfer, need or lack there of for prescription medication, treatment options, or a treatment plan. Given this patient's lab results - I called the patient and discussed his lab results and the implication of them. I encouraged the patient to return to the emergency department, immediately. Patient stated that he would return to the emergency department, immediately. Differential Diagnosis Differential Diagnoses: The differential diagnosis associated with the presentation includes Abdominal pain Rectal bleeding Anemia Admission/Observation Consideration of admission/observation: Escalation of care including admission/observation considered Patient would have been admitted to the hospital had he completed his work up and it had any findings where hospital admission was appropriate, his clinical presentation warranted hospital admission, had myself or any other emergency department store door greeter had the ability to discuss need or lack there of for hospital admission, and the patient hadn't left the department without completing treatment. Lab Data [facility] Lab Attestation statement: I reviewed the patient's lab results. My interpretation of these results are in the MDM Rationale portion of this note. 06/29/24 10:47 06/29/24 10:47 Labs: Lab Results 06/29/24 Range/Units 10:47 WBC 6.5 (4.8-10.8) X10*3/uL RBC 2.97 L D (4.60-5.80) X10*6/uL Hgb 8.5 L D (14.0-18.0) g/dl Hct 25.6 L D (42.0-52.0) % MCV 86.2 (80.0-98.0) fL MCH 28.6 (27.0-33.0) pg MCHC 33.2 (31.0-36.0) g/dl RDW 13.7 (11.0-16.0) % Plt Count 420 H (160-400) X10*3/uL MPV 9.5 (9.4-12.4) fL Immature Gran % (Auto) 0.5 H (0.0-0.4) % Neut % (Auto) 76.4 H (45-73) % Lymph % (Auto) 18.3 L (20-40) % [place] % (Auto) 4.3 (2-11) % Eos % (Auto) 0.2 (0-4) % Baso % (Auto) 0.3 (0-2) % Lymph # (Auto) 1.2 (1.2-4.9) X10*3/uL [place] # (Auto) 0.3 (0.1-1.2) X10*3/uL Eos # (Auto) 0.0 (0.0-0.4) X10*3/uL Baso # (Auto) 0.0 (0.0-0.2) X10*3/uL Abs Immat Gran (auto) 0.03 (0.00-0.03) X10*3/uL Absolute Neuts (auto) 5.0 (2.0-8.3) x10*3/uL Absolute Nucleated RBC 0.000 (0.0-0.012) X10*3/uL Nucleated RBC % (auto) 0.0 (0.0-0.2) /100WBC PT 12.5 H (10.9-12.4) SEC INR 1.1 (0.9-1.1) APTT 27.7 (26.0-36.8) SEC Sodium 138 (135-145) mmol/L Potassium 2.7 L* D (3.3-5.1) mmol/L Chloride 106 (96-108) mmol/L Carbon Dioxide 21 L (22-29) mmol/L Anion Gap 14 (12-20) BUN 14 (9-16) mg/dL Creatinine 0.82 (0.5-1.4) mg/dL Estim Creat Clear Calc 107.7 Estimated GFR > 60 Random Glucose 174 H (60-115) mg/dL Calcium 8.4 D (8.4-10.2) mg/dL Magnesium 1.6 (1.6-2.6) mg/dL Total Bilirubin 0.5 (0.0-1.0) mg/dL AST 16 (5-37) U/L ALT 8 (0-40) U/L Alkaline Phosphatase 60 (39-117) U/L Total Protein 6.9 (6.5-8.0) g/dL Albumin 4.0 (3.5-5.0) g/dL Discharge Plan Discharge Clinical Impression: Rectal bleed Patient Disposition: Left W/O Completing Treatment Prescriptions: No Action miscellaneous medical supply Misc See Rx Instructions miscellaneous .COMPLEX Qty: 1 0RF Rx Instructions: 1 wheelchair cushion lisinopril 10 mg tablet 10 mg PO DAILY 30 Days Qty: 30 2RF vitamin B complex Tablet 1 tab PO DAILY 30 Days Qty: 30 3RF Xarelto 2.5 mg tablet 2.5 mg PO DAILY 30 Days Qty: 30 2RF ferrous sulfate 325 mg (65 mg iron) tablet 325 mg PO DAILY 30 Days Qty: 30 1RF gabapentin 300 mg capsule See Rx Instructions PO BID 30 Days Qty: 90 3RF Rx Instructions: orally 2 times a day; 300mg (1 cap) AM and 600mg (2 caps) PM multivitamin with folic acid [Daily-Donna (with folic acid)] 400 mcg tablet 1 tab PO DAILY 90 Days Qty: 90 2RF Entyvio 300 mg recon soln 300 mg IV Q8W Rx Instructions: administer over 30 mins atorvastatin 80 mg tablet 80 mg PO DAILY aspirin 81 mg tablet,delayed release (DR/EC) 81 mg PO DAILY clonidine HCl 0.1 mg tablet 0.1 mg PO DAILY PRN (Reason: withdrawal symptoms) Qty: 10 0RF hydroxyzine pamoate 25 mg capsule 25 mg PO TID PRN (Reason: anxiety) Qty: 30 0RF buprenorphine-naloxone [Suboxone] 2-0.5 mg film 1 film buccal BID Qty: 4 0RF buprenorphine-naloxone [Suboxone] 8-2 mg film 1 film sublingual TID Qty: 21 0RF Rx Instructions: to be started after induction with 2mg films Discharge Date/Time: 06/29/24 17:54
[2024-06-29 10:52] LABS: MANUAL DIFF FLAG NO
[2024-06-29 10:54] LABS: Basophils Percent Auto 0.3 % (0-2); Eosinophils Percent Auto 0.2 % (0-4); Hematocrit 25.6 % (42.0-52.0); Hemoglobin 8.5 g/dl (14.0-18.0); Imm Gran Abs Auto 0.03 X10*3/uL (0.00-0.03); Imm Gran Pct Auto 0.5 % (0.0-0.4); Lymphocytes Absolute Auto 1.2 X10*3/uL (1.2-4.9); Lymphocytes Percent Auto 18.3 % (20-40); Mean Corpuscular HGB Conc 33.2 g/dl (31.0-36.0); Mean Corpuscular Hemoglobin 28.6 pg (27.0-33.0); Mean Corpuscular Volume 86.2 fL (80.0-98.0); Mean Platelet Volume 9.5 fL (9.4-12.4); Monocytes Absolute Auto 0.3 X10*3/uL (0.1-1.2); Monocytes Percent Auto 4.3 % (2-11); Neutrophils Percent Auto 76.4 % (45-73); Platelet Count 420 X10*3/uL (160-400); Red Blood Count 2.97 X10*6/uL (4.60-5.80); Red Cell Distribution Width 13.7 % (11.0-16.0); White Blood Count 6.5 X10*3/uL (4.8-10.8)
[2024-06-29 10:59] LABS: INTERNATIONAL NORM RATIO 1.1 (0.9-1.1); Prothrombin Time 12.5 SEC (10.9-12.4)
[2024-06-29 11:01] LABS: Partial Thromboplastin Time 27.7 SEC (26.0-36.8)
[2024-06-29 11:25] LABS: Alanine Aminotransferase 8 U/L (0-40); Alkaline Phosphatase 60 U/L (39-117); Anion Gap 14 (12-20); Aspartate Amino Transferase 16 U/L (5-37); Bilirubin Total 0.5 mg/dL (0.0-1.0); Blood Urea Nitrogen 14 mg/dL (9-16); Calcium 8.4 mg/dL (8.4-10.2); Carbon Dioxide 21 mmol/L (22-29); Chloride 106 mmol/L (96-108); Creatinine Clr Calc Pharmacy 107.7; Estimated Glomerular Filt Rate > 60; Glucose Random 174 mg/dL (60-115); Magnesium 1.6 mg/dL (1.6-2.6); Potassium 2.7 mmol/L (3.3-5.1); Sodium 138 mmol/L (135-145); Total Protein 6.9 g/dL (6.5-8.0)
[2024-06-29 17:01] VITALS: BP 167/103; PULSE 117; RESP 20; TEMP 36.2; O2SAT 97
== END 2024-06-29 17:54 | disposition left against medical advice (07) ==
LOC: HO.ED 17:42
PROVIDERS: Physician Assistant Medical; Emergency Provider Emergency Medicine; PCP Family Medicine
DX: K62.5 Hemorrhage of anus and rectum (principal)
CPT/HCPCS: 36415; 80053; 83735; 85025; 85610; 85730; 99281; 99283

== ENCOUNTER 2024-08-03 16:13 | Outpatient (AMB) | payer BC, SELFPAY ==
[2024-08-03 16:14] VITALS: BP 136/82; PULSE 82; RESP 18; TEMP 36.8; O2SAT 98
--- NOTE | 2024-08-03 16:14 | MHC.OFFWIV ---
Intake Vital Signs 08/03/24 16:14 Height 5 ft 8 in BMI Reason not done Patient refused/unable BP 136/82 Blood Pressure Location Rt brachial Position Sitting Respiration 18 Pulse 82 Pulse Source Pulse Oximeter Temp 98.3 F Temp Source Oral Pulse Oximetry (%) 98 Intake Visit Reasons: EP pain on RT amputed leg Patient Tobacco Use Status: Never used Tobacco Allergies shellfish derived Allergy (Verified 08/03/24 16:19) Swelling Do you need a note to return to daycare/school/sports/work: No HPI HPI Comments History of Present Illness Details History of Present Illness - The patient is a 48-year-old male presenting with severe to moderate post-BKA infection pain. - Recently hospitalized at [facility] due to a wound infection at the site of a right below-knee amputation. BKA amp was performed last summer for a blood clot. Was given 28 5mg Oxy upon discharge from [facility], he has used them all. - Had appt with PCP yesterday but it was canceled and rescheduled to Tuesday, has no Oxy for the weekend. PCP would not prescribe more until he sees his pt on Tuesday - Pain exacerbated during wound care and at the end of the day after prolonged standing. - Daily wound care management at home, transitioning to alternate day visits in the coming week. - Previously on Suboxone, currently taking Xarelto. Physical Exam General: Cooperative, healthy appearing, comfortable, no acute distress and well developed Orientation: Patient oriented x3 Limitations: in wheelchair s/p right BKA Head: Normal to inspection Ears: Hearing grossly normal bilaterally Nose: Normal external nose present Face and sinus: Normal facial exam Eyes: Appearance normal, both eyes and all related structures Neck: Normal visual inspection and Yes full ROM Respiratory: Normal respiratory effort and able to speak in complete sentences. Skin: No rashes or lesions noted Neuro: Patient oriented x3 Extremities: right BKA wrapped in gauze, CDI. [facility] Medical History Sleep apnea Hypertension Ulcerative colitis GERD (gastroesophageal reflux disease) GI bleeding Diverticulitis Surgical History Hx of amputation below knee Hx of colonoscopy Family History Mother Heart disease COPD (chronic obstructive pulmonary disease) Father Substance abuse Social History Household Members: None Housing: House Do you presently have visiting nurse or other home services: No Alcohol intake: never Comment: S3 Patient Tobacco Use Status: Never used Tobacco e-Cigarette/Vaping Use: Former Use Second Hand Smoke Exposure: No service: No Current occupational status: employed Current occupation: Currently has job held for 12 months Current occupational exposures/hazards: No Cognitive needs: No Hearing needs: Yes Vision needs: Yes Review of Systems Const All systems reviewed & are unremarkable except as noted in HPI and below Physical Exam Vital Signs: Last Vital Signs Temp 98.3 F 08/03/24 16:14 Pulse 82 08/03/24 16:14 Resp 18 08/03/24 16:14 BP 136/82 08/03/24 16:14 Pulse Ox 98 08/03/24 16:14 Assessment & Plan Assessment & Plan (1) S/P BKA (below knee amputation): Code(s): Z89.519 - Acquired absence of unspecified leg below knee Qualifiers: Laterality: right Qualified Code(s): Z89.511 - Acquired absence of right leg below knee Plan: Plan I have prescribed 18 of 5mg oxycodone to manage the patient's post-operative pain until his follow-up with primary care, as he has exhausted his prior prescription due to an appointment cancellation. The plan includes continuing the use of Tylenol as previously tolerated and maintaining scheduled wound care visits, transitioning to every other day as planned. Suboxone and Xarelto, along with broader health management, remain under primary care supervision without additional changes communicated in our discussion. Patient was informed and verbally consented to the use of an ambient scribe for clinic note documentation during this visit. (2) Wound dehiscence: Code(s): T81.30XA - Disruption of wound, unspecified, initial encounter Plan: as above (3) Neuropathic pain: Comment: RLE Code(s): M79.2 - Neuralgia and neuritis, unspecified Plan: as above Medications: New oxycodone Partial Fill upon patient request. 5 mg PO Q6H PRN 18 tabs 0RF pain Discontinued buprenorphine-naloxone 2-0.5 mg (Suboxone) Discontinued Reason: Doctor's Order 1 film buccal BID 4 ea 0RF buprenorphine-naloxone 8-2 mg (Suboxone) to be started after induction with 2mg films Discontinued Reason: Doctor's Order 1 film sublingual TID 21 ea 0RF Coding Level of Care Code Est Pt Level 3 (64525) Diagnoses Status post below-knee amputation of right lower extremity Z89.511 Laterality: right Wound dehiscence T81.30XA Neuropathic pain M79.2
== END 2024-08-03 16:31 | disposition home or self-care (01) ==
PROVIDERS: PCP Family Medicine; Visit Provider Physician Assistant
DX: Z89.511 Acquired absence of right leg below knee (principal); T81.30XA Disruption of wound, unspecified, initial encounter; M79.2 Neuralgia and neuritis, unspecified

== ENCOUNTER → 2024-08-03 16:13 | Outpatient (BNVA) | payer BC, SELFPAY | PROVIDERS: PCP Family Medicine ==

== ENCOUNTER 2024-08-06 13:53 | Outpatient (AMB) | payer BC, SELFPAY ==
--- NOTE | 2024-08-06 14:06 | MHC.PC.OV ---
Vital Signs 08/06/24 14:08 Height 5 ft 8 in BMI Reason not done Patient refused/unable BP 100/60 Blood Pressure Location Rt brachial Position Sitting Respiration 14 Pulse 75 Pulse Source Pulse Oximeter Temp 98.3 F Temp Source Oral Pulse Oximetry (%) 98 Oxygen Delivery Method Room Air Intake Visit Reasons: Discharge f/u [facility] Intake Note: TCM Allergies shellfish derived Allergy (Verified 08/06/24 14:07) Swelling Tobacco use date assessed: 05/11/24 Dental Screening Dental Screen Date: 05/11/24 HPI Discharge f/u [facility] HPI Details Patient?with?history?right?BKA?presents?for?follow-up?after?hospital?admission at [facility] from 07/22/24 to 07/27/24?for?abscess?at right?stump. Patient?was?started?on?empiric?antibiotics?and?cultures?eventually?grew?MRSA. Patient?was?treated?with?doxycycline?and?followed?with?vancomycin?for?C?diff?prophylaxis. Had been given opioids and notes pain has been improving. Has also been using tylenol for relief. TCM TCM Information Date of Discharge 07/27/24 [facility] Interactive Contact Date (Reference documentation from this date) 08/06/24 [facility] Medical History Sleep apnea Hypertension Ulcerative colitis GERD (gastroesophageal reflux disease) GI bleeding Diverticulitis Surgical History Hx of amputation below knee Hx of colonoscopy Family History Mother Heart disease COPD (chronic obstructive pulmonary disease) Father Substance abuse Social History Household Members: None Housing: House Do you presently have visiting nurse or other home services: No Alcohol intake: never Comment: S3 Patient Tobacco Use Status: Never used Tobacco e-Cigarette/Vaping Use: Former Use Second Hand Smoke Exposure: No service: No Current occupational status: employed Current occupation: Currently has job held for 12 months Current occupational exposures/hazards: No Cognitive needs: No Hearing needs: Yes Vision needs: Yes Questionnaire PHQ-9 Over the last 2 weeks, how often have you been bothered by any of the following problems? 1. Little interest or pleasure in doing things: not at all 2. Feeling down, depressed, or hopeless: several days 3. Trouble falling or staying asleep, or sleeping too much: several days 4. Feeling tired or having little energy: several days 5. Poor appetite or overeating: not at all 6. Feeling bad about yourself - or that you are a failure or have let yourself or your family down: not at all 7. Trouble concentrating on things, such as reading the newspaper or watching television: several days 8. Moving or speaking so slowly that other people could have noticed. Or the opposite - being so fidgety or restless that you have been moving around a lot more than usual: not at all 9. Thoughts that you would be better off or of hurting yourself in some way: not at all Total score: 4 Source: Developed by Drs. Enrico Rendon, Danitza Frances, Angel Gaines and colleagues, with an educational laury from [employer]. Thrive Questionnaire Date Thrive assessed: 05/11/24 I am a: Patient What is your living situation today?: I have a steady place to live Within the past 12 months, did the food you bought not last and you didn't have the money to get more?: Never true Within the past 12 months, did you worry whether your food would run out before you got money to buy more?: Never true Do you have trouble paying for medicines?: No Do you have trouble getting transportation to medical appointments?: No Do you have trouble paying your heating and electricity bill?: No Do you have trouble taking care of your child, family member or friend?: No Do you have trouble with day-to-day activities such as bathing, preparing meals, shopping, managing finances, etc.?: No Are you currently unemployed and looking for a job?: No Are you interested in more education?: No Please select the resources that you would like help with: None Currently or been in a relationship where the following occur: No concerns reported THRIVE Score: 0 AUDIT C Alcohol Use Questionnaire (AUDIT-C) 1. How often do you have a drink containing alcohol?: Never Total Score: 0 MAYRA-7 AMB Questionnaire MAYRA-7 Date MAYRA - 7 assessed: 05/11/24 Feeling nervous, anxious, or on edge: 1 = Several days Not being able to stop or control worryin = Not at all Worrying too much about different things: 0 = Not at all Trouble relaxin = Several days Being so restless that it is hard to sit still: 0 = Not at all Becoming easily annoyed or irritable: 0 = Not at all Feeling afraid as if something awful might happen: 0 = Not at all Total MAYRA-7 score (0-4 normal; 5-9 mild; 10-14 moderate; 15-21 severe): 2 Source: Developed by Drs. Enrico Rendon, Danitza Frances, Angel Gaines and colleagues, with an educational laury from [employer]. Review of Systems Const Denies chills, Denies fatigue, Denies fever(s), Denies headache(s) and Denies weakness ENT Denies dizziness and Denies headache(s) Card Denies dyspnea Resp Denies cough, Denies dyspnea, Denies wheezing and Denies other (shortness of breath) Musc Denies numbness and Denies tingling Neuro Denies dizziness, Denies headache(s), Denies numbness, Denies tingling and Denies weakness Psych Denies anxiety and Denies depression Endo Denies fatigue Aller/Immun Denies wheezing Physical exam (Primary Care) Vital Signs: Last Vital Signs Temp 98.3 F 08/06/24 14:08 Pulse 75 08/06/24 14:08 Resp 14 08/06/24 14:08 BP 100/60 08/06/24 14:08 Pulse Ox 98 08/06/24 14:08 Oxygen Delivery Method Room Air 08/06/24 14:08 Tobacco/Smoking Status: Tobacco use Status Tobacco use date assessed 05/11/24 08/06/24 14:08 Patient Tobacco Use Status Never used Tobacco 08/06/24 14:08 e-Cigarette/Vaping Use Former Use 08/06/24 14:08 PHQ-9: PHQ-9 Score PHQ-9: Total score 4 08/06/24 14:08 Thrive Assessment: Date of Thrive Assessment Date Thrive assessed 05/11/24 08/06/24 14:08 Currently or been in a relationship where the following occur: No concerns reported Const General: well developed; No acute distress Nutritional Appearance: well nourished Orientation/consciousness: patient oriented x3 HENOH Head: Yes normocephalic and Yes atraumatic Eyes General: appearance normal, both eyes and all related structures Pupils: Equal, round and reactive pupils present EOM: EOMs intact bilaterally Resp Effort & Inspection: normal respiratory effort Neuro General: patient oriented x3 and gait normal Cranial nerves: Yes Equal, round and reactive pupils present Psych Affect: normal affect Coding Level of Care Code Est Pt Level 3 (51407) Diagnoses Abscess of leg, right L02.415 Opioid use disorder F11.90 Assessment & Plan Assessment & Plan (1) Abscess of leg, right: Code(s): L02.415 - Cutaneous abscess of right lower limb Category: Medical Plan: Abscess?right?leg?at?proximal?serrano?of?amputation?stump?and?at?distal?right?lateral?thigh. These?were?treated?with?doxycycline?as?patient?grew?MRSA. Who?is?well?packed?in?the?surrounding?skin?is?non?erythematous?and?nontender?presently. Patient?has?significant?pain?in?the?mornings?and?when?packing?is?replaced. Will?give?him?an?additional?3?days?oxycodone?and?then?he?can?call?transition?to?tramadol?for?1?week?if?needed. I?discussed?that?is?not?my?intention?to?have?him?this?medication?[id number]?below Will?also?recheck?CBC?and?potassium.??as?recommended?by?the?emergency?department (2) Opioid use disorder: Code(s): F11.90 - Opioid use, unspecified, uncomplicated Category: Medical Plan History?of?opioid?use?disorder. Patient?was?seen?by?addiction?medicine?and?documented use?pressed?pills. Patient?still?has?for?insight?regarding?his?and?denies?opiate?problem. Currently?has?significant?pain?after?an?abscess We?had?a?discussion?about?opioid?medications.??Will?give?him?a?short?course?of?oxycodone?and?transition?to?tramadol?for?another?short?course?if?needed. Had?a?discussion?that?I?do?not?intend?to?continue?this?medication?long?term.??Currently?patient?agrees. Orders: Orders Complete Blood Count Auto Diff Today L02.91 - Cutaneous abscess, unspecified Medications: Changed From oxycodone Partial Fill upon patient request. 5 mg PO Q6H PRN 18 tabs 0RF pain To oxycodone Partial Fill upon patient request. 5 mg PO Q12H 3 days PRN 6 tabs 0RF pain
[2024-08-06 14:08] VITALS: BP 100/60; PULSE 75; RESP 14; TEMP 36.8; O2SAT 98
== END 2024-08-06 17:05 ==
PROVIDERS: PCP Family Medicine; Visit Provider Family Medicine
DX: L02.415 Cutaneous abscess of right lower limb (principal); F11.90 Opioid use, unspecified, uncomplicated

== ENCOUNTER → 2024-08-06 13:53 | Outpatient (BNVA) | payer BC, SELFPAY | PROVIDERS: PCP Family Medicine; Visit Provider Family Medicine ==

== ENCOUNTER 2024-08-06 14:52 | Outpatient (REF) | payer BC, SELFPAY ==
[2024-08-06 17:53] LABS: MANUAL DIFF FLAG NO
[2024-08-06 18:04] LABS: Basophils Absolute Auto 0.1 X10*3/uL (0.0-0.2); Basophils Percent Auto 1.3 % (0-2); Eosinophils Absolute Auto 0.3 X10*3/uL (0.0-0.4); Hematocrit 28.8 % (42.0-52.0); Hemoglobin 8.5 g/dl (14.0-18.0); Imm Gran Abs Auto 0.02 X10*3/uL (0.00-0.03); Imm Gran Pct Auto 0.2 % (0.0-0.4); Lymphocytes Absolute Auto 1.4 X10*3/uL (1.2-4.9); Lymphocytes Percent Auto 15.7 % (20-40); Mean Corpuscular HGB Conc 29.5 g/dl (31.0-36.0); Mean Corpuscular Volume 91.4 fL (80.0-98.0); Mean Platelet Volume 9.3 fL (9.4-12.4); Monocytes Absolute Auto 0.6 X10*3/uL (0.1-1.2); Monocytes Percent Auto 7.5 % (2-11); Neutrophils Absolute Auto 6.2 x10*3/uL (2.0-8.3); Neutrophils Percent Auto 72.3 % (45-73); Platelet Count 769 X10*3/uL (160-400); Red Blood Count 3.15 X10*6/uL (4.60-5.80); Red Cell Distribution Width 18.1 % (11.0-16.0); White Blood Count 8.6 X10*3/uL (4.8-10.8)
== END 2024-08-06 14:53 | disposition home or self-care (01) ==
LOC: HO.WFDLDS 14:52
PROVIDERS: Visit Provider Family Medicine
DX: L02.91 Cutaneous abscess, unspecified (principal)
CPT/HCPCS: 36415; 85025

== ENCOUNTER 2024-08-21 10:58 | Outpatient (AMB) | payer BC, SELFPAY ==
--- NOTE | 2024-08-21 11:08 | A.OFFPC_ITS ---
Vital Signs 08/21/24 11:16 Height 5 ft 8 in BMI Reason not done Patient refused/unable BP 106/62 Blood Pressure Location Rt brachial Position Sitting Respiration 14 Pulse 71 Pulse Source Pulse Oximeter Temp 97.9 F Temp Source Oral Pulse Oximetry (%) 97 Oxygen Delivery Method Room Air Intake Visit Reasons: f/u abscess Intake Note: f/u for abscess [employer] Required: No Allergies shellfish derived Allergy (Verified 08/21/24 11:14) Swelling Tobacco use date assessed: 05/11/24 Dental Screening Dental Screen Date: 05/11/24 HPI f/u abscess HPI Details 48 y/o male presents to f/u abscess R le g. Abscess right leg at proximal serrano of amputation stump and at distal right lateral thigh. Had given him an additional 3 days of oxycodone, transition to tramadol if needed. [facility] Medical History Sleep apnea Hypertension Ulcerative colitis GERD (gastroesophageal reflux disease) GI bleeding Diverticulitis Surgical History Hx of amputation below knee Hx of colonoscopy Family History Mother Heart disease COPD (chronic obstructive pulmonary disease) Father Substance abuse Social History Household Members: None Housing: House Do you presently have visiting nurse or other home services: No Alcohol intake: never Comment: S3 Patient Tobacco Use Status: Never used Tobacco e-Cigarette/Vaping Use: Former Use Second Hand Smoke Exposure: No service: No Current occupational status: employed Current occupation: Currently has job held for 12 months Current occupational exposures/hazards: No Cognitive needs: No Hearing needs: Yes Vision needs: Yes Questionnaire Thrive Questionnaire Date Thrive assessed: 08/06/24 I am a: Patient What is your living situation today?: I have a steady place to live Within the past 12 months, did the food you bought not last and you didn't have the money to get more?: Never true Within the past 12 months, did you worry whether your food would run out before you got money to buy more?: Never true Do you have trouble paying for medicines?: No Do you have trouble getting transportation to medical appointments?: No Do you have trouble paying your heating and electricity bill?: No Do you have trouble taking care of your child, family member or friend?: No Do you have trouble with day-to-day activities such as bathing, preparing meals, shopping, managing finances, etc.?: No Are you currently unemployed and looking for a job?: No Are you interested in more education?: No Please select the resources that you would like help with: None Currently or been in a relationship where the following occur: No concerns reported THRIVE Score: 0 MAYRA-7 AMB Questionnaire MAYRA-7 Date MAYRA - 7 assessed: 05/11/24 Source: Developed by Drs. Enrico Rendon, Danitza Frances, Angel Gaines and colleagues, with an educational laury from [employer]. Review of Systems Const Denies chills, Denies fatigue, Denies fever(s), Denies headache(s) and Denies weakness ENT Denies dizziness and Denies headache(s) Card Denies dyspnea Resp Denies cough, Denies dyspnea, Denies wheezing and Denies other (shortness of breath) Musc Denies numbness and Denies tingling Neuro Denies dizziness, Denies headache(s), Denies numbness, Denies tingling and Denies weakness Psych Denies anxiety and Denies depression Endo Denies fatigue Aller/Immun Denies wheezing Physical exam (Primary Care) Vital Signs: Last Vital Signs Temp 97.9 F 08/21/24 11:16 Pulse 71 08/21/24 11:16 Resp 14 08/21/24 11:16 BP 106/62 08/21/24 11:16 Pulse Ox 97 08/21/24 11:16 Oxygen Delivery Method Room Air 08/21/24 11:16 Tobacco/Smoking Status: Tobacco use Status Tobacco use date assessed 05/11/24 08/21/24 11:10 Patient Tobacco Use Status Never used Tobacco 08/21/24 11:10 e-Cigarette/Vaping Use Former Use 08/21/24 11:10 Thrive Assessment: Date of Thrive Assessment Date Thrive assessed 08/06/24 08/21/24 11:10 Currently or been in a relationship where the following occur: No concerns reported Const General: well developed; No acute distress Nutritional Appearance: well nourished Orientation/consciousness: patient oriented x3 HENMT Head: Yes normocephalic and Yes atraumatic Eyes General: appearance normal, both eyes and all related structures Pupils: Equal, round and reactive pupils present EOM: EOMs intact bilaterally Resp Effort & Inspection: normal respiratory effort Neuro General: patient oriented x3 and No gait normal Cranial nerves: Yes Equal, round and reactive pupils present Psych Affect: normal affect Coding Level of Care Code Est Pt Level 3 (12291) Diagnoses Abscess of leg, right L02.415 Hypokalemia E87.6 Assessment & Plan Assessment & Plan (1) Abscess of leg, right: Code(s): L02.415 - Cutaneous abscess of right lower limb Category: Medical Plan: Slowly?improving. Continue?dressing?changes Watch?for?S/S infection.??Reviewed?with?patient. Patient?will?call?or?return?to?office?sooner?if any?evidence?of?infection.??Low?threshold?for?resum ing?antibiotic?and?would?ensure?MRSA?coverage. Will?continue?follow-up;?2 weeks (2) Hypokalemia: Code(s): E87.6 - Hypokalemia Category: Medical Plan: Recheck?potassium?level Orders: Orders Complete Blood Count Auto Diff Today L02.415 - Cutaneous abscess of right lower limb, Z00.00 - Encounter for general adult medical examination without abnormal findings Basic Metabolic Panel Today L02.415 - Cutaneous abscess of right lower limb, Z00.00 - Encounter for general adult medical examination without abnormal fin aleksey
[2024-08-21 11:16] VITALS: BP 106/62; PULSE 71; RESP 14; TEMP 36.6; O2SAT 97
== END 2024-08-21 14:51 | disposition home or self-care (01) ==
PROVIDERS: PCP Family Medicine; Visit Provider Family Medicine
DX: L02.415 Cutaneous abscess of right lower limb (principal); E87.6 Hypokalemia